=== PATIENT | female | born 1950 | race Caucasian/White ===

== ENCOUNTER → 2019-09-02 07:35 | Outpatient (CLI) | payer OTHER, SELFPAY ==
--- NOTE | ~2019-09-02 | MM_ITS ---
EXAMINATION: MM screening tonia BI w cindy HISTORY: Screening mammogram TECHNIQUE: Craniocaudal and mediolateral oblique 3-D tomosynthesis images were obtained and synthetic 2-D images were generated. CAD analysis was submitted and interpreted. COMPARISON: Comparison to multiple prior studies sequentially, with oldest reviewed study dated 04/05. BREAST PARENCHYMAL COMPOSITION: There are scattered areas of fibroglandular density. FINDINGS: There is no evidence of suspicious mass, calcification, or architectural distortion to sugg est malignancy in either breast. There has been no suspicious interval change. IMPRESSION: 1. No mammographic evidence of malignancy. 2. Recommend routine screening mammography in one year. BI-RADS Category 1: Negative Reviewed, dictated and finalized at location A. TRICIAN TELEPHONE
== END ==
PROVIDERS: Visit Provider Nurse Practitioner Family
DX: Z12.31 Encounter for screening mammogram for malignant neoplasm of breast (principal)
CPT/HCPCS: 77063; 77067

== ENCOUNTER → 2020-09-10 12:22 | Outpatient (CLI) | payer OTHER, SELFPAY ==
--- NOTE | ~2020-09-10 | MM_ITS ---
EXAMINATION: MM screening tonia BI w cindy HISTORY: Screening mammogram TECHNIQUE: Craniocaudal and mediolateral oblique 3-D tomosynthesis images were obtained and synthetic 2-D images were generated. CAD analysis was submitted and interpreted. COMPARISON: September 02, 2021, July 23, 2018, July 08, 2017 bilateral digital screening mammogra m examinations BREAST PARENCHYMAL COMPOSITION: There are scattered areas of fibroglandular density. FINDINGS: Bilateral benign appearing stable axillary tail lymph nodes. Occasional bilateral benign ca lcifications are again present. There is no evidence of suspicious mass, calcification, or architectu ral distortion to suggest malignancy in either breast. There has been no suspicious interval change. IMPRESSION: 1. No mammographic evidence of malignancy. 2. Recommend routine screening mammography in one year. BI-RADS Category 2: Benign finding(s). Reviewed, dictated and finalized at location A. RATORY EQUIPMENT INSTALLER
== END ==
PROVIDERS: PCP Family Medicine; Visit Provider Family Medicine
DX: Z12.31 Encounter for screening mammogram for malignant neoplasm of breast (principal)
CPT/HCPCS: 77063; 77067

== ENCOUNTER → 2022-01-15 14:11 | Outpatient (CLI) | payer MEDICARE, SELFPAY ==
--- NOTE | ~2022-01-15 | MM_ITS ---
EXAMINATION: MM screening tonia BI w cindy HISTORY: Screening mammogram TECHNIQUE: Craniocaudal and mediolateral oblique 3-D tomosynthesis images were obtained and synthetic 2-D images were generated. CAD analysis was submitted and interpreted. COMPARISON: 09/10/2020, 08/25/2019, 07/23/2018 BREAST PARENCHYMAL COMPOSITION: There are scattered areas of fibroglandular density. FINDINGS: Scattered benign-appearing calcifications are present. There is no suspicious mass, calcifi cation, or architectural distortion to suggest malignancy in either breast. There has been no suspici ous interval change. IMPRESSION: 1. No mammographic evidence of malignancy. 2. Recommend routine screening mammography in one year. BI-RADS Category 2: Benign finding(s). Reviewed, dictated and finalized at location A.
== END ==
PROVIDERS: PCP Family Medicine; Visit Provider Family Medicine
DX: Z12.31 Encounter for screening mammogram for malignant neoplasm of breast (principal)
CPT/HCPCS: 77063; 77067

== ENCOUNTER 2022-01-19 14:11 | Emergency (ER) | payer MEDICARE, SELFPAY ==
[2022-01-19 14:20] VITALS: BP 112/72; PULSE 82; RESP 16; TEMP 36.4; O2SAT 97
--- NOTE | 2022-01-19 14:29 | ED.GENADULT ---
HPI - General Adult General Chief complaint: Upper Respiratory Infection Stated complaint: Sore Throat History of Present Illness HPI narrative: Patient is a 71-year-old female who presents to the [facility] via POV for evaluation of a sore throat that began 2 days ago. Additionally, she reports bilateral ear pain and postnasal drip. Right ear is worse than left ear. Denies taking OTC meds for symptoms. Does not identify alleviating or aggravating factors. Denies known exposure or sick contacts. Related Data Home Medications Medication Instructions Recorded Confirmed amlodipine 5 mg tablet 1 tablet PO DAILY 01/19/22 01/19/22 escitalopram oxalate 20 mg tablet 1 tablet PO DAILY 01/19/22 01/19/22 liraglutide 0.6 mg/0.1 mL (18 mg/3 1 ea subcut DAILY 01/19/22 01/19/22 mL) subcutaneous pen injector (Victoza 2-Eduardo) losartan 100 mg tablet 1 tablet PO DAILY 01/19/22 01/19/22 meloxicam 7.5 mg tablet 2 tablet PO DAILY 01/19/22 01/19/22 metformin 500 mg tablet 1 tablet PO BID 01/19/22 01/19/22 methocarbamol 750 mg tablet 1 tablet PO TID PRN Muscle Spasm 01/19/22 01/19/22 omeprazole 20 mg capsule,delayed 1 cap PO DAILY 01/19/22 01/19/22 release pen needle, diabetic 31 gauge x 01/19/22 01/19/22 1/4 (UltiCare Pen Needle) rosuvastatin 10 mg tablet 1 tablet PO DAILY 01/19/22 01/19/22 Allergies Allergy/AdvReac Type Severity Reaction Status Date / Time No Known Allergies Allergy Unknown Verified 01/19/22 14:18 Review of Systems Review of Systems: Denies fever, chills, sweats, change in appetite, poor p.o. intake, ear drainage, hearing difficulty, sinus problems, drooling, difficulty swallowing, voice changes, cough, shortness of breath, chest pain, heart palpitations, nausea, vomiting, diarrhea. PMFSH Comments I have reviewed and agree with the patient's past medical, surgical, social, and family hx as documented by the RN. There is no relevant family history pertinent to the presenting complaint. Exam Narrative: GENERAL: Well-appearing, well-nourished, and in no acute distress. HEAD: Normocephalic, atraumatic. No sinus tenderness or facial swelling appreciated. EYES: PERRLA and EOMI. No evidence of erythema, swelling, or drainage. ENT: Bilateral external ears and ear canals normal. Bilateral TMs are normal.No TM perforation. Nares clear, no rhinorrhea or epistaxis. Bilateral turbinates without erythema/ swelling. Mucous membranes moist and pink. Uvula is midline. Moderate amount of white plaques noted to oropharynx. Airway patent. No evidence of drooling, pooling of secretions, or peritonsillar abscess appreciated. Breath odor and voice normal. NECK: Supple. No Lymphadenopathy or nuchal rigidity appreciated. CHEST: Bilateral lung mayes are clear to auscultation. No respiratory distress. No evidence of cough or pleuritic cp upon examination. HEART: Regular rate and rhythm. No murmur, gallop, or rub heard. EXTREMITIES: Normal range of motion. No edema. SKIN: Warm, dry, no rash. NEURO: No focal deficits. Alert and oriented x3. Course Course Level of Care: Express Care Visit Vital Signs Vital signs: Vital Signs Temperature 97.5 F L 01/19/22 14:20 Pulse Rate 82 01/19/22 14:20 Respiratory Rate 16 01/19/22 14:20 Blood Pressure 112/72 01/19/22 14:20 Pulse Oximetry 97 01/19/22 14:20 Oxygen Delivery Room Air 01/19/22 14:20 Temperature 97.5 F L 01/19/22 14:20 Pulse Rate 82 01/19/22 14:20 Respiratory Rate 16 01/19/22 14:20 Blood Pressure 112/72 01/19/22 14:20 Pulse Oximetry 97 01/19/22 14:20 Oxygen Delivery Room Air 01/19/22 14:20 Medical Decision Making Differential Diagnosis Differential Diagnosis: URI, tonsillitis, group A beta strep, oral candidiasis Medical Records Medical records reviewed: Yes I reviewed the external patient's medical records. Vital Signs Vital Signs: Vital Signs Temperature 97.5 F L 01/19/22 14:20 Pulse Rate 82 07/1
== END 2022-01-19 14:55 | disposition home or self-care (01) ==
PROVIDERS: Emergency Provider Nurse Practitioner Family; PCP Family Medicine
DX: B37.0 Candidal stomatitis (principal); E78.00 Pure hypercholesterolemia, unspecified; I10 Essential (primary) hypertension; K21.9 Gastro-esophageal reflux disease without esophagitis; E11.9 Type 2 diabetes mellitus without complications; F41.9 Anxiety disorder, unspecified
CPT/HCPCS: 87081; 87880; 99213; G0463

== ENCOUNTER → 2023-04-06 12:13 | Outpatient (CLI) | payer MEDICARE, SELFPAY ==
--- NOTE | ~2023-04-06 | MM_ITS ---
EXAMINATION: MM screening tonia BI w cindy HISTORY: Screening mammogram TECHNIQUE: Craniocaudal and mediolateral oblique 3-D tomosynthesis images were obtained and synthetic 2-D images were generated. CAD analysis was submitted and interpreted. COMPARISON: 01/15/2022, 09/20/2020 BREAST PARENCHYMAL COMPOSITION: There are scattered areas of fibroglandular density. FINDINGS: No suspicious mass, calcification, or architectural distortion are identified in either elda ast to suggest malignancy. There has been no suspicious interval change. IMPRESSION: 1. No mammographic evidence of malignancy. 2. Recommend routine screening mammography in one year. BI-RADS Category 1: Negative Reviewed, dictated and finalized at location A.
== END ==
PROVIDERS: PCP Family Medicine; Visit Provider Family Medicine
DX: Z12.31 Encounter for screening mammogram for malignant neoplasm of breast (principal)
CPT/HCPCS: 77063; 77067

== ENCOUNTER 2024-04-08 10:13 | Outpatient (CLI) | payer MEDICARE, SELFPAY ==
--- NOTE | ~2024-04-08 | MM_ITS ---
EXAMINATION: MM screening tonia BI w cindy HISTORY: Screening TECHNIQUE: Craniocaudal and mediolateral oblique 3-D tomosynthesis images were obtained and synthetic 2-D images were generated. CAD analysis was submitted and interpreted. COMPARISON: Comparison to multiple prior studies sequentially, with oldest reviewed study dated 09/2017. BREAST PARENCHYMAL COMPOSITION: Not dense: There are scattered areas of fibroglandular density. FINDINGS: There is no evidence of suspicious mass, calcification, or architectural distortion to sugg est malignancy in either breast. There has been no suspicious interval change. IMPRESSION: 1. No mammographic evidence of malignancy. 2. Recommend routine screening mammography in one year. BI-RADS Category 1: Negative Reviewed, dictated and finalized at location B.
== END 2024-04-08 10:14 | disposition home or self-care (01) ==
LOC: MICIMG 10:14
PROVIDERS: PCP Family Medicine; Visit Provider Family Medicine
DX: Z12.31 Encounter for screening mammogram for malignant neoplasm of breast (principal)
CPT/HCPCS: 77063; 77067

== ENCOUNTER 2024-07-03 08:41 | Emergency (ER) | payer MEDICARE, SELFPAY ==
--- NOTE | 2024-07-03 09:06 | ED.URI ---
HPI - URI/Sore Throat General Chief Complaint: Upper Respiratory Infection Stated Complaint: URI / UTI Time Seen by Provider: 07/03/24 09:07 History of Present Illness HPI Narrative: 74-year-old female with history of diabetes and hypertension presented for complaint of headache, body aches, sinus pressure/congestion, cough, fatigue, fever/chills. Onset 1-2 days. Endorses painful cough, temp up to 100. Also says she has been having more urinary accidents which she attributes to moving slowly and not getting to the bathroom fast enough. Denies dysuria, hematuria, abdominal pain, flank pain. Taking Coricidin and ibuprofen. Denies sob, wheezing, n/v/d. Related Data Home Medications ?Medication ?Instructions ?Recorded ?Confirmed ?Last Taken ?Type amlodipine 5 mg tablet 1 tablet PO DAILY 01/19/22 01/19/22 Unknown History escitalopram oxalate 20 mg tablet 1 tablet PO DAILY 01/19/22 01/19/22 Unknown History liraglutide 0.6 mg/0.1 mL (18 mg/3 1 ea subcut DAILY 01/19/22 01/19/22 Unknown History mL) subcutaneous pen injector ([employer] 2-Eduardo) losartan 100 mg tablet 1 tablet PO DAILY 01/19/22 01/19/22 Unknown History meloxicam 7.5 mg tablet 2 tablet PO DAILY 01/19/22 01/19/22 Unknown History metformin 500 mg tablet 1 tablet PO BID 01/19/22 01/19/22 Unknown History methocarbamol 750 mg tablet 1 tablet PO TID PRN Muscle Spasm 01/19/22 01/19/22 Unknown History omeprazole 20 mg capsule,delayed 1 cap PO DAILY 01/19/22 01/19/22 Unknown History release pen needle, diabetic 31 gauge x 01/19/22 01/19/22 Unknown History 1/4 (UltiCare Pen Needle) rosuvastatin 10 mg tablet 1 tablet PO DAILY 01/19/22 01/19/22 Unknown History Allergies Allergy/AdvReac Type Severity Reaction Status Date / Time No Known Allergies Allergy Unknown Verified 07/03/24 08:58 Review of Systems Review of Systems: per HPI [facility] Past Medical History Medical History HTN (hypertension) Diabetes Exam Narrative: GENERAL: mildly Ill-appearing, no acute distress. EYES: conjunctivae clear ENT: Mucous membranes moist. TM pearly perez with normal light reflex bilaterally; no tragal tenderness. Oropharynx erythematous without lesions. Hoarse voice. No drooling, no trismus, uvula midline. No tripod positioning, hot potato voice, or soft palate swelling. NECK: Supple. No lymphadenopathy CHEST: Clear to auscultation, breath sounds equal. No respiratory distress, speaks in full sentences. HEART: Regular rate and rhythm. No murmur heard. SKIN: Warm, dry, no rash. NEURO: Alert and oriented x3. Course Course Emergency Course: Patient is aware of diagnosis, understands and agrees to treatment plan. Anticipatory guidance given. Patient agrees to follow-up as directed and is aware of reasons to seek care at the emergency department. Portions of this record may have been created with voice recognition software Level of Care: Express Care Visit Vital Signs Vital signs: Vital Signs Temperature 98.8 F 07/03/24 09:08 Pulse Rate 96 07/03/24 09:08 Respiratory Rate 16 07/03/24 09:08 Blood Pressure 148/73 H 07/03/24 09:08 Pulse Oximetry 95 07/03/24 09:08 Temperature 98.8 F 07/03/24 09:08 Pulse Rate 96 07/03/24 09:08 Respiratory Rate 16 07/03/24 09:08 Blood Pressure 148/73 H 07/03/24 09:08 Pulse Oximetry 95 07/03/24 09:08 MDM - URI/Sore Throat MDM Narrative Medical decision making narrative: POS flu., result reviewed with pt. Declined tamiflu. Will culture urine, sx likely due to slow to get to bathroom. Advise supportive treatments. Patient is appropriate for outpatient treatment and follow-up. Differential Diagnosis Differential diagnosis: Likely upper respiratory infection, viral infection and pharyngitis Lab Data Labs: Lab Results 07/03/24 07/03/24 07/03/24 Range/Units 09:10 09:14 09:20 POC Urine Color Yellow POC Urine Clarity Clear POC Urine pH 7.5 POC Ur Specif Sublimity 1.020 POC Urine Protein 2+ (Negative) POC Ur Glucose (UA) Negative (Negative) POC Urine Ketones Negative (Negative) POC Urine Blood Negative (Negative) POC Urine Nitrite Negative (Negative) POC Urine Bilirubin Negative (Negative) POC Urine Urobilinogen 0.2 POC U Leukocyte Esteras Negative (Negative) POC Influenza A Ag Positive (Negative) POC Influenza B Ag Negative (Negative) POC SARS CoV-2 Ag Negative (Negative) Discharge Plan Discharge Clinical Impression: Influenza Patient Disposition: Home, Self-Care Condition: Stable Instructions: Influenza (ED) Additional Instructions: Influenza positive You should avoid crowds until you are fever free for 24 hours without the use of fever reducing medications, or the symptoms are improved Rest. Drink plenty of fluids. Tylenol 1000mg every 8 hours as needed for pain/fever Flonase spray and Zyrtec (or Claritin/Kisha) for sinus pressure/congestion over the counter Cough syrup may cause drowsiness; avoid driving or take it at night time. Your urine will be sent of for a culture to determine if bacteria is causing your symptoms. If the culture shows a UTI, you will be notified and an antibiotic will be called in for you. Follow up with your primary care provider as needed in 3 days Go to the ER for worsening symptoms or concerns Patient Language: Maori Prescriptions: No Action metformin 500 mg tablet 1 tablet PO BID amlodipine 5 mg tablet 1 tablet PO DAILY meloxicam 7.5 mg tablet 2 tablet PO DAILY methocarbamol 750 mg tablet 1 tablet PO TID PRN (Reason: Muscle Spasm) omeprazole 20 mg capsule,delayed release(DR/EC) 1 cap PO DAILY losartan 100 mg tablet 1 tablet PO DAILY (DME) pen needle, diabetic [UltiCare Pen Needle] 31 gauge x 1/4 needle MISCELLANEOUS escitalopram oxalate 20 mg tablet 1 tablet PO DAILY rosuvastatin 10 mg tablet 1 tablet PO DAILY Victoza 2-Eduardo 0.6 mg/0.1 mL (18 mg/3 mL) pen injector 1 ea SUBCUT DAILY clotrimazole 10 mg kylee 10 mg mucous membrane DIRECTED 14 Days Qty: 14 0RF Rx Instructions: 5 times daily Follow-up/Referrals: UNKNOWN,DOCTOR [Primary Care Provider] - Time of Disposition: 09:19
[2024-07-03 09:08] VITALS: BP 148/73; PULSE 96; RESP 16; TEMP 37.1; O2SAT 95
[2024-07-03 09:11] LABS: EDINFLUASCREEN Positive (Negative); EDINFLUBSCREEN Negative (Negative)
[2024-07-03 09:17] LABS: EDUAAPPEAR Clear; EDUABILI Negative (Negative); EDUABLOOD Negative (Negative); EDUACOLOR1 Yellow; EDUAGLUCOSE Negative (Negative); EDUAKETONE Negative (Negative); EDUALEUKO Negative (Negative); EDUANITRATE Negative (Negative); EDUAPH 7.5; EDUAPROTEIN 2+ (Negative); EDUAUROBILI 0.2
[2024-07-03 09:22] LABS: EDCOVIDSCREEN Negative (Negative)
--- OUTSIDE RECORDS SUMMARY | 2024-07-10 04:41 | XMS_ITS | Encounter Summary ---
Author Organization [facility] Address [address] [place] [address]. [place], [place] [address] [place] [address] Care Team Providers Care Surgical Garment Assembly Supervisor Name Role Phone Unavailable Primary Care Provider Unavailabl e Encounter Details Date Type Department Care Team (Late st Contact Info) Description 06/09/2021 Patient Self-Triage [facility] DEPARTMENT [address] [place] [id number] [facility] Provider Social History Tobacco Use Types Packs/Day Years Used Date Smoking Tobacco: Never Assessed Comments Unknown Sex and Gender Information Value Date Recorded Sex Assigned at Not on file Legal Sex Female 12: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
--- OUTSIDE RECORDS SUMMARY | 2024-07-10 04:41 | XMS_ITS | Encounter Summary ---
Author Organization [facility] Address [address] [place] [address]. 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 No / Unsure 06/22/2021 9:35 AM PAINTING AND COATING WORKER documented as of this encounter Plan of Treatment Not on file documented as of this encounter Visit Diagnoses Not on filedocumented in this encounter
--- OUTSIDE RECORDS SUMMARY | 2024-07-10 04:41 | XMS_ITS | Encounter Summary ---
Author Organization [facility] Address [address] [place] [address]. [place], [place] [address] [place] [address] Care Team Providers Care Jazz Musician Name Role Phone Unavailable Primary Care Provider Unavailabl e Encounter Details Date Type Department Care Team (Latest Contact Info) Description 08/27/2020 Travel Social History Tobacco Use Types Packs/Day Years Used Date Smoking Tobacco: Never Assessed Comments Unknown Sex and Gender Information Value Date Recorded Sex Assigned at Not on file Legal Sex Female 12:46 PM DISPOSAL WORKER Gender Identity Not on file Sexual Orientation Not on file COVID-19 Exposure Response Date Recorded In the last month, have you been in contact with someone who was confirmed or suspected to have Coronavirus / COVID-19? No / Unsure 08/27/2020 9:26 AM DISPOSAL WORKER documented as of this encounter Plan of Treatment Not on file documented as of this encounter Visit Diagnoses Not on filedocumented in this encounter
--- OUTSIDE RECORDS SUMMARY | 2024-07-10 04:41 | XMS_ITS | Encounter Summary ---
Author Organization [facility] Address [address] [place] [address]. [place], [place] [address] [place] [address] Care Team Providers Care Field Ironworker Name Role Phone Unavailable Primary Care Provider Unavailabl e Encounter Details Date Type Department Care Team (Latest Contact Info) Description 09/17/2020 Travel Social History Tobacco Use Types Packs/Day Years Used Date Smoking Tobacco: Never Assessed Comments Unknown Sex and Gender Information Value Date Recorded Sex Assigned at Not on file Legal Sex Female 12:46 PM VINYL FLOORING INSTALLER Gender Identity Not on file Sexual Orientation Not on file COVID-19 Exposure Response Date Recorded In the last month, have you been in contact with someone who was confirmed or suspected to have Coronavirus / COVID-19? No / Unsure 09/17/2020 10:42 AM CDT documented as of this encounter Plan of Treatment Not on file documented as of this encounter Visit Diagnoses Not on filedocumented in this encounter
--- OUTSIDE RECORDS SUMMARY | 2024-07-10 04:41 | XMS_ITS | Clinical Summary ---
Author Organization [facility] Address [address] [place] [address]. 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 Gender Identity Not on file Sexual Orientation Not on file Plan of Treatment Health Maintenance Due Date Last Done Comments Colorectal Cancer Screening Colonoscopy (10 Years) 1952 Hepatitis C 02/25/1970 Mammogram Screening 1992 DTaP, Tdap and Td Vaccines ( 1 - Tdap) 06/06/2010 06/05/2010 Annual Medicare Wellness Visit 02/25/2017 Dexa Scan (General) 02/25/2017 Pneumococcal Vaccine: 65+ Years (2 of 2 - PPSV23 or PCV20) 04/22/2018 04/22/2017 COVID-19 Vaccine (4 - 2023-2 5 season) 2024 06/25/2021, 09/17/2020, 08/27/2020 Influenza Adult (#1) 2024 04/10/2020 RSV Immunization or 60+ Years (1 - 1-dose 75+ series) 02/25/2027 Zoster Vaccines Completed 01/18/2019, 10/28/2018, 08/20/2012 Meningococcal Vaccine Aged Out No lukasz janeth eligible based on patient's age to complete this topic RSV Immunizations Under 20 Months Aged Out No longer eligible b ased on patient's age to complete this topic Insurance [facility]
--- OUTSIDE RECORDS SUMMARY | 2024-07-10 04:41 | XMS_ITS | Encounter Summary ---
Author Organization [facility] Address [address] [place] [address]. [place] [address] [place] [address] Care Team Providers Care Lead Designer Name Role Phone Unavailable Primary Care Provider Unavailabl e Encounter Details Date Type Department Care Team (Latest Contact Info) Description 08/27/2020 9:28 AM PERFORMANCE MANAGEMENT CONSULTANT - 08/27/2020 11:59 PM PERFORMANCE MANAGEMENT CONSULTANT Hospital Encounter [facility] [place] [address] Binh Wynne MD Discharge Disposition: Home or Self Care (Routine Discharge) Social History Tobacco Use Types Packs/Day Years Used Date Smoking Tobacco: Never Assessed Comments Unknown Sex and Gender Information Value Date Recorded Sex Assigned at Not on file Legal Sex Female 12:46 PM PERFORMANCE MANAGEMENT CONSULTANT Gender Identity Not on file Sexual Orientation Not on file COVID-19 Exposure Response Date Recorded In the last month, have you been in contact with someone who was confirmed or suspected to have Coronavirus / COVID-19? No / Unsure 08/27/2020 9:26 AM PERFORMANCE MANAGEMENT CONSULTANT documented as of this encounter Plan of Treatment Not on file documented as of this encounter Visit Diagnoses Diagnosis Need for prophylactic vaccination against viral disease- Primary Need for prophylactic vaccination and inoculation against other viral diseases documented in this encounter
--- OUTSIDE RECORDS SUMMARY | 2024-07-10 04:41 | XMS_ITS | Encounter Summary ---
Author Organization [facility] Address [address] [place] [address]. [place] [address] [place] [address] Care Team Providers Care Head Of Acquisitions Name Role Phone Unavailable Primary Care Provider Unavailabl e Encounter Details Date Type Department Care Team (Latest Contact Info) Description 09/17/2020 10:43 AM CDT - 09/17/2020 11:59 PM CDT Hospital Encounter [facility] [place] [address] Binh Wynne MD Discharge Disposition: Home or Self Care (Routine Discharge) Social History Tobacco Use Types Packs/Day Years Used Date Smoking Tobacco: Never Assessed Comments Unknown Sex and Gender Information Value Date Recorded Sex Assigned at Not on file Legal Sex Female 12:46 PM ODD SHOE EXAMINER Gender Identity Not on file Sexual Orientation [...]
--- OUTSIDE RECORDS SUMMARY | 2024-07-10 04:41 | XMS_ITS | Encounter Summary ---
Author Organization [facility] Address [address] [place] [address]. 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
--- OUTSIDE RECORDS SUMMARY | 2024-07-10 04:42 | XMS_ITS | Encounter Summary ---
Author Organization [facility] Healthcare Address [address] [place] [address] Care Team Providers Care Electricity Trader Name Role Phone Aurelia Huitron MD Primary Care Provi jarred Encounter Details Date Type Department Care Team (Late st Contact Info) Description 06/24/2023 Orders Only [facility] Medical Group Family Medicine [address] [phone] Aurelia Huitron MD [address] [address] Type 2 diabetes mellitus with other specified complication, without long-term current use of insulin (HCC) (Primary Dx) Social History Tobacco Use Types Packs/Day Years Used Date Smoking Tobacco: Never Smokeless Tobacco: Never Alcohol Use Standard Drinks/Week Comments Never 0 (1 standard drink = 0.6 oz pur e alcohol) AUDIT-C Answer Date Recorded Q1: How often do you have a drink containing alc ohol? 2-3 times a week 08/18/2022 Q2: How many drinks containi ng alcohol do you have on a typical day when you are drinking? 1 or 2 08/18/2022 Q3: How often do you have si x or more drinks on one occasion? 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 Gender Identity Not on file Sexual Orientation Not on file documented as of this encounter Ordered Prescriptions Prescription Sig Dispense Quantity Refills Last Filled Start Date End Date dulaglutide (TRULICITY) 0.75 mg/0.5 mL pen injectorIndication s:Type 2 diabetes mellitus with other specified complication, without long-term current use of insulin (HCC) Inject 0.5 mL (0.75 mg total) under the skin once a week 4 mL 2 06/24/2023 09/09/2023 documented in this encounter Plan of Treatment Not on file documented as of this encounter Procedures Procedure Name Priority Date/Time Associated Diagnosis Comments ALBUMIN CREATININE RATIO, URINE Routine 02/19/2024 11:03 AM CDT Type 2 diabetes mellitus with other specified complication, without long-term current use of insulin (HCC) HEMOGLOBIN A1C Routine 02/19/2024 11:03 AM CDT Type 2 diabetes mellitus with other specified complication, without long-term current use of insulin (HCC) COMPREHENSIVE METABOLIC PANEL Routine 02/19/2024 11:03 AM CDT Type 2 diabetes mellitus with other specified complication, without long-term current use of insulin (HCC) documented in this encounter Results * Albumin Creatinine Ratio, Urine (02/19/2024 11:03 AM CDT) Creatinine, ur 71 20 - 275 mg/dL [facility] Microalbumin, ur 0.4 See Note: mg/dL [facility] Comment: Reference Range: Reference Range Not established Microalbumin/creat ratio 6 <30 mg/g creat [facility] Comment: The ADA defines abnormalities in albumin excretion as follows: Albuminuria Category ?Result (mg/g creatinine) Normal to Mildly increased ?? <30 Moderately increased ? 30-299 Severely increased ? > OR = 300 The ADA recommends that at least two of three specimens collected within a 3-6 month period be abnormal before considering a patient to be within a diagnostic category. Urine 02/19/2024 11:0 3 AM CDT 02/19/2024 11:04 AM CDT us Aurelia Huitron MD LAB URINE ORDERABLE S Final Result [facility] [address] [place] [phone] * (ABNORMAL) Comprehensive metabolic panel (02/19/2024 11:03 AM CDT) Glucose 95 65 - 99 mg/dL [facility] Comment: ? Fasting reference interval BUN 9 7 - 25 mg/dL [facility] Creatinine 0.61 0.60 - 1.00 mg/dL [facility] eGFR 96 > OR = 60 mL/min/1.7 3m2 [facility] BUN/creat ratio SEE NOTE: 6 - 22 (calc) [facility] Comment: ?? Not Reported: BUN and Creatinine are within ?? reference range. ? Sodium 134(L) 135 - 146 mmol/L [facility] Potassium, pl 4.2 3.5 - 5.3 mmol/L [facility] Chloride 96(L) 98 - 110 mmol/L [facility] CO2 29 20 - 32 mmol/L [facility] Calcium 9.5 8.6 - 10.4 mg/dL [facility] Protein, sr 7.3 6.1 - 8.1 g/dL [facility] Albumin 4.4 3.6 - 5.1 g/dL [facility] GLOBULIN 2.9 1.9 - 3.7 g/dL (calc) [facility] Alb/glob ratio 1.5 1.0 - 2.5 (calc) [facility] Bilirubin, total 0.4 0.2 - 1.2 mg/dL [facility] Alk phos 52 37 - 153 U/L [facility] AST 15 10 - 35 U/L [facility] ALT (SGPT) 17 6 - 29 U/L [facility] Blood 02/19/2024 11:0 3 AM CDT 02/19/2024 11:04 AM CDT us Aurelia Huitron MD LAB BLOOD ORDERABLE S Final Result [facility] [address] [facility] [place] [address] * (ABNORMAL) Hemoglobin A1c (02/19/2024 11:03 AM CDT) Hgb A1C 6.6(H) <5.7 % of total Hgb [facility] Comment: For someone without known diabetes, a hemoglobin A1c value of 6.5% or greater indicates that they may have diabetes and this should be confirmed with a follow-up test. For someone with known diabetes, a value <7% indicates that their diabetes is well controlled and a value greater than or equal to 7% indicates suboptimal control. A1c targets should be individualized based on duration of diabetes, age, comorbid conditions, and other considerations. Currently, no consensus exists regarding use of hemoglobin A1c for diagnosis of diabetes for children. ? This test was performed on the Eulalio diego c503 platform. Effective 09/21/23, a change in test platforms from the [employer] to the Eulalio diego c503 may have shifted HbA1c results compared to historical results. Based on laboratory validation testing conducted at [facility], the Eulalio platform relative to the Avendaño platform had an average increase in HbA1c value of < or = 0.3%. This difference is within accepted variability established by the National Glycohemoglobin Standardization Program. Note that not all individuals will have had a shift in their results and direct comparisons between historical and current results for testing conducted on different platforms is not recommended. Blood 02/19/2024 11:0 3 AM CDT 02/19/2024 11:04 AM CDT Aurelia Huitron MD LAB BLOOD ORDERABLE S Final [facility] [address] [place] [address] documented in this encounter Visit Diagnoses Diagnosis Type 2 diabetes mellitus with other specified complication, without long-term current use of insulin (HCC)- Primary documented in this encounter Discontinued Medications Medication Sig Discontinue Reason Start Date End Da te liraglutide (Victoza 2-Eduardo) 0.6 mg/0.1 mL (18 mg/3 mL) injection INJECT 1.2 MG UNDER THE SKIN ONCE DAILY Alternate therapy 04/27/2023 06/24/2023 documented as of this encounter Care Teams Electricity Trader Relationship Specialty Start Date End Date Aurelia Huitrno MD [address] [place] [address] PCP - General Family Medicine 05/23/20 documented as of this encounter
--- OUTSIDE RECORDS SUMMARY | 2024-07-10 04:42 | XMS_ITS | Encounter Summary ---
Author Organization [facility] Healthcare Address [address] [place] [address] Care Team Providers Care Ticket Scheduler Name Role Phone Aurelia Huitron MD Primary Care Provi jarred Reason for Visit * Reason Comments Chart Review [facility] SUPD Encounter Details Date Type Department Care Team (Late st Contact Info) Description 11/18/2023 ACO Quality [facility] Accountable Care Organization [address] [place] [id number] Aurelia Perez Social History Tobacco Use Types Packs/Day Years [...] points, staff should administer the PHQ-9) 0 08/26/2023 Personal Safety Answer Date Recorded Getting School Help Needed Not on file 06/23 Comments No Sex and Gender Information Value Date Recorded Sex Assigned at Not on file 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 documented in this encounter Plan of Treatment Not on file documented as of this encounter Visit Diagnoses Not on filedocumented in this encounter Care Teams Ticket Scheduler Relationship Specialty Start Date End Date Aurelia Huitron MD [address] [place], [place] [id number] PCP - General Family Medicine 05/23/20 documented as of this encounter
--- OUTSIDE RECORDS SUMMARY | 2024-07-10 04:42 | XMS_ITS | Encounter Summary ---
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 Patient is calling stating she goes out of town for the summer and she wanted to know if it is possible for her to machine pecan picker a month supply paper script soshe can have it on hand If needed, Pharmacy(s) medication(s) should be sent to: paper script Additional Comments: N/A Does message need to be routed? Yes-Action Needed documented in this encounter Plan of Treatment Not on file documented as of this encounter Visit Diagnoses Not on filedocumented in this encounter Care Teams Sox Analyst Relationship Specialty Start Date End Date Aurelia Huitron MD [facility] [address] [place] [address] PCP - General Family Medicine 05/23/20 documented as of this encounter
--- OUTSIDE RECORDS SUMMARY | 2024-07-10 04:42 | XMS_ITS | Encounter Summary ---
Author Organization [facility] Healthcare Address [address] [place] [address] Care Team Providers Care Parts Room Clerk Name Role Phone Aurelia Huitron MD Primary Care Provi jarred Encounter Details Date Type Department Care Team (Late st Contact Info) Description 04/06/2023 E-Visit [facility] Medical Group Virtual Care [address] [place] [address] Rachel Diop NP [address] [place] [address] Your Medications Social History Tobacco Use Types Packs/Day Years [...] staff should administer the PHQ-9) 0 08/18/2022 Comments No Sex and Gender Information Value Date Recorded Sex Assigned at Not on file 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 Valeria Bean Alex 04/06/2023 E-Visit Submission Subjective/Objective: Valeria Bean Alex contacted the office today via e-visit for Sinusitis. The patient-submitted questionnaire was assessed for pertinent information and the patient's problem list, medication list, and allergies were reviewed as part of the e-visit. The chart was updated to identify any changes in these areas. Assessment: Diagnosis Plan 1. Acute non-recurrent sinusitis, unspecified location Plan: The patient was given information regarding any new medication(s) prescribed, if applicable, as well as any [id number] remedies. She was given instructions regarding follow up and timeframe if symptoms worsen or don???t improve. These instructions were included in the [employer] message reply tothe patient. Patient Instructions were included in the message reply to patient. My total encounter time on 04/06/2023 was 5 minutes which was spent in the activities documented inthe note. New Medications Ordered This Visit methylPREDNISolone (MEDROL DOSEPACK) 4 mg Dosepack Sig: Take as directed on package Dispense: 1 packet Refill: 0 amoxicillin-clavulanate (Augmentin) 875-125 mg per tablet Sig: Take 1 tablet by mouth 2 (two) times a day for 7 days Dispense: 14 tablet Refill: 0 Rachel Diop NP documented in this encounter Plan of Treatment Not on file documented as of this encounter Visit Diagnoses Diagnosis Acute non-recurrent sinusitis, unspecified location- Primary documented in this encounter Care Teams Parts Room Clerk Relationship Specialty Start Date End Date Aurelia Huitron MD [address] [place] [address] PCP - General Family Medicine 05/23/20 documented as of this encounter
--- OUTSIDE RECORDS SUMMARY | 2024-07-10 04:42 | XMS_ITS | Encounter Summary ---
Author Organization [facility] Medical Group Address [address] [place] [address] Care Team Providers Care Range Aid Name Role Phone Aurelia Huitron MD Primary Care Provi jarred Reason for Visit * Reason Comments Urinary Frequency Encounter Details Date Type Department Care Team (Latest Contact Info) Description 05/23/2022 10:00 AM TYPESETTING MACHINE TENDER Clinical Support [facility] Medical [facility] Family Medicine [address] [phone] Urinary frequency (Primary Dx) Social History Tobacco Use Types Packs/Day Years Used Date Smoking Tobacco: Never Smokeless Tobacco: Never Alcohol Use Standard Drinks/Week Comments Never 0 (1 standard drink = 0.6 oz pur e alcohol) AUDIT-C Answer Date Recorded Q1: How often do you have a drink containing alc ohol? 2-3 times a week 05/06/2022 Q2: How many drinks containi ng alcohol do you have on a typical day when you are drinking? 3 or 4 05/06/2022 Q3: How often do you have si x or more drinks on one occasion? 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 MACHINE TENDER Gender Identity Not on file Sexual Orientation Not on file documented as of this encounter Plan of Treatment Not on file documented as of this encounter Procedures Procedure Name Priority Date/Time Associated Diagnosis Comments URINALYSIS AND REFLEX TO MICROSCOPIC AND CULTURE Routine 05/23/2022 4:13 PM TYPESETTING MACHINE TENDER Urinary frequency URINE CULTURE Routine 05/23/2022 4:13 PM TYPESETTING MACHINE TENDER POCT URINALYSIS DIPSTICK Routine 05/23/2022 10:00 AM TYPESETTING MACHINE TENDER Urinary frequency documented in this encounter Results * Urine culture (05/23/2022 4:13 PM TYPESETTING MACHINE TENDER) [facility]rine culture [facility] Comment: ??CULTURE, URINE, ROUTINE ?Micro Number: ?[id number] ??Test Status: ? Final ??Specimen Source: ?? Urine ??Specimen Quality: ??Adequate ??Result: ?Mixed genital chay isolated. These superficial ? bacteria are not indicative of a urinary tract ? infection. No further organism identification is ? warranted on this specimen. If clinically ? indicated, recollect clean-catch, mid-stream ? urine and transfer immediately to Urine Culture ? Transport Tube. ? We received a preserved urine culture transport ? tube with either no order indicated or a source ? which is inappropriate for the test requested. A ? urine culture was performed. If this is not what ? you intended to order, please contact your local ? client business manager immediately so that ? we can adjust our billing appropriately. You may ? also inquire about alternative or additional ? testing. 05/23/2022 4:13 PM TYPESETTING MACHINE TENDER 05/24/2022 5:46 AM TYPESETTING MACHINE TENDER Aurelia Huitron MD LAB MICROBIOLOGY - GENERAL ORDERABLES Final Result Performing Organization Address [facility] de Phone Number [facility] [address] [place] [address] * Urinalysis reflex to microscopic and culture Urine (05/23/2022 4:13 PM TYPESETTING MACHINE TENDER) Color, ur [facility] Comment: TEST NOT PERFORMED No suitable specimen received. Please review the test requirements at [email or web address] 05/23/2022 4:13 PM TYPESETTING MACHINE TENDER 05/24/2022 5:46 AM TYPESETTING MACHINE TENDER Aurelia Huitron MD LAB MICROBIOLOGY - GENERAL ORDERABLES Final Result Performing Organization Address [facility] de Phone Number [facility] [address] [place] [address] * POCT urinalysis dipstick (05/23/2022 10:00 AM TYPESETTING MACHINE TENDER) Color, Urine, POC Yellow Clarity, ur, POC Clear Clear Glucose, ur, POC Negative Negative MG/DL Bilirubin, ur, POC Negative Negative, Small, Moderate, Large Ketones, ur, POC Negative Negative Specific [place], POC 1.020 1.005 - 1.030 Blood, ur, POC Negative Negative pH, ur, POC 6.0 5.0 - 8.0 Protein, ur, POC Negative Negative Urobilinogen, urine, POC 0.2 0.2 - 1.0 mg/dL Nitrite, ur, POC Negative Negative Leukocytes, ur, POC Negative Negative Lot Number [id number] Urine 05/23/2022 10:0 0 AM TYPESETTING MACHINE TENDER us Aurelia Huitron MD POINT OF CARE TEST ORDERABLES Final Result documented in this encounter Visit Diagnoses Diagnosis Urinary frequency- Primary documented in this encounter Care Teams Range Aid Relationship Specialty Start Date End Date Aurelia Huitron MD [address] [place] [address] PCP - General Family Medicine 05/23/20 documented as of this encounter
--- OUTSIDE RECORDS SUMMARY | 2024-07-10 04:42 | XMS_ITS | Encounter Summary ---
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
--- OUTSIDE RECORDS SUMMARY | 2024-07-10 04:42 | XMS_ITS | Referral Summary ---
Author Organization [address] Address [address] [place] [id number] Care Team Providers Care Cnc Mill Operator Name Role Phone Aruelia Huitron MD Primary Care Provi jarred Allergies No known active allergies Medications methocarbamoL (ROBAXIN) 750 mg tablet TAKE 1 TABLET BY MOUTH 3 TIMES A DAY NEEDED FOR MUSCLE SPASMS. 30 tablet 1 2 Active meloxicam (MOBIC) 7.5 mg tabletIndicati ons:Acute pain of left knee Take 1-2 tablets (7.5-15 mg total) by mouth daily with food. 90 tablet 2 Active meclizine (ANTIVERT) 12.5 mg tabletIndicati ons:Benign paroxysmal positional vertigo of right ear Take 1 tablet (12.5 mg total) by mouth 3 (three) times a day as needed for dizziness 30 tablet 1 2 Active fluticasone propionate (FLONASE) 50 mcg/actuation nasal sprayIndicatio ns:Seasonal allergic rhinitis due to pollen Administer 2 sprays into each nostril daily 3 each 4 4 Active diclofenac sodium (VOLTAREN) 1 % gelIndications :Right wrist pain Apply 2 g topically 4 (four) times a day as needed (right wrist pain) 100 g 4 Active escitalopram (LEXAPRO) 20 mg tablet TAKE 1 TABLET BY MOUTH EVERY DAY 90 tablet 2 4 Active dulaglutide (Trulicity) 0.75 mg/0.5 mL pen injectorIndica tions:Type 2 diabetes mellitus with other specified complication, without long-term current use of insulin (HCC) INJECT 0.5 ML SUBCUTANEOUSLY ONE TIME PER WEEK 6 mL 1 4 Active aspirin 81 mg enteric coated tablet Take 1 tablet (81 mg total) by mouth daily 4 025 Active losartan (COZAAR) 100 mg tablet TAKE 1 TABLET BY MOUTH EVERY DAY 90 tablet 1 4 Active loratadine (CLARITIN) 10 mg tabletIndicati ons:Postnasal drip TAKE 1 TABLET BY MOUTH EVERY DAY 100 tablet 1 4 Active metFORMIN (GLUCOPHAGE) 500 mg tablet TAKE 1 TABLET BY MOUTH TWICE A DAY WITH FOOD 180 tablet 4 Active amLODIPine (NORVASC) 5 mg tablet TAKE 1 TABLET BY MOUTH TWICE A DAY 200 tablet 4 Active clobetasoL (TEMOVATE) 0.05 % external solutionIndica tions:Dermatit is APPLY TO AFFECTED AREA TWICE A DAY 50 mL 1 4 Active rosuvastatin (CRESTOR) 10 mg tablet TAKE 1 TABLET BY MOUTH EVERY DAY 100 tablet 4 Active Active Problems Problem Noted Date Diagnosed Date Ear drum perforation, right 10/12/2023 Overview (10/12/2023): acute, new vs prior will refer to ENT update me after the visit Alcohol use 09/20/2021 Assessment & Plan (08/26/2023 10:12 AM NURSE INFORMATICS EDUCATOR): Chronic, stable Encouraged cutting down Assessment & Plan (08/18/2022 10:43 AM NURSE INFORMATICS EDUCATOR): Chronic, but encouraged cutting down Assessment & Plan (09/20/2021 8:53 AM CDT): She has 1-2 drinks 3-4 times a week- mostly a mixed drink with vodka Encouraged cutting down amount Encounter for Medicare annual wellness exam 07/06 Overview (08/26/2023): Encouraged healthy diet and activity Pt has POA and living will Health Maintenance: Last mammogram: 01/15/22, 12/26- WNL Last DEXA:-12/25- WNL- ordered Last colon cancer screening: cologuard 07/2021- Neg Last pneumonia/Prevnar: up to date Last Shingrix: up to date Last Flu: encouraged Last COVID: encouraged Assessment & Plan (08/26/2023 10:11 AM NURSE INFORMATICS EDUCATOR): Encouraged healthy diet and activity Pt has POA and living will Health Maintenance: Last mammogram: 01/15/22, 12/26- WNL Last DEXA:-12/25- WNL- ordered Last colon cancer screening: cologuard 07/2021- Neg Last pneumonia/Prevnar: up to date Last Shingrix: up to date Last Flu: encouraged Last COVID: encouraged Assessment & Plan (08/18/2022 10:41 AM NURSE INFORMATICS EDUCATOR): Encouraged healthy diet and activity Encouraged looking into a POA/Living will Health Maintenance: Last mammogram: 01/15/22 Last DEXA:-12/25- WNL Last colon cancer screening: cologuard 07/2021- Neg Last pneumonia/Prevnar: up to date Last Shingrix: up to date Last Flu: up to date Last COVID: up to date Assessment & Plan (07/17/2021 12:51 PM NURSE INFORMATICS EDUCATOR): Encouraged healthy diet and activity Health Maintenance: Last mammogram: 09/2020- WNL Last DEXA:-ordered Last colonoscopy/cologuard: cologuard ordered, encouraged to check with insurance regarding getting it done Last pneumonia/Prevnar: up to date Last Shingrix: up to date Last Flu: up to date Last COVID: up to date Class 1 obesity due to exces s calories with serious comorbidity and body mass index (BMI) of 31.0 to 31.9 in adult 12/18/2020 Assessment & Plan (02/18/2024 4:00 PM CDT): Chronic, stable BMI Follow-up includes: nutrition counseling. Assessment & Plan (08/26/2023 10:15 AM NURSE INFORMATICS EDUCATOR): Chronic, improved BMI Follow-up includes: nutrition counseling. Assessment & Plan (08/18/2022 10:46 AM NURSE INFORMATICS EDUCATOR): BMI Follow-up includes: nutrition counseling. Assessment & Plan (08/15/2021 10:53 AM NURSE INFORMATICS EDUCATOR): Stable BMI Follow-up includes: nutrition counseling. Assessment & Plan (07/17/2021 12:50 PM NURSE INFORMATICS EDUCATOR): BMI Follow-up includes: nutrition counseling. Assessment & Plan (12/18/2020 8:54 AM CDT): BMI Follow-up includes: nutrition counseling. Allergic rhinitis 07/23/2020 Assessment & Plan (08/26/2023 10:13 AM NURSE INFORMATICS EDUCATOR): Chronic, persistent Encouraged starting flonase daily Assessment & Plan (08/18/2022 10:44 AM NURSE INFORMATICS EDUCATOR): Chronic, persistent Encouraged flonase daily Assessment & Plan (07/17/2021 12:49 PM NURSE INFORMATICS EDUCATOR): Stable Continue to monitor symptoms Anxiety 07/23/2020 Assessment & Plan (08/26/2023 10:13 AM NURSE INFORMATICS EDUCATOR): Chronic, stable Continue lexapro Assessment & Plan (08/18/2022 10:45 AM NURSE INFORMATICS EDUCATOR): Chronic, persistent Continue lexapro Consider seeing a therapist Continue healthy changes for mood Call if it worsens Assessment & Plan (07/17/2021 12:49 PM NURSE INFORMATICS EDUCATOR): Worsening Will increase her Lexapro to 10 mg, 2 tabs daily She will update me in the next 1-2 weeks with how she is doing Update me with any changes or concerns Assessment & Plan (07/23/2020 9:41 AM NURSE INFORMATICS EDUCATOR): Stable Continue current regimen Continue to work on healthy changes to improve mood Carpal tunnel syndrome 07/23/2020 Assessment & Plan (08/26/2023 10:14 AM NURSE INFORMATICS EDUCATOR): Chronic, improved Continue to monitor Assessment & Plan (08/18/2022 10:45 AM NURSE INFORMATICS EDUCATOR): Chronic, improved Continue to monitor Assessment & Plan (07/17/2021 12:50 PM NURSE INFORMATICS EDUCATOR): Resolved Essential hypertension 07/23/2020 Assessment & Plan (08/26/2023 10:15 AM NURSE INFORMATICS EDUCATOR): Chronic, stable Continue losartan, norvasc Continue healthy changes Assessment & Plan (08/18/2022 11:02 AM NURSE INFORMATICS EDUCATOR): Chronic, elevated She is under current stressors Will check at home, and let me know Assessment & Plan (05/06/2022 4:58 PM CDT): Blood pressure elevated today Will recheck at her follow-up visit, normally runs well Update me if her symptoms change or worsen Call for questions Assessment & Plan (09/24/2021 12:51 PM CDT): Well controlled Continue current regimen Assessment & Plan (07/17/2021 12:52 PM NURSE INFORMATICS EDUCATOR): Blood pressure goal Continue current regimen Assessment & Plan (12/18/2020 8:53 AM CDT): Blood pressure well controlled Continue current regimen Assessment & Plan (07/23/2020 12:55 PM NURSE INFORMATICS EDUCATOR): Will increase her Norvasc Continue losartan Continue to work on healthy changes Update me with any changes Call for questions or concerns Gastroesophageal reflux disease 07/23/2020 Assessment & Plan (08/26/2023 10:16 AM NURSE INFORMATICS EDUCATOR): Chronic, stable We reviewed the risks/benefits, side effects She is going to take her medication every other day as her symptoms are well controlled Assessment & Plan (08/18/2022 10:48 AM NURSE INFORMATICS EDUCATOR): Chronic, improved Reviewed risks of medication Consider when stress is less (mom in hospital), going to every other day Assessment & Plan (07/17/2021 12:52 PM NURSE INFORMATICS EDUCATOR): Continue current regimen Reviewed the risk of proton pump inhibitors including C diff, pneumonia, bone loss Update me if her symptoms change or worsen Assessment & Plan (07/23/2020 9:41 AM NURSE INFORMATICS EDUCATOR): Reviewed risks/benefits of medication Continue current regimen Call for questions or concerns Hemorrhoids 07/23/2020 Assessment & Plan (08/26/2023 10:17 AM NURSE INFORMATICS EDUCATOR): Chronic, asymptomatic Continue to monitor Assessment & Plan (07/17/2021 12:52 PM NURSE INFORMATICS EDUCATOR): Improved Continue to monitor Hyperlipidemia 07/23/2020 Assessment & Plan (08/26/2023 10:17 AM NURSE INFORMATICS EDUCATOR): Chronic, stable Continue crestor Assessment & Plan (08/18/2022 10:48 AM NURSE INFORMATICS EDUCATOR): Chronic, stable Continue crestor Labs ordered Assessment & Plan (07/17/2021 12:52 PM NURSE INFORMATICS EDUCATOR): Labs order Continue Crestor every other day Assessment & Plan (12/18/2020 8:53 AM CDT): Continue crestor Work on a lower fat diet, activity Call for questions or concerns Assessment & Plan (07/23/2020 9:39 AM NURSE INFORMATICS EDUCATOR): Continue current regimen Will recheck labs in 6 months Call for questions or concerns Insomnia 07/23/2020 Assessment & Plan (08/26/2023 10:19 AM NURSE INFORMATICS EDUCATOR): Chronic, persistent She does not feel as though she has quality sleep Will refer to sleep medicine given her RAE Call for questions or concerns Assessment & Plan (08/18/2022 10:49 AM NURSE INFORMATICS EDUCATOR): Chronic, off medication Continue healthy changes for her sleep Assessment & Plan (07/17/2021 12:53 PM NURSE INFORMATICS EDUCATOR): Will increase treatment for her anxiety Monitor sleep as we improve her mood Update me in the next 2 weeks Assessment & Plan (12/18/2020 8:53 AM CDT): Stable Continue current regimen Assessment & Plan (07/23/2020 12:57 PM NURSE INFORMATICS EDUCATOR): Continue current regimen Call for questions or concerns Low back pain 07/23/2020 Assessment & Plan (08/26/2023 10:20 AM NURSE INFORMATICS EDUCATOR): Chronic, stable Continue supportive care Continue medication as needed Assessment & Plan (08/18/2022 10:49 AM NURSE INFORMATICS EDUCATOR): Chronic, improved Continue supportive care Assessment & Plan (07/17/2021 12:53 PM NURSE INFORMATICS EDUCATOR): Continue supportive care Obstructive sleep apnea syndrome 07/23/2020 Assessment & Plan (08/26/2023 10:20 AM NURSE INFORMATICS EDUCATOR): Chronic, uncontrolled She is off CPAP with difficulty sleeping, fatigue Referral to sleep medicine placed Assessment & Plan (08/18/2022 10:49 AM NURSE INFORMATICS EDUCATOR): Chronic Encouraged to consider pulm referral for re-evaluation Assessment & Plan (07/17/2021 12:53 PM NURSE INFORMATICS EDUCATOR): Encouraged to consider CPAP Type 2 diabetes mellitus with other specified co mplication 07/23/2020 Assessment & Plan (08/26/2023 10:23 AM NURSE INFORMATICS EDUCATOR): Chronic, stable Labs ordered Foot exam today Further guidance once we have the results Assessment & Plan (08/18/2022 10:50 AM NURSE INFORMATICS EDUCATOR): Chronic, stable Continue healthy changes Continue current regimen Foot exam today Call for questions Assessment & Plan (09/24/2021 1:16 PM CDT): Blood sugars are running well at home Continue healthy changes Continue victoza Call for questions or concerns Assessment & Plan (09/20/2021 8:51 AM CDT): Encouraged to keep track of her sugars Will refer to local ophthalmology Update me with any changes Assessment & Plan (08/15/2021 10:52 AM NURSE INFORMATICS EDUCATOR): Will recheck A1C in May Continue to monitor symptoms- watch for hypoglycemia Update me with any concerns Call for questions Assessment & Plan (07/17/2021 12:54 PM NURSE INFORMATICS EDUCATOR): Continue metformin Foot exam completed today Labs order Continue healthy changes Assessment & Plan (12/18/2020 8:51 AM CDT): Will request eye exam Continue to work on healthy changes Continue current regimen Call for questions or concerns Assessment & Plan (07/23/2020 9:40 AM NURSE INFORMATICS EDUCATOR): Last A1C was at goal per patient Continue current regimen Continue to work on healthy changes Set up eye exam Call for questions Overactive bladder due to prolapse of female gen ital organ 04/10/2020 Assessment & Plan (08/26/2023 10:22 AM NURSE INFORMATICS EDUCATOR): Chronic, persistent Will check urine studies Decrease PM hydration- drink when thirsty Cut down on etoh and caffeine Update me in 6 months Assessment & Plan (08/18/2022 10:50 AM NURSE INFORMATICS EDUCATOR): Chronic, stable Continue supportive care Assessment & Plan (07/17/2021 12:53 PM NURSE INFORMATICS EDUCATOR): Improved Resolved Problems Problem Noted Date Diagnosed Date Resolved Date Elevated liver enzymes 07/23/202008/18 Assessment & Plan (08/18/2022 10:46 AM NURSE INFORMATICS EDUCATOR): resolved Assessment & Plan (07/17/2021 12:50 PM NURSE INFORMATICS EDUCATOR): Lab recheck ordered Assessment & Plan (12/18/2020 8:54 AM CDT): Normal on last check Immunizations Name Administration Dates Next Due DTP 06/05/2010 Influenza, Quadrivalent, Hig h Dose, Preservative Free, Intrr 03/26/2022,05/17/2021,04/10/2020 Influenza, Trivalent, High D ose, Split, Preservative Free, Intramuscular 04/04/2019,04/13/2018,04/22/2017 Influenza, Trivalent, IM (MDV) 6,04/18/2015,05/01/2014,04/25 Influenza, Trivalent, Preser vative Free, Intramuscular 04/17/2015 Influenza, Unspecified 04/05/2023(Deferr ed: Patient Refused),04/05/2023(Deferred: Patient Refused) Pneumococcal Conjugate PCV 13 04/22/2017 Pneumococcal Polysaccharide PPV23 05/16/2020, Tdap 12/06/2019 ZOSTER LIVE 08/20/2012 ZOSTER Recombinant 01/18/2019,10/28/2018 Social History Tobacco Use Types Packs/Day Years Used Date Smoking Tobacco: Never Smokeless Tobacco: Never Tobacco Cessation:Counseling Given: Not Answered Alcohol Use Standard Drinks/Week Comments Never 0 (1 standard drink = 0.6 oz pur e alcohol) AUDIT-C Answer Date Recorded Q1: How often do you have a drink containing alc ohol? 2-3 times a week 02/18/2024 Q2: How many drinks containi ng alcohol do you have on a typical day when you are drinking? 1 or 2 02/18/2024 Q3: How often do you have si x or more drinks on one occasion? Never 02/18/2024 PHQ-2 Answer Date Recorded PHQ-2 Total Score (If total score is 3 or more points, staff should administer the PHQ-9) 0 02/18/2024 Personal Safety Answer Date Recorded Getting School Help Needed Not on file 06/23 Comments No Sex and Gender Information Value Date Recorded Sex Assigned at Not on file Legal Sex Female 12:58 AM NURSE INFORMATICS EDUCATOR Gender Identity Not on file Sexual Orientation Not on file Last Filed Vital Signs Vital Sign Reading Time Taken Comments Blood Pressure 120/66 02/18/2024 1:35 PM CDT Pulse 77 02/18/2024 1:35 PM CDT Temperature 36.4 ??C (97.6 ??F) 02/18/2024 1:35 PM CD T Respiratory Rate 12 02/18/2024 1:35 PM CDT Oxygen Saturation 98% 02/18/2024 1:35 PM CDT Inhaled Oxygen Concentration - - Weight 86.4 kg (190 lb 8 oz) 02/18/2024 1:35 PM CDT Height 165.1 cm (5' 5 ) 02/18/2024 1:35 PM CDT Body Mass Index 31.7 02/18/2024 1:35 PM CDT Plan of Treatment Not on file Procedures Procedure Name Priority Date/Time Associated Diagnosis Comments COMPREHENSIVE METABOLIC PANEL Routine 02/19/2024 11:03 AM CDT Type 2 diabetes mellitus with other specified complication, without long-term current use of insulin (HCC) HEMOGLOBIN A1C Routine 02/19/2024 11:03 AM CDT Type 2 diabetes mellitus with other specified complication, without long-term current use of insulin (HCC) ALBUMIN CREATININE RATIO, URINE Routine 02/19/2024 11:03 AM CDT Type 2 diabetes mellitus with other specified complication, without long-term current use of insulin (HCC) DEXA AXIAL SKELETON BONE DENSITY 1 OR MORE SITES Schedule Routine, Read Routine (OP Routine) 12/21/2023 10:45 AM CDT Postmenopausal status DIABETES EYE EXAM Routine 10/26/2023 LIPID PANEL Routine 08/31/2023 8:51 AM NURSE INFORMATICS EDUCATOR Other hyperlipidemia MAMMOGRAPHY Routine 04/06/2023 STOOL DNA ? COLOGUARD Routine 07/29/2021 8:00 AM NURSE INFORMATICS EDUCATOR Colon cancer screening HEPATITIS C ANTIBODY Routine 11/19/2020 10:52 AM CDT Need for hepatitis C screening test from Last 3 Months or Most Recently Relevant to Health Maintenance Results * Albumin Creatinine Ratio, Urine (02/19/2024 [...] URINE ORDERABLE S Final Result [facility] [address] [place] [address] * (ABNORMAL) Hemoglobin A1c (02/19/2024 11:03 AM CDT) Hgb A1C 6.6(H) <5.7 % of total Hgb [facility] Comment: For someone without known diabetes, [...] change in test platforms from the [employer] Worker to the Eulalio diego c503 may have shifted HbA1c results compared to historical results. Based on laboratory validation testing conducted at [employer], the Eulalio platform relative to the Avendaño [...] MD LAB BLOOD ORDERABLE S Final Result [facility] [address] [place] [address] * (ABNORMAL) Comprehensive metabolic panel (02/19/2024 11:03 AM CDT) Pathologist [facility] Glucose 95 65 - 99 mg/dL [facility] [...] MD LAB BLOOD ORDERABLE S Final Result Performing Organization Address City/State/[facility] Co de Phone Number [facility] [address] [place] [address] * Dexa Axial Skeleton Bone Density 1 or 2 Site (12/21/2023 10:45 AM CDT) Anatomical Region Laterality Modality Body N/A Mammography 12/21/2023 11:1 1 AM CDT Narrative 12/21/2023 11:11 AM CDT EXAM DESCRIPTION: DEXA AXIAL SKELETON BONE DENSITY 1 OR MORE SITES REASON FOR STUDY: 73 y/o ?? year old ??F ??with given history of: ??Postmenopausal status. ??History of parent with hip fracture, glucocorticoid use and 3+ alcoholic drinks per day. ??Patient takes calcium. ? 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 Maximum height: ??66 ??inches ? Weight: ??184.2 ??pounds Risk factors: ??Parent with hip fracture, glucocorticoid use and 3+ alcoholic drinks per day. COMPARISON: 12/17/2021 FINDINGS: AP LUMBAR SPINE L1-L4: Total BMD is 1.299 g/cm2 T-score is 2.3 This is a 1.1% decrease in comparison to prior exam which is not statistically significant. LEFT HIP: Total BMD is 0.954 g/cm2 T-score is 0.1 This is a 4.5% decrease in comparison to prior exam which is statistically significant. Femoral neck BMD is 0.822 g/cm2 T-score is -0.2 ?? FRAX: FRAX not reported due to T-scores of hip, femoral neck and/or spine being at or above -1.0 (Normal). IMPRESSION: Normal bone mass. REFERENCE: Bone mineral density: T-Score: ?Normal (T-score above or = -1.0) ?Low bone mass ??(T-score between -1.0 and -2.5) replaces the previously used term osteopenia ?Osteoporosis (T-score = or below -2.5) Z-Score: ? Within the expected range for age (Z-score above -2.0) ? Below the expected range for age (Z-score is -2.0 or below) Please see below follow up recommendations. Medical evaluation for secondary causes of low bone mineral density may be appropriate. FRAX is a World Health Organization validated fracture risk assessment tool that calculates a person's 10 year probability of a major osteoporosis related fracture and hip fracture. ??According to the National Osteoporosis Foundation guidelines, postmenopausal women and men age 50 or older with low bone mass and a 10 year probability of a major osteoporosis related fracture = or greater than 20% or a 10 year probability of a hip fracture = or greater than 3% should be considered for pharmacological treatment for the prevention of osteoporosis. For further information, including treatment recommendations, please refer to the 2019 ISCD Official Positions (http://www.iscd.org) and the NOF's Clinician's Guide to Prevention and Treatment of Osteoporosis (http://www.nof.org/professionals/clinical-guidelines) THIS IS AN ELECTRONICALLY VERIFIED FINAL REPORT 12/21/2023 11:11 AM - Electronically signed by ??Elisha Mahoney M.D. TW: WALT D: ??12/21/2023 11:11 AM T: ??12/21/2023 11:11 AM Report ID: [id number] Reading Location: ??[id number] Procedure Note Elisha Mahoney MD - 12/21/2023 EXAM DESCRIPTION: DEXA AXIAL SKELETON BONE DENSITY 1 OR MORE SITES REASON FOR STUDY: 73 y/o year old F with given history of:Postmenopausal status. History of parent with hip fracture, glucocorticoid use and 3+ alcoholic drinks per day. Patient takes calcium. 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 COMPARISON: 12/17/2021 FINDINGS: AP LUMBAR SPINE L1-L4: Total BMD is 1.299 g/cm2 T-score is 2.3 This is a 1.1% decrease in comparison to prior exam which is notstatistically significant. LEFT HIP: Total BMD is 0.954 g/cm2 T-score is 0.1 This is a 4.5% decrease in comparison to prior exam which is statistically significant. Femoral neck BMD is 0.822 g/cm2 T-score is -0.2 FRAX: FRAX not reported due to T-scores of hip, femoral neck and/or spine beingat or above -1.0 (Normal). IMPRESSION: Normal bone mass. REFERENCE: Bone mineral density: T-Score: Normal (T-score above or = -1.0) Low bone mass (T-score between -1.0 and -2.5) replaces thepreviously used term osteopenia Osteoporosis (T-score = or below -2.5) Z-Score: Within the expected range for age (Z-score above -2.0) Below the expected range for age (Z-score is -2.0 or below) Please see below follow up recommendations. Medical evaluation forsecondary causes of low bone mineral density may be appropriate. FRAX is a World Health Organization validated fracture risk assessmenttool that calculates a person's 10 year probability of a major osteoporosisrelated fracture and hip fracture. According to the National OsteoporosisFoundation guidelines, postmenopausal women and men age 50 or older with low bonemass and a 10 year probability of a major osteoporosis related fracture = or greater than 20% or a 10 year probability of a hip fracture = or greaterthan 3% should be considered for pharmacological treatment for the preventionof osteoporosis. For further information, including treatment recommendations, please referto the 2019 ISCD Official Positions (http://www.iscd.org) and the NOF's Clinician's Guide to Prevention and Treatment of Osteoporosis (http://www.nof.org/professionals/clinical-guidelines) THIS IS AN ELECTRONICALLY VERIFIED FINAL REPORT 12/21/2023 11:11 AM - Electronically signed by Elisha Mahoney M.D. TW: TW Report ID: [id number] Reading Location: [place] [address] Aurelia Huitron MD IMG DXA PROCEDURES Final Result * (ABNORMAL) DIABETES EYE EXAM (10/26/2023) Pathologist [facility] SCRIBED DIABETIC DILATED EYE EXAM Normal Historical Provider HEALTH MAINTENANCE Final Result * (ABNORMAL) Lipid panel (08/31/2023 8:51 AM NURSE INFORMATICS EDUCATOR) Pathologist [facility] Cholesterol 156 <200 mg/dL [facility] HDL 76 > OR = 50 mg/dL [facility] Triglycerides 177(H) <150 mg/dL [facility] LDL 55 mg/dL (calc) [facility] Comment: Reference range: <100 Desirable range <100 mg/dL for primary prevention; ?? <70 mg/dL for patients with CHD or diabetic patients with > or = 2 CHD risk factors. LDL-C is now calculated using the aRz calculation, which is a validated novel method providing better accuracy than the Friedewald equation in the estimation of LDL-C. Callum RAIN et al. LAILA. 2013;310(19): 8348-2649 (http://education.[employer]/faq/RTL516) Chol/HDL ratio 2.1 <5.0 (calc) [facility] Non-HDL, (LDL+VLDL) 80 <130 mg/dL (calc) [facility] Comment: For patients with diabetes plus 1 major ASCVD risk factor, treating to a non-HDL-C goal of <100 mg/dL (LDL-C of <70 mg/dL) is considered a therapeutic option. Blood 08/31/2023 8:51 AM NURSE INFORMATICS EDUCATOR 08/31/2023 8:52 AM NURSE INFORMATICS EDUCATOR Narrative [facility] - 09/02/2023 1:52 AM NURSE INFORMATICS EDUCATOR FASTING:YES PATIENT UNABLE TO VOID; ADVISED TO RETURN FOR COLLECTION. FASTING: YES Aurelia Huitron MD LAB BLOOD ORDERABLE S Final Result [facility] [address] [place] [address] * MAMMOGRAPHY (04/06/2023) [facility] Mammography Normal Historical Provider HEALTH MAINTENANCE Final Result * Stool DNA - Cologuard (07/29/2021 8:00 AM NURSE INFORMATICS EDUCATOR) [facility] Stool DNA - Cologuard Negative Negative [employer]ruits (CLIA #:[id number]) Comment: NEGATIVE TEST RESULT. A negative Cologuard result indicates a low likelihood that a colorectal cancer (CRC) or advanced adenoma (adenomatous polyps with more advanced pre-malignant features) ??is present. The chance that a person with a negative Cologuard test has a colorectal cancer is less than 1 in 1500 (negative predictive value >99.9%) or has an ??advanced adenoma is less than ??5.3% (negative predictive value 94.7%). These data are based on a prospective cross-sectional study of 10,000 individuals at average risk for colorectal cancer who were screened with both Cologuard and colonoscopy. (Carlitos Ibrahim al, N Engl J Med 2014;370(14):1286- 1297) The normal value (reference range) for this assay is negative. COLOGUARD RE-SCREENING RECOMMENDATION: Periodic colorectal cancer screening is an important part of preventive healthcare for asymptomatic individuals at average risk for colorectal cancer. ??Following a negative Cologuard result, the [place] Cancer Society and U.S. Multi-Society Task Force screening guidelines recommend a Cologuard re-screening interval of 3 years. References: [place] Cancer Society Guideline for Colorectal Cancer Screening: https://www.cancer.org/cancer/qemys-dtqavu-lpfflx/zksdkcijp-fkvevhfqg-gvogglc/ac s-rec ommendations.html.; Patric DK, Rosemarie GUERRERO, Ash DuK, Colorectal Cancer Screening: Recommendations for Physicians and Patients from the U.S. Multi-Society Task Force on Colorectal Cancer Screening , Am J Gastroenterology 2017; 112:1273-0634. TEST DESCRIPTION: Composite algorithmic analysis of stool DNA-biomarkers with hemoglobin immunoassay. ?? Quantitative values of individual biomarkers are not reportable and are not associated with individual biomarker result reference ranges. Cologuard is intended for colorectal cancer screening of adults of either sex, 45 years or older, who are at average-risk for colorectal cancer (CRC). Cologuard has been approved for use by the U.S. FDA. The performance of Cologuard was established in a cross sectional study of average-risk adults aged 50-84. Cologuard performance in patients ages 45 to 49 years was estimated by sub-group analysis of near-age groups. Colonoscopies performed for a positive result may find as the most clinically significant lesion: colorectal cancer [4.0%], advanced adenoma (including sessile serrated polyps greater than or equal to 1cm diameter) [20%] or non- advanced adenoma [31%]; or no colorectal neoplasia [45%]. These estimates are derived from a prospective cross-sectional screening study of 10,000 individuals at average risk for colorectal cancer who were screened with both Cologuard and colonoscopy. (Carlitos Ibrahim al, N Engl J Med 2014;370(14):4014-0208.) Cologuard may produce a false negative or false positive result (no colorectal cancer or precancerous polyp present at colonoscopy follow up). A negative Cologuard test result does not guarantee the absence of CRC or advanced adenoma (pre-cancer). The current Cologuard screening interval is every 3 years. ([place] Cancer Society and U.S. Multi-Society Task Force). Cologuard performance data in a 10,000 patient pivotal study using colonoscopy as the reference method can be accessed at the following location: www.[employer].U[employer] Coatings/results. Additional description of the Cologuard test process, warnings and precautions can be found at www.[employer]ologCatalyst Biosciencesrd.com. Stool 07/29/2021 8:00 AM NURSE INFORMATICS EDUCATOR 07/30/2021 10:30 AM NURSE INFORMATICS EDUCATOR us Aurelia Huitron MD LAB BODY FLUIDS AND STOOLS ORDERABLES Final Result Performing Organization Address [facility] de Phone Number [facility] (CLIA #:[id number]) [place] [address] * Hepatitis C antibody (11/19/2020 10:52 AM CDT) Hep C Ab NONREACT NONREACTIVE [facility] Comment: Siemens CentaurXP using KAY (chemiluminescent immunoassay) technology. NONREACTIVE: Antibodies to Hepatitis C not detected. This does not exclude early acute Hepatitis C infection, possibility of exposure to Hepatitis C, antibodies below detection limit, or to lack of antibody reactivity to the antigen used in this assay. EQUIVOCAL: Antibodies to Hepatitis C may or may not be present. ??Sample to be confirmed by real-time PCR method. REACTIVE: Antibodies to Hepatitis C detected.Sample to be confirmed by real-time PCR method. Blood specimen (specimen) 11/19/2020 10:52 AM CDT 11/19/2020 11:04 AM CDT Narrative Resulting Agency Comment CLI us Aurelia Huitron MD LAB MICROBIOLOGY - GENERAL ORDERABLES Final Result Performing Organization Address [facility] Co de Phone Number [facility] [address] [place] [address], [facility] [phone] from Last 3 Months or Most Recently Relevant to Health Maintenance Insurance Care Teams Cnc Mill Operator Relationship Specialty Start Date End Date Aurelia Huitron MD [address] [place] [address] PCP - General Family Medicine 05/23/20
--- OUTSIDE RECORDS SUMMARY | 2024-07-10 04:42 | XMS_ITS | Encounter Summary ---
Author Organization [facility] Address [address] [place] [address] Phone Care Team Providers Care Operating Room Technologist Name Role Phone Aurelia Huitron MD Primary Care Provi jarred Encounter Details Date Type Department Care Team (Late st Contact Info) Description 10/12/2023 10:00 AM CDT Procedure visit 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 Ruben Lane History: Patient reported right ear pain over the past few months that coincides with sinus pressure. She notes that she likely has a perforation in her right tympanic membrane as she was seen at an urgent care and they told her it ruptured. She reports occasional bilateral tinnitus. She notes no difficulty hearing. Otoscopy: Ear canals clear of cerumen bilaterally. Tympanometry: Right:Type Ad tymp and is consistent with abnormal middle ear function. Left: Type A tymp and is consistent with normal middle ear function. Audiometry: Pure tone testing revealed normal hearing sensitivity across all frequencies tested. Word Recognition Score (WRS) in the right ear is 100%, WRS in the left ear is 100%. Counseling: Patient was counseled on audiogram results. Recommendations: -Patient will follow-up with Dr. Ruben Lane for test results and recommendations. -Repeat testing per Doctor request. documented in this encounter Plan of Treatment Not on file documented as of this encounter Visit Diagnoses Diagnosis Right ear pain- Primary Unspecified otalgia documented in this encounter Care Teams Operating Room Technologist Relationship Specialty Start Date End Date Aurelia Huitron MD [facility] [address] [place] [id number] PCP - General Family Medicine 05/23/20 documented as of this encounter
--- OUTSIDE RECORDS SUMMARY | 2024-07-10 04:42 | XMS_ITS | Encounter Summary ---
Author Organization [facility] Address [address] [place] [address] Care Team Providers Care Affiliate Marketing Coordinator Name Role Phone Aurelia Huitron MD Primary Care Provi jarred Reason for Visit * Reason Comments Diabetes Encounter Details Date Type Department Care Team (Late st Contact Info) Description 02/18/2024 1:30 PM CDT Office Visit [facility] Family Medicine [address] [phone] Aurelia Huitron MD [address] [address] Type 2 diabetes mellitus with other specified complication, without long-term current use of insulin (HCC) (Primary Dx); Essential hypertension; Other hyperlipidemia; Class 1 obesity due to excess calories with serious comorbidity and body mass index (BMI) of 31.0 to 31.9 in adult; Dysuria; Acute URI Social History Tobacco Use Types Packs/Day Years [...] on file 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 Patient ID: Valeria Johnson is a 73 y.o. female. Chief Complaint. Chief Complaint Patient presents with Diabetes HPI. Patient is a 73 y.o. female The pt is presenting to the office for follow up -dysuria- intermittent. Would like a UA with her labs Diabetes She presents for her follow-up diabetic visit. She has type 2 diabetes mellitus. Her disease coursehas been stable. There are no hypoglycemic associated symptoms. Pertinent negatives for hypoglycemia include no headaches. Pertinent negatives for diabetes include no chest pain. There are no hypoglycemic complications. Symptoms are stable. Pertinent negatives for diabetic complications include no CVA. Risk factors for coronary artery disease include diabetes mellitus, dyslipidemia, hypertension,obesity and post-menopausal. Current diabetic treatments: metformin, trulicity. She is compliant with treatment all of the time. Her weight is stable. She is following a generally healthy diet. An LANNY inhibitor/angiotensin II receptor sarika is being taken. Eye exam is current. Hypertension This is a chronic problem. The current episode started more than 1 year ago. The problem is unchanged. The problem is controlled. Pertinent negatives include no chest pain, headaches or shortness of breath. There are no associated agents to hypertension. Risk factors for coronary artery disease include diabetes mellitus, obesity and post-menopausal state. Past treatments include angiotensin blockers and calcium channel blockers. The current treatment provides significant improvement. There are no compliance problems. There is no history of CAD/MA or CVA. There is no history of a hypertension causing med. Hyperlipidemia This is a chronic problem. The current episode started more than 1 year ago. The problem is controlled. Recent lipid tests were reviewed and are normal. Exacerbating diseases include diabetes and obesity. Pertinent negatives include no chest pain or shortness of breath. Current antihyperlipidemic treatment includes statins. The current treatment provides moderate improvement of lipids. There are no compliance problems. Risk factors for coronary artery disease include post-menopausal, diabetes mellitus, dyslipidemia, hypertension and obesity. URI This is a new problem. The current episode started 1 to 4 weeks ago. The problem has been graduallyimproving. There has been no fever. Pertinent negatives include no chest pain, congestion, coughing, headaches, nausea, shortness of breath, sinus pain, sore throat or vomiting. The treatment provided significant relief. Review of Systems: Review of Systems Constitutional: Negative for chills and fever. HENT: Negative for congestion, sinus pain and sore throat. Respiratory: Negative for cough and shortness of breath. Cardiovascular: Negative for chest pain. Gastrointestinal: Negative for nausea and vomiting. Neurological: Negative for headaches. BP 120/66 (BP Location: Left arm, Patient Position: Sitting) Pulse 77 Temp 36.4 ??C (97.6 ??F) (Temporal) Resp 12 Ht 165.1 cm (5' 5 ) Wt 86.4 kg (190 lb 8 oz) SpO2 98% BMI 31.70 kg/m?? Physical Exam: Physical Exam Vitals and nursing note reviewed. Constitutional: General: She is not in acute distress. Appearance: Normal appearance. She is well-developed. She is obese. She is not ill-appearing. HENT: Head: Normocephalic and atraumatic. Right Ear: Tympanic membrane, ear canal and external ear normal. Left Ear: Tympanic membrane, ear canal and external ear normal. Nose: Nose normal. Mouth/Throat: Mouth: Mucous membranes are moist. Eyes: Extraocular Movements: Extraocular movements intact. Cardiovascular: Rate and Rhythm: Normal rate and regular rhythm. Heart sounds: Normal heart sounds. No murmur heard. Pulmonary: Effort: Pulmonary effort is normal. No respiratory distress. Breath sounds: Normal breath sounds. Abdominal: General: Bowel sounds are normal. There is no distension. Palpations: Abdomen is soft. Tenderness: There is no abdominal tenderness. Musculoskeletal: Cervical back: Neck supple. Skin: General: Skin is warm and dry. Neurological: Mental Status: She is alert and oriented to person, place, and time. Motor: No abnormal muscle tone. Psychiatric: Mood and Affect: Mood normal. Behavior: Behavior normal. Thought Content: Thought content normal. Diabetic foot exam: Left monofilament exam: normal Right monofilament exam: normal Assessment/Plan Diagnoses and all orders for this visit: Type 2 diabetes mellitus with other specified complication, without long-term current use of insulin (HCC) (Primary) Comments: chronic, stable continue current regimen for now trulicity is expensive- consider increasing metformin if it becomes too expensive continue healthy changes Orders: - Hemoglobin A1c; Future - Comprehensive metabolic panel; Future Essential hypertension Comments: chronic, stable continue current regimen Other hyperlipidemia Comments: chronic, stable continue crestor Class 1 obesity due to excess calories with serious comorbidity and body mass index (BMI) of 31.0 to 31.9 in adult Assessment & Plan: Chronic, stable BMI Follow-up includes: nutrition counseling. Dysuria Comments: acute, recurrent will check UA update me if s/sx worsen or do not improve Orders: - Urinalysis reflex to microscopic and culture Urine, clean voided; Future Acute URI Comments: acute, improving update me if her s/sx worsen or do not improve call for questions Other orders - aspirin 81 mg enteric coated tablet; Take 1 tablet (81 mg total) by mouth daily Patient/parent was counseled on medication risk, side effects, and possible complications. Patient/parent was counseled on how to properly take the medication and to call with any adverse reactions. Patient/parent was advised that if anything changes or worsens, to contact the office. Patient/parent stated understanding. Aurelia Huitron MD documented in this encounter Miscellaneous Notes * Assessment & Plan Note - Aurelia Huitron MD - 02/18/2024 4:00 PM CDTAssociated Problem(s): Class 1 obesity due to excess calories with serious comorbidity and body mass index (BMI) of 31.0 to 31.9 in adult Chronic, stable BMI Follow-up includes: nutrition counseling. documented in this encounter Plan of Treatment Scheduled Orders Name Type Priority Associated Diagnoses Orde r Schedule Hemoglobin A1c Lab Routine Type 2 diabetes mellitus with other specified complication, without long-term current use of insulin (HCC) Expected: 02/18/2024, Expires: 02/17/2025 Comprehensive metabolic panel Lab Routine Type 2 diabetes mellitus with other specified complication, without long-term current use of insulin (HCC) Expected: 02/18/2024, Expires: 02/17/2025 Urinalysis reflex to microscopic and culture Urine, clean voided Microbiology Routine Dysuria Expected: 02/21/2024, Expires: 02/17/2025 documented as of this encounter Visit Diagnoses Diagnosis Type 2 diabetes mellitus with other specified complication, without long-term current use of insulin (HCC)- Primary Essential hypertension Unspecified essential hypertension Other hyperlipidemia Class 1 obesity due to excess calories with serious comorbidity and body mass index (BMI) of 31.0 to 31.9 in adult Dysuria Acute URI Acute upper respiratory infections of unspecified site documented in this encounter Discontinued Medications Medication Sig Discontinue Reason Start Date End Da te omeprazole (PriLOSEC) 20 mg capsule TAKE 1 CAPSULE BY MOUTH EVERY DAY Therapy completed 10/02/2023 02/18/2024 documented as of this encounter Care Teams Affiliate Marketing Coordinator Relationship Specialty Start Date End Date Aurelia Huitron MD [address] [place] [address] PCP - General Family Medicine 05/23/20 documented as of this encounter
--- OUTSIDE RECORDS SUMMARY | 2024-07-10 04:42 | XMS_ITS | Encounter Summary ---
Author Organization [facility] Address [address] [facility] [address] [place] [address] Care Team Providers Care Assistant General Manager Name Role Phone Aurelia Huitron MD Primary Care Provi jarred Reason for Visit * Reason Onset Date Comments Referral Request 03/30/2023 Encounter Details Date Type Department Care Team (Late st Contact Info) Description 03/30/2023 Telephone [facility] Family Medicine [address] [phone] Aurelia Huitron MD [address] [address] Referral Request Social History Tobacco Use Types Packs/Day [...] on file 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 The expiration date says to be determined by insurance. Does not know if the one in chart is still good or not. Her knee has started back hurting her. Please contact patient when ready. Caller???s Call back #: [phone] Does message need to be routed? Yes-Action Needed documented in this encounter Plan of Treatment Not on file documented as of this encounter Visit Diagnoses Not on filedocumented in this encounter Care Teams Assistant General Manager Relationship Specialty Start Date End Date Aurelia Huitron MD [address] [place] [address] PCP - General Family Medicine 05/23/20 documented as of this encounter
--- OUTSIDE RECORDS SUMMARY | 2024-07-10 04:42 | XMS_ITS | Encounter Summary ---
Author Organization [facility] Medical [facility] Address [address] [facility] [address] [place] [address] Care Team Providers Care Gas Stove Servicer Helper Name Role Phone Aurelia Huitron MD Primary Care Provi jarred Reason for Visit * Reason Comments Dizziness Patient presents to ay with the complaint with dizziness over the last few weeks. Patient reports she gets dizzy when laying in bed turning side to side and sometimes when she bends over. Urinary Problem Patient presents to ay with the complaint of possible UTI. Patient reports symptoms started about 2 weeks ago. Reports urgency and frequency, and some lower abd pain. 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 Gender Identity Not on file Sexual Orientation Not on file documented as of this encounter Last Filed Vital Signs Vital Sign Reading Time Taken Comments Blood Pressure 142/72 05/06/2022 2:28 PM CDT Pulse 83 05/06/2022 2:28 PM CDT Temperature 36.2 ??C (97.2 ??F) 05/06/2022 2:28 PM CD T Respiratory Rate 14 05/06/2022 2:28 PM CDT Oxygen Saturation 98% 05/06/2022 2:28 PM CDT Inhaled Oxygen Concentration - - Weight 89.7 kg (197 lb 12.8 oz) 05/06/2022 2:28 PM CDT Height 165.1 cm (5' 5 ) 05/06/2022 2:28 PM CDT Body Mass Index 32.92 05/06/2022 2:28 PM CDT documented in this encounter Ordered Prescriptions Prescription Sig Dispense Quantity Refills Last Filled Start Date End Date meclizine (ANTIVERT) 12.5 mg tabletIndications: Benign paroxysmal positional vertigo of right ear Take 1 tablet (12.5 mg total) by mouth 3 (three) times a day as needed for dizziness 30 tablet 1 05/06/2022 methylPREDNISolone (MEDROL DOSEPACK) 4 mg DosepackIndication s:Acute effusion of right ear Take as directed on package. 21 tablet 05/06/2022 2 documented in this encounter Progress Notes * Aurelia Huitron MD - 05/06/2022 2:15 PM CDT Images from the original note were not included. Patient ID: Valeria Johnson is a 72 y.o. female. Chief Complaint. Chief Complaint Patient presents with Dizziness Patient presents today with the complaint with dizziness over the last few weeks. Patient reports she gets dizzy when laying in bed turning side to side and sometimes when she bends over. Urinary Problem Patient presents today with the complaint of possible UTI. Patient reports symptoms started about 2weeks ago. Reports urgency and frequency, and some lower abd pain. HPI. Patient is a 72 y.o. female Dizziness This is a recurrent problem. The current episode started 1 to 4 weeks ago (04/19/22). The problem occurs intermittently. The problem has been waxing and waning. Associated symptoms include congestionand headaches (posterior, once or a week). Pertinent negatives include no abdominal pain, change inbowel habit, chest pain, chills, coughing, diaphoresis, fever, nausea, numbness, vertigo, vomiting or weakness. Associated symptoms comments: Post nasal drip, ear pain. The symptoms are aggravated bybending (rolling over in bed, quick movements). Treatments tried: claritin, flonase. The treatment provided no relief. UTI This is a new problem. The current episode started 1 to 4 weeks ago. The problem occurs intermittently. The problem has been waxing and waning. Quality: occasional suprapubic pressure. The pain is eden severity of 0/10. The patient is experiencing no pain. There has been no fever. She is Not sexually active. Associated symptoms include frequency and urgency. Pertinent negatives include no chills,flank pain, hematuria, nausea, possible or vomiting. Associated symptoms comments: Suprapubic pressure. She has tried increased fluids for the symptoms. The treatment provided no relief. There is no history of kidney stones. Knee Pain The incident occurred more than 1 week ago (6 weeks). The incident occurred at home. There was no injury mechanism. The pain is present in the right knee. The quality of the pain is described as aching. The pain is at a severity of 0/10. The patient is experiencing no pain. The pain has been Fluctuating since onset. Pertinent negatives include no loss of sensation, numbness or tingling. She reports no foreign bodies present. The symptoms are aggravated by movement. She has tried nothing for thesymptoms. The treatment provided no relief. Current Medications: Outpatient Encounter Medications as of 05/06/2022 Medication Sig Dispense Refill amLODIPine (NORVASC) 5 mg tablet TAKE 1 TABLET BY MOUTH TWICE A DAY 180 tablet 1 escitalopram (LEXAPRO) 20 mg tablet TAKE 1 TABLET BY MOUTH EVERY DAY 90 tablet 0 losartan (COZAAR) 100 mg tablet TAKE 1 TABLET BY MOUTH EVERY DAY 90 tablet 1 meloxicam (MOBIC) 7.5 mg tablet Take 1-2 tablets (7.5-15 mg total) by mouth daily with food. 90 tablet 0 metFORMIN (GLUCOPHAGE) 500 mg tablet TAKE 1 TABLET BY MOUTH TWICE A DAY WITH MEALS 180 tablet 1 methocarbamoL (ROBAXIN) 750 mg tablet TAKE 1 TABLET BY MOUTH 3 TIMES A DAY NEEDED FOR MUSCLE SPASMS. 30 tablet 1 omeprazole (PriLOSEC) 20 mg capsule TAKE 1 CAPSULE BY MOUTH EVERY DAY 90 capsule 1 rosuvastatin (CRESTOR) 10 mg tablet TAKE 1 TABLET BY MOUTH EVERY DAY 90 tablet 1 UltiCare Pen Needle 31 gauge x 1/4 needle USE DAILY WITH VICTOZA 100 each 3 Victoza 2-Eduardo 0.6 mg/0.1 mL (18 mg/3 mL) injection INJECT 1.2 MG UNDER THE SKIN ONCE DAILY 9 mL 3 meclizine (ANTIVERT) 12.5 mg tablet Take 1 tablet (12.5 mg total) by mouth 3 (three) times a day asneeded for dizziness 30 tablet 1 methylPREDNISolone (MEDROL DOSEPACK) 4 mg Dosepack Take as directed on package. 21 tablet 0 No facility-administered encounter medications on file as of 05/06/2022. Review of Systems: Review of Systems Constitutional: Negative for chills, diaphoresis and fever. HENT: Positive for congestion. Respiratory: Negative for cough. Cardiovascular: Negative for chest pain. Gastrointestinal: Negative for abdominal pain, change in bowel habit, nausea and vomiting. Genitourinary: Positive for frequency and urgency. Negative for flank pain and hematuria. Neurological: Positive for dizziness and headaches (posterior, once or a week). Negative for vertigo, tingling, weakness and numbness. BP 142/72 (BP Location: Left arm, Patient Position: Sitting) Pulse 83 Temp 36.2 ??C (97.2 ??F) (Temporal) Resp 14 Ht 165.1 cm (5' 5 ) Wt 89.7 kg (197 lb 12.8 oz) SpO2 98% BMI 32.92 kg/m?? Physical Exam: Physical Exam Vitals and nursing note reviewed. Constitutional: General: She is not in acute distress. Appearance: Normal appearance. She is well-developed. She is not ill-appearing or toxic-appearing. HENT: Head: Normocephalic and atraumatic. Right Ear: Ear canal and external ear normal. A middle ear effusion is present. No hemotympanum. Tympanic membrane is not injected, scarred, perforated, erythematous, retracted or bulging. Left Ear: Tympanic membrane, ear canal and external ear normal. Nose: Nose normal. Mouth/Throat: Mouth: Mucous membranes are moist. Pharynx: Oropharynx is clear. Eyes: Extraocular Movements: Extraocular movements intact. Conjunctiva/sclera: Conjunctivae normal. Pupils: Pupils are equal, round, and reactive to light. Neck: Thyroid: No thyromegaly. Cardiovascular: Rate and Rhythm: Normal rate and regular rhythm. Heart sounds: Normal heart sounds. No murmur heard. No friction rub. No gallop. Pulmonary: Effort: Pulmonary effort is normal. Breath sounds: Normal breath sounds. No wheezing or rales. Abdominal: General: Bowel sounds are normal. There is no distension. Palpations: Abdomen is soft. There is no mass. Tenderness: There is no abdominal tenderness. There is no guarding or rebound. Musculoskeletal: Cervical back: Neck supple. Left knee: Crepitus present. No deformity or bony tenderness. No tenderness. Instability Tests: Anterior drawer test negative. Posterior drawer test negative. Medial Kelley test negative and lateral Kelley test negative. Lymphadenopathy: Cervical: No cervical adenopathy. Skin: General: Skin is warm and dry. Neurological: Mental Status: She is alert and oriented to person, place, and time. Motor: No abnormal muscle tone. Psychiatric: Mood and Affect: Mood normal. Behavior: Behavior normal. Thought Content: Thought content normal. Assessment/Plan Diagnoses and all orders for this visit: Urinary frequency (Primary) Comments: Urine dip with trace blood Will send urine culture Follow-up for recheck when she returns from vacation Orders: - POCT urinalysis dipstick - Urine culture Urine, clean voided; Future Benign paroxysmal positional vertigo of right ear Comments: Similar to her previous episode Declined EKG Meclizine as needed Change positions slowly Call if symptoms change or worsen Orders: - meclizine (ANTIVERT) 12.5 mg tablet; Take 1 tablet (12.5 mg total) by mouth 3 (three) times a dayas needed for dizziness Acute effusion of right ear Comments: Will do a trial of Medrol Monitor symptoms Update me if they change or worsen Call for questions Orders: - methylPREDNISolone (MEDROL DOSEPACK) 4 mg Dosepack; Take as directed on package. Acute pain of right knee Comments: Rest, ice, elevate Will check x-ray Tylenol as needed Call if symptoms change or worsen Orders: - XR Knee Right 3 Vw; Future Essential hypertension Assessment & Plan: Blood pressure elevated today Will recheck at her follow-up visit, normally runs well Update me if her symptoms change or worsen Call for questions Patient/parent was counseled on medication risk, side effects, and possible complications. Patient/parent was counseled on how to properly take the medication and to call with any adverse reactions. Patient/parent was advised that if anything changes or worsens, to contact the office. Patient/parent stated understanding. Aurelia Huitron MD documented in this encounter Miscellaneous Notes * Assessment & Plan Note - Aurelia Huitron MD - 05/06/2022 4:57 PM CDTAssociated Problem(s): Essential hypertension Blood pressure elevated today Will recheck at her follow-up visit, normally runs well Update me if her symptoms change or worsen Call for questions documented in this encounter Plan of Treatment Not on file documented as of this encounter Procedures Procedure Name Priority Date/Time Associated Diagnosis Comments URINE CULTURE Routine 05/06/2022 3:03 PM CDT Urinary frequency POCT URINALYSIS DIPSTICK Routine 05/06/2022 2:43 PM CDT Urinary frequency documented in this encounter Results * Urine culture Urine, clean voided (05/06/2022 3:03 PM CDT) Urine culture [facility] Comment: ??CULTURE, URINE, ROUTINE ?Micro Number: ?[id number] ??Test Status: ? Final ??Specimen Source: ?? Urine ??Specimen Quality: ??Adequate ??Result: ?No Growth Urine, clean voided 05/06/2022 3:03 PM CDT 05/07/2022 12:21 AM CDT us Aurelia Huitron MD LAB MICROBIOLOGY - GENERAL ORDERABLES Final Result Performing Organization Address City/State/[facility] Co de Phone Number [facility] [address] [place] [address] * (ABNORMAL) POCT urinalysis dipstick (05/06/2022 2:43 PM CDT) Color, Urine, POC Dark Yellow Clarity, ur, POC Clear Clear Glucose, ur, POC Negative Negative MG/DL Bilirubin, ur, POC Negative Negative, Small, Moderate, Large Ketones, ur, POC Negative Negative Specific [place], POC 1.020 1.005 - 1.030 Blood, ur, POC Trace(A) Negative pH, ur, POC 5.5 5.0 - 8.0 Protein, ur, POC Negative Negative Urobilinogen, urine, POC 0.2 0.2 - 1.0 mg/dL Nitrite, ur, POC Negative Negative Leukocytes, ur, POC Negative Negative Lot Number [id number] Urine 05/06/2022 2:43 PM CDT us Aurelia Huitron MD POINT OF CARE TEST ORDERABLES Final Result documented in this encounter Visit Diagnoses Diagnosis Urinary frequency- Primary Benign paroxysmal positional vertigo of right ear Acute effusion of right ear Acute pain of right knee Essential hypertension Unspecified essential hypertension documented in this encounter Care Teams Gas Stove Servicer Helper Relationship Specialty Start Date End Date Aurelia Huitron MD [address] [place] [address] PCP - General Family Medicine 05/23/20 documented as of this encounter
--- OUTSIDE RECORDS SUMMARY | 2024-07-10 04:42 | XMS_ITS | Encounter Summary ---
Author Organization [facility] Address [address] [place] [address] Care Team Providers Care Gaming Surveillance Observer Name Role Phone Aurelia Huitron MD Primary Care Provi jarred Reason for Referral * Diagnostic Imaging (Routine) - Closed Specialty Diagnoses / Procedures Referred By Contac t Referred To Contact Diagnoses Postmenopausal status Procedures Dexa Axial Skeleton Bone Density 1 or 2 Site Aurelia Huitron MD [address] [place] [address] Phone: tel: fax: [address] [phone] Referral ID Status Reason Start Date Expiration Date Visits Re quested Visits Authorized [id number] Closed 08/26/2023 09/24/2024 1 1 Reason for Visit * Diagnostic Imaging (Routine) - Closed Specialty Diagnoses / Procedures Referred By Contac t Referred To Contact Diagnoses Postmenopausal status Procedures Dexa Axial Skeleton Bone Density 1 or 2 Site Aurelia Huitron MD [address] [place] [address] Phone: tel: fax: [address] [phone] Referral ID Status Reason Start Date Expiration Date Visits Re quested Visits Authorized [id number] Closed 08/26/2023 09/24/2024 1 1 Encounter Details Date Type Department Care Team (Latest Contact Info) Description 12/21/2023 10:22 AM CDT - 12/21/2023 11:59 PM CDT Hospital Encounter 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 Gender Identity Not on file Sexual Orientation Not on file documented as of this encounter Medications at Time of Discharge diclofenac sodium (VOLTAREN) 1 % gelIndications: Right wrist pain Apply 2 g topically 4 (four) times a day as needed (right wrist pain) 100 g 10/06/2023 escitalopram (LEXAPRO) 20 mg tablet TAKE 1 TABLET BY MOUTH EVERY DAY 90 tablet 2 12/04/2023 fluticasone propionate (FLONASE) 50 mcg/actuation nasal sprayIndication s:Seasonal allergic rhinitis due to pollen Administer 2 sprays into each nostril daily 3 each 4 08/26/2023 meclizine (ANTIVERT) 12.5 mg tabletIndicatio ns:Benign paroxysmal positional vertigo of right ear Take 1 tablet (12.5 mg total) by mouth 3 (three) times a day as needed for dizziness 30 tablet 1 05/06/2022 meloxicam (MOBIC) 7.5 mg tabletIndicatio ns:Acute pain of left knee Take 1-2 tablets (7.5-15 mg total) by mouth daily with food. 90 tablet 03/26/2022 methocarbamoL (ROBAXIN) 750 mg tablet TAKE 1 TABLET BY MOUTH 3 TIMES A DAY NEEDED FOR MUSCLE SPASMS. 30 tablet 1 03/25/2022 amLODIPine (NORVASC) 5 mg tablet TAKE 1 TABLET BY MOUTH TWICE A DAY 180 tablet 10/02/2023 4 clobetasoL (TEMOVATE) 0.05 % external solutionIndicat ions:Dermatitis APPLY TO AFFECTED AREA TWICE A DAY 60 mL 2 12/14/2023 4 dulaglutide (Trulicity) 0.75 mg/0.5 mL pen injectorIndicat ions:Type 2 diabetes mellitus with other specified complication, without long-term current use of insulin (HCC) INJECT 0.5 ML SUBCUTANEOUSLY ONE TIME PER WEEK 3 mL 1 12/14/2023 4 loratadine (CLARITIN) 10 mg tabletIndicatio ns:Postnasal drip Take 1 tablet (10 mg total) by mouth daily 90 tablet 1 11/12/2023 4 losartan (COZAAR) 100 mg tablet Take 1 tablet (100 mg total) by mouth daily 90 tablet 1 07/09/2023 4 metFORMIN (GLUCOPHAGE) 500 mg tablet TAKE 1 TABLET BY MOUTH TWICE A DAY WITH FOOD 180 tablet 10/02/2023 4 omeprazole (PriLOSEC) 20 mg capsule TAKE 1 CAPSULE BY MOUTH EVERY DAY 90 capsule 10/02/2023 4 rosuvastatin (CRESTOR) 10 mg tablet TAKE 1 TABLET BY MOUTH EVERY DAY 90 tablet 10/02/2023 4 documented as of this encounter Discharge Disposition Disposition Code Departure Means Destination Discharge to home or self care documented in this encounter Plan of Treatment Not on file documented as of this encounter Procedures Procedure Name Priority Date/Time Associated Diagnosis Comments DEXA AXIAL SKELETON BONE DENSITY 1 OR MORE SITES Schedule Routine, Read Routine (OP Routine) 12/21/2023 10:45 AM CDT Postmenopausal status documented in this encounter Results * Dexa Axial Skeleton Bone Density 1 [...] drinks per day. ??Patient takes calcium. ? Mobile Development Manager/Model: [employer] A (S/N [id number]) CLINICAL INFORMATION: Current height: ??64.5 ??inches ? [...] AM T: ??12/21/2023 11:11 AM Report ID: [id number] Reading Location: ??[id number] Procedure Note Elisha Mahoney MD - 12/21/2023 EXAM DESCRIPTION: DEXA AXIAL SKELETON BONE DENSITY 1 OR MORE SITES REASON FOR STUDY: 73 y/o year old F with given history of:Postmenopausal status. History of parent with hip fracture, glucocorticoid use and 3+ alcoholic drinks per day. Patient takes calcium. Mobile Development Manager/Model: [employer] A (S/N [id number]) CLINICAL INFORMATION: Current height: 64.5 inches Maximum [...] Elisha Mahoney M.D. TW: TW Report ID: [id number] Reading Location: [place] [address] Aurelia Huitron MD IMG DXA PROCEDURES Final Result documented in this encounter Visit Diagnoses Diagnosis Postmenopausal status Asymptomatic postmenopausal status (age-related) (natural) documented in this encounter Care Teams Gaming Surveillance Observer Relationship Specialty Start Date End Date Aurelia Huitron MD [address] [place] [address] PCP - General Family Medicine 05/23/20 documented as of this encounter
--- OUTSIDE RECORDS SUMMARY | 2024-07-10 04:42 | XMS_ITS | Encounter Summary ---
Author Organization [facility] Healthcare Address [address] [place] [address] Care Team Providers Care Banquet Set Up Person Name Role Phone Aurelia Huitron MD Primary Care Provi jarred Reason for Referral * Diagnostic Imaging (Routine) - Closed Specialty Diagnoses / Procedures Referred By Contac t Referred To Contact Diagnoses Left knee pain, unspecified chronicity Procedures XR Knee Left 4 or More Views Aurelia Huitron MD [address] [place] [address] Phone: tel: fax: [address] [phone] Referral ID Status Reason Start Date Expiration Date Visits Re quested Visits Authorized [id number] Closed 05/08/2023 06/06/2024 1 1 Encounter Details Date Type Department Care Team (Late st Contact Info) Description 05/08/2023 Orders Only [facility] Family Medicine [address] [phone] Aurelia Huitron MD [address] [place] [phone] Left knee pain, unspecified chronicity (Primary Dx); Right knee pain, unspecified chronicity Social History Tobacco Use Types Packs/Day Years [...] on file 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 Left knee pain >2 years, pain getting worse. ? TECHNIQUE: Four ??radiographic view(s) of the ??left knee . COMPARISON: None FINDINGS: No acute fracture or malalignment. ?? There is moderate osteoarthritis, predominantly involving the medial compartment. ??No knee joint effusion. ??The soft tissues are normal. IMPRESSION: No acute osseous abnormality. ?? Moderate osteoarthritis of the left knee, predominantly involving the medial compartment. THIS IS AN ELECTRONICALLY VERIFIED FINAL REPORT 05/08/2023 3:55 PM - Electronically signed by ??Néstor Anglin M.D. KR: MAGNUS D: ??05/08/2023 3:55 PM T: ??05/08/2023 3:55 PM Report ID: [id number] Reading Location: ??[id number] Procedure Note Néstor Anglin MD - 05/08/2023 EXAM DESCRIPTION: XR KNEE LEFT 4 OR MORE VIEWS REASON FOR STUDY: left knee pain Left knee pain >2 years, pain getting worse. TECHNIQUE: Four radiographic view(s) of the left knee . COMPARISON: None FINDINGS: No acute fracture or malalignment. There is moderate osteoarthritis, predominantly involving the medial compartment. No kneejoint effusion. The soft tissues are normal. IMPRESSION: No acute osseous abnormality. Moderate osteoarthritis of the left knee, predominantly involving the medial compartment. THIS IS AN ELECTRONICALLY VERIFIED FINAL REPORT 05/08/2023 3:55 PM - Electronically signed by Néstor Anglin M.D. KR: KR Report ID: [id number] Reading Location: [id number] Aurelia Huitron MD IMG XR PROCEDURES F inal Result documented in this encounter Visit Diagnoses Diagnosis Left knee pain, unspecified chronicity- Primary Right knee pain, unspecified chronicity Left knee pain, unspecified chronicity documented in this encounter Care Teams Banquet Set Up Person Relationship Specialty Start Date End Date Aurelia Huitron MD [address] [place] [address] PCP - General Family Medicine 05/23/20 documented as of this encounter
--- OUTSIDE RECORDS SUMMARY | 2024-07-10 04:42 | XMS_ITS | Encounter Summary ---
Author Organization [facility] Address [address] [facility] [address] [place] [address] Care Team Providers Care Department Of Natural Resources Officer Name Role Phone Aurelia Huitron MD Primary Care Provi jarred Reason for Visit * Reason Onset Date Comments Test Results 05/28/2022 Encounter Details Date Type Department Care Team (Late st Contact Info) Description 05/28/2022 Telephone [facility] Family Medicine [address] [phone] Aurelia Huitron MD [address] [address] Test Results Social History Tobacco Use Types Packs/Day Years [...] on file 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 Patient states her sxs are getting better. OMS INVESTIGATOR * Telephone Encounter - Addie Swanson MA - 05/28/2022 10:11 AM CUSTOMS INVESTIGATOR Per JDS Your urine culture shows the normal bacteria that live near the urethra. No sign of infection. If you have any questions or your symptoms do not improve, please call the office. Thank you! OMS INVESTIGATOR documented in this encounter Plan of Treatment Not on file documented as of this encounter Visit Diagnoses Not on filedocumented in this encounter Care Teams Department Of Natural Resources Officer Relationship Specialty Start Date End Date Aurelia Huitron MD [facility] [address] [place] [address] PCP - General Family Medicine 05/23/20 documented as of this encounter
--- OUTSIDE RECORDS SUMMARY | 2024-07-10 04:42 | XMS_ITS | Encounter Summary ---
Author Organization [facility] Address [address] [facility] [address] [place] [address] Care Team Providers Care Supervisor Toy Assembly Name Role Phone Aurelia Huitron MD Primary Care Provi jarred Reason for Visit * Reason Onset Date Comments nurse visit appt 05/21/2022 Encounter Details Date Type Department Care Team (Late st Contact Info) Description 05/21/2022 Telephone [facility] Family Medicine [address] [address] Aurelia Huitron MD [address] [address] nurse visit appt Social History Tobacco Use Types Packs/Day Years [...] on file Legal Sex Female 12:58 AM IMPLEMENTATION ARCHITECT Gender Identity Not on file Sexual Orientation Not on file documented as of this encounter Miscellaneous Notes * Telephone Encounter - Shellie Porter LPN - 05/26/2022 9:17 AM CST Patient report symptoms have improved quite a bit and will keep us updated. EMENTATION ARCHITECT * Telephone Encounter - Aurelia Huitron MD - 05/25/2022 7:46 PM IMPLEMENTATION ARCHITECT Pt's urine culture shows the chay that live near the urethra. If she is still having symptoms, would she want to see urology? EMENTATION ARCHITECT * Telephone Encounter - Rizwana Kaufman LPN - 05/23/2022 4:20 PM IMPLEMENTATION ARCHITECT Please call pt to schedule an apt to FU with her urinary frequency Urine sent for culture per JSOFÍA EMENTATION ARCHITECT * Telephone Encounter - Shellie Porter LPN - 05/23/2022 3:14 PM CST . EMENTATION ARCHITECT * Telephone Encounter - Shellie Porter LPN - 05/23/2022 3:14 PM CST Routing to you as you discussed with JDS EMENTATION ARCHITECT * Telephone Encounter - Aurelia Huitron MD - 05/23/2022 11:47 AM IMPLEMENTATION ARCHITECT I would let her know we can only we can only do a dip here- it is not as specific. If we are looking for any urinary issues- this would be the best way to evaluate her. I am out of the office today- but we could consider an appointment next week. Thank you EMENTATION ARCHITECT * Telephone Encounter - Rizwana Kaufman LPN - 05/23/2022 10:02 AM IMPLEMENTATION ARCHITECT Pt came in today for this. Please see labs, urine dip was normal. Since her dip was normal and her culture from 05/06 was also normal do you want me to send it off for a culture or would you rather have her come in for an apt/see urology for further eval of the cause of her frequency? EMENTATION ARCHITECT * Telephone Encounter - Shellie Porter LPN - 05/22/2022 1:12 PM CST Pt would like to come here and nurse visit scheduled EMENTATION ARCHITECT * Telephone Encounter - Aurelia Huitron MD - 05/22/2022 12:03 PM IMPLEMENTATION ARCHITECT Patient needs a urinalysis and urine culture ordered to the lab of her choosing. Thank you EMENTATION ARCHITECT * Telephone Encounter - Rizwana Kaufman LPN - 05/22/2022 8:18 AM IMPLEMENTATION ARCHITECT Did you approve this? It says per doctor Jennifer in the notes. She was seen on 05/06 and her culture wasnormal. EMENTATION ARCHITECT * Telephone Encounter - Jeni Hernandez MA - 05/22/2022 8:01 AM CST Call Back Caller???s Concern: patient calling in for an update on this . Please advise. Caller???s Call back #: [phone] Does message need to be routed? Yes-Action Needed EMENTATION ARCHITECT * Telephone Encounter - Iwona Zuleta - 05/21/2022 4:02 PM CST Can pt come in for nurse visit? EMENTATION ARCHITECT * Telephone Encounter - Vanessa Webster MA - 05/21/2022 3:50 PM CST Additional Services or Orders Type of Service Requested:Nurse Visit Reason for Request (e.g. condition/symptom, date of COVID exposure if applicable): urine dip and culture per Dr. Rodriguez Details Regarding Additional Services (e.g. type of home health, type of equipment, type of test, etc.): nurse visit Where will services be performed? (if outside of the practice, facility name, address, phone/fax offacility): in office Caller's Callback #: [phone] Additional Comments: would like to get in soon as possible Does message need to be routed?Yes-Action Needed EMENTATION ARCHITECT documented in this encounter Plan of Treatment Not on file documented as of this encounter Visit Diagnoses Not on filedocumented in this encounter Care Teams Supervisor Toy Assembly Relationship Specialty Start Date End Date Aurelia Huitron MD [address] [place] [address] PCP - General Family Medicine 05/23/20 documented as of this encounter
--- OUTSIDE RECORDS SUMMARY | 2024-07-10 04:42 | XMS_ITS | Encounter Summary ---
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
--- OUTSIDE RECORDS SUMMARY | 2024-07-10 04:42 | XMS_ITS | Encounter Summary ---
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 Called pt and informed. * Telephone Encounter - BettyMamie spearst - 05/08/2023 10:53 AM CDT Pt is at [facility] for Lt knee xray. Pt had order for it but never had it done because her knee got better. Now it is causing hr pain. Pt went to get xray and it has . Please place new order didier because pt is at the hospital now. Pt wants call after order is put in. Pt ph# is [phone] documented in this encounter Plan of Treatment Not on file documented as of this encounter Visit Diagnoses Not on filedocumented in this encounter Care Teams Baggage Handler Relationship Specialty Start Date End Date Aurelia Huitron MD [address] [place] [address] PCP - General Family Medicine 05/23/20 documented as of this encounter
--- OUTSIDE RECORDS SUMMARY | 2024-07-10 04:42 | XMS_ITS | Encounter Summary ---
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 Gender Identity Not on file Sexual Orientation Not on file documented as of this encounter Medications at Time of Discharge diclofenac sodium (VOLTAREN) 1 % gelIndications:R ight wrist pain Apply 2 g topically 4 (four) times a day as needed (right wrist pain) 100 g 10/06/2023 fluticasone propionate (FLONASE) 50 mcg/actuation nasal sprayIndications :Seasonal allergic rhinitis due to pollen Administer 2 sprays into each nostril daily 3 each 4 08/26/2023 meclizine (ANTIVERT) 12.5 mg tabletIndication s:Benign paroxysmal positional vertigo of right ear Take 1 tablet (12.5 mg total) by mouth 3 (three) times a day as needed for dizziness 30 tablet 1 05/06/2022 meloxicam (MOBIC) 7.5 mg tabletIndication s:Acute pain of left knee Take 1-2 tablets (7.5-15 mg total) by mouth daily with food. 90 tablet 03/26/2022 methocarbamoL (ROBAXIN) 750 mg tablet TAKE 1 TABLET BY MOUTH 3 TIMES A DAY NEEDED FOR MUSCLE SPASMS. 30 tablet 1 03/25/2022 amLODIPine (NORVASC) 5 mg tablet TAKE 1 TABLET BY MOUTH TWICE A DAY 180 tablet 10/02/2023 4 clobetasoL (TEMOVATE) 0.05 % external solutionIndicati ons:Dermatosis of the Scalp Apply topically 2 (two) times a day 60 mL 2 08/26/2023 4 dulaglutide (Trulicity) 0.75 mg/0.5 mL pen injectorIndicati ons:Type 2 diabetes mellitus with other specified complication, without long-term current use of insulin (HCC) INJECT 0.5 MILLILITERS UNDER THE SKIN ONE TIME PER WEEK 3 mL 2 09/09/2023 4 escitalopram (LEXAPRO) 20 mg tablet TAKE 1 TABLET BY MOUTH EVERY DAY 90 tablet 2 02/27/2023 4 losartan (COZAAR) 100 mg tablet Take [...] Procedure Name Priority Date/Time Associated Diagnosis Comments XR WRIST RIGHT 3 OR MORE VIEWS Schedule Routine, Read Routine (OP Routine) 10/07/2023 10:10 AM CDT Right wrist pain documented in this encounter Results * XR Wrist Right 3+ Vw (10/07/2023 10:10 AM CDT) Anatomical Region Laterality Modality Upper Extremities, Wrist Right Compute d Radiography 10/07/2023 4:35 PM CDT Narrative 10/07/2023 4:37 PM CDT EXAM DESCRIPTION: XR WRIST RIGHT 3 OR MORE VIEWS REASON FOR STUDY: right wrist pain ?? Wrist pain x 1 month. Nki ?? TECHNIQUE: 3 ??radiographic view(s) of the ??right wrist . COMPARISON: None available FINDINGS: Mild ulnar negative variance. ?? The alignment is otherwise normal. ?? There is no fracture. 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 ?? An os triangulare is present. ??Mild osteopenia. ??No aggressive bone lesions. IMPRESSION: No acute osseous abnormality. 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 THIS IS AN ELECTRONICALLY VERIFIED FINAL REPORT 10/07/2023 4:37 PM - Electronically signed by ??Carlie Gar M.D. AT: AT D: ??10/07/2023 4:37 PM T: ??10/07/2023 4:37 PM Report ID: [id number] Reading Location: ??[id number] Procedure Note Carlie Gar MD - 10/07/2023 EXAM DESCRIPTION: XR WRIST RIGHT 3 OR MORE VIEWS REASON FOR STUDY: right wrist pain Wrist pain x 1 month. Nki TECHNIQUE: 3 radiographic view(s) of the right wrist . COMPARISON: None available FINDINGS: Mild ulnar negative variance. The alignment is otherwisenormal. There is no fracture. Severe 1st CMC and mild 1st MCP jointosteoarthritis. An os triangulare is present. Mild osteopenia. No aggressive bonelesions. IMPRESSION: No acute osseous abnormality. Severe right 1st CMC and [id number] MCP joint osteoarthritis. THIS IS AN ELECTRONICALLY VERIFIED FINAL REPORT 10/07/2023 4:37 PM - Electronically signed by Carlie Gar M.D. AT: AT Report ID: [id number] Reading Location: [place] [address] Ekaterina RAMOS IMG XR PROCEDURES Final R esult documented in this encounter Visit Diagnoses Diagnosis Right wrist pain Pain in joint, forearm documented in this encounter Care Teams Advertising Sales Executive Relationship Specialty Start Date End Date Aurelia Huitron MD [address] [place] [address] PCP - General Family Medicine 05/23/20 documented as of this encounter
--- OUTSIDE RECORDS SUMMARY | 2024-07-10 04:42 | XMS_ITS | Encounter Summary ---
Author Organization [facility] Address [address] [place] [address] Care Team Providers Care Inspector Precision Name Role Phone Aurelia Huitron MD Primary Care Provi jarred Reason for Referral * Diagnostic Imaging (Routine) - Closed Specialty Diagnoses / Procedures Referred By Connie t Referred To Contact Diagnoses Left knee pain, unspecified chronicity Procedures XR Knee Left 4 or More Views Aurelia Huitron MD [address] [place] [address] Phone: tel: fax: [address] [phone] Referral ID Status Reason Start Date Expiration Date Visits Re quested Visits Authorized [id number] Closed 05/08/2023 06/06/2024 1 1 Reason for Visit * Diagnostic Imaging (Routine) - Closed Specialty Diagnoses / Procedures Referred By Contac t Referred To Contact Diagnoses Left knee pain, unspecified chronicity Procedures XR Knee Left 4 or More Views Aurelia Huitron MD [address] [place] [address] Phone: tel: fax: [address] [phone] Referral ID Status Reason Start Date Expiration Date Visits Re quested Visits Authorized [id number] Closed 05/08/2023 06/06/2024 1 1 Encounter Details Date Type Department Care Team (Latest Contact Info) Description 05/08/2023 11:19 AM CDT - 05/08/2023 11:59 PM CDT Hospital Encounter [facility] Diagnostic Imaging [address] [place] [address] Left knee pain, unspecified chronicity Discharge Disposition: Discharge to home or self [...] on file Legal Sex Female 12:58 AM COOK FRY Gender Identity Not on file Sexual Orientation Not on file documented as of this encounter Medications at Time of Discharge meclizine (ANTIVERT) 12.5 mg tabletIndication s:Benign paroxysmal [...] BY MOUTH TWICE A DAY 180 tablet 03/10/2023 3 escitalopram (LEXAPRO) 20 mg tablet TAKE 1 TABLET BY MOUTH EVERY DAY 90 tablet 2 02/27/2023 4 liraglutide (Victoza 2-Eduardo) 0.6 mg/0.1 mL (18 mg/3 mL) injection INJECT 1.2 MG UNDER THE SKIN ONCE DAILY 3 mL 1 04/27/2023 3 losartan (COZAAR) 100 mg tablet TAKE 1 TABLET BY MOUTH EVERY DAY 90 tablet 1 03/10/2023 4 metFORMIN (GLUCOPHAGE) 500 mg tablet TAKE 1 TABLET BY MOUTH TWICE A DAY WITH FOOD 180 tablet 03/10/2023 3 omeprazole (PriLOSEC) 20 mg capsule TAKE 1 CAPSULE BY MOUTH EVERY DAY 90 capsule 03/10/2023 3 rosuvastatin (CRESTOR) 10 mg tablet TAKE 1 TABLET BY MOUTH EVERY DAY 90 tablet 03/10/2023 3 UltiCare Pen Needle 31 gauge x 1/4 needle USE DAILY WITH VICTOZA 100 each 3 03/30/2023 3 documented as of this encounter Discharge Disposition Disposition Code Departure Means Destination Discharge to home or self care documented in this encounter Plan of Treatment Not on file documented as of this encounter Procedures Procedure Name Priority Date/Time Associated Diagnosis Comments XR KNEE LEFT 4 OR MORE VIEWS Schedule Routine, Read Routine (OP Routine) 05/08/2023 11:42 AM CDT Left knee pain, unspecified chronicity documented in this encounter Results * XR Knee Left [...] PM T: ??05/08/2023 3:55 PM Report ID: [id number] Reading Location: ??[id number] Procedure Note Néstor Anglin MD - 05/08/2023 [...] Electronically signed by Néstor Anglin M.D. KR: MAGNUS Report ID: [id number] Reading Location: [id number] us Aurelia Huitron MD IMG XR PROCEDURES F inal Result documented in this encounter Visit Diagnoses Diagnosis Left knee pain, unspecified chronicity documented in this encounter Care Teams Inspector Precision Relationship Specialty Start Date End Date Aurelia Huitron MD [address] [place] [address] PCP - General Family Medicine 05/23/20 documented as of this encounter
--- OUTSIDE RECORDS SUMMARY | 2024-07-10 04:42 | XMS_ITS | Encounter Summary ---
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
--- OUTSIDE RECORDS SUMMARY | 2024-07-10 04:42 | XMS_ITS | Encounter Summary ---
Author Organization [facility] Address [address] [place] [address] Care Team Providers Care Superintendent Plant Name Role Phone Aurelia Huitron MD Primary Care Provi jarred Reason for Referral * Consultation (Routine) - Closed Specialty Diagnoses / Procedures Referred By Connie t Referred To Contact Orthopedic Surgery Diagnoses Right wrist pain Ekaterina Mayfield PA [address] [place] [address] Phone: tel: fax: [facility] Hand Surgery [address] [place] [phone] Phone: tel: fax: Referral ID Status Reason Start Date Expiration Date V isits Requested Visits Authorized [id number] Closed Specialty Services Required 10/06/2023 11/04/2024 6 6 Question Answer Please select the performing region: [facility] [[id number]] Please select the performing department: [facility] [[id number]] # of visits: 6 Comments Right wrist pain, arthritis vs deQuervain tendonitis Reason for Visit * Reason Comments Wrist Pain [facility] of [facility] for one month Encounter Details Date Type Department Care Team (Late st Contact Info) Description 10/06/2023 10:00 AM CDT Office Visit [facility] Family Medicine [address] [phone] Ekaterina Mayfield PA [address] [address] Right wrist pain (Primary Dx) Social History Tobacco Use [...] on file 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 Gender Identity Not on file Sexual Orientation Not on file documented as of this encounter Last Filed Vital Signs Vital Sign Reading Time Taken Comments Blood Pressure 116/84 10/06/2023 9:57 AM CDT Pulse 84 10/06/2023 9:57 AM CDT Temperature 36.9 ??C (98.4 ??F) 10/06/2023 9:57 AM CD T Respiratory Rate 18 10/06/2023 9:57 AM CDT Oxygen Saturation 98% 10/06/2023 9:57 AM CDT Inhaled Oxygen Concentration - - Weight 85.7 kg (189 lb) 10/06/2023 9:57 AM CDT Height 165.1 cm (5' 5 ) 10/06/2023 9:57 AM CDT Body Mass Index 31.45 10/06/2023 9:57 AM CDT documented in this encounter Ordered Prescriptions Prescription Sig Dispense Quantity Refills Last Filled Start Date End Date diclofenac sodium (VOLTAREN) 1 % gelIndications:Rig ht wrist pain Apply 2 g topically 4 (four) times a day as needed (right wrist pain) 100 g 10/06/2023 documented in this encounter Progress Notes * Ekaterina Mayfield PA - 10/06/2023 10:00 AM CDT Images from the original note were not included. Subjective/Objective Patient ID: Valeria Johnson is a 73 y.o. female. Chief Complaint Chief Complaint Patient presents with Wrist Pain Patient arrives today with complaint of right wrist pain for one month HPI Patient presents for evaluation of right wrist pain. No known injury or trauma to the wrist. She is right handed. Onset: x1 month Location: right wrist, mostly the thumb side Character of pain: dull, ache, sharp Radiation: none Aggravating factors: any rotating movements Alleviating factors: tramadol, ice briefly Hx of carpal tunnel treated surgically Treatments tried: biofreeze, braces, tramadol, ice, heat Numbness/tingling: none Weakness: yes, mild Swelling: yes Review of Systems Constitutional: Negative for chills and fever. Respiratory: Negative for cough, shortness of breath and wheezing. Cardiovascular: Negative for chest pain and palpitations. Gastrointestinal: Negative for abdominal pain. Musculoskeletal: Positive for arthralgias and joint swelling. Neurological: Positive for weakness. Negative for numbness. BP 116/84 (BP Location: Right arm, Patient Position: Sitting) Pulse 84 Temp 36.9 ??C (98.4 ??F)(Temporal) Resp 18 Ht 165.1 cm (5' 5 ) Wt 85.7 kg (189 lb) SpO2 98% BMI 31.45 kg/m?? Physical Exam Vitals and nursing note reviewed. Constitutional: Appearance: She is well-developed. HENT: Head: Normocephalic and atraumatic. Right Ear: Hearing and external ear normal. Left Ear: Hearing and external ear normal. Eyes: Extraocular Movements: Extraocular movements intact. Conjunctiva/sclera: Conjunctivae normal. Musculoskeletal: Right wrist: Tenderness (to the radial aspect, along the thumb abductor tendons, and 1st CMC joint)present. Decreased range of motion. Normal pulse. Right hand: Decreased strength (slightly decreased drying can worker compared to the left). Normal pulse. Comments: Positive Rudolph on the right. Skin: General: Skin is warm and dry. Neurological: Mental Status: She is alert and oriented to person, place, and time. Psychiatric: Behavior: Behavior normal. Assessment/Plan Diagnoses and all orders for this visit: Right wrist pain (Primary) - XR Wrist Right 3+ Vw; Future - diclofenac sodium (VOLTAREN) 1 % gel; Apply 2 g topically 4 (four) times a day as needed (right wrist pain) - Ambulatory referral to Orthopedic Surgery; Future Arthritis vs de Quervain's tendonitis. Will get an x-ray of the wrist today. Patient would like to see ortho hand to discuss getting an injection, referral placed. Can start meloxicam as needed, patient already has a prescription. Start topical diclofenac gel as needed. Take tylenol prn. Apply ice prn. May try [id number] sports creams. Biofreeze, icy hot, flexall. Handout given on hand/wrist exercises. No heavy lifting pushing or pulling. Advance activities as tolerated. Report any new or changing symptoms. Patient stated understanding. All questions answered. documented in this encounter Plan of Treatment Scheduled Referrals Name Type Priority Associated Diagnoses Order Schedule Ambulatory referral to Orthopedic Surgery Outpatient Referral Routine Right wrist pain Expected: 10/20/2023 (Approximate), Expires: 10/05/2024 documented as of this encounter Results * XR Wrist Right [...] PM T: ??10/07/2023 4:37 PM Report ID: [id number] Reading Location: ??[id number] Procedure Note Carlie Gar MD - 10/07/2023 [...] osseous abnormality. 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 THIS IS AN ELECTRONICALLY VERIFIED FINAL REPORT 10/07/2023 4:37 PM - Electronically signed by Carlie Gar M.D. AT: AT Report ID: [id number] Reading Location: [id number] Ekaterina RAMOS IMG XR PROCEDURES Final R esult documented in this encounter Visit Diagnoses Diagnosis Right wrist pain- Primary Pain in joint, forearm Right wrist pain Pain in joint, forearm documented in this encounter Care Teams Superintendent Plant Relationship Specialty Start Date End Date Aurelia Huitron MD [address] [place] [address] PCP - General Family Medicine 05/23/20 documented as of this encounter
--- OUTSIDE RECORDS SUMMARY | 2024-07-10 04:42 | XMS_ITS | Encounter Summary ---
Author Organization [facility] Address [address] [place] [address] Care Team Providers Care Creative Technologist Name Role Phone Aurelia Huitron MD Primary Care Provi jarred Reason for Referral * Consultation (Routine) - Closed Specialty Diagnoses / Procedures Referred By Contac t Referred To Contact Otolaryngology Diagnoses Ear drum perforation, right Aurelia Huitron MD [address] [place] [address] Phone: tel: fax: Ruben Lane II, MD [address] [place] [address] Phone: tel: fax: Referral ID Status Reason Start Date Expiration Date V isits Requested Visits Authorized [id number] Closed Specialty Services Required 08/26/2023 09/24/2024 1 1 Question Answer Please select the performing region: [facility] (All Locations) [167] To provider: RUBEN LANE II [[id number]] # of visits: 1 ER CALENDER HELPER * Consultation (Routine) - Closed Specialty Diagnoses / Procedures Referred By Contac t Referred To Contact Dermatology Diagnoses Dermatitis Aurelia Huitron MD [address] [place] [address] Phone: tel: fax: Harrison Robertson MD [address] [place] [address] Phone: tel: fax: Referral ID Status Reason Start Date Expiration Date V isits Requested Visits Authorized [id number] Closed Specialty Services Required 08/26/2023 09/24/2024 6 6 Question Answer Please select the performing region: External Order [171] To provider: HARRISON ROBERTSON [[id number]] # of visits: 6 ER CALENDER HELPER * Diagnostic Imaging (Routine) - Closed Specialty Diagnoses / Procedures Referred By Contac t Referred To Contact Diagnoses Postmenopausal status Procedures Dexa Axial Skeleton Bone Density 1 or 2 Site Aurelia Huitron MD [address] [place] [address] Phone: tel: fax: [address] [phone] Referral ID Status Reason Start Date Expiration Date Visits Re quested Visits Authorized [id number] Closed 08/26/2023 09/24/2024 1 1 ER CALENDER HELPER Reason for Visit * Reason Comments Medicare Wellness Encounter Details Date Type Department Care Team (Late st Contact Info) Description 08/26/2023 10:00 AM RUBBER CALENDER HELPER Office Visit [facility] Family Medicine [address] [phone] Aurelia Huitron MD [address] [place], [place] [id number] Encounter for Medicare annual wellness exam (Primary Dx); Alcohol use; Anxiety; Bilateral carpal tunnel syndrome; Class 1 obesity due to excess calories with serious comorbidity and body mass index (BMI) of 31.0 to 31.9 in adult; Essential hypertension; Gastroesophageal reflux disease without esophagitis; Other hemorrhoids; Other hyperlipidemia; Primary insomnia; Chronic bilateral low back pain without sciatica; Obstructive sleep apnea syndrome; Overactive bladder due to prolapse of female genital organ; Type 2 diabetes mellitus with other specified complication, without long-term current use of insulin (HCC); Postmenopausal status; Seasonal allergic rhinitis due to pollen; Ear drum perforation, right; Dermatitis Social History Tobacco Use Types Packs/Day Years [...] on file Legal Sex Female 12:58 AM RUBBER CALENDER HELPER Gender Identity Not on file Sexual Orientation Not on file documented as of this encounter Last Filed Vital Signs Vital Sign Reading Time Taken Comments Blood Pressure 114/70 08/26/2023 9:55 AM RUBBER CALENDER HELPER Pulse 85 08/26/2023 9:55 AM RUBBER CALENDER HELPER Temperature 36.4 ??C (97.6 ??F) 08/26/2023 9:55 AM CS T Respiratory Rate 12 08/26/2023 9:55 AM RUBBER CALENDER HELPER Oxygen Saturation 98% 08/26/2023 9:55 AM RUBBER CALENDER HELPER Inhaled Oxygen Concentration - - Weight 86.1 kg (189 lb 12.8 oz) 08/26/2023 9:55 AM RUBBER CALENDER HELPER Height 165.1 cm (5' 5 ) 08/26/2023 9:55 AM RUBBER CALENDER HELPER Body Mass Index 31.58 08/26/2023 9:55 AM RUBBER CALENDER HELPER documented in this encounter Patient Instructions * Patient Instructions* Aurelia Huitron MD - 08/26/2023 10:00 AM RUBBER CALENDER HELPER Follow up in 6 months Update me in 4 weeks with how she is doing Health Maintenance Topic Date Due Covid-19 Vaccine ( season) 2023 Influenza Vaccine (1) 03/06/2023 Hemoglobin A1C 04/02/2023 Albumin Creatinine Ratio, Urine 10/01/2023 Lipid Panel 10/01/2023 eGFR 10/01/2023 Dilated Eye Exam 10/21/2023 Osteoporosis Screening-Bone Density Scan 12/18/2023 Breast Cancer Screening-Mammogram 04/06/2024 Colon Cancer Screening-DNA Stool 07/29/2024 Fall Risk Assessment 08/26/2024 Depression Screening-PHQ 08/26/2024 Well Visit 65+ 08/26/2024 Foot Exam 08/26/2024 DTaP/Tdap/Td Vaccine (3 - Td or Tdap) 12/05/2029 Zoster Vaccine Completed Pneumococcal vaccine 65+ Completed Hepatitis C Screening Completed ER CALENDER HELPER documented in this encounter Ordered Prescriptions Prescription Sig Dispense Quantity Refills Last Filled Start Date End Date fluticasone propionate (FLONASE) 50 mcg/actuation nasal sprayIndications:S easonal allergic rhinitis due to pollen Administer 2 sprays into each nostril daily 3 each 4 08/26/2023 clobetasoL (TEMOVATE) 0.05 % external solutionIndication s:Dermatosis of the Scalp Apply topically 2 (two) times a day 60 mL 2 08/26/2023 4 clobetasoL (TEMOVATE) 0.05 % external solutionIndication s:Dermatosis of the Scalp Apply topically 2 (two) times a day 60 mL 2 08/26/2023 4 fluticasone propionate (FLONASE) 50 mcg/actuation nasal sprayIndications:S easonal allergic rhinitis due to pollen Administer 2 sprays into each nostril daily 3 each 4 08/26/2023 4 documented in this encounter Progress Notes * Aurelia Huitron MD - 08/26/2023 10:00 AM CST Images from the original note were not included. Valeria Johnson is a 73 y.o. year old White Non- female here an for Annual Wellness Visit. Medicare Health Risk Assessment Basic Information In general, would you say your health is: Good Do you have an advance directive, such as a living will or durable power of criminal attorney?: Yes Do you have to strain or struggle to hear/understand conversations?: No Over the last 2 weeks, how often have you been bothered by any of the following problems? Little Interest or Pleasure in Doing Things: Not at all Feeling Down, Depressed, or Hopeless: Not at all PHQ-2 Total Score (If total score is 3 or more points, staff should administer the PHQ-9): 0 In the past year, patient experienced: One or more falls in the last year: No Do you feel unsteady when standing or walking?: No Do you worry about falling?: No Safety Do you have a working smoke detector in your home?: Yes Does your home have throw rugs, poor lighting, or a slippery bath tub/shower?: No Do you always fasten your seatbelt when you are in a vehicle?: Yes What is your typical mode of transportation: Car Physical Activity How many days a week do you usually exercise?: 0 - I do not exercise How intense is your typical exercise?: I am currently not exercising Nutrition How would you rate your appetite?: Good How would you describe the condition of your mouth and teeth/dentures?: Good On a typical day, how many servings of fruits and vegetables do you eat?: 4 On a typical day, how many servings of high fiber/whole-grain foods do you eat?: 2 On a typical day, how many servings of high fat/fried foods do you eat?: 2 Have you experienced any of the following problems currently or recently? Eating: No Grooming: No Bathing: No Walking: No Using the toilet: No Memory problems: No Difficulty speaking: No Dressing: No Balance: No Pain: No Sexual Health: No Fatigue: No Have you experienced any of the following problems currently or recently? Laundry and/or housekeeping: No Handling money: No Shopping: No Using the Phone: No Food preparation: No Transportation: No Taking and/or getting your own medications: No Do you use prescription drugs that are not prescribed for you?: No Do you struggle with any of the following: depression, stress, anger, loneliness or social isolation?: No Based on my observation of the patient, review of Health Risk Assessment (HRA) and other records, this is my assessment and recommendation regarding fall risk, hearing impairment, home safety, ADLs, or any other issues identified in the HRA: No issues noted Chronic conditions: -alcohol use. She has 1-2 drinks daily -anxiety. She is on Lexapro 20 mg daily with improvement -carpal tunnel syndrome. This is improved -hypertension. She is taking her medication as prescribed her blood pressure has run high the last two visits -GERD. She is on omeprazole 20 mg daily -hemorrhoids. She is currently asymptomatic -hyperlipidemia. She is on Crestor -insomnia. She is on healthy lifestyle changes -low back pain. She is on Robaxin, meloxicam -overactive bladder. She has currently not on medication for this -type 2 diabetes. She is on Trulicity, metformin. She has not completed her blood work Issues with progression: -allergic rhinitis. She is currently not on medication for this She is having post nasal and ear pressure on the right -she has a rash on her scalp. It has been present for 6-8 months. -she has frequent urination at night- it impairs her sleep -RAE. She is off CPAP. She has fatigue. Problem List, Past Medical and Surgical History: Patient Active Problem List Diagnosis Allergic rhinitis Anxiety Carpal tunnel syndrome Essential hypertension Gastroesophageal reflux disease Hemorrhoids Hyperlipidemia Insomnia Low back pain Obstructive sleep apnea syndrome Overactive bladder due to prolapse of female genital organ Type 2 diabetes mellitus with other specified complication (HCC) Class 1 obesity due to excess calories with serious comorbidity and body mass index (BMI) of 31.0 to 31.9 in adult Encounter for Medicare annual wellness exam Alcohol use Past Medical History: Diagnosis Date Anxiety Apnea Diabetes mellitus (HCC) Hypercholesterolemia with hypertriglyceridemia Hypertension Insomnia Past Surgical History: Procedure Laterality Date CATARACT EXTRACTION W/ INTRAOCULAR LENS IMPLANT right eye KNEE ARTHROSCOPY W/ MENISCAL REPAIR TUBAL LIGATION Family History: Family History Problem Relation Age of Onset No Known Problems Mother Hypertension Father Diabetes Father COPD Father Rheum arthritis Sister Social History: Social History Tobacco Use Smoking status: Never Smokeless tobacco: Never Substance and Sexual Activity Drug use: Never Sexual activity: Yes Partners: Male control/protection: Post-menopausal Alcohol Use: Alcohol Misuse (08/18/2022) AUDIT-C Frequency of Alcohol Consumption: 2-3 times a week Average Number of Drinks: 1 or 2 Frequency of Binge Drinking: Monthly Allergies: No Known Allergies Medications: Current Outpatient Medications: amLODIPine (NORVASC) 5 mg tablet, TAKE 1 TABLET BY MOUTH TWICE A DAY, Disp: 180 tablet, Rfl: 0 dulaglutide (TRULICITY) 0.75 mg/0.5 mL pen injector, Inject 0.5 mL (0.75 mg total) under the skin once a week, Disp: 4 mL, Rfl: 2 escitalopram (LEXAPRO) 20 mg tablet, TAKE 1 TABLET BY MOUTH EVERY DAY, Disp: 90 tablet, Rfl: 2 losartan (COZAAR) 100 mg tablet, Take 1 tablet (100 mg total) by mouth daily, Disp: 90 tablet, Rfl:1 meclizine (ANTIVERT) 12.5 mg tablet, Take 1 tablet (12.5 mg total) by mouth 3 (three) times a day as needed for dizziness, Disp: 30 tablet, Rfl: 1 meloxicam (MOBIC) 7.5 mg tablet, Take 1-2 tablets (7.5-15 mg total) by mouth daily with food., Disp: 90 tablet, Rfl: 0 metFORMIN (GLUCOPHAGE) 500 mg tablet, TAKE 1 TABLET BY MOUTH TWICE A DAY WITH FOOD, Disp: 180 tablet, Rfl: 0 methocarbamoL (ROBAXIN) 750 mg tablet, TAKE 1 TABLET BY MOUTH 3 TIMES A DAY NEEDED FOR MUSCLE SPASMS., Disp: 30 tablet, Rfl: 1 omeprazole (PriLOSEC) 20 mg capsule, TAKE 1 CAPSULE BY MOUTH EVERY DAY, Disp: 90 capsule, Rfl: 0 rosuvastatin (CRESTOR) 10 mg tablet, TAKE 1 TABLET BY MOUTH EVERY DAY, Disp: 90 tablet, Rfl: 0 clobetasoL (TEMOVATE) 0.05 % external solution, Apply topically 2 (two) times a day, Disp: 60 mL, Rfl: 2 fluticasone propionate (FLONASE) 50 mcg/actuation nasal spray, Administer 2 sprays into each nostril daily, Disp: 3 each, Rfl: 4 Depression Screen: PHQ Screening Over the past 2 weeks, how often have you been bothered by any of the following problems? Little Interest or Pleasure in Doing Things: Not at all Feeling Down, Depressed, or Hopeless: Not at all PHQ-2 Total Score (If total score is 3 or more points, staff should administer the PHQ-9): 0 Trouble Falling or Staying Asleep, or Sleeping too Much: More than half the days Feeling Tired or Having Little Energy: More than half the days Poor Appetite or Overeating: Not at all Feeling Bad About Yourself - or That You are a Failure or Have Let Yourself or Your Family Down: Not at all Trouble Concentrating on Things, Such as Reading the Newspaper or Watching Television: Not at all Moving or Speaking so Slowly That Other People Could Have Noticed, or the Opposite - Being so Fidgety or Restless That You Have Been Moving Around a lot More Than Usual: Not at all Thoughts That You Would be Better off , or of Hurting Yourself in Some Way: Not at all PHQ-9 Total Score: 4 If you checked off any problems, how difficult have these problems made it for you to do your work,take care of things at home, or get along with other people?: Not difficult at all Vitals: Vitals BP 114/70 (BP Location: Left arm, Patient Position: Sitting) Pulse 85 Temp 36.4 ??C (97.6 ??F) (Temporal) Resp 12 Ht 165.1 cm (5' 5 ) Wt 86.1 kg (189 lb 12.8 oz) SpO2 98% BMI 31.58 kg/m?? Body mass index is 31.58 kg/m??. Exam: Physical Exam Vitals and nursing note reviewed. Constitutional: General: She is not in acute distress. Appearance: Normal appearance. She is well-developed. She is not ill-appearing. HENT: Head: Normocephalic and atraumatic. Right Ear: External ear normal. Tympanic membrane is perforated. Left Ear: Tympanic membrane and external ear normal. Nose: Nose normal. [...] Skin: General: Skin is warm and dry. Comments: Scaling almost plaque like lesion on her scalp Neurological: Mental Status: She is alert and oriented to person, place, and time. Motor: No abnormal muscle tone. Psychiatric: Mood and Affect: Mood normal. Behavior: Behavior normal. Thought Content: Thought content normal. Diabetic foot exam: Left monofilament exam: normal Right monofilament exam: normal Care Team Providers: Patient Care Team: Aurelia Huitron MD as PCP - General (Family Medicine) Primary Pharmacy/DME suppliers: [id number] - [place], [place] - [address] [facility] [address] [place] [facility] [phone] [id number] [place] [address] [facility] [address] [place] [id number] Detection of Cognitive Impairment: The patient does not have cognitive impairment based on direct observation, discussion with patientor family, or review of medical records. Health Maintenance: Health Maintenance Topics with due status: Overdue Topic Date Due Covid-19 Vaccine 03/06/2023 Influenza Vaccine 03/06/2023 Hemoglobin A1C 04/02/2023 Foot Exam 08/18/2023 Health Maintenance Topics with due status: Due On Topic Date Due Well Visit 65+ 08/18/2023 Health Maintenance Topics with due status: Not Due Topic Last Completion Date DTaP/Tdap/Td Vaccine 12/06/2019 Colon Cancer Screening-DNA Stool 07/29/2021 Osteoporosis Screening-Bone Density Scan 12/17/2021 Albumin Creatinine Ratio, Urine 09/30/2022 Lipid Panel 09/30/2022 eGFR 09/30/2022 Dilated Eye Exam 10/20/2022 Breast Cancer Screening-Mammogram 04/06/2023 Fall Risk Assessment 08/26/2023 Depression Screening-PHQ 08/26/2023 Health Maintenance Topics with due status: Completed Topic Last Completion Date Zoster Vaccine 01/18/2019 Pneumococcal vaccine 65+ 05/16/2020 Hepatitis C Screening 11/19/2020 Counseling and Referral of Preventative Services: Lifestyle Recommendations Increase Physical Activity, Reduce Weight, and Improve Diet Advanced Directive Durable Power of Hand Engraver: Yes Living Will: Yes Assessment and Plan: Diagnoses and all orders for this visit: Encounter for Medicare annual wellness exam (Primary) Assessment & Plan: Encouraged healthy diet and activity Pt has POA and living will Health Maintenance: Last mammogram: 01/15/22, 12/26- WNL Last DEXA:-12/25- WNL- ordered Last colon cancer screening: cologuard 07/2021- Neg Last pneumonia/Prevnar: up to date Last Shingrix: up to date Last Flu: encouraged Last COVID: encouraged Alcohol use Assessment & Plan: Chronic, stable Encouraged cutting down Anxiety Assessment & Plan: Chronic, stable Continue lexapro Bilateral carpal tunnel syndrome Assessment & Plan: Chronic, improved Continue to monitor Class 1 obesity due to excess calories with serious comorbidity and body mass index (BMI) of 31.0 to 31.9 in adult Assessment & Plan: Chronic, improved BMI Follow-up includes: nutrition counseling. Essential hypertension Assessment & Plan: Chronic, stable Continue losartan, norvasc Continue healthy changes Gastroesophageal reflux disease without esophagitis Assessment & Plan: Chronic, stable We reviewed the risks/benefits, side effects She is going to take her medication every other day as her symptoms are well controlled Other hemorrhoids Assessment & Plan: Chronic, asymptomatic Continue to monitor Other hyperlipidemia Assessment & Plan: Chronic, stable Continue crestor Orders: - Lipid panel; Future Primary insomnia Assessment & Plan: Chronic, persistent She does not feel as though she has quality sleep Will refer to sleep medicine given her RAE Call for questions or concerns Chronic bilateral low back pain without sciatica Assessment & Plan: Chronic, stable Continue supportive care Continue medication as needed Obstructive sleep apnea syndrome Assessment & Plan: Chronic, uncontrolled She is off CPAP with difficulty sleeping, fatigue Referral to sleep medicine placed Overactive bladder due to prolapse of female genital organ Assessment & Plan: Chronic, persistent Will check urine studies Decrease PM hydration- drink when thirsty Cut down on etoh and caffeine Update me in 6 months Orders: - Urinalysis reflex to microscopic and culture Urine, clean voided; Future Type 2 diabetes mellitus with other specified complication, without long-term current use of insulin (HCC) Assessment & Plan: Chronic, stable Labs ordered Foot exam today Further guidance once we have the results Orders: - Comprehensive metabolic panel; Future - CBC with auto differential; Future - Thyroid Function [place]; Future - Hemoglobin A1c; Future - Albumin Creatinine Ratio, Urine; Future - Magnesium; Future - Vitamin B12; Future Postmenopausal status - Dexa Axial Skeleton Bone Density 1 or 2 Site; Future Seasonal allergic rhinitis due to pollen Assessment & Plan: Chronic, persistent Encouraged starting flonase daily Orders: - fluticasone propionate (FLONASE) 50 mcg/actuation nasal spray; Administer 2 sprays into each nostril daily Ear drum perforation, right Comments: acute, new vs prior will refer to ENT update me after the visit Orders: - Ambulatory referral to ENT; Future Dermatitis Comments: acute- but may be chronic i am concerned about psoriasis will do a trial of triamcinalone update me in 4 weeks consider derm referral Orders: - Ambulatory referral to Dermatology; Future - clobetasoL (TEMOVATE) 0.05 % external solution; Apply topically 2 (two) times a day Patient here for annual Medicare wellness visit and for review of complete medical problem list. All the elements of the plan were completed as outlined by CMS. A copy of the prevention plan was given to the patient. I reviewed Medicare Wellness Questionnaire (other physicians involved in care, depression screen, advanced directives), cognitive/memory, and functional assessment. I reviewed and updated the complete problem list, medication list, family history, and immunization records with the patient. I provided preventive counseling and early detection interventions to the patient through health maintenance update and summary of today's office visit. Aurelia Huitron MD ER CALENDER HELPER documented in this encounter Miscellaneous Notes * Assessment & Plan Note - Aruelia Huitron MD - 08/26/2023 10:23 AM CSTAssociated Problem(s): Type 2 diabetes mellitus with other specified complication (HCC) Chronic, stable Labs ordered Foot exam today Further guidance once we have the results ER CALENDER HELPER * Assessment & Plan Note - Aurelia Huitron MD - 08/26/2023 10:22 AM CSTAssociated Problem(s): Overactive bladder due to prolapse of female genital organ Chronic, persistent Will check urine studies Decrease PM hydration- drink when thirsty Cut down on etoh and caffeine Update me in 6 months ER CALENDER HELPER * Assessment & Plan Note - Aurelia Huitron MD - 08/26/2023 10:20 AM CSTAssociated Problem(s): Low back pain Chronic, stable Continue supportive care Continue medication as needed ER CALENDER HELPER * Assessment & Plan Note - Aurelia Huitron MD - 08/26/2023 10:20 AM CSTAssociated Problem(s): Obstructive sleep apnea syndrome Chronic, uncontrolled She is off CPAP with difficulty sleeping, fatigue Referral to sleep medicine placed ER CALENDER HELPER * Assessment & Plan Note - Aurelia Huitron MD - 08/26/2023 10:19 AM CSTAssociated Problem(s): Insomnia Chronic, persistent She does not feel as though she has quality sleep Will refer to sleep medicine given her RAE Call for questions or concerns ER CALENDER HELPER * Assessment & Plan Note - Aurelia Huitron MD - 08/26/2023 10:17 AM CSTAssociated Problem(s): Hyperlipidemia Chronic, stable Continue crestor ER CALENDER HELPER * Assessment & Plan Note - Aurelia Huitron MD - 08/26/2023 10:17 AM CSTAssociated Problem(s): Hemorrhoids Chronic, asymptomatic Continue to monitor ER CALENDER HELPER * Assessment & Plan Note - Aurelia Huitron MD - 08/26/2023 10:16 AM CSTAssociated Problem(s): Gastroesophageal reflux disease Chronic, stable We reviewed the risks/benefits, side effects She is going to take her medication every other day as her symptoms are well controlled ER CALENDER HELPER * Assessment & Plan Note - Aurelia Huitron MD - 08/26/2023 10:15 AM CSTAssociated Problem(s): Essential hypertension Chronic, stable Continue losartan, norvasc Continue healthy changes ER CALENDER HELPER * Assessment & Plan Note - Aurelia Huitron MD - 08/26/2023 10:15 AM CSTAssociated Problem(s): Class 1 obesity due to excess calories with serious comorbidity and body mass index (BMI) of 31.0 to 31.9 in adult Chronic, improved BMI Follow-up includes: nutrition counseling. ER CALENDER HELPER * Assessment & Plan Note - Aurelia Huitron MD - 08/26/2023 10:14 AM CSTAssociated Problem(s): Carpal tunnel syndrome Chronic, improved Continue to monitor ER CALENDER HELPER * Assessment & Plan Note - Aurelia Huitron MD - 08/26/2023 10:13 AM CSTAssociated Problem(s): Anxiety Chronic, stable Continue lexapro ER CALENDER HELPER * Assessment & Plan Note - Aurelia Huitron MD - 08/26/2023 10:13 AM CSTAssociated Problem(s): Allergic rhinitis Chronic, persistent Encouraged starting flonase daily ER CALENDER HELPER * Assessment & Plan Note - Aurelia Huitron MD - 08/26/2023 10:12 AM CSTAssociated Problem(s): Alcohol use Chronic, stable Encouraged cutting down ER CALENDER HELPER * Assessment & Plan Note - Aurelia Huitron MD - 08/26/2023 10:11 AM CSTAssociated Problem(s): Encounter for Medicare annual wellness exam Encouraged healthy diet and activity Pt has POA and living will Health Maintenance: Last mammogram: 01/15/22, 12/26- WNL Last DEXA:-12/25- WNL- ordered Last colon cancer screening: cologuard 07/2021- Neg Last pneumonia/Prevnar: up to date Last Shingrix: up to date Last Flu: encouraged Last COVID: encouraged ER CALENDER HELPER * Addendum Note - Antonieta Medina MA - 08/26/2023 10:00 AM CSTAddended by: ANTONIETA MEDINA on: 08/26/2023 10:40 AM Modules accepted: Orders ER CALENDER HELPER documented in this encounter Plan of Treatment Scheduled Referrals Name Type Priority Associated Diagnoses Order Schedule Ambulatory referral to Dermatology Outpatient Referral Routine Dermatitis Expected: 09/09/2023 (Approximate), Expires: 08/26/2024 Ambulatory referral to ENT Outpatient Referral Routine Ear drum perforation, right Expected: 09/09/2023 (Approximate), Expires: 08/26/2024 documented as of this encounter Procedures Procedure Name Priority Date/Time Associated Diagnosis Comments REFLEXIVE URINE CULTURE Routine 08/31/2023 1:31 PM RUBBER CALENDER HELPER URINALYSIS AND REFLEX TO MICROSCOPIC AND CULTURE Routine 08/31/2023 1:31 PM RUBBER CALENDER HELPER Overactive bladder due to prolapse of female genital organ ALBUMIN CREATININE RATIO, URINE Routine 08/31/2023 1:31 PM RUBBER CALENDER HELPER Type 2 diabetes mellitus with other specified complication, without long-term current use of insulin (HCC) THYROID FUNCTION CASCADE Routine 08/31/2023 8:51 AM RUBBER CALENDER HELPER Type 2 diabetes mellitus with other specified complication, without long-term current use of insulin (HCC) CBC WITH AUTO DIFFERENTIAL Routine 08/31/2023 8:51 AM RUBBER CALENDER HELPER Type 2 diabetes mellitus with other specified complication, without long-term current use of insulin (HCC) MAGNESIUM Routine 08/31/2023 8:51 AM RUBBER CALENDER HELPER Type 2 diabetes mellitus with other specified complication, without long-term current use of insulin (HCC) HEMOGLOBIN A1C Routine 08/31/2023 8:51 AM RUBBER CALENDER HELPER Type 2 diabetes mellitus with other specified complication, without long-term current use of insulin (HCC) VITAMIN B12 Routine 08/31/2023 8:51 AM RUBBER CALENDER HELPER Type 2 diabetes mellitus with other specified complication, without long-term current use of insulin (HCC) LIPID PANEL Routine 08/31/2023 8:51 AM RUBBER CALENDER HELPER Other hyperlipidemia COMPREHENSIVE METABOLIC PANEL Routine 08/31/2023 8:51 AM RUBBER CALENDER HELPER Type 2 diabetes mellitus with other specified complication, without long-term current use of insulin (HCC) documented in this encounter Results * Dexa [...] drinks per day. ??Patient takes calcium. ? [address] Clerk/Model: 265 Network A (S/N [id number]) CLINICAL INFORMATION: Current height: ??64.5 ??inches ? [...] AM T: ??12/21/2023 11:11 AM Report ID: [id number] Reading Location: ??[id number] Procedure Note Elisha Mahoney MD - 12/21/2023 EXAM DESCRIPTION: DEXA AXIAL SKELETON BONE DENSITY 1 OR MORE SITES REASON FOR STUDY: 73 y/o year old F with given history of:Postmenopausal status. History of parent with hip fracture, glucocorticoid use and 3+ alcoholic drinks per day. Patient takes calcium. Superior Court Clerk/Model: 265 Network A (S/N [id number]) CLINICAL INFORMATION: Current height: 64.5 inches Maximum [...] Electronically signed by Elisha Mahoney M.D. TW: WALT Report ID: [id number] Reading Location: [id number] Aurelia Huitron MD IM DXA PROCEDURES Final Result * REFLEXIVE URINE CULTURE (08/31/2023 1:31 PM RUBBER CALENDER HELPER) Urine culture [facility] Comment:NO CULTURE INDICATED 08/31/2023 1:31 PM RUBBER CALENDER HELPER 08/31/2023 1:31 PM RUBBER CALENDER HELPER Narrative [facility] - 09/01/2023 3:20 PM RUBBER CALENDER HELPER SPLIT 08/31/2023 FROM [id number] us Aurelia Huitron MD LAB MICROBIOLOGY - GENERAL ORDERABLES Final Result [facility] [address] [place] [address] * (ABNORMAL) Urinalysis reflex to microscopic and culture Urine, clean voided (08/31/2023 1:31 PM RUBBER CALENDER HELPER) Color, ur DARK YELLOW YELLOW [facility] Appearance, ur CLEAR CLEAR [facility] Specific gravity 1.018 1.001 - 1.035 [facility] pH, ur 6.0 5.0 - 8.0 [facility] Glucose, ur NEGATIVE NEGATIVE [facility] Bilirubin, ur NEGATIVE NEGATIVE [facility] Ketones, ur TRACE(A) NEGATIVE [facility] Blood, ur NEGATIVE NEGATIVE [facility] Protein, ur, quant NEGATIVE NEGATIVE [facility] Nitrites, ur NEGATIVE NEGATIVE [facility] Leukocyte esterase, ur NEGATIVE NEGATIVE [facility] WBC, ur NONE SEEN < OR = 5 /HPF [facility] RBC, ur 0-2 < OR = 2 /HPF [facility] Epithelial cells, squamous, ur 0-5 < OR = 5 /HPF [facility] Bacteria, ur, quant NONE SEEN NONE SEEN /HPF [facility] Hyaline cast 0-5(A) NONE SEEN /LPF [facility] Urine, clean voided 08/31/2023 1:31 PM RUBBER CALENDER HELPER 08/31/2023 1:31 PM RUBBER CALENDER HELPER Narrative [facility] - 09/01/2023 3:20 PM RUBBER CALENDER HELPER SPLIT 08/31/2023 FROM [id number] us Aurelia Huitron MD LAB MICROBIOLOGY - GENERAL ORDERABLES Final Result [facility] [address] [place] [address] * Albumin Creatinine Ratio, Urine (08/31/2023 1:31 PM RUBBER CALENDER HELPER) Creatinine, ur 216 20 - 275 mg/dL [facility] Microalbumin, ur 3.0 See Note: mg/dL [facility] Comment: Reference Range: Reference Range Not established Microalbumin/creat ratio 14 <30 mcg/mg creat [facility] Comment: The ADA defines abnormalities in albumin excretion as follows: Albuminuria Category ?Result (mcg/mg creatinine) Normal to Mildly increased ?? <30 Moderately increased ? 30-299 Severely increased ? > OR = 300 The ADA recommends that at least two of three specimens collected within a 3-6 month period be abnormal before considering a patient to be within a diagnostic category. Urine 08/31/2023 1:31 PM RUBBER CALENDER HELPER 08/31/2023 1:31 PM RUBBER CALENDER HELPER Narrative [facility] - 09/01/2023 3:20 PM RUBBER CALENDER HELPER SPLIT 08/31/2023 FROM [id number] Aurelia Huitron MD LAB URINE ORDERABLE S Final Result Performing Organization Address [facility] Co de Phone Number AFARChris [address] [place] [address] * Vitamin B12 (08/31/2023 8:51 AM RUBBER CALENDER HELPER) Vitamin B12 384 200 - 1,100 pg/mL [facility] Comment: Please Note: Although the reference range for vitamin B12 is 200-1100 pg/mL, it has been reported that between 5 and 10% of patients with values between 200 and 400 pg/mL may experience neuropsychiatric and hematologic abnormalities due to occult B12 deficiency; less than 1% of patients with values above 400 pg/mL will have symptoms. Blood 08/31/2023 8:51 AM RUBBER CALENDER HELPER 08/31/2023 8:52 AM RUBBER CALENDER HELPER Narrative [facility] - 09/02/2023 1:52 AM RUBBER CALENDER HELPER FASTING:YES PATIENT UNABLE TO VOID; ADVISED TO RETURN FOR COLLECTION. FASTING: YES Aurelia Huitron MD LAB BLOOD ORDERABLE S Final Result Performing Organization Address [facility] [[email or web address]] de Phone Number [facility] [address] [place] [address] * Magnesium (08/31/2023 8:51 AM RUBBER CALENDER HELPER) [facility] Magnesium 1.6 1.5 - 2.5 mg/dL [facility] Blood 08/31/2023 8:51 AM RUBBER CALENDER HELPER 08/31/2023 8:52 AM RUBBER CALENDER HELPER Narrative [facility] - 09/02/2023 1:52 AM RUBBER CALENDER HELPER FASTING:YES PATIENT UNABLE TO VOID; ADVISED TO RETURN FOR COLLECTION. FASTING: YES Aurelia Huitron MD LAB BLOOD ORDERABLE S Final Result Performing Organization Address [facility] Phone Number [facility] [address] [place] [address] * (ABNORMAL) Hemoglobin A1c (08/31/2023 8:51 AM RUBBER CALENDER HELPER) [facility] Hgb A1C 6.2(H) <5.7 % of total Hgb [facility] Comment: For someone without known diabetes, a hemoglobin A1c value between 5.7% and 6.4% is consistent with prediabetes and should be confirmed with a follow-up test. For someone with known diabetes, a value <7% indicates that their diabetes is well controlled. A1c targets should be individualized based on duration of diabetes, age, comorbid conditions, and other considerations. This assay result is consistent with an increased risk of diabetes. Currently, no consensus exists regarding use of hemoglobin A1c for diagnosis of diabetes for children. ?? This test was performed on the [employer] c8000 platform. Please be advised that [facility] will move hemoglobin A1c testing to the E[employer] platform soon. In general, direct comparison of the results from different platforms is not recommended. Blood 08/31/2023 8:51 AM RUBBER CALENDER HELPER 08/31/2023 8:52 AM RUBBER CALENDER HELPER Narrative [facility] - 09/02/2023 1:52 AM RUBBER CALENDER HELPER FASTING:YES PATIENT UNABLE TO VOID; ADVISED TO RETURN FOR COLLECTION. FASTING: YES Aurelia Huitron MD LAB BLOOD ORDERABLE S Final Result Performing Organization Address City/[facility]/ZIP Co de Phone Number [facility] [address] [place] [address] * Thyroid Function [place] (08/31/2023 8:51 AM RUBBER CALENDER HELPER) Pathologist [facility] TSH 1.38 0.40 - 4.50 mIU/L [facility] Blood 08/31/2023 8:51 AM RUBBER CALENDER HELPER 08/31/2023 8:52 AM RUBBER CALENDER HELPER Narrative [facility] - 09/02/2023 1:52 AM RUBBER CALENDER HELPER FASTING:YES PATIENT UNABLE TO VOID; ADVISED TO RETURN FOR COLLECTION. FASTING: YES Aurelia Huitron MD LAB BLOOD ORDERABLE S Final Result Performing Organization Address [facility] Co de Phone Number [facility] [address] [place] [address] * (ABNORMAL) Lipid panel (08/31/2023 8:51 AM RUBBER CALENDER HELPER) Cholesterol 156 <200 mg/dL [facility] [...] factors. LDL-C is now calculated using the Raz calculation, which is a validated novel method providing better accuracy than the Friedewald equation in the estimation of LDL-C. Callum RAIN et al. LAILA. 2013;310(19): 5689-3510 (http://education.TappTime/faq/REJ852) Chol/HDL ratio 2.1 <5.0 (calc) [facility] Non-HDL, (LDL+VLDL) 80 <130 mg/dL (calc) [facility] Comment: For patients with diabetes plus 1 major ASCVD risk factor, treating to a non-HDL-C goal of <100 mg/dL (LDL-C of <70 mg/dL) is considered a therapeutic option. Blood 08/31/2023 8:51 AM RUBBER CALENDER HELPER 08/31/2023 8:52 AM RUBBER CALENDER HELPER Narrative [facility] - 09/02/2023 1:52 AM RUBBER CALENDER HELPER FASTING:YES PATIENT UNABLE TO VOID; ADVISED TO RETURN FOR COLLECTION. FASTING: YES us Aurelia Huitron MD LAB BLOOD ORDERABLE S Final Result [facility] [address] [place] [address] * CBC with auto differential (08/31/2023 8:51 AM RUBBER CALENDER HELPER) WBC 3.9 3.8 - 10.8 Thousand/u L [facility] RBC, POC 4.23 3.80 - 5.10 Million/uL [facility] Hgb 12.6 11.7 - 15.5 g/dL [facility] Hct 37.1 35.0 - 45.0 % [facility] MCV 87.7 80.0 - 100.0 fL [facility] MCH 29.8 27.0 - 33.0 pg [facility] MCHC 34.0 32.0 - 36.0 g/dL [facility] Rdw 13.1 11.0 - 15.0 % [facility] Platelets 288 140 - 400 Thousand/u L [facility] MPV 9.0 7.5 - 12.5 fL [facility] Neutrophils, abs 2,137 1,500 - 7,800 cells/uL [facility] Lymphocytes, abs 1,209 850 - 3,900 cells/uL [facility] Monocyte abs 445 200 - 950 cells/uL [facility] Eosinophils, abs 90 15 - 500 cells/uL [facility] Basophils, abs 20 0 - 200 cells/uL [facility] Neutrophils 54.8 % [facility] Lymphocyte pct 31.0 % [facility] Monocytes 11.4 % [facility] Eosinophils 2.3 % [facility] Basophils 0.5 % [facility] Blood 08/31/2023 8:51 AM RUBBER CALENDER HELPER 08/31/2023 8:52 AM RUBBER CALENDER HELPER Narrative [facility] - 09/02/2023 1:52 AM RUBBER CALENDER HELPER FASTING:YES PATIENT UNABLE TO VOID; ADVISED TO RETURN FOR COLLECTION. FASTING: YES us Aurelia Huitron MD LAB BLOOD ORDERABLE S Final Result [facility] [address] [place] [address] * (ABNORMAL) Comprehensive metabolic panel (08/31/2023 8:51 AM RUBBER CALENDER HELPER) Pathologist [facility] Glucose 104(H) 65 - 99 mg/dL [facility] Comment: ? Fasting reference interval For someone without known diabetes, a glucose value between 100 and 125 mg/dL is consistent with prediabetes and should be confirmed with a follow-up test. BUN 13 7 - 25 mg/dL [facility] Creatinine 0.74 0.60 - 1.00 mg/dL [facility] eGFR 86 > OR = 60 mL/min/1.7 3m2 [facility] BUN/creat ratio SEE NOTE: 6 - 22 (calc) [facility] Comment: ?? Not Reported: BUN and Creatinine are within ?? reference range. ? Sodium 138 135 - 146 mmol/L [facility] Potassium, pl 4.2 3.5 - 5.3 mmol/L [facility] Chloride 100 98 - 110 mmol/L [facility] CO2 27 20 - 32 mmol/L [facility] Calcium 9.7 8.6 - 10.4 mg/dL [facility] Protein, sr 7.3 6.1 - 8.1 g/dL [facility] Albumin 4.9 3.6 - 5.1 g/dL [facility] GLOBULIN 2.4 1.9 - 3.7 g/dL (calc) [facility] Alb/glob ratio 2.0 1.0 - 2.5 (calc) [facility] Bilirubin, total 0.4 0.2 - 1.2 mg/dL [facility] Alk phos 52 37 - 153 U/L [facility] AST 15 10 - 35 U/L [facility] ALT (SGPT) 17 6 - 29 U/L [facility] Blood 08/31/2023 8:51 AM RUBBER CALENDER HELPER 08/31/2023 8:52 AM RUBBER CALENDER HELPER Narrative [facility] - 09/02/2023 1:52 AM RUBBER CALENDER HELPER FASTING:YES PATIENT UNABLE TO VOID; ADVISED TO RETURN FOR COLLECTION. FASTING: YES us Aurelia Huitron MD LAB BLOOD ORDERABLE S Final Result [facility] [address] [place] [address] documented in this encounter Visit Diagnoses Diagnosis Encounter for Medicare annual wellness exam- Primary Alcohol use Other problems related to lifestyle Anxiety Anxiety state, unspecified Bilateral carpal tunnel syndrome Carpal tunnel syndrome Class 1 obesity due to excess calories with serious comorbidity and body mass index (BMI) of 31.0 to 31.9 in adult Essential hypertension Unspecified essential hypertension Gastroesophageal reflux disease without esophagitis Esophageal reflux Other hemorrhoids Other hyperlipidemia Primary insomnia Persistent disorder of initiating or maintaining sleep Chronic bilateral low back pain without sciatica Obstructive sleep apnea syndrome Obstructive sleep apnea (adult) (pediatric) Overactive bladder due to prolapse of female genital organ Type 2 diabetes mellitus with other specified complication, without long-term current use of insulin (HCC) Postmenopausal status Asymptomatic postmenopausal status (age-related) (natural) Seasonal allergic rhinitis due to pollen Ear drum perforation, right Dermatitis Contact dermatitis and other eczema, due to unspecified cause Postmenopausal status Asymptomatic postmenopausal status (age-related) (natural) documented in this encounter Discontinued Medications Medication Sig Discontinue Reason Start Date End Da te UltiCare Pen Needle 31 gauge x 1/4 needle USE DAILY WITH VICTOZA 05/25/202308/26 fluticasone propionate (FLONASE) 50 mcg/actuation nasal sprayIndications:Seaso nal allergic rhinitis due to pollen Administer 2 sprays into each nostril daily 08/26/2023 08/26/2023 clobetasoL (TEMOVATE) 0.05 % external solutionIndications:De rmatosis of the Scalp Apply topically 2 (two) times a day 08/26/2023 08/26/2023 documented as of this encounter Care Teams Creative Technologist Relationship Specialty Start Date End Date Aurelia Huitron MD [address] [place] [id number] PCP - General Family Medicine 05/23/20 documented as of this encounter
--- OUTSIDE RECORDS SUMMARY | 2024-07-10 04:42 | XMS_ITS | Encounter Summary ---
Author Organization [facility] Address [address] [place] [address] Care Team Providers Care Assistant Loan Processor Name Role Phone Aurelia Huitron MD Primary Care Provi jarred Encounter Details Date Type Department Care Team (Late st Contact Info) Description 09/09/2023 Telephone [facility] Family Medicine [address] [address] Aurelia Huitron MD [address] [address] Social History Tobacco Use Types [...] on file Legal Sex Female 12:58 AM SAFETY OFFICER Gender Identity Not on file Sexual Orientation Not on file documented as of this encounter Miscellaneous Notes * Telephone Encounter - Sena Madison LPN - 09/09/2023 8:40 AM SAFETY OFFICER Pt aware, vu TY OFFICER * Telephone Encounter - Sena Madison LPN - 09/09/2023 8:32 AM SAFETY OFFICER No answer, No VM TY OFFICER * Telephone Encounter - Sena Madison LPN - 09/09/2023 8:31 AM SAFETY OFFICER Antonio Shaw, Lab results: Please call or email with any questions or concerns. Any high/low numbers have been reviewed. Your CBC shows no anemia or infection, your cells look normal. Your lipid panel is overall normal except for a high but improved triglycerides. You can continue your current regimen. Your CMP is overall normal except for an elevated blood sugar. Please see the A1c for further detail. Otherwise, your electrolytes, kidney function, and liver function are normal. Your A1C is elevated, but at goal for your diabetes. Please continue your current regimen. Your magnesium is normal -your vitamin B12 is normal Your urine shows slight dehydration. No sign of infection. If you are having any issues, please call the office. If you have any questions, please let me know. Sincerely, Dr Jennifer Shaw, Lab results: Please call or email with any questions or concerns. Any high/low numbers have been reviewed. Your thyroid labs were normal. Your thyroid is working well. Your urine microalbumin is normal. Your kidneys are working well. If you have any questions, please let me know. Sincerely, Dr Jennifer Huitron ----- Message from Aurelia Huitron MD sent at 09/09/2023 6:39 AM SAFETY OFFICER ----- Please call the patient. I received notification that the patient did not review their [employer] message. If we could please relay this message, I would be appreciative. TY OFFICER TY OFFICER documented in this encounter Plan of Treatment Not on file documented as of this encounter Visit Diagnoses Not on filedocumented in this encounter Care Teams Assistant Loan Processor Relationship Specialty Start Date End Date Aurelia Huitron MD [address] [place], [place] [id number] PCP - General Family Medicine 05/23/20 documented as of this encounter
--- OUTSIDE RECORDS SUMMARY | 2024-07-10 04:42 | XMS_ITS | Encounter Summary ---
Author Organization [facility] Address [address] [place] [address] Phone Care Team Providers Care Software Engineer Intern Name Role Phone Aurelia Huitron MD Primary Care Provi jarred Reason for Visit * Reason Comments Ear Problem Right ear (dull) flory n x 3+mo * Consultation (Routine) - Closed Specialty Diagnoses / Procedures Referred By oCnnie t Referred To Contact Otolaryngology Diagnoses Ear drum perforation, right Aurelia Huitron MD [address] [place] [address] Phone: tel: fax: Ruben Lane II, MD [address] [place] [address] Phone: tel: fax: Referral ID Status Reason Start Date Expiration Date V isits Requested Visits Authorized [id number] Closed Specialty Services Required 08/26/2023 09/24/2024 1 1 Encounter Details Date Type Department Care Team (Late st Contact Info) Description 10/12/2023 10:30 AM CDT Office Visit [facility] Otolaryngology [address] [place] [address] II, MD [address] [place] [address] Dysfunction of right eustachian tube (Primary Dx); Ear drum perforation, right; Tympanosclerosis of right ear Social History Tobacco Use Types Packs/Day Years [...] on file Legal Sex Female 12:58 AM [employer] Gender Identity Not on file Sexual Orientation Not on file documented as of this encounter Last Filed Vital Signs Vital Sign Reading Time Taken Comments Blood Pressure - - Pulse - - Temperature - - Respiratory Rate 18 10/12/2023 10:12 AM CDT Oxygen Saturation - - Inhaled Oxygen Concentration - - Weight 83 kg (183 lb) 10/12/2023 10:12 AM CDT Height 165.1 cm (5' 5 ) 10/12/2023 10:12 AM CDT Body Mass Index 30.45 10/12/2023 10:12 AM CDT documented in this encounter Progress Notes * Ruben Lane II, MD - 10/12/2023 10:30 AM CDT Valeria Johnson was seen in the office today. Primary care provider is Aurelia Huitron MD . Chief Complaint: Valeria Johnson is a 73 y.o. female with complaints of possible eardrum perforation. HPI: She comes to clinic today for evaluation of possible eardrum perforation. Patient states she was having some cold symptoms and got some fullness in the ear and some popping on the right side. She saw her primary care physician and was told she has possibly an eardrum perforation on that side. She has not had any bleeding or drainage and no real pain. Patient does have a history of eardrum perforation on that side when she was a child. Left side is not giving her any difficulty Past Medical/Surgical History Past Medical History: Diagnosis Date Anxiety Apnea Diabetes mellitus (HCC) Hypercholesterolemia with hypertriglyceridemia Hypertension Insomnia Past Surgical History: Procedure Laterality Date CATARACT EXTRACTION W/ INTRAOCULAR LENS IMPLANT 2012 right eye KNEE ARTHROSCOPY W/ MENISCAL REPAIR TUBAL LIGATION 1980 Past Family/Social History Family History Problem Relation Age of Onset No Known Problems Mother Hypertension Father Diabetes Father COPD Father Rheum arthritis Sister Social History Tobacco Use Smoking status: Never Smokeless tobacco: Never Substance and Sexual Activity Drug use: Yes Types: Alcohol Sexual activity: Yes Partners: Male control/protection: Post-menopausal Alcohol Use: Alcohol Misuse (08/18/2022) AUDIT-C Frequency of Alcohol Consumption: 2-3 times a week Average Number of Drinks: 1 or 2 Frequency of Binge Drinking: Monthly Medications/Allergies/Immunizations Current Outpatient Medications Medication Sig Dispense Refill amLODIPine (NORVASC) 5 mg tablet TAKE 1 TABLET BY MOUTH TWICE A DAY 180 tablet 0 clobetasoL (TEMOVATE) 0.05 % external solution Apply topically 2 (two) times a day 60 mL 2 diclofenac sodium (VOLTAREN) 1 % gel Apply 2 g topically 4 (four) times a day as needed (right wrist pain) 100 g 0 dulaglutide (Trulicity) 0.75 mg/0.5 mL pen injector INJECT 0.5 MILLILITERS UNDER THE SKIN ONE TIME PER WEEK 3 mL 2 escitalopram (LEXAPRO) 20 mg tablet TAKE 1 TABLET BY MOUTH EVERY DAY 90 tablet 2 fluticasone propionate (FLONASE) 50 mcg/actuation nasal spray Administer 2 sprays into each nostrildaily 3 each 4 losartan (COZAAR) 100 mg tablet Take 1 tablet (100 mg total) by mouth daily 90 tablet 1 metFORMIN (GLUCOPHAGE) 500 mg tablet TAKE 1 TABLET BY MOUTH TWICE A DAY WITH FOOD 180 tablet 0 omeprazole (PriLOSEC) 20 mg capsule TAKE 1 CAPSULE BY MOUTH EVERY DAY 90 capsule 0 rosuvastatin (CRESTOR) 10 mg tablet TAKE 1 TABLET BY MOUTH EVERY DAY 90 tablet 0 meclizine (ANTIVERT) 12.5 mg tablet Take 1 tablet (12.5 mg total) by mouth 3 (three) times a day asneeded for dizziness (Patient not taking: Reported on 10/06/2023) 30 tablet 1 meloxicam (MOBIC) 7.5 mg tablet Take 1-2 tablets (7.5-15 mg total) by mouth daily with food. (Patient not taking: Reported on 10/12/2023) 90 tablet 0 methocarbamoL (ROBAXIN) 750 mg tablet TAKE 1 TABLET BY MOUTH 3 TIMES A DAY NEEDED FOR MUSCLE SPASMS. (Patient not taking: Reported on 10/12/2023) 30 tablet 1 No current facility-administered medications for this visit. Allergies: Patient has no known allergies., Immunizations: Immunization History Administered Date(s) Administered DTP 06/05/2010 Influenza, Quadrivalent, High Dose, Preservative Free, Intrr 04/10/2020, 05/17/2021, 03/26/2022 Influenza, Trivalent, High Dose, Split, Preservative Free, Intramuscular 04/22/2017, 04/13/2018, 04/04/2019 Influenza, Trivalent, Intramuscular 04/25/2014, 05/01/2014, 04/18/2015, 04/05/2016 Influenza, Trivalent, Preservative Free, Intramuscular 04/17/2015 Globoforce SARS-CoV-2 Monovalent Vaccination (12+ Yrs) PURPLE 08/27/2020, 09/17/2020, 06/25/2021 Pneumococcal Conjugate PCV 13 04/22/2017 Pneumococcal Polysaccharide PPV23 09/24/2012, 05/16/2020 Tdap 12/06/2019 ZOSTER LIVE 08/20/2012 ZOSTER Recombinant 10/28/2018, 01/18/2019 Review of Systems The 12 point review of systems filled out by the patient on their history form was reviewed today, and will be scanned into the encounter. Vital Signs: Vitals Resp 18 Ht 165.1 cm (5' 5 ) Wt 83 kg (183 lb) BMI 30.45 kg/m?? PHYSICAL EXAMINATION: GENERAL: Well-developed, well-nourished. Answers questions appropriately. HEAD/FACE: Normocephalic; atraumatic. No concerning facial skin lesions. Facial strength is 5/5 andthe face is symmetric. EARS : External ears have no skin lesions. Auricles are regularly set on the head. Hearing is grossly intact. Right - EAC patent. TM with patchy tympanosclerosis. Middle ear aerated without serous effusion or middle ear process. Left - EAC patent. TM intact without scarring or perforation. Middle ear aerated without serous effusion or middle ear process. NOSE: External nose has no skin lesions. Nasal dorsum is essentialy midline. Nasal septum is midline. Inferior turbinates are mildly hypertrophied. Middle turbinates are normal size. Drainage seen oneach side of the nose is normal and clear.No mucosal lesions or polyps are seen on either side. ORAL CAVITY/ OROPHARYNX: Skin of the lips is without lesions. Normal oral vestibule. Oral mucosa is moist without lesions. Tongue and floor of mouth are without lesions or masses. Palate has no lesions and elevates symmetrically. Oropharynx is clear without erythema or exudate. NECK: Trachea is midline. Thyroid is normal in size with no apparent nodules. Neck with good range of motion. Salivary Glands: The submandibular glands are non-tender without masses. The parotid glands are non-tender without edema or masses. There is clear saliva flow from Stensen's and Dana's ducts bilaterally. LYMPHATIC: No cervical lymphadenopathy. RESPIRATORY: Breathing comfortably. PROCEDURE: None No orders of the defined types were placed in this encounter. No orders of the defined types were placed in this encounter. 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 There is no sign of perforation. In addition audiologic testing shows essentially normal hearing although there is a borderline sensorineural loss at 4000 hertz in the left ear only. At this point I have not recommended any further treatment for her ears. She is to follow up to be seen on an as-neededbasis. Medical records from the primary care physician and/or the referring physician were personally reviewed for today's visit. Patient is at low level medical decision-making. She has chronic problem of Eustachian tube dysfunction that is stable. She has a chronic problem of tympanosclerosis that is stable. I reviewed medical records. I ordered 2 separate audiologic test This note was generated with voice recognition software and small grammatical errors may be encountered. Ruben Lane II, M.D. documented in this encounter Plan of Treatment Not on file documented as of this encounter Visit Diagnoses Diagnosis Dysfunction of right eustachian tube- Primary Ear drum perforation, right Tympanosclerosis of right ear documented in this encounter Orders Outpatient Referral Count Last Ordered Date Fir st Ordered Date AMB REFERRAL TO ENT 1 10/12/2023 documented in this encounter Care Teams Software Engineer Intern Relationship Specialty Start Date End Date Aurelia Huitron MD [facility] [address] [place] [id number] PCP - General Family Medicine 05/23/20 documented as of this encounter
--- OUTSIDE RECORDS SUMMARY | 2024-07-10 04:42 | XMS_ITS | Clinical Summary ---
Author Organization [address] Address [address] [place] [id number] Care Team Providers Care Restoration Silversmith Name Role Phone Aurelia Huitron MD Primary Care Provi jarred Allergies [...] 09/20/2021 Assessment & Plan (08/26/2023 10:12 AM CLERK STENOGRAPHER): Chronic, stable Encouraged cutting down Assessment & Plan (08/18/2022 10:43 AM CLERK STENOGRAPHER): Chronic, but encouraged cutting down Assessment & [...] encouraged Assessment & Plan (08/26/2023 10:11 AM CLERK STENOGRAPHER): Encouraged healthy diet and activity Pt has POA and living will Health Maintenance: Last mammogram: 01/15/22, 12/26- WNL Last DEXA:-12/25- WNL- ordered Last colon cancer screening: cologuard 07/2021- Neg Last pneumonia/Prevnar: up to date Last Shingrix: up to date Last Flu: encouraged Last COVID: encouraged Assessment & Plan (08/18/2022 10:41 AM CLERK STENOGRAPHER): Encouraged healthy diet and activity Encouraged looking into a POA/Living will Health Maintenance: Last mammogram: 01/15/22 Last DEXA:-12/25- WNL Last colon cancer screening: cologuard 07/2021- Neg Last pneumonia/Prevnar: up to date Last Shingrix: up to date Last Flu: up to date Last COVID: up to date Assessment & Plan (07/17/2021 12:51 PM CLERK STENOGRAPHER): Encouraged healthy diet and activity Health Maintenance: [...] counseling. Assessment & Plan (08/26/2023 10:15 AM CLERK STENOGRAPHER): Chronic, improved BMI Follow-up includes: nutrition counseling. Assessment & Plan (08/18/2022 10:46 AM CLERK STENOGRAPHER): BMI Follow-up includes: nutrition counseling. Assessment & Plan (08/15/2021 10:53 AM CLERK STENOGRAPHER): Stable BMI Follow-up includes: nutrition counseling. Assessment & Plan (07/17/2021 12:50 PM CLERK STENOGRAPHER): BMI Follow-up includes: nutrition counseling. Assessment & Plan (12/18/2020 8:54 AM CDT): BMI Follow-up includes: nutrition counseling. Allergic rhinitis 07/23/2020 Assessment & Plan (08/26/2023 10:13 AM CLERK STENOGRAPHER): Chronic, persistent Encouraged starting flonase daily Assessment & Plan (08/18/2022 10:44 AM CLERK STENOGRAPHER): Chronic, persistent Encouraged flonase daily Assessment & Plan (07/17/2021 12:49 PM CLERK STENOGRAPHER): Stable Continue to monitor symptoms Anxiety 07/23/2020 Assessment & Plan (08/26/2023 10:13 AM CLERK STENOGRAPHER): Chronic, stable Continue lexapro Assessment & Plan (08/18/2022 10:45 AM CLERK STENOGRAPHER): Chronic, persistent Continue lexapro Consider seeing a therapist Continue healthy changes for mood Call if it worsens Assessment & Plan (07/17/2021 12:49 PM CLERK STENOGRAPHER): Worsening Will increase her Lexapro to 10 mg, 2 tabs daily She will update me in the next 1-2 weeks with how she is doing Update me with any changes or concerns Assessment & Plan (07/23/2020 9:41 AM CLERK STENOGRAPHER): Stable Continue current regimen Continue to work on healthy changes to improve mood Carpal tunnel syndrome 07/23/2020 Assessment & Plan (08/26/2023 10:14 AM CLERK STENOGRAPHER): Chronic, improved Continue to monitor Assessment & Plan (08/18/2022 10:45 AM CLERK STENOGRAPHER): Chronic, improved Continue to monitor Assessment & Plan (07/17/2021 12:50 PM CLERK STENOGRAPHER): Resolved Essential hypertension 07/23/2020 Assessment & Plan (08/26/2023 10:15 AM CLERK STENOGRAPHER): Chronic, stable Continue losartan, norvasc Continue healthy changes Assessment & Plan (08/18/2022 11:02 AM CLERK STENOGRAPHER): Chronic, elevated She is under current stressors [...] regimen Assessment & Plan (07/17/2021 12:52 PM CLERK STENOGRAPHER): Blood pressure goal Continue current regimen Assessment & Plan (12/18/2020 8:53 AM CDT): Blood pressure well controlled Continue current regimen Assessment & Plan (07/23/2020 12:55 PM CLERK STENOGRAPHER): Will increase her Norvasc Continue losartan Continue to work on healthy changes Update me with any changes Call for questions or concerns Gastroesophageal reflux disease 07/23/2020 Assessment & Plan (08/26/2023 10:16 AM CLERK STENOGRAPHER): Chronic, stable We reviewed the risks/benefits, side effects She is going to take her medication every other day as her symptoms are well controlled Assessment & Plan (08/18/2022 10:48 AM CLERK STENOGRAPHER): Chronic, improved Reviewed risks of medication Consider when stress is less (mom in hospital), going to every other day Assessment & Plan (07/17/2021 12:52 PM CLERK STENOGRAPHER): Continue current regimen Reviewed the risk of proton pump inhibitors including C diff, pneumonia, bone loss Update me if her symptoms change or worsen Assessment & Plan (07/23/2020 9:41 AM CLERK STENOGRAPHER): Reviewed risks/benefits of medication Continue current regimen Call for questions or concerns Hemorrhoids 07/23/2020 Assessment & Plan (08/26/2023 10:17 AM CLERK STENOGRAPHER): Chronic, asymptomatic Continue to monitor Assessment & Plan (07/17/2021 12:52 PM CLERK STENOGRAPHER): Improved Continue to monitor Hyperlipidemia 07/23/2020 Assessment & Plan (08/26/2023 10:17 AM CLERK STENOGRAPHER): Chronic, stable Continue crestor Assessment & Plan (08/18/2022 10:48 AM CLERK STENOGRAPHER): Chronic, stable Continue crestor Labs ordered Assessment & Plan (07/17/2021 12:52 PM CLERK STENOGRAPHER): Labs order Continue Crestor every other day Assessment & Plan (12/18/2020 8:53 AM CDT): Continue crestor Work on a lower fat diet, activity Call for questions or concerns Assessment & Plan (07/23/2020 9:39 AM CLERK STENOGRAPHER): Continue current regimen Will recheck labs in 6 months Call for questions or concerns Insomnia 07/23/2020 Assessment & Plan (08/26/2023 10:19 AM CLERK STENOGRAPHER): Chronic, persistent She does not feel as though she has quality sleep Will refer to sleep medicine given her RAE Call for questions or concerns Assessment & Plan (08/18/2022 10:49 AM CLERK STENOGRAPHER): Chronic, off medication Continue healthy changes for her sleep Assessment & Plan (07/17/2021 12:53 PM CLERK STENOGRAPHER): Will increase treatment for her anxiety Monitor sleep as we improve her mood Update me in the next 2 weeks Assessment & Plan (12/18/2020 8:53 AM CDT): Stable Continue current regimen Assessment & Plan (07/23/2020 12:57 PM CLERK STENOGRAPHER): Continue current regimen Call for questions or concerns Low back pain 07/23/2020 Assessment & Plan (08/26/2023 10:20 AM CLERK STENOGRAPHER): Chronic, stable Continue supportive care Continue medication as needed Assessment & Plan (08/18/2022 10:49 AM CLERK STENOGRAPHER): Chronic, improved Continue supportive care Assessment & Plan (07/17/2021 12:53 PM CLERK STENOGRAPHER): Continue supportive care Obstructive sleep apnea syndrome 07/23/2020 Assessment & Plan (08/26/2023 10:20 AM CLERK STENOGRAPHER): Chronic, uncontrolled She is off CPAP with difficulty sleeping, fatigue Referral to sleep medicine placed Assessment & Plan (08/18/2022 10:49 AM CLERK STENOGRAPHER): Chronic Encouraged to consider pulm referral for re-evaluation Assessment & Plan (07/17/2021 12:53 PM CLERK STENOGRAPHER): Encouraged to consider CPAP Type 2 diabetes mellitus with other specified co mplication 07/23/2020 Assessment & Plan (08/26/2023 10:23 AM CLERK STENOGRAPHER): Chronic, stable Labs ordered Foot exam today Further guidance once we have the results Assessment & Plan (08/18/2022 10:50 AM CLERK STENOGRAPHER): Chronic, stable Continue healthy changes Continue current [...] changes Assessment & Plan (08/15/2021 10:52 AM CLERK STENOGRAPHER): Will recheck A1C in May Continue to monitor symptoms- watch for hypoglycemia Update me with any concerns Call for questions Assessment & Plan (07/17/2021 12:54 PM CLERK STENOGRAPHER): Continue metformin Foot exam completed today Labs order Continue healthy changes Assessment & Plan (12/18/2020 8:51 AM CDT): Will request eye exam Continue to work on healthy changes Continue current regimen Call for questions or concerns Assessment & Plan (07/23/2020 9:40 AM CLERK STENOGRAPHER): Last A1C was at goal per patient Continue current regimen Continue to work on healthy changes Set up eye exam Call for questions Overactive bladder due to prolapse of female gen ital organ 04/10/2020 Assessment & Plan (08/26/2023 10:22 AM CLERK STENOGRAPHER): Chronic, persistent Will check urine studies Decrease PM hydration- drink when thirsty Cut down on etoh and caffeine Update me in 6 months Assessment & Plan (08/18/2022 10:50 AM CLERK STENOGRAPHER): Chronic, stable Continue supportive care Assessment & Plan (07/17/2021 12:53 PM CLERK STENOGRAPHER): Improved Resolved Problems Problem Noted Date Diagnosed Date Resolved Date Elevated liver enzymes 07/23/202008/18 Assessment & Plan (08/18/2022 10:46 AM CLERK STENOGRAPHER): resolved Assessment & Plan (07/17/2021 12:50 PM CLERK STENOGRAPHER): Lab recheck ordered Assessment & Plan (12/18/2020 [...] 12/06/2019 ZOSTER LIVE 08/20/2012 ZOSTER Recombinant 01/18/2019,10/28/2018 Surgical History Surgery Date Site/Laterality Comments TUBAL LIGATION 07/06/1980 - 07/05/1981 KNEE ARTHROSCOPY W/ MENISCAL REPAIR CATARACT EXTRACTION W/ INTRA OCULAR LENS IMPLANT 07/06/2012 - 07/05/2013 right eye Medical History Medical History Date Comments Anxiety Diabetes mellitus (HCC) Hypertension Insomnia Hypercholesterolemia with hypertriglyceridemia Apnea Family History Medical History Relation Name Comments COPD Father Raciel Diabetes Father Raciel Hypertension Father Raciel No Known Problems Mother Rheum arthritis Sister Relation Name Status Comments Father Raciel Mother Alive Sister Alive Social History Tobacco Use Types Packs/Day Years [...] on file Legal Sex Female 12:58 AM CLERK STENOGRAPHER Gender Identity Not on file Sexual Orientation Not on file Obstetrics History Last Filed Vital Signs Vital Sign Reading [...] 02/18/2024 1:35 PM CDT Plan of Treatment Health Maintenance Due Date Last Done Comments Hepatitis B Screening 02/25/1968 Covid-19 Vaccine (2023-08 5 season) 2024 06/25/2021, 09/17/2020, 08/27/2020 Influenza Vaccine (#1) 2024 , 05/17/2021, 04/10/2020, Additional history exists Breast Cancer Screening-Mammogram 04/06/2024 04/06/2023, 01/15/2022, 09/10/2020 Colon Cancer Screening-DNA Stool 07/29/2024 07/29/19 22 Hemoglobin A1C 08/21/2024 02/19/2024, 08/07, 09/30/2022, Additional history exists Fall Risk Assessment 08/26/2024 08/26/2023, 08/18/2022, 07/17/2021, Additional history exists Well Visit 65+ 08/26/2024 08/26/2023, 08/07, 08/18/2022, Additional history exists Lipid Panel 08/31/2024 08/31/2023, 09/04, 07/17/2021, Additional history exists Dilated Eye Exam 10/25/2024 10/26/2023, , 10/07/2021, Additional history exists Depression Screening 02/17/2025 02/18/2024, 08/26/2023, 08/26/2023, Additional history exists Foot Exam 02/17/2025 02/18/2024, 08/07, 08/26/2023, Additional history exists Albumin Creatinine Ratio, Urine 02/18/2025 02/19/2024, 08/31/2023, 09/30/2022, Additional history exists eGFR 02/18/2025 02/19/2024, 08/07, 09/30/2022, Additional history exists Osteoporosis Screening-Bone Density Scan 12/20/2025 12/21/2023, 12/17/2021 DTaP/Tdap/Td Vaccine (3 - Td or Tdap) 12/05/2029 12/06/2019, 06/05/2010 Zoster Vaccine Completed 01/18/2019, 10/05, 08/20/2012 Pneumococcal vaccine 65+ Completed 020, 04/22/2017, 09/24/2012 Hepatitis C Screening Completed 11/19/2020 Procedures Procedure Name Priority Date/Time Associated Diagnosis [...] 10/26/2023 LIPID PANEL Routine 08/31/2023 8:51 AM CLERK STENOGRAPHER Other hyperlipidemia MAMMOGRAPHY Routine 04/06/2023 STOOL DNA ? COLOGUARD Routine 07/29/2021 8:00 AM CLERK STENOGRAPHER Colon cancer screening HEPATITIS C ANTIBODY Routine [...] MD LAB URINE ORDERABLE S Final Result [facility] [address] [id number] * (ABNORMAL) Hemoglobin A1c (02/19/2024 11:03 AM CDT) Hgb A1C 6.6(H) <5.7 % of total Hgb [facility] Comment: For someone without known diabetes, [...] change in test platforms from the Avendaño Tub Chucker to the Eulalio diego c503 may have shifted HbA1c results compared to historical results. Based on laboratory validation testing conducted at [facility], the Eulalio platform relative to the Avendaño [...] MD LAB BLOOD ORDERABLE S Final [facility] [address] [place] [address] * (ABNORMAL) Comprehensive metabolic panel (02/19/2024 11:03 AM CDT) [facility] Glucose 95 65 - 99 mg/dL [facility] Comment: ? Fasting reference interval BUN [...] BLOOD ORDERABLE S Final Result [facility] [address] [facility] [place] [id number] * Dexa Axial Skeleton Bone Density 1 [...] drinks per day. ??Patient takes calcium. ? Rubber Goods Assembler/Model: MetaMed A (S/N [id number]) CLINICAL INFORMATION: Current height: ??64.5 ??inches ? [...] AM T: ??12/21/2023 11:11 AM Report ID: [id number] Reading Location: ??[id number] Procedure Note Elisha Mahoney MD - 12/21/2023 EXAM DESCRIPTION: DEXA AXIAL SKELETON BONE DENSITY 1 OR MORE SITES REASON FOR STUDY: 73 y/o year old F with given history of:Postmenopausal status. History of parent with hip fracture, glucocorticoid use and 3+ alcoholic drinks per day. Patient takes calcium. Rubber Goods Assembler/Model: HoloQriously Horizon A ([id number]/N [id number]) CLINICAL INFORMATION: Current height: 64.5 inches Maximum [...] Elisha Mahoney M.D. TW: TW Report ID: [id number] Reading Location: [place] [address] Aurelia Huitron MD IMG DXA PROCEDURES Final Result * (ABNORMAL) DIABETES EYE EXAM (10/26/2023) SCRIBED DIABETIC DILATED EYE EXAM Normal Historical Provider HEALTH MAINTENANCE Final Result * (ABNORMAL) Lipid panel (08/31/2023 8:51 AM CLERK STENOGRAPHER) Cholesterol 156 <200 mg/dL [facility] [...] equation in the estimation of LDL-C. Callum SS et al. LAILA. 2013;310(19): 0567-8354 (http://education.AVA Solar/faq/IZG387) Chol/HDL ratio 2.1 <5.0 (calc) [facility] Non-HDL, (LDL+VLDL) 80 <130 mg/dL (calc) [facility] Comment: For patients with diabetes plus 1 major ASCVD risk factor, treating to a non-HDL-C goal of <100 mg/dL (LDL-C of <70 mg/dL) is considered a therapeutic option. Blood 08/31/2023 8:51 AM CLERK STENOGRAPHER 08/31/2023 8:52 AM CLERK STENOGRAPHER Narrative [facility] - 09/02/2023 1:52 AM CLERK STENOGRAPHER FASTING:YES PATIENT UNABLE TO VOID; ADVISED TO RETURN FOR COLLECTION. FASTING: YES Aurelia Huitron MD LAB BLOOD ORDERABLE S Final Result [facility] [address] [place] [address] * MAMMOGRAPHY (04/06/2023) Pathologist [facility] Mammography Normal Historical Provider HEALTH MAINTENANCE Final Result * Stool DNA - Cologuard (07/29/2021 8:00 AM CLERK STENOGRAPHER) Pathologist [facility] Stool DNA - Cologuard Negative Negative [facility] (CLIA #:[id number]) Comment: NEGATIVE TEST RESULT. A negative Cologuard [...] screened with both Cologuard and colonoscopy. (Carlitos Diaz et al, N Engl J Med 2014;370(14):1286- 1297) The normal value (reference range) for this assay is negative. COLOGUARD RE-SCREENING RECOMMENDATION: Periodic colorectal cancer screening is an important part of preventive healthcare for asymptomatic individuals at average risk for colorectal cancer. ??Following a negative Cologuard result, the [place] Cancer Society and U.S. Multi-Society Task Force screening guidelines recommend a Cologuard re-screening interval of 3 years. References: [place] [employer] Society Guideline for Colorectal Cancer Screening: https://www.cancer.org/cancer/emiyz-pywcyp-uztfhr/ywicxykro-umczlzfvn-axhupkf/ac s-rec ommendations.html.; Patric DK, Rosemarie CR, Ash DuK, Colorectal Cancer Screening: Recommendations for Physicians and Patients from the U.S. Multi-Society Task Force on Colorectal Cancer Screening , Am J Gastroenterology 2017; 112:3217-2358. TEST DESCRIPTION: Composite algorithmic analysis of stool [...] (Carlitos Ibrahim al, N Engl J Med 2014;370(14):1327-1157.) Cologuard may produce a false negative or false positive result (no colorectal cancer or precancerous polyp present at colonoscopy follow up). A negative Cologuard test result does not guarantee the absence of CRC or advanced adenoma (pre-cancer). The current Cologuard screening interval is every 3 years. ([place] Cancer Society and U.S. Multi-Society Task Force). Cologuard performance data in a 10,000 patient pivotal study using colonoscopy as the reference method can be accessed at the following location: www.[employer].[facility]/results. Additional description of the Cologuard test process, warnings and precautions can be found at www.[employer].com. Stool 07/29/2021 8:00 AM CLERK STENOGRAPHER 07/30/2021 10:30 AM CLERK STENOGRAPHER Aurelia Huitron MD LAB BODY FLUIDS AND STOOLS ORDERABLES Final Result [facility] (CLIA #:[id number]) [place] [address] * Hepatitis C antibody (11/19/2020 10:52 AM CDT) Hep C Ab NONREACT NONREACTIVE [facility] Comment: Siemens CentaurXP using KAY (chemiluminescent immunoassay) [...] AM CDT Narrative Resulting Agency Comment CLI Aurelia Huitron MD LAB MICROBIOLOGY - GENERAL ORDERABLES Final Result Performing Organization Address City/State/[facility] Co de Phone Number [place] [id number] [place], [place] [phone] [place] [address] from Last 3 Months or Most Recently Relevant to Health Maintenance Insurance MEDICARE [facility] Address: [id number] [place] [address] MEDICARE [facility] Address: [address] [address] [place] [address] MEDICARE [facility] Address: [address] [address] Care Teams Restoration Silversmith Relationship Specialty Start Date End Date Aurelia Huitron MD [facility] [address] [place] [id number] PCP - General Family Medicine 05/23/20
--- OUTSIDE RECORDS SUMMARY | 2024-07-10 04:42 | XMS_ITS | Encounter Summary ---
Author Organization [facility] Healthcare Address [address] [place] [address] Care Team Providers Care Dress Operator Name Role Phone Aurelia Huitron MD Primary Care Provi jarred Reason for Visit * Reason Onset Date Comments Unsuccessful Phone Call 1 12/14/2023 [facility] [place] [facility] Encounter Details Date Type Department Care Team (Late st Contact Info) Description 12/14/2023 Telephone [facility] Accountable Care Organization [address] [place] [id number] Aurelia Perez Unsuccessful Phone Call 1 ([facility] SUPD) Social History Tobacco Use Types Packs/Day Years [...] on file Legal Sex Female 12:58 AM CORPORATE COMPLIANCE MANAGER Gender Identity Not on file Sexual Orientation Not on file documented as of this encounter Miscellaneous Notes * Telephone Encounter - Aurelia Perez - 12/14/2023 3:38 PM CDT [facility] Statin Gap Note Valeria Johnson was identified on [facility] statin gap report for not meeting Persons with diabetes on statin therapy (SUPD) Reason for statin gap: Prescribed statin but still populating on report - potential medication non-adherence Action needed? No LVM for pt regarding rosuvastatin 10 mg, is she still taking? Does she need a refill? Aurelia Perez Patient Quality Corporate Treasury Analyst [facility] Care [facility] (ACO) [phone] documented in this encounter Plan of Treatment Not on file documented as of this encounter Visit Diagnoses Not on filedocumented in this encounter Care Teams Dress Operator Relationship Specialty Start Date End Date Aurelia Huitron MD [address] [place] [address] PCP - General Family Medicine 05/23/20 documented as of this encounter
--- OUTSIDE RECORDS SUMMARY | 2024-07-10 04:42 | XMS_ITS | Encounter Summary ---
Author Organization [facility] Healthcare Address [address] [place] [address] Care Team Providers Care Light Rail Train Operator Name Role Phone Aurelia Huitron MD Primary Care Provi jarred Reason for Visit * Reason Comments Sore Throat [facility] of [facility], nasal drainage, cough that started last week Encounter Details Date Type Department Care Team (Late st Contact Info) Description 10/21/2023 9:30 AM CDT Office Visit [facility] Family Medicine [address] [phone] Ekaterina Mayfield PA [address] [address] Sore throat (Primary Dx); Postnasal drip Social History Tobacco Use Types Packs/Day Years [...] on file 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 Gender Identity Not on file Sexual Orientation Not on file documented as of this encounter Last Filed Vital Signs Vital Sign Reading Time Taken Comments Blood Pressure 140/80 10/21/2023 9:23 AM CDT Pulse 91 10/21/2023 9:23 AM CDT Temperature 35.7 ??C (96.2 ??F) 10/21/2023 9:23 AM CD T Respiratory Rate 18 10/21/2023 9:23 AM CDT Oxygen Saturation 96% 10/21/2023 9:23 AM CDT Inhaled Oxygen Concentration - - Weight 86.1 kg (189 lb 14.4 oz) 10/21/2023 9:23 AM CDT Height 165.1 cm (5' 5 ) 10/21/2023 9:23 AM CDT Body Mass Index 31.6 10/21/2023 9:23 AM CDT documented in this encounter Ordered Prescriptions Prescription Sig Dispense Quantity Refills Last Filled Start Date End Date loratadine (CLARITIN) 10 mg tabletIndications: Postnasal drip Take 1 tablet (10 mg total) by mouth daily 30 tablet 10/21/2023 11/12/2023 documented in this encounter Progress Notes * Ekaterina Mayfield PA - 10/21/2023 9:30 AM CDT Images from the original note were not included. Subjective/Objective Patient ID: Valeria Johnson is a 73 y.o. female. Chief Complaint Chief Complaint Patient presents with Sore Throat Patient arrives today with complaint of sore throat, nasal drainage, cough that started last week HPI Sore Throat This is a new problem. Episode onset: x1 week. The problem has been gradually improving. There has been no fever. Associated symptoms include congestion, coughing and ear pain (mild). Pertinent negatives include no headaches, shortness of breath or vomiting. Treatments tried: corcidin, flonase. Review of Systems Constitutional: Negative for chills and fever. HENT: Positive for congestion, ear pain (mild), postnasal drip, rhinorrhea, sneezing and sore throat. Respiratory: Positive for cough. Negative for shortness of breath. Gastrointestinal: Negative for nausea and vomiting. Neurological: Negative for headaches. BP 140/80 (BP Location: Right arm, Patient Position: Sitting) Pulse 91 Temp (!) 35.7 ??C (96.2 ??F) (Temporal) Resp 18 Ht 165.1 cm (5' 5 ) Wt 86.1 kg (189 lb 14.4 oz) SpO2 96% BMI 31.60kg/m?? Physical Exam Vitals and nursing note reviewed. Constitutional: Appearance: She is well-developed. HENT: Head: Normocephalic and atraumatic. Right Ear: Hearing, tympanic membrane, ear canal and external ear normal. Left Ear: Hearing, tympanic membrane, ear canal and external ear normal. Mouth/Throat: Mouth: Mucous membranes are moist. Pharynx: Oropharynx is clear. No oropharyngeal exudate or posterior oropharyngeal erythema. Eyes: Extraocular Movements: Extraocular movements intact. Conjunctiva/sclera: Conjunctivae normal. Cardiovascular: Rate and Rhythm: Normal rate and regular rhythm. Heart sounds: Normal heart sounds. No murmur heard. Pulmonary: Effort: Pulmonary effort is normal. No respiratory distress. Breath sounds: Normal breath sounds. No decreased breath sounds, wheezing, rhonchi or rales. Skin: General: Skin is warm and dry. Neurological: Mental Status: She is alert and oriented to person, place, and time. Psychiatric: Behavior: Behavior normal. Assessment/Plan Diagnoses and all orders for this visit: Sore throat (Primary) - POCT rapid strep A Postnasal drip - loratadine (CLARITIN) 10 mg tablet; Take 1 tablet (10 mg total) by mouth daily 2. Rapid strep: Negative Suspect likely allergic rhinitis Continue Flonase daily. Will add Claritin daily. Increase fluids, rest and handwashing. Can use a Neti pot or sinus rinse. No sharing cups or utensils. Tylenol or OTC NSAIDs prn Use a humidifier, recommended steam inhalation, hot showers and vapor rub. Saline/Salt water gargles, saline nose drops prn. Use nasal saline as a decongestant. Be cautious with oral decongestants as they can raise blood pressure and cause jitteriness. Watch for worsening symptoms, i.e.increasing fever, worsening cough, worsening headache, lethargy, etc. - call our office or go to the UC/[facility] if these symptoms occur. RTC prn or if symptoms worsen/change or don't improve. Pt verbalizes understanding and all questions have been answered. documented in this encounter Plan of Treatment Not on file documented as of this encounter Procedures Procedure Name Priority Date/Time Associated Diagnosis Comments POCT RAPID STREP Routine 10/21/2023 9:58 AM CDT Sore throat documented in this encounter Results * POCT rapid strep A (10/21/2023 9:58 AM CDT) Pathologist [facility] Rapid Strep A, POC Negative Negative Swab 10/21/2023 9:58 AM CDT Ekaterina RAMOS POINT OF CARE TEST ORDERA BLES Final Result documented in this encounter Visit Diagnoses Diagnosis Sore throat- Primary Acute pharyngitis Postnasal drip documented in this encounter Care Teams Light Rail Train Operator Relationship Specialty Start Date End Date Aurelia Huitron MD [facility] [address] [place] [id number] PCP - General Family Medicine 05/23/20 documented as of this encounter
--- OUTSIDE RECORDS SUMMARY | 2024-07-10 04:42 | XMS_ITS | Encounter Summary ---
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 Gender Identity Not on file Sexual Orientation Not on file documented as of this encounter Miscellaneous Notes * Telephone Encounter - Iwona Zuleta - 08/31/2023 8:22 AM CST Pt is scheduled ON SEWER HAND * Telephone Encounter - Iwona Zuleta - 08/27/2023 3:16 PM CST Please advise: Appointment Request From: Valeria Johnson With Provider: Aurelia Huitron MD [[facility] Family Medicine] Preferred Date Range: 02/20/2024 - 03/04/2024 Preferred Times: Thursday Morning, Thursday, Thursday Morning, Morning, Thursday Reason for visit: Return Visit Comments: Diabetes ON SEWER HAND documented in this encounter Plan of Treatment Not on file documented as of this encounter Visit Diagnoses Not on filedocumented in this encounter Care Teams Bulb Grower Relationship Specialty Start Date End Date Aurelia Huitron MD [address] [place] [address] PCP - General Family Medicine 05/23/20 documented as of this encounter
--- OUTSIDE RECORDS SUMMARY | 2024-07-10 04:42 | XMS_ITS | Encounter Summary ---
Author Organization [facility] Address [address] [facility] [address] [place] [id number] Care Team Providers Care Bag Machine Tender Name Role Phone Aurelia Huitron MD Primary Care Provi jarred Reason for Visit * Reason Comments Medicare Wellness Encounter Details Date Type Department Care Team (Late st Contact Info) Description 08/18/2022 10:00 AM ATHLETIC COACH Office Visit [facility] Medical [facility] Family Medicine [address] [phone] Aurelia Huitron MD [address] [address] Encounter for Medicare annual wellness exam (Primary Dx); Alcohol use; Seasonal allergic rhinitis due to pollen; Anxiety; Bilateral carpal tunnel syndrome; Class 1 obesity due to excess calories with serious comorbidity and body mass index (BMI) of 32.0 to 32.9 in adult; Elevated liver enzymes; Gastroesophageal reflux disease without esophagitis; Other hyperlipidemia; Primary insomnia; Chronic bilateral low back pain without sciatica; Obstructive sleep apnea syndrome; Overactive bladder due to prolapse of female genital organ; Type 2 diabetes mellitus with other specified complication, without long-term current use of insulin (HCC); Essential hypertension Social History Tobacco Use Types [...] on file Legal Sex Female 12:58 AM ATHLETIC COACH Gender Identity Not on file Sexual Orientation Not on file documented as of this encounter Last Filed Vital Signs Vital Sign Reading Time Taken Comments Blood Pressure 140/88 08/18/2022 10:15 AM ATHLETIC COACH Pulse 62 08/18/2022 10:15 AM ATHLETIC COACH Temperature 36.2 ??C (97.1 ??F) 08/18/2022 1 0:15 AM ATHLETIC COACH Respiratory Rate 12 08/18/2022 10:1 5 AM ATHLETIC COACH Oxygen Saturation 98% 08/18/2022 10: 15 AM ATHLETIC COACH Inhaled Oxygen Concentration - - Weight 87.9 kg (193 lb 12.8 oz) 023 10:15 AM ATHLETIC COACH Height 165.1 cm (5' 5 ) 08/18/2022 10:1 5 AM ATHLETIC COACH Body Mass Index 32.25 08/18/2022 10:15 AM ATHLETIC COACH documented in this encounter Patient Instructions * Patient Instructions* Aurelia Huitron MD - 08/18/2022 10:00 AM ATHLETIC COACH Health Maintenance Topic Date Due Covid-19 Vaccine (4 - Booster for Pfizer series) 08/20/2021 Albumin Creatinine Ratio, Urine 07/17/2022 Lipid Panel 07/17/2022 Hemoglobin A1C 07/25/2022 eGFR 09/14/2022 Dilated Eye Exam 10/07/2022 Breast Cancer Screening-Mammogram 01/15/2023 Fall Risk Assessment 08/18/2023 Depression Screening-PHQ 08/18/2023 Well Visit 65+ 08/18/2023 Foot Exam 08/18/2023 Osteoporosis Screening-Bone Density Scan 12/18/2023 Colon Cancer Screening-DNA Stool 07/29/2024 DTaP/Tdap/Td Vaccine (3 - Td or Tdap) 12/05/2029 Pneumococcal vaccine 65+ Completed Influenza Vaccine Completed Zoster Vaccines Completed Hepatitis C Screening Completed ETIC COACH documented in this encounter Progress Notes * Aurelia Huitron MD - 08/18/2022 10:00 AM CST Images from the original note were not included. MEDICARE SUBSEQUENT ANNUAL WELLNESS VISIT Patient ID: Valeria Johnson is a 72 y.o. female. Visit date: 08/18/2022 Medicare Health Risk Assessment Basic Information In general, would you say your health is: Good Do you have an advance directive, such as a living will or durable power of rn sane?: No Would you like information regarding Advanced Directiv (Living Will) and/or Durable Power of Residential Concierge?: No Do you have to strain or struggle to hear/understand conversations?: No Have you experienced any of the following problems currently or recently? Eating: No Grooming: No Bathing: No Walking: No Using the toilet: No Memory problems: No Difficulty speaking: No Pain: No Sexual Health: No Fatigue: No Have you experienced any of the following problems currently or recently? Laundry and/or housekeeping: No Handling Money: No Shopping: No Food preparation: No Transportation: No Taking and/or getting your own medications: No Do you use prescription drugs that are not prescribed for you?: No Depression Screen: PHQ Screening Over the last 2 weeks, how often have you been bothered by any of the following problems? Little Interest or Pleasure in Doing Things: Not at all Feeling Down, Depressed, or Hopeless: Not at all PHQ-2 Total Score (If total score is 3 or more points, staff should administer the PHQ-9): 0 Over the past 2 weeks, how often have you been bothered by any of the following problems? Little Interest or Pleasure in Doing Things: Not at all Feeling Down, Depressed, or Hopeless: Not at all PHQ-2 Total Score (If total score is 3 or more points, staff should administer the PHQ-9): 0 Trouble Falling or Staying Asleep, or Sleeping too Much: Nearly every day Feeling Tired or Having Little Energy: Several days Poor Appetite or Overeating: Several days Feeling Bad About Yourself - or That [...] Way: Not at all PHQ-9 Total Score: 5 If you checked off any problems, how difficult have these problems made it for you to do your work,take care of things at home, or get along with other people?: Not difficult at all Audio/Visual screen: Not indicated Is the patient having any problems with hearing and/or vision? No STEADI Fall Risk Screening: In the past year, patient experienced: One or more falls in the last year: (!) Yes How many times?: 1 Was the patient injured in the fall?: Yes Up and Go Test: Patient was unsteady or time test was longer than 30 seconds? No Chief complaint: Medicare Wellness HPI: Diet: tries to eat healthy Physical Activities: 1-2 times a week Functional Capacity Patient is able to perform the following: ambulation, bathing and hygiene, feeding, grooming, toileting, and dressing Pain Concerns:No Sexual Health Concerns:No Fatigue concerns:No Chronic Medical Issues: -alcohol use. She was encouraged to cut down at her last wellness visit -allergic rhinitis. She is not taking any thing currently, but has congestions -anxiety. She is currently on Lexapro 20 mg daily. Her mood is improved with the medication -carpal tunnel syndrome. This has since resolved, she is asymptomatic -elevated liver function. Follow-up liver function was normal -hypertension. She is taking her medications as prescribed. -GERD. She is on omeprazole 20 mg daily. Her symptoms are well control -hyperlipidemia. She is currently on Crestor -insomnia. She has been on Lunesta in the past, currently off medication -low back pain . She is currently doing Robaxin, supportive care to help her symptoms -obstructive sleep apnea. She is currently not using her CPAP -overactive bladder. She is currently not on medication -type 2 diabetes. She is currently on metformin, Victoza. She is due for labs Incontinence: Are you experiencing or have concern about urine leakage? Yes - rare Problem List, Past Medical and Surgical History: [...] comorbidity and body mass index (BMI) of 32.0 to 32.9 in adult Encounter for Medicare annual wellness [...] Yes Partners: Male control/protection: Post-menopausal Alcohol Use: Heavy Drinker Frequency of Alcohol Consumption: 2-3 times a week Average Number of Drinks: 1 or 2 Frequency of Binge Drinking: Monthly Allergies: No Known Allergies Medications: Current Outpatient Medications: amLODIPine (NORVASC) 5 mg tablet, TAKE 1 TABLET BY MOUTH TWICE A DAY, Disp: 180 tablet, Rfl: 1 escitalopram (LEXAPRO) 20 mg tablet, TAKE 1 TABLET BY MOUTH EVERY DAY, Disp: 90 tablet, Rfl: 1 losartan (COZAAR) 100 mg tablet, TAKE 1 TABLET BY MOUTH EVERY DAY, Disp: 90 tablet, Rfl: 1 meclizine (ANTIVERT) 12.5 mg tablet, Take 1 tablet (12.5 mg total) by mouth 3 (three) times a day as needed for dizziness, Disp: 30 tablet, Rfl: 1 meloxicam (MOBIC) 7.5 mg tablet, Take 1-2 tablets (7.5-15 mg total) by mouth daily with food., Disp: 90 tablet, Rfl: 0 metFORMIN (GLUCOPHAGE) 500 mg tablet, TAKE 1 TABLET BY MOUTH TWICE A DAY WITH MEALS, Disp: 180 tablet, Rfl: 1 methocarbamoL (ROBAXIN) 750 mg tablet, TAKE 1 TABLET BY MOUTH 3 TIMES A DAY NEEDED FOR MUSCLE SPASMS., Disp: 30 tablet, Rfl: 1 omeprazole (PriLOSEC) 20 mg capsule, TAKE 1 CAPSULE BY MOUTH EVERY DAY, Disp: 90 capsule, Rfl: 1 rosuvastatin (CRESTOR) 10 mg tablet, TAKE 1 TABLET BY MOUTH EVERY DAY, Disp: 90 tablet, Rfl: 1 UltiCare Pen Needle 31 gauge x 1/4 needle, USE DAILY WITH VICTOZA, Disp: 100 each, Rfl: 3 Victoza 2-Eduardo 0.6 mg/0.1 mL (18 mg/3 mL) injection, INJECT 1.2 MG UNDER THE SKIN ONCE DAILY, Disp: 9 mL, Rfl: 3 Review of Systems: Review of Systems Constitutional: Negative for chills and fever. HENT: Negative for hearing loss. Eyes: Negative for visual disturbance. Respiratory: Negative for shortness of breath. Cardiovascular: Negative for chest pain. Gastrointestinal: Negative for abdominal pain, constipation, diarrhea and vomiting. Genitourinary: Negative for vaginal bleeding. Psychiatric/Behavioral: Positive for dysphoric mood. Negative for suicidal ideas. The patient is nervous/anxious. No results found for this or any previous visit (from the past 1008 hour(s)). Vitals: Vitals BP 140/88 (BP Location: Left arm, Patient Position: Sitting) Pulse 62 Temp 36.2 ??C (97.1 ??F) (Temporal) Resp 12 Ht 165.1 cm (5' 5 ) Wt 87.9 kg (193 lb 12.8 oz) SpO2 98% BMI 32.25 kg/m?? Body mass index is 32.25 kg/m??. Exam: Physical Exam Vitals and nursing note reviewed. Constitutional: General: She is not in acute distress. Appearance: Normal appearance. She is well-developed. She is obese. She is not toxic-appearing. HENT: Head: Normocephalic and atraumatic. Right Ear: Tympanic membrane, ear canal and external ear normal. Left Ear: Tympanic membrane, ear canal and external ear normal. Nose: Nose normal. Mouth/Throat: Mouth: Mucous membranes are moist. Pharynx: Oropharynx is clear. Eyes: Extraocular Movements: Extraocular movements intact. Neck: Thyroid: No thyromegaly. Cardiovascular: Rate and Rhythm: Normal rate and regular rhythm. Heart sounds: Normal heart sounds. No murmur heard. Pulmonary: Effort: Pulmonary effort is normal. Breath sounds: Normal breath sounds. No wheezing. Abdominal: General: Bowel sounds are normal. Palpations: Abdomen is soft. Tenderness: There is no abdominal tenderness. There is no guarding. Musculoskeletal: Cervical back: Neck supple. Feet: Right Foot: Monofilament exam: normal. Protective Sensation: 5 sites tested. 5 sites sensed. Left Foot: Monofilament exam: normal. Protective Sensation: 5 sites tested. 5 sites sensed. Skin: General: Skin is warm and dry. Neurological: Mental Status: She is alert and oriented to person, place, and time. Motor: No abnormal muscle tone. Psychiatric: Mood and Affect: Mood normal. Behavior: Behavior normal. Thought Content: Thought content normal. Care Team Providers: Patient Care Team: Aurelia Huitron MD as PCP - General (Family Medicine) Primary Pharmacy/DME suppliers: [id number] - [place], [place] - [address] [facility] [address] [facility] [id number] [id number] [place] - [address] [address] [facility] [id number] Detection of Cognitive Impairment: The patient does not have cognitive impairment based on direct observation, discussion with patientor family, or review of medical records. Health Maintenance: Health Maintenance Topics with due status: Overdue Topic Date Due Covid-19 Vaccine 08/20/2021 Albumin Creatinine Ratio, Urine 07/17/2022 Lipid Panel 07/17/2022 Hemoglobin A1C 07/25/2022 Health Maintenance Topics with due status: Not Due Topic Last Completion Date DTaP/Tdap/Td Vaccine 12/06/2019 Colon Cancer Screening-DNA Stool 07/29/2021 eGFR 09/14/2021 Dilated Eye Exam 10/07/2021 Osteoporosis Screening-Bone Density Scan 12/17/2021 Breast Cancer Screening-Mammogram 01/15/2022 Fall Risk Assessment 08/18/2022 Depression Screening-PHQ 08/18/2022 Well Visit 65+ 08/18/2022 Foot Exam 08/18/2022 Health Maintenance Topics with due status: Completed Topic Last Completion Date Zoster Vaccines 01/18/2019 Pneumococcal vaccine 65+ 05/16/2020 Hepatitis C Screening 11/19/2020 Influenza Vaccine 03/26/2022 Counseling and Referral of Preventative Services: Opioid Use: No Lifestyle Recommendations Increase Physical Activity and Improve Diet Advanced Directive Durable Power of AttorneyNo Living Will No Assessment and Plan: Diagnoses and all orders for this visit: Encounter for Medicare annual wellness exam (Primary) Assessment & Plan: Encouraged healthy diet and activity Encouraged looking into a POA/Living will Health Maintenance: Last mammogram: 01/15/22 Last DEXA:-12/25- WNL Last colon cancer screening: cologuard 07/2021- Neg Last pneumonia/Prevnar: up to date Last Shingrix: up to date Last Flu: up to date Last COVID: up to date Alcohol use Assessment & Plan: Chronic, but encouraged cutting down Seasonal allergic rhinitis due to pollen Assessment & Plan: Chronic, persistent Encouraged flonase daily Anxiety Assessment & Plan: Chronic, persistent Continue lexapro Consider seeing a therapist Continue healthy changes for mood Call if it worsens Bilateral carpal tunnel syndrome Assessment & Plan: Chronic, improved Continue to monitor Class 1 obesity due to excess calories with serious comorbidity and body mass index (BMI) of 32.0 to 32.9 in adult Assessment & Plan: BMI Follow-up includes: nutrition counseling. Elevated liver enzymes Assessment & Plan: resolved Gastroesophageal reflux disease without esophagitis Assessment & Plan: Chronic, improved Reviewed risks of medication Consider when stress is less (mom in hospital), going to every other day Other hyperlipidemia Assessment & Plan: Chronic, stable Continue crestor Labs ordered Primary insomnia Assessment & Plan: Chronic, off medication Continue healthy changes for her sleep Chronic bilateral low back pain without sciatica Assessment & Plan: Chronic, improved Continue supportive care Obstructive sleep apnea syndrome Assessment & Plan: Chronic Encouraged to consider pulm referral for re-evaluation Overactive bladder due to prolapse of female genital organ Assessment & Plan: Chronic, stable Continue supportive care Type 2 diabetes mellitus with other specified complication, without long-term current use of insulin (HCC) Assessment & Plan: Chronic, stable Continue healthy changes Continue current regimen Foot exam today Call for questions Orders: - Comprehensive metabolic panel; Future - CBC with auto differential; Future - Lipid panel; Future - TSH reflex to free T4; Future - Hemoglobin A1c; Future - Albumin Creatinine Ratio, Urine; Future Essential hypertension Assessment & Plan: Chronic, elevated She is under current stressors Will check at home, and let me know Patient here for annual Medicare wellness visit and for review of complete medical problem list. All the elements of the plan were completed as outlined by CMS. A copy of the prevention plan was given to the patient. I reviewed Medicare Wellness Questionnaire (other physicians involved in care, depression screen, advanced directives), cognitive/memory, and functional assessment. Forms scanned in progress notes. I reviewed and updated the complete problem list, medication list, family history, and immunization records with the patient. I provided preventive counseling and early detection interventions to the patient through health maintenance update and summary of today's office visit. Aurelia Huitron MD ETIC COACH documented in this encounter Miscellaneous Notes * Result Encounter Note - Gabe Coats LPN - 10/08/2022 10:06 AM CDT Pt is aware of results. * Assessment & Plan Note - Aurelia Huitron MD - 08/18/2022 10:50 AM CSTAssociated Problem(s): Type 2 diabetes mellitus with other specified complication (HCC) Chronic, stable Continue healthy changes Continue current regimen Foot exam today Call for questions ETIC COACH * Assessment & Plan Note - Aurelia Huitron MD - 08/18/2022 10:49 AM CSTAssociated Problem(s): Overactive bladder due to prolapse of female genital organ Chronic, stable Continue supportive care ETIC COACH * Assessment & Plan Note - Aurelia Huitron MD - 08/18/2022 10:49 AM CSTAssociated Problem(s): Obstructive sleep apnea syndrome Chronic Encouraged to consider pulm referral for re-evaluation ETIC COACH * Assessment & Plan Note - Aurelia Huitron MD - 08/18/2022 10:49 AM CSTAssociated Problem(s): Low back pain Chronic, improved Continue supportive care ETIC COACH * Assessment & Plan Note - Aurelia Huitron MD - 08/18/2022 10:48 AM CSTAssociated Problem(s): Insomnia Chronic, off medication Continue healthy changes for her sleep ETIC COACH * Assessment & Plan Note - Aurelia Huitron MD - 08/18/2022 10:48 AM CSTAssociated Problem(s): Hyperlipidemia Chronic, stable Continue crestor Labs ordered ETIC COACH * Assessment & Plan Note - Aurelia Huitron MD - 08/18/2022 10:47 AM CSTAssociated Problem(s): Gastroesophageal reflux disease Chronic, improved Reviewed risks of medication Consider when stress is less (mom in hospital), going to every other day ETIC COACH * Assessment & Plan Note - Aurelia Huitron MD - 08/18/2022 10:46 AM CSTAssociated Problem(s): Essential hypertension Chronic, elevated She is under current stressors Will check at home, and let me know ETIC COACH ETIC COACH ETIC COACH * Assessment & Plan Note - Aurelia Huitron MD - 08/18/2022 10:46 AM CSTAssociated Problem(s): Elevated liver enzymes (Resolved 08/18/2022) resolved ETIC COACH * Assessment & Plan Note - Aurelia Huitron MD - 08/18/2022 10:45 AM CSTAssociated Problem(s): Class 1 obesity due to excess calories with serious comorbidity and body mass index (BMI) of 31.0 to 31.9 in adult BMI Follow-up includes: nutrition counseling. ETIC COACH * Assessment & Plan Note - Aurelia Huitron MD - 08/18/2022 10:45 AM CSTAssociated Problem(s): Carpal tunnel syndrome Chronic, improved Continue to monitor ETIC COACH * Assessment & Plan Note - Aurelia Hiutron MD - 08/18/2022 10:44 AM CSTAssociated Problem(s): Anxiety Chronic, persistent Continue lexapro Consider seeing a therapist Continue healthy changes for mood Call if it worsens ETIC COACH * Assessment & Plan Note - Aurelia Huitron MD - 08/18/2022 10:44 AM CSTAssociated Problem(s): Allergic rhinitis Chronic, persistent Encouraged flonase daily ETIC COACH * Assessment & Plan Note - Aurelia Huitron MD - 08/18/2022 10:43 AM CSTAssociated Problem(s): Alcohol use Chronic, but encouraged cutting down ETIC COACH * Assessment & Plan Note - Aurelia Huitron MD - 08/18/2022 10:41 AM CSTAssociated Problem(s): Encounter for Medicare annual wellness exam Encouraged healthy diet and activity Encouraged looking into a POA/Living will Health Maintenance: Last mammogram: 01/15/22 Last DEXA:-12/25- WNL Last colon cancer screening: cologuard 07/2021- Neg Last pneumonia/Prevnar: up to date Last Shingrix: up to date Last Flu: up to date Last COVID: up to date ETIC COACH documented in this encounter Plan of Treatment Not on file documented as of this encounter Procedures Procedure Name Priority Date/Time Associated Diagnosis Comments THYROID FUNCTION CASCADE Routine 09/30/2022 9:47 AM CDT Type 2 diabetes mellitus with other specified complication, without long-term current use of insulin (HCC) CBC WITH AUTO DIFFERENTIAL Routine 09/30/2022 9:47 AM CDT Type 2 diabetes mellitus with other specified complication, without long-term current use of insulin (HCC) ALBUMIN CREATININE RATIO, URINE Routine 09/30/2022 9:47 AM CDT Type 2 diabetes mellitus with other specified complication, without long-term current use of insulin (HCC) HEMOGLOBIN A1C Routine 09/30/2022 9:47 AM CDT Type 2 diabetes mellitus with other specified complication, without long-term current use of insulin (HCC) LIPID PANEL Routine 09/30/2022 9:47 AM CDT Type 2 diabetes mellitus with other specified complication, without long-term current use of insulin (HCC) COMPREHENSIVE METABOLIC PANEL Routine 09/30/2022 9:47 AM CDT Type 2 diabetes mellitus with other specified complication, without long-term current use of insulin (HCC) documented in this encounter Results * Albumin Creatinine Ratio, Urine (09/30/2022 9:47 AM CDT) Creatinine, ur 229 20 - 275 mg/dL [facility] Microalbumin, ur 1.9 See Note: mg/dL [facility] Comment: Reference Range: Reference Range Not established Microalbumin/creat ratio 8 <30 mcg/mg creat [facility] Comment: The ADA defines abnormalities in albumin excretion as follows: Albuminuria Category ?Result (mcg/mg creatinine) Normal to Mildly increased ?? <30 Moderately increased ? 30-299 Severely increased ? > OR = 300 The ADA recommends that at least two of three specimens collected within a 3-6 month period be abnormal before considering a patient to be within a diagnostic category. Urine 09/30/2022 9:47 AM CDT 09/30/2022 9:47 AM CDT Narrative [facility] - 10/01/2022 11:52 AM CDT FASTING:YES FASTING: YES us Aurelia Huitron MD LAB URINE ORDERABLE S Final Result [facility] [address] [place] [address] * (ABNORMAL) Hemoglobin A1c (09/30/2022 9:47 AM CDT) Hgb A1C 6.3(H) <5.7 % of total Hgb [facility] Comment: For someone without known diabetes, [...] A1c for diagnosis of diabetes for children. Blood 09/30/2022 9:47 AM CDT 09/30/2022 9:47 AM CDT Narrative [facility] - 10/01/2022 11:52 AM CDT FASTING:YES FASTING: YES Aurelia Huitron MD LAB BLOOD ORDERABLE S Final Result Performing Organization Address City/[facility]/ZIP Co de Phone Number [facility] [address] [place] [address] * TSH reflex to free T4 (09/30/2022 9:47 AM CDT) TSH 1.19 0.40 - 4.50 mIU/L [facility] Blood 09/30/2022 9:47 AM CDT 09/30/2022 9:47 AM CDT Narrative [facility] - 10/01/2022 11:52 AM CDT FASTING:YES FASTING: YES Aurelia Huitron MD LAB BLOOD ORDERABLE S Final Result [facility] [address] [place] [address] * (ABNORMAL) Lipid panel (09/30/2022 9:47 AM CDT) Cholesterol 181 <200 mg/dL [facility] HDL 75 > OR = 50 mg/dL [facility] Triglycerides 187(H) <150 mg/dL [facility] LDL 78 mg/dL (calc) [facility] Comment: Reference [...] LDL-C. Callum SS et al. LAILA. 2013;310(19): 8854-9849 (http://education.NOWBOX/faq/LGM155) Chol/HDL ratio 2.4 <5.0 (calc) [facility] Non-HDL, (LDL+VLDL) 106 <130 mg/dL (calc) [facility] Comment: For patients with diabetes plus 1 major ASCVD risk factor, treating to a non-HDL-C goal of <100 mg/dL (LDL-C of <70 mg/dL) is considered a therapeutic option. Blood 09/30/2022 9:47 AM CDT 09/30/2022 9:47 AM CDT Narrative [facility] - 10/01/2022 11:52 AM CDT FASTING:YES FASTING: YES us Aurelia Huitron MD LAB BLOOD ORDERABLE S Final Result [facility] [address] [place] [address] * CBC with auto differential (09/30/2022 9:47 AM CDT) WBC 4.7 3.8 - 10.8 Thousand/u L [facility] RBC, POC 4.16 3.80 - 5.10 Million/uL [facility] Hgb 12.4 11.7 - 15.5 g/dL [facility] Hct 36.4 35.0 - 45.0 % [facility] MCV 87.5 80.0 - 100.0 fL [facility] MCH 29.8 27.0 - 33.0 pg [facility] MCHC 34.1 32.0 - 36.0 g/dL [facility] Rdw 13.1 11.0 - 15.0 % [facility] Platelets 278 140 - 400 Thousand/u L [facility] MPV 9.6 7.5 - 12.5 fL [facility] Neutrophils, abs 2,933 1,500 - 7,800 cells/uL [facility] Lymphocytes, abs 1,222 850 - 3,900 cells/uL [facility] Monocyte abs 447 200 - 950 cells/uL [facility] Eosinophils, abs 80 15 - 500 cells/uL [facility] Basophils, abs 19 0 - 200 cells/uL [facility] Neutrophils 62.4 % [facility] Lymphocyte pct 26.0 % [facility] Monocytes 9.5 % [facility] Eosinophils 1.7 % [facility] Basophils 0.4 % [facility] Blood 09/30/2022 9:47 AM CDT 09/30/2022 9:47 AM CDT Narrative [facility] - 10/01/2022 11:52 AM CDT FASTING:YES FASTING: YES us Aurelia Huitron MD LAB BLOOD ORDERABLE S Final Result [facility] [address] [place], [place] [address] * Comprehensive metabolic panel (09/30/2022 9:47 AM CDT) [facility] Glucose 97 65 - 99 mg/dL [facility] Comment: ? Fasting reference interval BUN 17 7 - 25 mg/dL [facility] Creatinine 0.77 0.60 - 1.00 mg/dL [facility] eGFR 83 > OR = 60 mL/min/1. 73m2 [facility] Comment: The eGFR is based on the CKD-EPI 2020 equation. To calculate the new eGFR from a previous Creatinine or Cystatin C result, go to https://www.kidney.org/professionals/ kdoqi/gfr%5Fcalculator BUN/creat ratio NOT APPLICABLE 6 - 22 (calc) [facility] Sodium 138 135 - 146 mmol/L [facility] Potassium, pl 4.5 3.5 - 5.3 mmol/L [facility] Chloride 101 98 - 110 mmol/L [facility] CO2 28 20 - 32 mmol/L [facility] Calcium 9.6 8.6 - 10.4 mg/dL [facility] Protein, sr 7.4 6.1 - 8.1 g/dL [facility] Albumin 4.8 3.6 - 5.1 g/dL [facility] GLOBULIN 2.6 1.9 - 3.7 g/dL (calc) [facility] Alb/glob ratio 1.8 1.0 - 2.5 (calc) [facility] Bilirubin, total 0.4 0.2 - 1.2 mg/dL [facility] Alk phos 52 37 - 153 U/L [facility] AST 16 10 - 35 U/L [facility] ALT (SGPT) 19 6 - 29 U/L [facility] Blood 09/30/2022 9:47 AM CDT 09/30/2022 9:47 AM CDT Narrative [facility] - 10/01/2022 11:52 AM CDT FASTING:YES FASTING: YES us Aurelia Huitron MD LAB BLOOD ORDERABLE S Final Result Performing Organization Address City/State/[facility] Co de Phone Number [facility] [address] [place] [address] documented in this encounter Visit Diagnoses Diagnosis Encounter for Medicare annual wellness exam- Primary Alcohol use Other problems related to lifestyle Seasonal allergic rhinitis due to pollen Anxiety Anxiety state, unspecified Bilateral carpal tunnel syndrome Carpal tunnel syndrome Class 1 obesity due to excess calories with serious comorbidity and body mass index (BMI) of 32.0 to 32.9 in adult Elevated liver enzymes Other nonspecific abnormal serum enzyme levels Gastroesophageal reflux disease without esophagitis Esophageal reflux Other hyperlipidemia Primary insomnia Persistent disorder of initiating or maintaining sleep Chronic bilateral low back pain without sciatica Obstructive sleep apnea syndrome Obstructive sleep apnea (adult) (pediatric) Overactive bladder due to prolapse of female genital organ Type 2 diabetes mellitus with other specified complication, without long-term current use of insulin (HCC) Essential hypertension Unspecified essential hypertension documented in this encounter Care Teams Bag Machine Tender Relationship Specialty Start Date End Date Aurelia Huitron MD [address] [place] [address] PCP - General Family Medicine 05/23/20 documented as of this encounter
--- OUTSIDE RECORDS SUMMARY | 2024-07-10 04:43 | XMS_ITS | Encounter Summary ---
Author Organization [facility] Address [address] [place] [address] Care Team Providers Care Inspector Assemblies And Installations Name Role Phone Aurelia Huitron MD Primary Care Provi jarred Encounter Details Date Type Department Care Team (Late st Contact Info) Description 08/15/2021 Orders Only [facility] Family Medicine [address] [address] Aurelia Huitron MD [address] [address] Social History Tobacco Use Types Packs/Day Years Used Date Smoking Tobacco: Never Smokeless Tobacco: Never Alcohol Use Standard Drinks/Week Comments Never 0 (1 standard drink = 0.6 oz pur e alcohol) AUDIT-C Answer Date Recorded Q1: How often do you have a drink containing alc ohol? 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 Gender Identity Not on file Sexual Orientation Not on file documented as of this encounter Plan of Treatment Not on file documented as of this encounter Procedures Procedure Name Priority Date/Time Associated Diagnosis Comments THINPREP TIS PAP AND HPV MRNA E6/E7 REFLEX HPV 16,18/45 Routine 08/15/2021 12:00 AM INSPECTION AND TESTING SUPERVISOR documented in this encounter Results * THINPREP TIS PAP AND HPV mRNA E6/E7 REFLEX HPV 16,18/45 (08/15/2021 12:00 AM INSPECTION AND TESTING SUPERVISOR) CLINICAL INFORMATION: [facility] Comment:Postmenopausal LMP [facility] Comment:INFORMATION NOT PROV IDED Previous Pap [facility] Comment:INFORMATION NOT PROV IDED Prev. Bx [facility] Comment:INFORMATION NOT PROV IDED SOURCE: [facility] Comment:Cervix, Endocervix Pap, specimen adequacy [facility] Comment:SATISFACTORY FOR TONG LUATION HPV interp [facility] Comment: Negative for intraepithelial lesion or malignancy. Atrophic pattern; predominantly parabasal cells COMMENTS [facility] Comment: This Pap test has been evaluated with computer assisted technology. Signaling Project Engineer [facility] Comment: KMY, CT(ASCP) CT screening location: [place] [address] [place] [address] Review professional model [facility] Comment: MEF, CT(ASCP) CT screening location: [place] [address] [place] [address] Comment [facility] Comment: EXPLANATORY NOTE: The Pap is a screening test for cervical cancer. It is not a diagnostic test and is subject to false negative and false positive results. It is most reliable when a satisfactory sample, regularly obtained, is submitted with relevant clinical findings and history, and when the Pap result is evaluated along with historic and current clinical information. Human papillomavirus RNA, High Risk E6/E7 Not Detected Not Detected [facility] Comment: Methodology: Gambling Supervisor-Mediated Amplification This assay detects E6/E7 viral messenger RNA (mRNA) from 14 high-risk HPV types (16,18,31,33,35,39,45,51,52,56,58,59,66,68). The analytical performance characteristics of this assay have been determined by [employer]. The modifications have not been cleared or approved by the FDA. This assay has been validated pursuant to the CLIA regulations and is used for clinical purposes. For additional information, please refer to http://education.PhaseRx/faq/ERO227a5 (This link if provided for information/ educational purposes only.) 08/15/2021 08/16/2021 4:4 7 AM INSPECTION AND TESTING SUPERVISOR Narrative [facility] - 08/19/2021 3:24 PM INSPECTION AND TESTING SUPERVISOR FASTING: UNKNOWN us Aurelia Huitron MD LAB BLOOD ORDERABLE S Final Result [facility] [address] [place] [address] [facility] [address] [place] [address] documented in this encounter Visit Diagnoses Not on filedocumented in this encounter Care Teams Inspector Assemblies And Installations Relationship Specialty Start Date End Date Aurelia Huitron MD [facility] [address] [place] [address] PCP - General Family Medicine 05/23/20 documented as of this encounter
--- OUTSIDE RECORDS SUMMARY | 2024-07-10 04:43 | XMS_ITS | Encounter Summary ---
Author Organization [facility] Address [address] [place] [address] Care Team Providers Care Coil Binder Name Role Phone Aurelia Huitron MD Primary Care Provi jarred Reason for Visit * Reason Comments Immunizations Flu shot Encounter Details Date Type Department Care Team (Latest Contact Info) Description 05/17/2021 1:30 PM ELECTRIC BATH ATTENDANT Clinical Support [facility] Medical [facility] Family Medicine [address] [address] Encounter for administration of vaccine (Primary Dx) Social History Tobacco Use Types Packs/Day Years Used Date Smoking Tobacco: Never Smokeless Tobacco: Never Alcohol Use Standard Drinks/Week Comments Never 0 (1 standard drink = 0.6 oz pur e alcohol) AUDIT-C Answer Date Recorded Q1: How often do you have a drink containing alc ohol? Never 07/23/2020 Average Number of Drinks Not on file 021 Frequency of Binge Drinking Not on file 07/06 PHQ-2 Answer Date Recorded PHQ-2 Total Score (If total score is 3 or more points, staff should administer the PHQ-9) 0 07/23/2020 Comments Unknown Sex and Gender Information Value Date Recorded Sex Assigned at Not on file Legal Sex Female 12:58 AM ELECTRIC BATH ATTENDANT Gender Identity Not on file Sexual Orientation Not on file documented as of this encounter Plan of Treatment Not on file documented as of this encounter Visit Diagnoses Diagnosis Encounter for administration of vaccine- Primary documented in this encounter Orders Immunization/Injection Count Last Ordered Date First Ordered Date FLU VACCINE HIGH DOSE QUAD P F 65Y+ IM - FLUZONE HIGH DOS 1 05/17/2021 documented in this encounter Care Teams Coil Binder Relationship Specialty Start Date End Date Aurelia Huitron MD [address] [place] [address] PCP - General Family Medicine 05/23/20 documented as of this encounter
--- OUTSIDE RECORDS SUMMARY | 2024-07-10 04:43 | XMS_ITS | Encounter Summary ---
Author Organization [facility] Address [address] [place] [address] Care Team Providers Care Structural Steel Trades Worker Name Role Phone Aurelia Huitron MD Primary Care Provi jarred Reason for Referral * Diagnostic Imaging (Routine) - Closed Specialty Diagnoses / Procedures Referred By Contac t Referred To Contact Diagnoses Postmenopausal status Procedures Dexa Axial Skeleton Bone Density 1 or 2 Site Aurelia Huitron MD [address] [place] [address] Phone: tel: fax: [address] [address] Referral ID Status Reason Start Date Expiration Date Visits Re quested Visits Authorized [id number] Closed 07/17/2021 08/16/2022 1 1 Reason for Visit * Diagnostic Imaging (Routine) - Closed Specialty Diagnoses / Procedures Referred By Contac t Referred To Contact Diagnoses Postmenopausal status Procedures Dexa Axial Skeleton Bone Density 1 or 2 Site Aurelia Huitron MD [address] [place] [address] Phone: tel: fax: [address] [address] Referral ID Status Reason Start Date Expiration Date Visits Re quested Visits Authorized [id number] Closed 07/17/2021 08/16/2022 1 1 Encounter Details Date Type Department Care Team (Latest Contact Info) Description 12/17/2021 12:13 PM CDT - 12/17/2021 11:59 PM CDT Hospital Encounter [facility] [address] [facility] [address] [facility] [address] [place] [address] Postmenopausal status Discharge Disposition: Discharge to home [...] points, staff should administer the PHQ-9) 0 09/24/2021 Comments No Sex and Gender Information Value Date Recorded Sex Assigned at Not on file Legal Sex Female 12:58 AM DUDE RANCH 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 Gender Identity Not on file Sexual Orientation Not on file documented as of this encounter Medications at Time of Discharge amLODIPine (NORVASC) 5 mg tablet Take 1 tablet (5 mg total) by mouth 2 (two) times a day 180 tablet 1 10/08/2021 03/25/2022 arm brace miscIndications:D e Quervain's tenosynovitis, left Thumb spica brace for left wrist- use daily 1 each 08/15/2021 03/26/2022 escitalopram (LEXAPRO) 20 mg tablet Take 1 tablet (20 mg total) by mouth daily 90 tablet 11/25/2021 02/24/2022 losartan (COZAAR) 100 mg tablet Take 1 tablet (100 mg total) by mouth daily 90 tablet 1 10/08/2021 03/25/2022 meloxicam (MOBIC) 7.5 mg tablet Take 2 tablets (15 mg total) by mouth daily 90 tablet 1 10/08/2021 01/09/2022 metFORMIN (GLUCOPHAGE) 500 mg tablet Take 1 tablet (500 mg total) by mouth 2 (two) times a day with meals 180 tablet 1 10/08/2021 03/25/2022 methocarbamoL (ROBAXIN) 750 mg tablet Take 1 tablet (750 mg total) by mouth 3 (three) times a day as needed for muscle spasms 30 tablet 1 10/08/2021 03/25/2022 omeprazole (PriLOSEC) 20 mg capsule Take 1 capsule (20 mg total) by mouth daily 90 capsule 1 10/08/2021 03/25/2022 rosuvastatin (CRESTOR) 10 mg tablet Take 1 tablet (10 mg total) by mouth daily 90 tablet 1 10/08/2021 03/25/2022 UltiCare Pen Needle 31 gauge x 1/4 needle USE DAILY WITH VICTOZA 100 each 3 10/08/2021 01/07/2023 Victoza 2-Eduardo 0.6 mg/0.1 mL (18 mg/3 mL) injection INJECT 1.2 MG UNDER THE SKIN ONCE DAILY 9 mL 1 11/19/2021 03/29/2022 documented as of this encounter Discharge Disposition Disposition Code Departure Means Destination Discharge to home or self care documented in this encounter Miscellaneous Notes * Result Encounter Note - Aurelia Huitron MD - 12/17/2021 11:59 PM CDT Good afternoon, your bone density is normal. To keep your bones strong, please consider dietary sources of calcium, vitamin D, and exercise like walking. We can recheck this in 2 years. If you have any questions, please let me know! Sincerely, Dr. Jennifer Huitron documented in this encounter Plan of Treatment Not on file documented as of this encounter Procedures Procedure Name Priority Date/Time Associated Diagnosis Comments DEXA AXIAL SKELETON BONE DENSITY 1 OR MORE SITES Schedule Routine, Read Routine (OP Routine) 12/17/2021 12:35 PM CDT Postmenopausal status documented in this encounter Results * Dexa Axial Skeleton Bone Density 1 or 2 Site (12/17/2021 12:35 PM CDT) Anatomical Region Laterality Modality Body N/A Mammography 12/17/2021 8:52 PM CDT Narrative 12/17/2021 9:00 PM CDT EXAM DESCRIPTION: ?? DEXA AXIAL SKELETON BONE DENSITY 1 OR MORE SITES REASON FOR STUDY: ?71 y/o ?? year old ?? F ??with given history of screening. ?? 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 [employer] A (S/N [id number]) CLINICAL INFORMATION: Current height: ?? 64.5 ??inches ? Maximum height: 66 inches ? Weight: 199 pounds Risk factors: Parental hip fracture, steroid use, alcohol use COMPARISON: None available. FINDINGS: AP LUMBAR SPINE L1-L4: Total BMD is ?? 1.313 ??g/cm2 T-score is 2.4 LEFT HIP: Total BMD is 0.999 g/cm2 T-score is 0.5 Femoral neck BMD is 0.889 g/cm2 T-score is 0.4 FRAX: ?? FRAX not reported due to T-scores of hip, femoral neck and/or spine being at or above -1.0 (Normal). IMPRESSION: ?? Based on the left femoral neck bone mineral density (T-score 0.4) the patient has normal bone mass. REFERENCE: Bone mineral density: ? Normal (T-score above or = -1.0) ? Low bone mass ??(T-score between -1.0 and -2.5) replaces the previously used term osteopenia ? Osteoporosis (T-score = or below -2.5) Medical evaluation for secondary causes of low [...] greater than 3% should be considered for treatment. For further information, including treatment recommendations, please refer to the 2013 ISCD Official Positions (http://www.iscd.org) and the NOF's Clinician's Guide to Prevention and Treatment of Osteoporosis (http://www.nof.org/professionals/clinical-guidelines) THIS IS AN ELECTRONICALLY VERIFIED FINAL REPORT 12/17/2021 9:00 PM - Electronically signed by ??Ritesh Araiza M.D. MF: [email or web address] D: ??12/17/2021 9:00 PM T: ??12/17/2021 9:00 PM Report ID: [id number] Reading Location: ??[id number] Procedure Note Ritesh Araiza MD - 12/17/2021 EXAM DESCRIPTION: DEXA AXIAL SKELETON BONE DENSITY 1 OR MORE SITES REASON FOR STUDY: 71 y/o year old F with given history ofscreening. Postmenopausal City Editor/Model: [employer] A (S/N [id number]) CLINICAL INFORMATION: Current height: 64.5 inches Maximum height: 66 inches Weight: 199 pounds Risk factors: Parental hip fracture, steroid use, alcohol use COMPARISON: None available. FINDINGS: AP LUMBAR SPINE L1-L4: Total BMD is 1.313 g/cm2 T-score is 2.4 LEFT HIP: Total BMD is 0.999 g/cm2 T-score is 0.5 Femoral neck BMD is 0.889 g/cm2 T-score is 0.4 FRAX: FRAX not reported due to T-scores of hip, femoral neck and/or spine beingat or above -1.0 (Normal). IMPRESSION: Based on the left femoral neck bone mineral density (T-score 0.4) the patient has normal bone mass. REFERENCE: Bone mineral density: Normal (T-score above or = -1.0) Low bone mass (T-score between -1.0 and -2.5) replaces thepreviously used term osteopenia Osteoporosis (T-score = or below -2.5) Medical evaluation for secondary causes of low [...] or greaterthan 3% should be considered for treatment. For further information, including treatment recommendations, please referto the 2013 ISCD Official Positions (http://www.iscd.org) and the NOF's Clinician's Guide to Prevention and Treatment of Osteoporosis (http://www.nof.org/professionals/clinical-guidelines) THIS IS AN ELECTRONICALLY VERIFIED FINAL REPORT 12/17/2021 9:00 PM - Electronically signed by Ritesh Araiza M.D. MF: [email or web address] Report ID: [id number] Reading Location: [place] [address] Aurelia Huitron MD IMG DXA PROCEDURES Final Result documented in this encounter Visit Diagnoses Diagnosis Postmenopausal status Asymptomatic postmenopausal status (age-related) (natural) documented in this encounter Care Teams Structural Steel Trades Worker Relationship Specialty Start Date End Date Aurelia Huitron MD [address] [place], [place] [id number] PCP - General Family Medicine 05/23/20 documented as of this encounter
--- OUTSIDE RECORDS SUMMARY | 2024-07-10 04:43 | XMS_ITS | Encounter Summary ---
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 Referral faxed * Telephone Encounter - Peg Alba - 09/24/2021 1:04 PM CDT Pt has an apt scheduled with the provider listed below on 10/07. Thank you. CINDY CONNELLY Phone #: [phone] Fax #: [phone] Address: [address] [place] [address] [place] [address] documented in this encounter Plan of Treatment Not on file documented as of this encounter Visit Diagnoses Not on filedocumented in this encounter Care Teams Rush Seater Relationship Specialty Start Date End Date Aurelia Huitron MD [facility] [address] [place] [address] PCP - General Family Medicine 05/23/20 documented as of this encounter
--- OUTSIDE RECORDS SUMMARY | 2024-07-10 04:43 | XMS_ITS | Encounter Summary ---
Author Organization [facility] Address [address] [facility] [address] [place] [id number] Care Team Providers Care Tank Tester Name Role Phone Aurelia Huitron MD Primary Care Provi jarred Reason for Referral * Diagnostic Imaging (Routine) - Closed Specialty Diagnoses / Procedures Referred By Contac t Referred To Contact Diagnoses Left wrist pain Procedures XR Wrist Left 3+ Vw Aurelia Huitron MD [address] [place] [address] Phone: tel: fax: [address] [phone] Referral ID Status Reason Start Date Expiration Date Visits Re quested Visits Authorized [id number] Closed 07/17/2021 08/16/2022 1 1 TRANSPORTER * Diagnostic Imaging (Routine) - Closed Specialty Diagnoses / Procedures Referred By Contac t Referred To Contact Diagnoses Postmenopausal status Procedures Dexa Axial Skeleton Bone Density 1 or 2 Site Aurelia Huitron MD [address] [place] [address] Phone: tel: fax: [address] [phone] Referral ID Status Reason Start Date Expiration Date Visits Re quested Visits Authorized [id number] Closed 07/17/2021 08/16/2022 1 1 TRANSPORTER Reason for Visit * Reason Comments Medicare Wellness Encounter Details Date Type Department Care Team (Late st Contact Info) Description 07/17/2021 10:30 AM CLAY TRANSPORTER Office Visit [facility] Family Medicine [address] [phone] Aurelia Huitron MD [address] [address] Encounter for Medicare annual wellness exam (Primary Dx); Seasonal allergic rhinitis due to pollen; Anxiety; Bilateral carpal tunnel syndrome; Class 1 obesity due to excess calories with serious comorbidity and body mass index (BMI) of 32.0 to 32.9 in adult; Elevated liver enzymes; Essential hypertension; Gastroesophageal reflux disease without esophagitis; Other hemorrhoids; Other hyperlipidemia; Primary insomnia; Chronic bilateral low back pain without sciatica; Obstructive sleep apnea syndrome; Overactive bladder due to prolapse of female genital organ; Type 2 diabetes mellitus with other specified complication, without long-term current use of insulin (HCC); Left wrist pain; Postmenopausal status; Colon cancer screening Social History Tobacco Use Types Packs/Day Years [...] on file Legal Sex Female 12:58 AM CLAY TRANSPORTER Gender Identity Not on file Sexual Orientation Not on file documented as of this encounter Last Filed Vital Signs Vital Sign Reading Time Taken Comments Blood Pressure 122/78 07/17/2021 11:12 AM CLAY TRANSPORTER Pulse 77 07/17/2021 11:12 AM CLAY TRANSPORTER Temperature 36.7 ??C (98 ??F) 07/17/2021 11: 12 AM CLAY TRANSPORTER Respiratory Rate 14 07/17/2021 11:1 2 AM CLAY TRANSPORTER Oxygen Saturation 98% 07/17/2021 11: 12 AM CLAY TRANSPORTER Inhaled Oxygen Concentration - - Weight 89.7 kg (197 lb 12.8 oz) 022 11:12 AM CLAY TRANSPORTER Height 165.1 cm (5' 5 ) 07/17/2021 11:1 2 AM CLAY TRANSPORTER Body Mass Index 32.92 07/17/2021 11:12 AM CLAY TRANSPORTER documented in this encounter Ordered Prescriptions Prescription Sig Dispense Quantity Refills Last Filled Start Date End Date escitalopram (LEXAPRO) 10 mg tablet Take 2 tablets (20 mg total) by mouth daily 1 tablet 07/17/2021 documented in this encounter Progress Notes * Aurelia Huitron MD - 07/17/2021 10:30 AM CST Images from the original note were not included. MEDICARE SUBSEQUENT ANNUAL WELLNESS VISIT Patient ID: Valeria Johnson is a 71 y.o. female. Visit date: 07/17/2021 Medicare Health Risk Assessment Basic Information In general, would you say your health is: Good Do you have an advance directive, such as a living will or durable power of ip attorney?: Yes Do you have trouble hearing the television or radio when other do not?: No Do you have to strain or struggle to hear/understand conversations?: No Have you experienced any of the following problems currently or recently? Eating: No Grooming: No Bathing: No Walking: No Using the toilet: No Memory problems: No Difficulty speaking: No Have you experienced any of the following problems currently or recently? Laundry and/or housekeeping: No Handling Money: No Shopping: No Food preparation: No Transportation: No Taking and/or getting your own medications: No Depression Screen: PHQ Screening Over the [...] or Staying Asleep, or Sleeping too Much: Several days Feeling Tired or Having Little Energy: Not at all Poor Appetite or Overeating: Not at all [...] Way: Not at all PHQ-9 Total Score: 1 If you checked off any problems, how [...] more falls in the last year: No Up and Go Test: Patient was unsteady or time test was longer than 30 seconds? No Chief complaint: Medicare Wellness HPI: Diet: tries to eat healthy Physical Activities: 1-2 times a week Functional Capacity Patient is able to perform the following: ambulation, bathing and hygiene, feeding, grooming, toileting and dressing Chronic Conditions: -seasonal allergic rhinitis. Her symptoms are currently doing well. She does have an occasional cough. -anxiety. She has been under more stress recently. She is helping take care of her mother who is inher 90s. She does not feel particularly depressed or sad, but does feel overall more nervous. No thoughts of self-harm. She is taking Lexapro, but wonders if we could go up on the dose. -carpal tunnel syndrome. Symptoms are improved -elevated liver enzymes. She is due for blood work. -is hypertension the patient is taking her medication as prescribed, her blood pressure has been doing well. -GERD. She is taking her medication as prescribed. Symptoms are well controlled. -hemorrhoids. She is asymptomatic currently -hyperlipidemia. She is currently on Crestor. She takes it every other day if she feels sore. -insomnia. She was previously on Lunesta, but has weaned herself off. She does have difficulty sleeping and will often use a medication like Tylenol p.m. -RAE. She is currently not using her CPAP -chronic low back pain. Symptoms are currently doing fair with her medications. -overactive bladder. She is currently asymptomatic -diabetes type 2. She is taking her medications as prescribed. Her last blood sugar was 110. New issue: -left wrist pain. This is gone on for the last 3 weeks. No trauma or injury, but she was walking her dog. Pain with certain movements Incontinence: Are you experiencing or have concern about urine leakage? Yes - rarely Problem List, Past Medical and Surgical History: Patient Active Problem List Diagnosis ??? Allergic rhinitis ??? Anxiety ??? Carpal tunnel syndrome ??? Elevated liver enzymes ??? Essential hypertension ??? Gastroesophageal reflux disease ??? Hemorrhoids ??? Hyperlipidemia ??? Insomnia ??? Low back pain ??? Obstructive sleep apnea syndrome ??? Overactive bladder due to prolapse of female genital organ ??? Type 2 diabetes mellitus with other specified complication (HCC) ??? Class 1 obesity due to excess calories with serious comorbidity and body mass index (BMI) of 32.0 to 32.9 in adult ??? Encounter for Medicare annual wellness exam Past Medical History: Diagnosis Date ??? Anxiety ??? Apnea ??? Diabetes mellitus (HCC) ??? Hypercholesterolemia with hypertriglyceridemia ??? Hypertension ??? Insomnia Past Surgical History: Procedure Laterality Date ??? CATARACT EXTRACTION W/ INTRAOCULAR LENS IMPLANT right eye ??? KNEE ARTHROSCOPY W/ MENISCAL REPAIR ??? TUBAL LIGATION Family History: Family History Problem Relation Age of Onset ??? No Known Problems Mother ??? Hypertension Father ??? Diabetes Father ??? COPD Father ??? Rheum arthritis Sister Social History: Social History Socioeconomic History ??? Marital status: Spouse name: Not on file ??? Number of children: Not on file ??? Years of education: Not on file ??? Highest education level: Not on file Occupational History ??? Not on file Tobacco Use ??? Smoking status: Never Smoker ??? Smokeless tobacco: Never Used Vaping Use ??? Vaping Use: Never used Substance and Sexual Activity ??? Alcohol use: Never ??? Drug use: Never ??? Sexual activity: Defer Other Topics Concern ??? Not on file Social History Narrative ??? Not on file Social Determinants of Health Financial Resource Strain: Not on file Food Insecurity: Not on file Transportation Needs: Not on file Physical Activity: Not on file Stress: Not on file Social Connections: Not on file Intimate Partner Violence: Not on file Housing Stability: Not on file Allergies: No Known Allergies Medications: Current Outpatient Medications: ??? amLODIPine (NORVASC) 5 mg tablet, TAKE 1 TABLET BY MOUTH TWICE A DAY, Disp: 180 tablet, Rfl: 1 ??? escitalopram (LEXAPRO) 10 mg tablet, Take 2 tablets (20 mg total) by mouth daily, Disp: 1 tablet, Rfl: 0 ??? losartan (COZAAR) 100 mg tablet, TAKE 1 TABLET BY MOUTH DAILY, Disp: 90 tablet, Rfl: 1 ??? meloxicam (MOBIC) 7.5 mg tablet, TAKE 2 TABLETS(15 MG) BY MOUTH DAILY, Disp: 90 tablet, Rfl: 0 ??? metFORMIN (GLUCOPHAGE) 500 mg tablet, TAKE 1 TABLET BY MOUTH TWICE A DAY WITH MEALS, Disp: 180 tablet, Rfl: 1 ??? methocarbamoL (ROBAXIN) 750 mg tablet, Take 1 tablet (750 mg total) by mouth 3 (three) times a day as needed for muscle spasms, Disp: 30 tablet, Rfl: 1 ??? omeprazole (PriLOSEC) 20 mg capsule, TAKE 1 CAPSULE BY MOUTH DAILY, Disp: 90 capsule, Rfl: 1 ??? rosuvastatin (CRESTOR) 10 mg tablet, TAKE 1 TABLET BY MOUTH DAILY, Disp: 90 tablet, Rfl: 1 ??? UltiCare Pen Needle 31 gauge x 1/4 needle, USE DAILY WITH VICTOZA, Disp: 100 each, Rfl: 3 ??? Victoza 3-Eduardo 0.6 mg/0.1 mL (18 mg/3 mL) injection, INJECT 1.8 MG UNDER THE SKIN DAILY INDICATIONS: TYPE 2 DIABETES MELLITUS, Disp: 9 mL, Rfl: 2 Review of Systems: Review of Systems Constitutional: Positive for fatigue. Negative for appetite change. HENT: Negative for hearing loss and trouble swallowing. Eyes: Negative for visual disturbance. Respiratory: Negative for cough and shortness of breath. Cardiovascular: Negative for chest pain. Gastrointestinal: Negative for abdominal pain, constipation, diarrhea, nausea and vomiting. Genitourinary: Negative for dysuria and vaginal bleeding. Musculoskeletal: Positive for arthralgias. Skin: Negative for rash. No skin lesions Neurological: Negative for syncope and headaches. Psychiatric/Behavioral: Negative for dysphoric mood. The patient is nervous/anxious. Recent Results (from the past 1008 hour(s)) Hemoglobin A1c Collection Time: 07/17/21 11:59 AM Result Value Ref Range Hgb A1C 6.6 (H) 4.0 - 5.6 % Estimated Average Glucose 143 mg/dL TSH reflex to free T4 Collection Time: 07/17/21 11:59 AM Result Value Ref Range TSH 1.23 0.30 - 4.20 mcIUnit/mL Lipid panel Collection Time: 07/17/21 11:59 AM Result Value Ref Range Cholesterol 177 30 - 199 mg/dL Triglycerides 210 (H) <=149 mg/dL HDL 74 >=40 mg/dL LDL, calculated 61 <=129 mg/dL Non-HDL Cholesterol 103 mg/dL Chol/HDL ratio 2 CBC with auto differential Collection Time: 07/17/21 11:59 AM Result Value Ref Range WBC 5.7 3.8 - 9.9 K/cumm Hgb 12.6 11.9 - 15.5 g/dL Hct 38.9 35.6 - 45.5 % Plt 256 150 - 400 K/cumm MPV 8.8 (L) 9.1 - 12.3 fL RBC 4.30 3.90 - 5.20 M/cumm MCV 90.5 81.3 - 96.4 fL MCH 29.3 27.1 - 33.3 pg MCHC 32.4 32.3 - 35.7 g/dL RDW CV 14.0 11.1 - 14.9 % RDW SD 45.8 35.7 - 48.1 fL NRBC abs 0.00 0.00 - 0.01 K/cumm Comprehensive metabolic panel Collection Time: 07/17/21 11:59 AM Result Value Ref Range Sodium 136 135 - 145 mmol/L Potassium, pl 4.3 3.3 - 4.9 mmol/L Chloride 98 97 - 110 mmol/L CO2 25 22 - 32 mmol/L Anion gap 13 2 - 15 mmol/L BUN 14 8 - 25 mg/dL Creatinine 0.50 (L) 0.60 - 1.10 mg/dL Glucose 102 70 - 199 mg/dL Calcium 9.8 8.5 - 10.3 mg/dL Bilirubin, total 0.4 0.1 - 1.2 mg/dL Protein, pl 7.7 6.5 - 8.5 g/dL Albumin 5.0 3.5 - 5.0 g/dL Alk phos 57 40 - 130 Units/L ALT 26 7 - 45 Units/L AST 22 10 - 45 Units/L Differential, auto Collection Time: 07/17/21 11:59 AM Result Value Ref Range Neutrophil abs 3.8 1.7 - 6.5 K/cumm Imm gran abs 0.0 0.0 - 0.1 K/cumm Lymphocyte abs 1.3 0.8 - 3.3 K/cumm Monocyte abs 0.5 0.2 - 0.8 K/cumm Eosinophil abs 0.1 0.0 - 0.5 K/cumm Basophil abs 0.0 0.0 - 0.1 K/cumm Neutrophil pct 66.4 % Imm gran pct 0.3 % Lymphocyte pct 22.9 % Monocyte pct 9.1 % Eosinophil pct 1.0 % Basophil pct 0.3 % eGFR Collection Time: 07/17/21 11:59 AM Result Value Ref Range eGFR 101 mL/min/1.73 m2 Vitals: Vitals BP 122/78 Pulse 77 Temp 36.7 ??C (98 ??F) Resp 14 Ht 165.1 cm (5' 5 ) Wt 89.7 kg (197 lb 12.8 oz) SpO2 98% BMI 32.92 kg/m?? Body mass index is 32.92 kg/m??. Exam: Physical Exam Vitals and nursing note reviewed. Constitutional: General: She is not in acute distress. Appearance: Normal appearance. She is well-developed. She is obese. She is not ill-appearing or toxic-appearing. HENT: [...] There is no guarding or rebound. Musculoskeletal: Right wrist: Normal pulse. Left wrist: No swelling, deformity, tenderness, bony tenderness, snuff box tenderness or crepitus. Normal pulse. Cervical back: Neck supple. Feet: Right Foot: Monofilament exam: normal. Protective Sensation: 5 sites tested. 5 sites sensed. Left Foot: Monofilament exam: normal. Protective Sensation: 5 sites tested. 5 sites sensed. Lymphadenopathy: Cervical: No cervical adenopathy. Skin: General: Skin is warm and dry. Neurological: Mental Status: She is alert and oriented to person, place, and time. Motor: No abnormal muscle tone. Psychiatric: Mood and Affect: Mood normal. Behavior: Behavior normal. Thought Content: Thought content normal. Care Team Providers: Patient Care Team: Aurelia Huitron MD as PCP - General (Family Medicine) Primary Pharmacy/DME suppliers: [id number] - [place], [place] - [address] [facility] [address] [facility] [phone] [id number] - [place], [place] - [address] [facility] [address] [place] [address] Detection of Cognitive Impairment: The patient does not have cognitive impairment based on direct observation, discussion with patientor family, or review of medical records. Health Maintenance: Health Maintenance Topics with due status: Overdue Topic Date Due Colon Cancer Screening-DNA Stool Never done Osteoporosis Screening-Bone Density Scan Never done Health Maintenance Topics with due status: Not Due Topic Last Completion Date DTaP/Tdap/Td Vaccine 12/06/2019 Dilated Eye Exam 09/07/2020 Breast Cancer Screening-Mammogram 09/10/2020 Urine Microalbumin 11/19/2020 Foot Exam 12/18/2020 Fall Risk Assessment 07/17/2021 Depression Screening-PHQ 07/17/2021 Regular Well Visit/Exam 07/17/2021 Lipid Panel 07/17/2021 Hemoglobin A1C 07/17/2021 Health Maintenance Topics with due status: Completed Topic Last Completion Date Zoster Vaccines 01/18/2019 Pneumococcal (PCV13 & PPSV23) 65+ yrs 05/16/2020 Hepatitis C Screening 11/19/2020 Influenza Vaccine 05/17/2021 Covid-19 Vaccine 06/25/2021 Counseling and Referral of Preventative Services: Lifestyle Recommendations Increase Physical Activity and Improve Diet Advanced Directive Durable Power of AttorneyYes Living Will Yes Assessment and Plan: Diagnoses and all orders for this visit: Encounter for Medicare annual wellness exam (Primary) Assessment & Plan: Encouraged healthy diet and activity Health Maintenance: Last mammogram: 09/2020- WNL Last DEXA:-ordered Last colonoscopy/cologuard: cologuard ordered, encouraged to check with insurance regarding gettingit done Last pneumonia/Prevnar: up to date Last Shingrix: up to date Last Flu: up to date Last COVID: up to date Seasonal allergic rhinitis due to pollen Assessment & Plan: Stable Continue to monitor symptoms Anxiety Assessment & Plan: Worsening Will increase her Lexapro to 10 mg, 2 tabs daily She will update me in the next 1-2 weeks with how she is doing Update me with any changes or concerns Bilateral carpal tunnel syndrome Assessment & Plan: Resolved Class 1 obesity due to excess calories with serious comorbidity and body mass index (BMI) of 32.0 to 32.9 in adult Assessment & Plan: BMI Follow-up includes: nutrition counseling. Elevated liver enzymes Assessment & Plan: Lab recheck ordered Essential hypertension Assessment & Plan: Blood pressure goal Continue current regimen Orders: - Comprehensive metabolic panel; Future - CBC with auto differential; Future - TSH reflex to free T4; Future Gastroesophageal reflux disease without esophagitis Assessment & Plan: Continue current regimen Reviewed the risk of proton pump inhibitors including C diff, pneumonia, bone loss Update me if her symptoms change or worsen Other hemorrhoids Assessment & Plan: Improved Continue to monitor Other hyperlipidemia Assessment & Plan: Labs order Continue Crestor every other day Orders: - Lipid panel; Future Primary insomnia Assessment & Plan: Will increase treatment for her anxiety Monitor sleep as we improve her mood Update me in the next 2 weeks Chronic bilateral low back pain without sciatica Assessment & Plan: Continue supportive care Obstructive sleep apnea syndrome Assessment & Plan: Encouraged to consider CPAP Overactive bladder due to prolapse of female genital organ Assessment & Plan: Improved Type 2 diabetes mellitus with other specified complication, without long-term current use of insulin (HCC) Assessment & Plan: Continue metformin Foot exam completed today Labs order Continue healthy changes Orders: - Hemoglobin A1c; Future - Albumin Creatinine Ratio, Urine; Future Left wrist pain Comments: Will check x-ray Further guidance once we have the results Orders: - XR Wrist Left 3+ Vw; Future Postmenopausal status - Dexa Axial Skeleton Bone Density 1 or 2 Site; Future Colon cancer screening - Stool DNA - Cologuard; Future Other orders - escitalopram (LEXAPRO) 10 mg tablet; Take 2 tablets (20 mg total) by mouth daily Patient here for annual Medicare wellness visit [...] of today's office visit. Aurelia Huitron MD TRANSPORTER documented in this encounter Miscellaneous Notes * Assessment & Plan Note - Aurelia Huitron MD - 07/17/2021 12:54 PM CSTAssociated Problem(s): Type 2 diabetes mellitus with other specified complication (HCC) Continue metformin Foot exam completed today Labs order Continue healthy changes TRANSPORTER * Assessment & Plan Note - Aurelia Huitron MD - 07/17/2021 12:53 PM CSTAssociated Problem(s): Overactive bladder due to prolapse of female genital organ Improved TRANSPORTER * Assessment & Plan Note - Aurelia Huitron MD - 07/17/2021 12:53 PM CSTAssociated Problem(s): Obstructive sleep apnea syndrome Encouraged to consider CPAP TRANSPORTER * Assessment & Plan Note - Aurelia Huitron MD - 07/17/2021 12:53 PM CSTAssociated Problem(s): Low back pain Continue supportive care TRANSPORTER * Assessment & Plan Note - Aurelia Huitron MD - 07/17/2021 12:52 PM CSTAssociated Problem(s): Insomnia Will increase treatment for her anxiety Monitor sleep as we improve her mood Update me in the next 2 weeks TRANSPORTER * Assessment & Plan Note - Aurelia Huitron MD - 07/17/2021 12:52 PM CSTAssociated Problem(s): Hyperlipidemia Labs order Continue Crestor every other day TRANSPORTER * Assessment & Plan Note - Aurelia Huitron MD - 07/17/2021 12:52 PM CSTAssociated Problem(s): Hemorrhoids Improved Continue to monitor TRANSPORTER * Assessment & Plan Note - Aurelia Huitron MD - 07/17/2021 12:52 PM CSTAssociated Problem(s): Gastroesophageal reflux disease Continue current regimen Reviewed the risk of proton pump inhibitors including C diff, pneumonia, bone loss Update me if her symptoms change or worsen TRANSPORTER * Assessment & Plan Note - Aurelia Huitron MD - 07/17/2021 12:52 PM CSTAssociated Problem(s): Essential hypertension Blood pressure goal Continue current regimen TRANSPORTER * Assessment & Plan Note - Aurelia Huitron MD - 07/17/2021 12:50 PM CSTAssociated Problem(s): Encounter for Medicare annual wellness exam Encouraged healthy diet and activity Health Maintenance: Last mammogram: 09/2020- WNL Last DEXA:-ordered Last colonoscopy/cologuard: cologuard ordered, encouraged to check with insurance regarding gettingit done Last pneumonia/Prevnar: up to date Last Shingrix: up to date Last Flu: up to date Last COVID: up to date TRANSPORTER * Assessment & Plan Note - Aurelia Huitron MD - 07/17/2021 12:50 PM CSTAssociated Problem(s): Elevated liver enzymes (Resolved 08/18/2022) Lab recheck ordered TRANSPORTER * Assessment & Plan Note - Aurelia Huitron MD - 07/17/2021 12:50 PM CSTAssociated Problem(s): Class 1 obesity due to excess calories with serious comorbidity and body mass index (BMI) of 31.0 to 31.9 in adult BMI Follow-up includes: nutrition counseling. TRANSPORTER * Assessment & Plan Note - Aurelia Huitron MD - 07/17/2021 12:50 PM CSTAssociated Problem(s): Carpal tunnel syndrome Resolved TRANSPORTER * Assessment & Plan Note - Aurelia Huitron MD - 07/17/2021 12:49 PM CSTAssociated Problem(s): Anxiety Worsening Will increase her Lexapro to 10 mg, 2 tabs daily She will update me in the next 1-2 weeks with how she is doing Update me with any changes or concerns TRANSPORTER * Assessment & Plan Note - Aurelia Huitron MD - 07/17/2021 12:49 PM CSTAssociated Problem(s): Allergic rhinitis Stable Continue to monitor symptoms TRANSPORTER documented in this encounter Plan of Treatment Not on file documented as of this encounter Procedures Procedure Name Priority Date/Time Associated Diagnosis Comments STOOL DNA ? COLOGUARD Routine 07/29/2021 8:00 AM CLAY TRANSPORTER Colon cancer screening documented in this encounter Results * Dexa [...] ??with given history of screening. ?? Postmenopausal Hand I Cutter/Model: ?? [employer] Horizon A (S/N [id number]) CLINICAL INFORMATION: Current height: ?? 64.5 ??inches [...] PM T: ??12/17/2021 9:00 PM Report ID: [id number] Reading Location: ??[id number] Procedure Note Ritesh Araiza MD - 12/17/2021 EXAM DESCRIPTION: DEXA AXIAL SKELETON BONE DENSITY 1 OR MORE SITES REASON FOR STUDY: 71 y/o year old F with given history ofscreening. Postmenopausal Hand I Cutter/Model: [employer] A (S/N [id number]) CLINICAL INFORMATION: Current height: 64.5 inches Maximum [...] Ritesh Araiza M.D. MF: GEMA Report ID: [id number] Reading Location: [place] [address] Aurelia Huitron MD IM DXA PROCEDURES Final Result * Stool DNA - Cologuard (07/29/2021 8:00 AM CLAY TRANSPORTER) Stool DNA - Cologuard Negative Negative [facility] (CLIA #:[id number]) Comment: NEGATIVE TEST RESULT. A negative Cologuard [...] cancer. ??Following a negative Cologuard result, the [place] [employer] Society and U.S. Multi-Society Task Force screening guidelines recommend a Cologuard re-screening interval of 3 years. References: [place] [employer] Guideline for Colorectal Cancer Screening: https://www.cancer.org/cancer/qhrcc-zedgmx-uospms/tidtnitwl-yryjwruje-xcvlita/ac s-rec ommendations.html.; Patric DK, Rosemarie CR, Ash DuK, Colorectal Cancer Screening: Recommendations for Physicians and Patients from the U.S. Multi-Society Task Force on Colorectal Cancer Screening , Am J Gastroenterology 2017; 112:7513-3918. TEST DESCRIPTION: Composite algorithmic analysis of stool [...] (Carlitos Ibrahim al, N Engl J Med 2014;370(14):3970-2287.) Cologuard may produce a false negative or false positive result (no colorectal cancer or precancerous polyp present at colonoscopy follow up). A negative Cologuard test result does not guarantee the absence of CRC or advanced adenoma (pre-cancer). The current Cologuard screening interval is every 3 years. ([place] [employer] and U.S. Multi-Society Task Force). Cologuard performance data in a 10,000 patient pivotal study using colonoscopy as the reference method can be accessed at the following location: www.[employer]/results. Additional description of the Cologuard test process, warnings and precautions can be found at www.TOK.tv.com. Stool 07/29/2021 8:00 AM CLAY TRANSPORTER 07/30/2021 10:30 AM CLAY TRANSPORTER us Aurelia Huitron MD LAB BODY FLUIDS AND STOOLS ORDERABLES Final Result [facility] (CLIA #:[id number]) [place] [address] * XR Wrist Left 3+ Vw (07/17/2021 12:11 PM CLAY TRANSPORTER) Anatomical Region Laterality Modality Upper Extremities, Wrist Left Compute d Radiography 07/17/2021 3:29 PM CLAY TRANSPORTER Narrative 07/17/2021 3:31 PM CLAY TRANSPORTER EXAM DESCRIPTION: ?? XR WRIST LEFT 3 OR MORE VIEWS REASON FOR STUDY: ?? left wrist pain ?? Patient reports pain to the lateral side of her left wrist x 4 weeks, patient does have swelling towards the end of the day. Patient denies any injury. ? TECHNIQUE: ?? Frontal, lateral, and oblique ??radiographic views acquired of the left wrist. COMPARISON: ?? None FINDINGS: There is no definite evidence of acute fracture or dislocation involving the left wrist. ??There is mild negative ulnar variance. ??There are degenerative changes of the radioulnar, radiocarpal, carpal carpal, and carpometacarpal joints, which is most significant involving the 1st carpometacarpal joint with joint space narrowing, mild sclerosis, and mild spurring. ??There is mild soft tissue swelling. IMPRESSION: ?? 1. ?? Degenerative changes of the left wrist with mild soft tissue swelling without definite evidence of acute displaced fracture or dislocation. THIS IS AN ELECTRONICALLY VERIFIED FINAL REPORT 07/17/2021 3:31 PM - Electronically signed by ??Bobby Verde D.O. PS: PS D: ??07/17/2021 3:31 PM T: ??07/17/2021 3:31 PM Report ID: [id number] Reading Location: ??[id number] Procedure Note Bobby Verde DO - 07/17/2021 EXAM DESCRIPTION: XR WRIST LEFT 3 OR MORE VIEWS REASON FOR STUDY: left wrist pain Patient reports pain to the lateral side of her left wrist x 4 weeks,patient does have swelling towards the end of the day. Patient denies any injury. TECHNIQUE: Frontal, lateral, and oblique radiographic views acquired ofthe left wrist. COMPARISON: None FINDINGS: There is no definite evidence of acute fracture or dislocation involvingthe left wrist. There is mild negative ulnar variance. There aredegenerative changes of the radioulnar, radiocarpal, carpal carpal, and carpometacarpal joints, which is most significant involving the 1st carpometacarpal jointwith joint space narrowing, mild sclerosis, and mild spurring. There is mildsoft tissue swelling. IMPRESSION: 1. Degenerative changes of the left wrist with mild soft tissue swelling without definite evidence of acute displaced fracture or dislocation. THIS IS AN ELECTRONICALLY VERIFIED FINAL REPORT 07/17/2021 3:31 PM - Electronically signed by Bobby Verde D.O. PS: PS Report ID: [id number] Reading Location: [place] [address] Aurelia Huitron MD IMG XR PROCEDURES F inal Result * Albumin Creatinine Ratio, Urine (07/17/2021 11:59 AM CLAY TRANSPORTER) Albumin Ur 42.1 mg/L [facility]AN [facility] Comment: Interpretive Data No reference range established. Current interpretive data was last revised 2018. Testing performed by: [address] [address] Creatinine Ur 191.0 mg/dL [facility] [place] Comment: Interpretive Data No reference range established. Current interpretive data was last revised 2018. Testing performed by: [address] [address] Albumin Creatinine Ratio, Ur 22 1 - 29 mg/g [facility] [place] Comment:Testing performed by : [address] [address] Urine 07/17/2021 11:5 9 AM CLAY TRANSPORTER 07/17/2021 1:37 PM CLAY TRANSPORTER us Aurelia Huitron MD LAB URINE ORDERABLE S Final Result Performing Organization Address [facility] Co de Phone Number RAN [address] [address] * (ABNORMAL) Hemoglobin A1c (07/17/2021 11:59 AM CLAY TRANSPORTER) Pathologist [facility] Hgb A1C 6.6(H) 4.0 - 5.6 % RAN Comment:Testing performed by : [address] [address] Estimated Average Glucose 143 mg/dL RAN Comment: The ADA recommends reporting an estimated Average Glucose (eAG) with all Hemoglobin A1c results using the equation derived from a study of 507 normal and diabetic adults. ??Minority populations were underrepresented and children were not included. ?? (Diabetes Care 31:2710-4173, 2008). ??The eAG is not equivalent to a fasting glucose. Testing performed by: [address] [address] Blood 07/17/2021 11:5 9 AM CLAY TRANSPORTER 07/17/2021 12:09 PM CLAY TRANSPORTER us Aurelia Huitron MD LAB BLOOD ORDERABLE S Final Result Performing Organization Address [facility] Co de Phone Number DON[address] [address] * TSH reflex to free T4 (07/17/2021 11:59 AM CLAY TRANSPORTER) [facility] TSH 1.23 0.30 - 4.20 mcIUnit/mL RAN Comment:Testing performed by : [address] [address] Blood 07/17/2021 11:5 9 AM CLAY TRANSPORTER 07/17/2021 12:09 PM CLAY TRANSPORTER us Aurelia Huitron MD LAB BLOOD ORDERABLE S Final Result Performing Organization Address [facility] Co de Phone Number [place] [phone] [facility] [place] [address] * (ABNORMAL) Lipid panel (07/17/2021 11:59 AM CLAY TRANSPORTER) [facility] Signature Cholesterol 177 30 - 199 mg/dL RAN Comment: Interpretive Data Ages < or = 19 years ??Acceptable: ? <170 mg/dL ??Borderline high: ??170-199 mg/dL ??High: ? >or= 200 mg/dL Ages > or = 20 years ??Desirable: ?<200 mg/dL ??Borderline high: ??200-239 mg/dL ??High: ? >or= 240 mg/dL Literature References: 1. Expert Panel on Integrated Guidelines for Cardiovascular Health and Risk Reduction in Children and Adolescents. Pediatrics 2011;128:S213 2. NCEP Expert Panel. Circulation 2004;110:227 Current Interpretive Data was last revised on 2018. Testing performed by: [facility], [address] [place] [address]., [address] Triglycerides 210(H) <=149 mg/dL RAN Comment: Interpretive Data Ages < or = 9 years ??Acceptable: ? <75 mg/dL ??Borderline high: ??75-99 mg/dL ??High: ? >or= 100 mg/dL Ages 10 to 20 years ??Acceptable: ? <90 mg/dL ??Borderline high: ??90-129 mg/dL ??High: ? >or= 130 mg/dL Ages > or = 20 years ??Desirable: ?<150 mg/dL ??Borderline high: ??150-199 mg/dL ??High: ? 200-499 mg/dL ?Very high: ?? >or= 499 mg/dL Literature References: 1. Expert Panel on Integrated Guidelines for Cardiovascular Health and Risk Reduction in Children and Adolescents. Pediatrics 2011;128:S213 2. NCEP Expert Panel. Circulation 2004;110:227 Current Interpretive Data was last revised on 2018. Testing performed by: [address] [address] HDL 74 >=40 mg/dL RAN Comment: Interpretive Data Ages < or = 19 years ??Acceptable: ? >45 mg/dL ??Borderline low: ?? 40-45 mg/dL ??Low: ? <40 mg/dL Ages > or = 20 years ??Desirable: ?>or= 60 mg/dL ??Low: ? <40 mg/dL Literature References: 1. Expert Panel on Integrated Guidelines for Cardiovascular Health and Risk Reduction in Children and Adolescents. Pediatrics 2011;128:S213 2. NCEP Expert Panel. Circulation 2004;110:227 Current Interpretive Data was last revised on 2018. Testing performed by: [address] [address] LDL, calculated 61 <=129 mg/dL RAN Comment: Interpretive Data Ages < or = 19 years ??Acceptable: ? <110 mg/dL ??Borderline high: ??110-129 mg/dL ??High: ?>or= 130 mg/dL Ages > or = 20 years ??Optimal: ? <100 mg/dL ??Near optimal: ?100-129 mg/dL ??Borderline high: ?? 130-159 mg/dL ??High: ?>160 mg/dL Literature References: 1. Expert Panel on Integrated Guidelines for Cardiovascular Health and Risk Reduction in Children and Adolescents. Pediatrics 2011;128:S213 2. NCEP Expert Panel. Circulation 2004;110:227 Current Interpretive Data was last revised on 2018. Testing performed by: [address] [address] Non-HDL Cholesterol 103 mg/dL RAN Comment: Interpretive Data Ages < or = 19 years ??Acceptable: ?<120 mg/dL ??Borderline high: ??120-144 mg/dL ??High: ?>145 mg/dL Ages > or = 20 years ??When triglycerides are >200 mg/dL, Non-HDL cholesterol is a secondary target of ? therapy with treatment goals that are 30 mg/dL greater than the LDL cholesterol target. ? Literature References: 1. Expert Panel on Integrated Guidelines for Cardiovascular Health and Risk Reduction in Children and Adolescents. Pediatrics 2011;128:S213 2. NCEP Expert Panel. Circulation 2004;110:227 Current Interpretive Data was last revised on 2018. Testing performed by: [address] [address] Chol/HDL ratio 2 RAN Comment:Testing performed by : [address] [address] Blood 07/17/2021 11:5 9 AM CLAY TRANSPORTER 07/17/2021 12:09 PM CLAY TRANSPORTER us Aurelia Huitron MD LAB BLOOD ORDERABLE S Final Result RAN [facility] Department [place] [address] * (ABNORMAL) CBC with auto differential (07/17/2021 11:59 AM CLAY TRANSPORTER) Pathologist [facility] WBC 5.7 3.8 - 9.9 K/cumm RAN [facility] Comment:Testing performed by : [address] [address] Hgb 12.6 11.9 - 15.5 g/dL [facility] [place] Comment:Testing performed by : [address] [address] Hct 38.9 35.6 - 45.5 % [facility]AN [place] Comment:Testing performed by : [address] [address] Plt 256 150 - 400 K/cumm RAN [facility] Comment:Testing performed by : [address] [address] MPV 8.8(L) 9.1 - 12.3 fL RNA SANTO Comment:Testing performed by : [address] [address] RBC 4.30 3.90 - 5.20 M/cumm [facility]AN [place] Comment:Testing performed by : [address] [address] MCV 90.5 81.3 - 96.4 fL [facility] [place] Comment:Testing performed by : [address] [address] MCH 29.3 27.1 - 33.3 pg [facility]AN [place] Comment:Testing performed by : [address] [address] MCHC 32.4 32.3 - 35.7 g/dL [facility] [place] Comment:Testing performed by : [address] [address] RDW CV 14.0 11.1 - 14.9 % [facility]AN [place] Comment:Testing performed by : [address] [address] RDW SD 45.8 35.7 - 48.1 fL RAN Comment:Testing performed by : [address] [address] NRBC abs 0.00 0.00 - 0.01 K/cumm RAN Comment:Testing performed by : [address] [address] Blood 07/17/2021 11:5 9 AM CLAY TRANSPORTER 07/17/2021 12:09 PM CLAY TRANSPORTER us Aurelia Huitron MD LAB BLOOD ORDERABLE S Final Result [facility] [facility] Department [place] [address] * (ABNORMAL) Comprehensive metabolic panel (07/17/2021 11:59 AM CLAY TRANSPORTER) Pathologist [facility] Sodium 136 135 - 145 mmol/L RAN [place] Comment:Testing performed by : [address], [address] Potassium, pl 4.3 3.3 - 4.9 mmol/L [facility]AN [place] Comment:Testing performed by : [address], [place]., [address] Chloride 98 97 - 110 mmol/L RAN Comment:Testing performed by : [address], [place]., [address] CO2 25 22 - 32 mmol/L RAN Comment:Testing performed by : [address], [place]., [address] Anion gap 13 2 - 15 mmol/L RAN Comment:Testing performed by : [address], [place]., [address] BUN 14 8 - 25 mg/dL [facility] Comment:Testing performed by : [address], [place]., [address] Creatinine 0.50(L) 0.60 - 1.10 mg/dL RAN Comment:Testing performed by : [address], [place]., [address] Glucose 102 70 - 199 mg/dL [facility] Comment: Interpretive Data Fasting glucose >/= 126 mg/dl is diagnostic for diabetes. ?? Fasting is defined as no caloric intake for at least 8 hours. Fasting glucose between 100 mg/dl to 125 mg/dl is diagnostic of prediabetes. In a patient with classic symptoms of hyperglycemia or hyperglycemic crisis, a random glucose >/= 200 mg/dl is diagnostic for diabetes. In the absence of unequivocal hyperglycemia, results should be confirmed by repeat testing. The classification and Diagnosis of Diabetes Diabetes Care 2017;40 (Suppl. 1):S11. Current interpretive data was last revised 2017. Testing performed by: [address] [address] Calcium 9.8 8.5 - 10.3 mg/dL [facility] Comment:Testing performed by : [address] [address] Bilirubin, total 0.4 0.1 - 1.2 mg/dL RAN Comment:Testing performed by : [address], [place]., [address] Protein, pl 7.7 6.5 - 8.5 g/dL RAN Comment:Testing performed by : [address], [place]., [address] Albumin 5.0 3.5 - 5.0 g/dL RAN Comment:Testing performed by : [address] [address] Alk phos 57 40 - 130 Units/L RAN Comment:Testing performed by : [address] [address] ALT 26 7 - 45 Units/L RAN Comment:Testing performed by : [address] [address] AST 22 10 - 45 Units/L RAN Comment:Testing performed by : [address] [address] Blood 07/17/2021 11:5 9 AM CLAY TRANSPORTER 07/17/2021 12:09 PM CLAY TRANSPORTER us Aurelia Huitron MD LAB BLOOD ORDERABLE S Final Result RAN [address] Department [place] [address] documented in this encounter Visit Diagnoses Diagnosis Encounter for Medicare annual wellness exam- Primary Seasonal allergic rhinitis due to pollen Anxiety Anxiety state, unspecified Bilateral carpal tunnel syndrome Carpal tunnel syndrome Class 1 obesity due to excess calories with serious comorbidity and body mass index (BMI) of 32.0 to 32.9 in adult Elevated liver enzymes Other nonspecific abnormal serum enzyme levels Essential hypertension Unspecified essential hypertension Gastroesophageal reflux [...] without long-term current use of insulin (HCC) Left wrist pain Pain in joint, forearm Postmenopausal status Asymptomatic postmenopausal status (age-related) (natural) Colon cancer screening Special screening for malignant neoplasms, colon Left wrist pain Pain in joint, forearm Postmenopausal status Asymptomatic postmenopausal status (age-related) (natural) documented in this encounter Discontinued Medications Medication Sig Discontinue Reason Start Date End Da te escitalopram (LEXAPRO) 10 mg tablet TAKE 1 TABLET BY MOUTH DAILY 01/31/2021 07/17/2021 documented as of this encounter Care Teams Tank Tester Relationship Specialty Start Date End Date Aurelia Huitron MD [address] [place] [address] PCP - General Family Medicine 05/23/20 documented as of this encounter
--- OUTSIDE RECORDS SUMMARY | 2024-07-10 04:43 | XMS_ITS | Encounter Summary ---
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 They faxed one this morning. Can you see if we have received it? YBOAT CAPTAIN documented in this encounter Plan of Treatment Not on file documented as of this encounter Visit Diagnoses Not on filedocumented in this encounter Care Teams Emissions Technician Relationship Specialty Start Date End Date Aurelia Huitron MD [address] [place] [address] PCP - General Family Medicine 05/23/20 documented as of this encounter
--- OUTSIDE RECORDS SUMMARY | 2024-07-10 04:43 | XMS_ITS | Encounter Summary ---
Author Organization [facility] Address [address] [place] [address] [address] [place] [address] Care Team Providers Care Irrigator Head Name Role Phone Aurelia Huitron MD Primary Care Provi jarred Reason for Visit * Reason Onset Date Comments ACO Quality Outreach 10/29/2021 [facility] Encounter Details Date Type Department Care Team (Late st Contact Info) Description 10/29/2021 Telephone [facility] Accountable Care Organization [address] [place] [id number] Neena Marsh MA [address] [place] [address] [address] [place] [address] ACO Quality Outreach ([facility] ) Social History Tobacco Use Types Packs/Day Years [...] on file 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 Gender Identity Not on file Sexual Orientation Not on file documented as of this encounter Miscellaneous Notes * Telephone Encounter - Neena Cope MA - 10/29/2021 4:39 PM CDT [facility] New Member Gaps Uploaded dm eye exam to [facility] SHREYAS Pearson Patient Outreach Senior Attorney [facility] [phone] documented in this encounter Plan of Treatment Not on file documented as of this encounter Visit Diagnoses Not on filedocumented in this encounter Care Teams Irrigator Head Relationship Specialty Start Date End Date Aurelia Huitron MD [address] [place] [address] PCP - General Family Medicine 05/23/20 documented as of this encounter
--- OUTSIDE RECORDS SUMMARY | 2024-07-10 04:43 | XMS_ITS | Encounter Summary ---
Author Organization [facility] Address [address] [place] [address] Care Team Providers Care Grain Distributor Name Role Phone Aurelia Huitron MD Primary Care Provi jarred Encounter Details Date Type Department Care Team (Late st Contact Info) Description 07/17/2021 11:45 AM MECHANIC SENIOR Lab [facility] Lab [address] [place] [id number] Type 2 diabetes mellitus with other specified complication, without long-term current use of insulin (HCC); Essential hypertension; Other hyperlipidemia Social History Tobacco Use Types Packs/Day Years [...] on file Legal Sex Female 12:58 AM MECHANIC SENIOR Gender Identity Not on file Sexual Orientation Not on file documented as of this encounter Plan of Treatment Not on file documented as of this encounter Procedures Procedure Name Priority Date/Time Associated Diagnosis Comments EGFR Routine 07/17/2021 11:59 AM MECHANIC SENIOR Essential hypertension DIFFERENTIAL AUTO Routine 07/17/2021 11: 59 AM MECHANIC SENIOR Essential hypertension THYROID FUNCTION CASCADE Routine 07/17/2021 11:59 AM MECHANIC SENIOR Essential hypertension CBC WITH AUTO DIFFERENTIAL Routine 07/17/2021 11:59 AM MECHANIC SENIOR Essential hypertension ALBUMIN CREATININE RATIO, URINE Routine 07/17/2021 11:59 AM MECHANIC SENIOR Type 2 diabetes mellitus with other specified complication, without long-term current use of insulin (HCC) HEMOGLOBIN A1C Routine 07/17/2021 11:59 AM MECHANIC SENIOR Type 2 diabetes mellitus with other specified complication, without long-term current use of insulin (HCC) LIPID PANEL Routine 07/17/2021 11:59 AM MECHANIC SENIOR Other hyperlipidemia COMPREHENSIVE METABOLIC PANEL Routine 07/17/2021 11:59 AM MECHANIC SENIOR Essential hypertension documented in this encounter Results * eGFR (07/17/2021 11:59 AM MECHANIC SENIOR) [facility] eGFR 101 mL/min/1. 73 m2 RAN SANTO Comment: Interpretive Data Reference Interval Normal ?>/= 90 mL/min/1.73m2 Mildly decreased* ? 60 - 89 mL/min/1.73m2 Mildly to moderately decreased ?45 - 59 mL/min/1.73m2 Moderately to severely decreased ??30 - 44 mL/min/1.73m2 Severely decreased ?15 - 29 mL/min/1.73m2 Kidney Failure ?< 15 ??mL/min/1.73m2 *Relative to young adult level Estimated glomerular filtration rate is determined by the 2020 CKD-EPI equation recommended by the National Kidney Foundation (A Unifying Approach to GFR Estimation: Recommendations of the NKF-ASK Task Force on Reassessing the Inclusion of Race in Diagnosing Kidney Disease, JASN 202). The CKD-EPI equation should not be used for patients with unstable renal function and has not been validated in children and those over 70. Current interpretive data was last reviewed 2021. Testing performed by: [address] [address] Blood 07/17/2021 11:5 9 AM MECHANIC SENIOR 07/17/2021 12:09 PM MECHANIC SENIOR us Aurelia Huitron MD LAB BLOOD ORDERABLE S Final Result [place] [id number] [facility] Department [place] [address] * Differential, auto (07/17/2021 11:59 AM MECHANIC SENIOR) Neutrophil abs 3.8 1.7 - 6.5 K/cumm RAN Comment:Testing performed by : [address] [address] Imm gran abs 0.0 0.0 - 0.1 K/cumm RAN Comment:Testing performed by : [address] [address] Lymphocyte abs 1.3 0.8 - 3.3 K/cumm RAN Comment:Testing performed by : [address] [address] Monocyte abs 0.5 0.2 - 0.8 K/cumm RAN Comment:Testing performed by : [address] [address] Eosinophil abs 0.1 0.0 - 0.5 K/cumm RAN Comment:Testing performed by : [address] [address] Basophil abs 0.0 0.0 - 0.1 K/cumm RAN Comment:Testing performed by : [address] [address] Neutrophil pct 66.4 % [facility] Comment: Interpretive Data Percent cell count reference ranges are not reported, since discordance with absolute values may lead to misinterpretation of CBC data. Current Interpretive Data was last revised on 2017. Testing performed by: [address] [address] Imm gran pct 0.3 % [facility] Comment: Interpretive Data Percent cell count reference ranges are not reported, since discordance with absolute values may lead to misinterpretation of CBC data. Current Interpretive Data was last revised on 2017. Testing performed by: [address] [address] Lymphocyte pct 22.9 % [facility] Comment: Interpretive Data Percent cell count reference ranges are not reported, since discordance with absolute values may lead to misinterpretation of CBC data. Current Interpretive Data was last revised on 2017. Testing performed by: [address] [address] Monocyte pct 9.1 % [facility] Comment: Interpretive Data Percent cell count reference ranges are not reported, since discordance with absolute values may lead to misinterpretation of CBC data. Current Interpretive Data was last revised on 2017. Testing performed by: [address] [address] Eosinophil pct 1.0 % [facility] Comment: Interpretive Data Percent cell count reference ranges are not reported, since discordance with absolute values may lead to misinterpretation of CBC data. Current Interpretive Data was last revised on 2017. Testing performed by: [address] [address] Basophil pct 0.3 % [facility] Comment: Interpretive Data Percent cell count reference ranges are not reported, since discordance with absolute values may lead to misinterpretation of CBC data. Current Interpretive Data was last revised on 2017. Testing performed by: [address] [address] Blood 07/17/2021 11:5 9 AM MECHANIC SENIOR 07/17/2021 12:09 PM MECHANIC SENIOR us Aurelia Huitron MD LAB BLOOD ORDERABLE S Final Result RAN 5589 [facility] Department [place] [address] * (ABNORMAL) Comprehensive metabolic panel (07/17/2021 11:59 AM MECHANIC SENIOR) Sodium 136 135 - 145 mmol/L RAN Comment:Testing performed by : [address] [address] Potassium, pl 4.3 3.3 - 4.9 mmol/L RAN Comment:Testing performed by : [address] [address] Chloride 98 97 - 110 mmol/L RAN Comment:Testing performed by : [address] [address] CO2 25 22 - 32 mmol/L RAN Comment:Testing performed by : [address] [address] Anion gap 13 2 - 15 mmol/L RAN Comment:Testing performed by : [address] [address] BUN 14 8 - 25 mg/dL RAN Comment:Testing performed by : [address] [address] Creatinine 0.50(L) 0.60 - 1.10 mg/dL RAN Comment:Testing performed by : [address] [address] Glucose 102 70 - 199 mg/dL RAN Comment: Interpretive Data Fasting glucose >/= 126 [...] was last revised 2017. Testing performed by: [address] [address] Calcium 9.8 8.5 - 10.3 mg/dL RAN Comment:Testing performed by : [address] [address] Bilirubin, total 0.4 0.1 - 1.2 mg/dL RAN Comment:Testing performed by : [address] [address] Protein, pl 7.7 6.5 - 8.5 g/dL RAN Comment:Testing performed by : [address] [address] Albumin 5.0 3.5 - 5.0 g/dL RAN Comment:Testing performed by : [address] [address] Alk phos 57 40 - 130 Units/L RAN Comment:Testing performed by : [address] [address] ALT 26 7 - 45 Units/L RAN Comment:Testing performed by : [address] [address] AST 22 10 - 45 Units/L RAN Comment:Testing performed by : [address] [address] Blood 07/17/2021 11:5 9 AM MECHANIC SENIOR 07/17/2021 12:09 PM MECHANIC SENIOR us Aurelia Huitron MD LAB BLOOD ORDERABLE S Final Result [facility] [facility] Department [place] [address] * (ABNORMAL) CBC with auto differential (07/17/2021 11:59 AM MECHANIC SENIOR) Pathologist [facility] WBC 5.7 3.8 - 9.9 K/cumm RAN Comment:Testing performed by : [address] [address] Hgb 12.6 11.9 - 15.5 g/dL RAN Comment:Testing performed by : [address], [address] Hct 38.9 35.6 - 45.5 % RAN Comment:Testing performed by : [address] [address] Plt 256 150 - 400 K/cumm RAN Comment:Testing performed by : [address] [address] MPV 8.8(L) 9.1 - 12.3 fL RAN Comment:Testing performed by : [address], [address] RBC 4.30 3.90 - 5.20 M/cumm RAN Comment:Testing performed by : [address], [address] MCV 90.5 81.3 - 96.4 fL RAN Comment:Testing performed by : [address] [address] MCH 29.3 27.1 - 33.3 pg RAN Comment:Testing performed by : [address] [address] MCHC 32.4 32.3 - 35.7 g/dL RAN Comment:Testing performed by : [address], [address] RDW CV 14.0 11.1 - 14.9 % RAN Comment:Testing performed by : [address], [address] RDW SD 45.8 35.7 - 48.1 fL RAN Comment:Testing performed by : [address] [address] NRBC abs 0.00 0.00 - 0.01 K/cumm RAN Comment:Testing performed by : [address] [address] Blood 07/17/2021 11:5 9 AM MECHANIC SENIOR 07/17/2021 12:09 PM MECHANIC SENIOR us Aurelia Huitron MD LAB BLOOD ORDERABLE S Final Result [facility] [address] [facility] Department [place] [address] * (ABNORMAL) Lipid panel (07/17/2021 11:59 AM MECHANIC SENIOR) [facility] Cholesterol 177 30 - 199 mg/dL RAN [...] last revised on 2018. Testing performed by: [facility], [address] [place] [address]., [address] Triglycerides 210(H) <=149 mg/dL RAN Comment: Interpretive [...] last revised on 2018. Testing performed by: [address] [address] HDL 74 >=40 mg/dL RAN Comment: Interpretive [...] last revised on 2018. Testing performed by: [address] [address] LDL, calculated 61 <=129 mg/dL RAN Comment: [...] last revised on 2018. Testing performed by: [address] [address] Non-HDL Cholesterol 103 mg/dL RAN Comment: Interpretive [...] last revised on 2018. Testing performed by: [address] [address] Chol/HDL ratio 2 RAN Comment:Testing performed by : [address] [address] Blood 07/17/2021 11:5 9 AM MECHANIC SENIOR 07/17/2021 12:09 PM MECHANIC SENIOR us Aurelia Huitron MD LAB BLOOD ORDERABLE S Final Result Performing Organization Address City/[facility]/ZIP Co de Phone Number [place] [id number] [facility] [place] [address] * TSH reflex to free T4 (07/17/2021 11:59 AM MECHANIC SENIOR) TSH 1.23 0.30 - 4.20 mcIUnit/mL RAN Comment:Testing performed by : [address] [address] Blood 07/17/2021 11:5 9 AM MECHANIC SENIOR 07/17/2021 12:09 PM MECHANIC SENIOR us Aurelia Huitron MD LAB BLOOD ORDERABLE S Final Result Performing Organization Address City/[facility]/ZIP Co de Phone Number [place] [phone] [facility] [place] [address] * (ABNORMAL) Hemoglobin A1c (07/17/2021 11:59 AM MECHANIC SENIOR) Pathologist [facility] Hgb A1C 6.6(H) 4.0 - 5.6 % RAN Comment:Testing performed by : [address] [address] Estimated Average Glucose 143 mg/dL RAN Comment: The ADA recommends reporting an estimated Average Glucose (eAG) with all Hemoglobin A1c results using the equation derived from a study of 507 normal and diabetic adults. ??Minority populations were underrepresented and children were not included. ?? (Diabetes Care 31:9549-0916, 2007). ??The eAG is not equivalent to a fasting glucose. Testing performed by: [address] [address] Blood 07/17/2021 11:5 9 AM MECHANIC SENIOR 07/17/2021 12:09 PM MECHANIC SENIOR us Aurelia Huitron MD LAB BLOOD ORDERABLE S Final Result [facility] [address] [facility] Department [place] [address] * Albumin Creatinine Ratio, Urine (07/17/2021 11:59 AM MECHANIC SENIOR) Pathologist [facility] Albumin Ur 42.1 mg/L RAN Comment: Interpretive Data No reference range established. Current interpretive data was last revised 2018. Testing performed by: [address] [address] Creatinine Ur 191.0 mg/dL RAN Comment: Interpretive Data No reference range established. Current interpretive data was last revised 2018. Testing performed by: [address] [address] Albumin Creatinine Ratio, Ur 22 1 - 29 mg/g RAN Comment:Testing performed by : [address] [address] Urine 07/17/2021 11:5 9 AM MECHANIC SENIOR 07/17/2021 1:37 PM MECHANIC SENIOR us Aurelia Huitorn MD LAB URINE ORDERABLE S Final Result RAN [address]25 [facility] Department [place] [address] documented in this encounter Visit Diagnoses Diagnosis Type 2 diabetes mellitus with other specified complication, without long-term current use of insulin (HCC) Essential hypertension Unspecified essential hypertension Other hyperlipidemia documented in this encounter Care Teams Grain Distributor Relationship Specialty Start Date End Date Aurelia Huitron MD [address] [place], [place] [id number] PCP - General Family Medicine 05/23/20 documented as of this encounter
--- OUTSIDE RECORDS SUMMARY | 2024-07-10 04:43 | XMS_ITS | Encounter Summary ---
Author Organization [facility] Address [address] [place] [address] Phone Care Team Providers Care Baggage Handler Name Role Phone Aurelia Huitron MD Primary Care Provi jarred Encounter Details Date Type Department Care Team (Late st Contact Info) Description 10/25/[address] [phone] Viktoriya Hobbs Social History Tobacco Use Types Packs/Day Years [...] on file Legal Sex Female 12:58 AM CORRECTIONS CASEWORKER Gender Identity Not on file Sexual Orientation Not on file documented as of this encounter Miscellaneous Notes * Telephone Encounter - Viktoriya Hobbs - 10/25/2021 10:16 AM CDT Spoke with pt and she has an appointment scheduled with another to have a YAG. documented in this encounter Plan of Treatment Not on file documented as of this encounter Visit Diagnoses Not on filedocumented in this encounter Care Teams Baggage Handler Relationship Specialty Start Date End Date Aurelia Huitron MD [facility] [address] [place] [address] PCP - General Family Medicine 05/23/20 documented as of this encounter
--- OUTSIDE RECORDS SUMMARY | 2024-07-10 04:43 | XMS_ITS | Encounter Summary ---
Author Organization [facility] Address [address] [address] Care Team Providers Care Monument Stonecutter Name Role Phone Aurelia Huitron MD Primary Care Provi jarred Reason for Visit * Reason Onset Date Comments Ear pain, cough , runny nose, dizziness 04/03/20 21 Encounter Details Date Type Department Care Team (Late st Contact Info) Description 04/03/2021 Telephone [facility] Family Medicine [address] [phone] Aurelia Huitron MD [address] [address] Ear pain, cough , runny nose, dizziness Social History Tobacco Use Types Packs/Day Years [...] on file Legal Sex Female 12:58 AM BEDSPREAD CUTTER HAND Gender Identity Not on file Sexual Orientation Not on file documented as of this encounter Miscellaneous Notes * Telephone Encounter - Alberta Estrada - 04/03/2021 1:14 PM CDT Apt 04/03 * Telephone Encounter - Rizwana Kaufman LPN - 04/03/2021 12:17 PM CDT Routing to resp clinic for apt * Telephone Encounter - Ekaterina Mayfield PA - 04/03/2021 12:07 PM CDT She can be seen in the respiratory clinic. * Telephone Encounter - Jeanie Ely - 04/03/2021 11:20 AM CDT Patient scheduled an appointment thru [facility] and she has the following symptoms, Pain in right earat a level 7 out of 10, runny nose, neck pain, and dizziness. On the question of fever she states it is below 100.4. Please advise if she can keep the appointment scheduled for tomorrow. She has beenvaccinated. Thank you Pt phone [phone] documented in this encounter Plan of Treatment Not on file documented as of this encounter Visit Diagnoses Not on filedocumented in this encounter Care Teams Monument Stonecutter Relationship Specialty Start Date End Date Aurelia Huitron MD [address] [place] [address] PCP - General Family Medicine 05/23/20 documented as of this encounter
--- OUTSIDE RECORDS SUMMARY | 2024-07-10 04:43 | XMS_ITS | Encounter Summary ---
Author Organization [facility] Address [address] [place] [address] Care Team Providers Care Body Make Up Artist Name Role Phone Aurelia Huitron MD Primary Care Provi jarred Reason for Referral * Diagnostic Imaging (Routine) - Closed Specialty Diagnoses / Procedures Referred By Connie norman Referred To Contact Diagnoses Left wrist pain Procedures XR Wrist Left 3+ Vw Aurelia Huitron MD [address] [place] [address] Phone: tel: fax: [address] [phone] Referral ID Status Reason Start Date Expiration Date Visits Re quested Visits Authorized [id number] Closed 07/17/2021 08/16/2022 1 1 WARE SALES Reason for Visit * Diagnostic Imaging (Routine) - Closed Specialty Diagnoses / Procedures Referred By Contkevin t Referred To Contact Diagnoses Left wrist pain Procedures XR Wrist Left 3+ Vw Aurelia Huitron MD [address] [place] [address] Phone: tel: fax: [address] [phone] Referral ID Status Reason Start Date Expiration Date Visits Re quested Visits Authorized [id number] Closed 07/17/2021 08/16/2022 1 1 Encounter Details Date Type Department Care Team (Latest Contact Info) Description 07/17/2021 11:48 AM SOFTWARE SALES - 07/17/2021 11:59 PM SOFTWARE SALES Hospital Encounter [facility] Diagnostic Imaging [address] [place] [address] Left wrist pain Discharge Disposition: Discharge to home [...] on file Legal Sex Female 12:58 AM SOFTWARE SALES Gender Identity Not on file Sexual Orientation Not on file documented as of this encounter Medications at Time of Discharge amLODIPine (NORVASC) 5 mg tablet TAKE 1 TABLET BY MOUTH TWICE A DAY 180 tablet 1 01/31/2021 10/08/2021 escitalopram (LEXAPRO) 10 mg tablet Take 2 tablets (20 mg total) by mouth daily 1 tablet 07/17/2021 10/08/2021 losartan (COZAAR) 100 mg tablet TAKE 1 TABLET BY MOUTH DAILY 90 tablet 1 02/25/2021 10/08/2021 meloxicam (MOBIC) 7.5 mg tablet TAKE 2 TABLETS(15 MG) BY MOUTH DAILY 90 tablet 05/28/2021 10/08/2021 metFORMIN (GLUCOPHAGE) 500 mg tablet TAKE 1 TABLET BY MOUTH TWICE A DAY WITH MEALS 180 tablet 1 01/31/2021 10/08/2021 methocarbamoL (ROBAXIN) 750 mg tablet Take 1 tablet (750 mg total) by mouth 3 (three) times a day as needed for muscle spasms 30 tablet 1 08/31/2020 10/08/2021 omeprazole (PriLOSEC) 20 mg capsule TAKE 1 CAPSULE BY MOUTH DAILY 90 capsule 1 01/31/2021 10/08/2021 rosuvastatin (CRESTOR) 10 mg tablet TAKE 1 TABLET BY MOUTH DAILY 90 tablet 1 01/31/2021 10/08/2021 UltiCare Pen Needle 31 gauge x 1/4 needle USE DAILY WITH VICTOZA 100 each 3 06/17/2021 10/08/2021 Victoza 3-Eduardo 0.6 mg/0.1 mL (18 mg/3 mL) injection INJECT 1.8 MG UNDER THE SKIN DAILY INDICATIONS: TYPE 2 DIABETES MELLITUS 9 mL 2 04/29/2021 07/19/2021 documented as of this encounter Discharge Disposition Disposition Code Departure Means Destination Discharge to home or self care documented in this encounter Plan of Treatment Not on file documented as of this encounter Procedures Procedure Name Priority Date/Time Associated Diagnosis Comments XR WRIST LEFT 3 OR MORE VIEWS Schedule Routine, Read Routine (OP Routine) 07/17/2021 12:11 PM SOFTWARE SALES Left wrist pain documented in this encounter Results * XR Wrist Left 3+ Vw (07/17/2021 12:11 PM SOFTWARE SALES) Anatomical Region Laterality Modality Upper Extremities, Wrist Left Compute d Radiography 07/17/2021 3:29 PM SOFTWARE SALES Narrative 07/17/2021 3:31 PM SOFTWARE SALES EXAM DESCRIPTION: ?? XR WRIST LEFT 3 [...] PM T: ??07/17/2021 3:31 PM Report ID: [id number] Reading Location: ??[id number] Procedure Note Ammon Bobby Po, DO - 07/17/2021 EXAM DESCRIPTION: XR WRIST [...] 3:31 PM - Electronically signed by Bobby Vrede D.O. PS: PS Report ID: [id number] Reading Location: [id number] Aurelia Huitron MD IMG XR PROCEDURES F inal Result documented in this encounter Visit Diagnoses Diagnosis Left wrist pain Pain in joint, forearm documented in this encounter Care Teams Body Make Up Artist Relationship Specialty Start Date End Date Aurelia Huitron MD [address] [place] [address] PCP - General Family Medicine 05/23/20 documented as of this encounter
--- OUTSIDE RECORDS SUMMARY | 2024-07-10 04:43 | XMS_ITS | Encounter Summary ---
Author Organization [facility] Address [address] [facility] [address] [place] [id number] Care Team Providers Care Biopharmaceutical Rep Name Role Phone Aurelia Huitron MD Primary Care Provi jarred Reason for Visit * Reason Comments Knee Pain [facility] complaint of left knee pain for 2 months. Feels like it is in the back of the knee and goes to the midthigh. 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 Gender Identity Not on file Sexual Orientation Not on file documented as of this encounter Last Filed Vital Signs Vital Sign Reading Time Taken Comments Blood Pressure 126/76 03/26/2022 10:32 AM CDT Pulse 84 03/26/2022 10:32 AM CDT Temperature 36.6 ??C (97.9 ??F) 03/26/2022 10:32 AM C DT Respiratory Rate 18 03/26/2022 10:32 AM CDT Oxygen Saturation 97% 03/26/2022 10:32 AM CDT Inhaled Oxygen Concentration - - Weight 89.5 kg (197 lb 6.4 oz) 03/26/2022 10:32 AM CDT Height 165.1 cm (5' 5 ) 03/26/2022 10:32 AM CDT Body Mass Index 32.85 03/26/2022 10:32 AM CDT documented in this encounter Patient Instructions * Attachments The following attachments cannot be sent through Care Everywhere. * Knee Exercises (General Information) (Estonian) documented in this encounter Ordered Prescriptions Prescription Sig Dispense Quantity Refills Last Filled Start Date End Date meloxicam (MOBIC) 7.5 mg tabletIndications: Acute pain of left knee Take 1-2 tablets (7.5-15 mg total) by mouth daily with food. 90 tablet 03/26/2022 documented in this encounter Progress Notes * Ekaterina Mayfield PA - 03/26/2022 10:30 AM CDT Images from the original note were not included. Subjective/Objective Patient ID: Valeria Johnson is a 72 y.o. female. Chief Complaint Chief Complaint Patient presents with Knee Pain Patient arrives today with complaint of left knee pain for 2 months. Feels like it is in the back of the knee and goes to the midthigh. Very uncomfortable at night HPI Patient presents for evaluation of left knee pain. No known injury or trauma. Onset: x2 months Location: left knee, posterior Character of pain: aching, occasional stabbing Severity at rest (right now, 0-10 scale): 2/10 Severity at worst (0-10 scale): 8/10 Radiation: up the posterior thigh Aggravating factors: extension, flexion, when initially walking, sitting for long periods Alleviating factors: rest History of prior injury to this site: meniscal tear that was surgically repaired Treatments tried: Meloxicam Numbness/tingling: none Knee instability: occasionally Swelling: none Review of Systems Constitutional: Negative for chills and fever. Respiratory: Negative for cough, shortness of breath and wheezing. Cardiovascular: Negative for chest pain and palpitations. Gastrointestinal: Negative for abdominal pain. Musculoskeletal: Positive for arthralgias. Negative for joint swelling. Neurological: Negative for numbness. BP 126/76 (BP Location: Right arm, Patient Position: Sitting) Pulse 84 Temp 36.6 ??C (97.9 ??F)(Temporal) Resp 18 Ht 165.1 cm (5' 5 ) Wt 89.5 kg (197 lb 6.4 oz) SpO2 97% BMI 32.85 kg/m?? Physical Exam Vitals and nursing note reviewed. Constitutional: Appearance: She is well-developed. HENT: Head: Normocephalic and atraumatic. Right Ear: Hearing and external ear normal. Left Ear: Hearing and external ear normal. Eyes: Conjunctiva/sclera: Conjunctivae normal. Musculoskeletal: Comments: Knee exam Left Inspection: No ecchymosis, no swelling, redness, no flexion deformity. Palpation: tenderness at the medial and lateral joint lines and superior to the patella. No posterior knee pain. Collateral ligaments, no laxity with valgus/MCL or varus/LCL stress. Range of motion: decreased flexion and extension Kelley: Negative Crepitus: present Skin: General: Skin is warm and dry. Neurological: Mental Status: She is alert and oriented to person, place, and time. Psychiatric: Behavior: Behavior normal. Assessment/Plan Diagnoses and all orders for this visit: Acute pain of left knee (Primary) - XR Knee Left 3 Vw; Future - meloxicam (MOBIC) 7.5 mg tablet; Take 1-2 tablets (7.5-15 mg total) by mouth daily with food. Influenza vaccine needed - Flu Vaccine Quad High Dose PF 65Y+ IM - Fluzone High Dose Quad Suspect arthritis with possibly a tendinitis component as well. Start taking meloxicam daily. Patient aware not to take other NSAIDs with this, she can take Tylenol if needed. Action and side effects of medications discussed today. Will obtain imaging of the left knee today. Apply ice as needed. May try [id number] sports creams. Biofreeze, icy hot, flexall. Discussed physical therapy. Patient would prefer not to do PT at this time. She would like to do stretches at home. Handout given on knee stretching exercises. Advance activities as tolerated. Report any new or changing symptoms. Will follow-up based on imaging results. Patient stated understanding. All questions answered today. There may be grammatical errors in this note due to use of voice recognition software. documented in this encounter Plan of Treatment Not on file documented as of this encounter Visit Diagnoses Diagnosis Acute pain of left knee- Primary Influenza vaccine needed documented in this encounter Discontinued Medications Medication Sig Discontinue Reason Start Date End Da te arm brace miscIndications:De Quervain's tenosynovitis, left Thumb spica brace for left wrist- use daily 08/15/2021 03/26/2022 meloxicam (MOBIC) 7.5 mg tablet TAKE 2 TABLETS BY MOUTH EVERY DAY Reorder 01/09/2022 03/26/2022 documented as of this encounter Orders Immunization/Injection Count Last Ordered Date First Ordered Date FLU VACCINE HIGH DOSE QUAD P F 65Y+ IM - FLUZONE HIGH DOS 1 03/26/2022 documented in this encounter Care Teams Biopharmaceutical Rep Relationship Specialty Start Date End Date Aurelia Huitron MD [address] [place] [address] PCP - General Family Medicine 05/23/20 documented as of this encounter
--- OUTSIDE RECORDS SUMMARY | 2024-07-10 04:43 | XMS_ITS | Encounter Summary ---
Author Organization 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 Gender Identity Not on file Sexual Orientation Not on file documented as of this encounter Last Filed Vital Signs Vital Sign Reading Time Taken Comments Blood Pressure 130/70 08/15/2021 10:16 AM UTILITIES EQUIPMENT REPAIRER Pulse 80 08/15/2021 10:16 AM UTILITIES EQUIPMENT REPAIRER Temperature 36.3 ??C (97.4 ??F) 08/15/2021 10:[address] Respiratory Rate 16 08/15/2021 10:16 AM UTILITIES EQUIPMENT REPAIRER Oxygen Saturation 96% 08/15/2021 10:16 AM UTILITIES EQUIPMENT REPAIRER Inhaled Oxygen Concentration - - Weight 89.8 kg (198 lb) 08/15/2021 10:16 AM UTILITIES EQUIPMENT REPAIRER Height 165.1 cm (5' 5 ) 08/15/2021 10:16 AM UTILITIES EQUIPMENT REPAIRER Body Mass Index 32.95 08/15/2021 10:16 AM UTILITIES EQUIPMENT REPAIRER documented in this encounter Ordered Prescriptions Prescription Sig Dispense Quantity Refills Last Filled Start Date End Date arm brace miscIndications:De Quervain's tenosynovitis, left Thumb spica brace for left wrist- use daily 1 each 08/15/2021 03/26/2022 documented in this encounter Progress Notes * Aurelia Huitron MD - 08/15/2021 10:00 AM CST Images from the original note were not included. Subjective/Objective Patient ID: Valeria Johnson is a 71 y.o. female. Chief Complaint Chief Complaint Patient presents with ??? Wrist Pain HPI The pt is presenting to the office for follow up -left wrist pain. She completed her EKG which showed arthritis. She has pain with ROM, and it occurs daily. She is here for further care -Diabetes- she was doing very well with her regimen, and currently no hypoglycemia. She has been eating fairly healthy. -weight has been stable, eating healthy -she would like a pap smear- friend recently diagnosed. Pt does not feel threatened at home, school, or socially. Review of Systems Constitutional: Negative for chills and fever. Eyes: Negative for visual disturbance. Respiratory: Negative for shortness of breath. Cardiovascular: Negative for chest pain. Gastrointestinal: Negative for abdominal pain, nausea and vomiting. Genitourinary: Negative for vaginal bleeding. Musculoskeletal: Positive for arthralgias. Neurological: Negative for headaches. Past medical history, surgical history, and social history were reviewed BP 130/70 (BP Location: Left arm, Patient Position: Sitting) Pulse 80 Temp 36.3 ??C (97.4 ??F) (Temporal) Resp 16 Ht 165.1 cm (5' 5 ) Wt 89.8 kg (198 lb) SpO2 96% BMI 32.95 kg/m?? Physical Exam Vitals and nursing note reviewed. Exam conducted with a operational communication chief present. Constitutional: General: She is not in acute distress. Appearance: She is well-developed. HENT: Head: Normocephalic and atraumatic. Right Ear: External ear normal. Left Ear: External ear normal. Nose: Nose normal. Mouth/Throat: Mouth: Mucous membranes are moist. Pharynx: Oropharynx is clear. Eyes: Conjunctiva/sclera: Conjunctivae normal. Pupils: Pupils are equal, round, and reactive to light. Neck: Thyroid: No thyromegaly. Cardiovascular: Rate and Rhythm: Normal rate and regular rhythm. Heart sounds: Normal heart sounds. No murmur heard. No friction rub. No gallop. Pulmonary: Effort: Pulmonary effort is normal. Breath sounds: Normal breath sounds. No wheezing or rales. Chest: Breasts: Right: No inverted nipple, mass, nipple discharge, skin change, tenderness, axillary adenopathy or supraclavicular adenopathy. Left: No inverted nipple, mass, nipple discharge, skin change, tenderness, axillary adenopathy or supraclavicular adenopathy. Abdominal: General: Bowel sounds are normal. There is no distension. Palpations: Abdomen is soft. There is no mass. Tenderness: There is no abdominal tenderness. There is no guarding or rebound. Genitourinary: General: Normal vulva. Labia: Right: No rash, tenderness, lesion or injury. Left: No rash, tenderness, lesion or injury. Vagina: Normal. Cervix: No cervical motion tenderness or discharge. Uterus: Normal. Adnexa: Right: No mass, tenderness or fullness. Left: No mass, tenderness or fullness. Musculoskeletal: Cervical back: Neck supple. Comments: Left wrist- non-tender to palation, +Finklestein's Lymphadenopathy: Cervical: No cervical adenopathy. Upper Body: Right upper body: No supraclavicular or axillary adenopathy. Left upper body: No supraclavicular or axillary adenopathy. Skin: General: Skin is warm and dry. Neurological: Mental Status: She is alert and oriented to person, place, and time. Motor: No abnormal muscle tone. Psychiatric: Mood and Affect: Mood normal. Behavior: Behavior normal. Thought Content: Thought content normal. Assessment/Plan Diagnoses and all orders for this visit: De Quervain's tenosynovitis, left (Primary) Comments: will start with a brace consider referral to hand surgery if no improvement call for questions Orders: - arm brace misc; Thumb spica brace for left wrist- use daily Type 2 diabetes mellitus with other specified complication, without long-term current use of insulin (HCC) Assessment & Plan: Will recheck A1C in November Continue to monitor symptoms- watch for hypoglycemia Update me with any concerns Call for questions Orders: - Hemoglobin A1c; Future Class 1 obesity due to excess calories with serious comorbidity and body mass index (BMI) of 32.0 to 32.9 in adult Assessment & Plan: Stable BMI Follow-up includes: nutrition counseling. Cervical cancer screening - Pap and High Risk HPV, reflex to Genotyping; Future My total encounter time on 08/15/2021 was 31 minutes which was spent in the activities documented inthe note. This includes time spent prior to the visit and after the visit in direct care of the patient. This time does not include time spent in any separately reportable services. Patient/parent was counseled on medication risk, side effects, and possible complications. Patient/parent was counseled on how to properly take the medication and to call with any adverse reactions. Patient/parent was advised that if anything changes or worsens, to contact the office. Patient/parent stated understanding. ITIES EQUIPMENT REPAIRER documented in this encounter Miscellaneous Notes * Assessment & Plan Note - Aurelia Huitron MD - 08/15/2021 10:52 AM CSTAssociated Problem(s): Class 1 obesity due to excess calories with serious comorbidity and body mass index (BMI) of 31.0 to 31.9 in adult Stable BMI Follow-up includes: nutrition counseling. ITIES EQUIPMENT REPAIRER * Assessment & Plan Note - Aurelia Huitron MD - 08/15/2021 10:52 AM CSTAssociated Problem(s): Type 2 diabetes mellitus with other specified complication (HCC) Will recheck A1C in November Continue to monitor symptoms- watch for hypoglycemia Update me with any concerns Call for questions ITIES EQUIPMENT REPAIRER * Addendum Note - Jung Swanson MA - 08/15/2021 10:00 AM CSTAddended by: JUNG SWANSON on: 08/15/2021 12:14 PM Modules accepted: Orders ITIES EQUIPMENT REPAIRER documented in this encounter Plan of Treatment Not on file documented as of this encounter Visit Diagnoses Diagnosis De Quervain's tenosynovitis, left- Primary Type 2 diabetes mellitus with other specified complication, without long-term current use of insulin (HCC) Class 1 obesity due to excess calories with serious comorbidity and body mass index (BMI) of 32.0 to 32.9 in adult Cervical cancer screening Screening for malignant neoplasm of the cervix documented in this encounter Orders Lab Orders Without Results Count Last Ordered D ate First Ordered Date PAP AND HIGH RISK HPV, REFLE X TO GENOTYPING 1 08/15/2021 documented in this encounter Care Teams Conditioner Tumbler Operator Relationship Specialty Start Date End Date Aurelia Huitron MD [address] [place] [address] PCP - General Family Medicine 05/23/20 documented as of this encounter
--- OUTSIDE RECORDS SUMMARY | 2024-07-10 04:43 | XMS_ITS | Encounter Summary ---
Author Organization [facility] Healthcare Address [address] [place] [address] Care Team Providers Care Taping Machine Operator Name Role Phone Aurelia Huitron MD Primary Care Provi jarred Reason for Visit * Reason Comments Laceration Encounter Details Date Type Department Care Team (Late st Contact Info) Description 09/13/2021 10:58 PM NATURAL GAS BASIS TRADER - 09/14/2021 1:43 AM [facility] Emergency [facility] Emergency Department [address] [place] [id number] Santino Ho Jr., MD [id number] [place] [address] Scalp laceration, initial encounter (Primary Dx); Fall, initial encounter Discharge Disposition: Discharge to home or self [...] should administer the PHQ-9) 0 07/17/2021 Comments No Sex and Gender Information Value Date Recorded Sex Assigned at Not on file Legal Sex Female 12:58 AM NATURAL GAS BASIS TRADER Gender Identity Not on file Sexual Orientation Not on file documented as of this encounter Last Filed Vital Signs Vital Sign Reading Time Taken Comments Blood Pressure 136/81 09/14/2021 1:38 AM NATURAL G[employer] BASIS TRADER Pulse 90 09/14/2021 1:38 AM NATURAL GAS BASIS TRADER Temperature 36.9 ??C (98.5 ??F) 09/14/2021 1:38 AM CS T Respiratory Rate 16 09/14/2021 1:38 AM NATURAL GAS BASIS TRADER Oxygen Saturation 99% 09/14/2021 1:38 AM NATURAL GAS BASIS TRADER Inhaled Oxygen Concentration - - Weight 95.9 kg (211 lb 8.5 oz) 09/13/2021 10:52 PM NATURAL GAS BASIS TRADER Height 165.1 cm (5' 5 ) 09/13/2021 10:52 PM NATURAL G[employer] BASIS TRADER Body Mass Index 35.2 09/13/2021 10:52 PM NATURAL G[employer] BASIS TRADER documented in this encounter Discharge Instructions * Discharge Instructions* Santino Ho Jr., MD - 09/14/2021 1:20 AM NATURAL G[employer] BASIS TRADER Increase fluids, change positions slowly, sit down or lay down if get lightheaded. Follow-up with your physician RAL GAS BASIS TRADER * Attachments The following attachments cannot be sent through Care Everywhere. * Laceration (AfterCare(R) Instructions(ER/ED)) (Citizen Of [place]) documented in this encounter Medications at Time of Discharge amLODIPine (NORVASC) 5 mg tablet TAKE 1 TABLET BY MOUTH TWICE A DAY 180 tablet 1 01/31/2021 10/08/2021 arm brace miscIndications:D e Quervain's tenosynovitis, left Thumb spica brace for left wrist- use daily 1 each 08/15/2021 03/26/2022 escitalopram (LEXAPRO) 10 mg tablet Take 2 tablets (20 mg total) by mouth daily 1 tablet 07/17/2021 10/08/2021 liraglutide (Victoza 3-Eduardo) 0.6 mg/0.1 mL (18 mg/3 mL) injection Inject 1.2 mg under the skin daily 9 mL 2 07/19/2021 11/19/2021 losartan (COZAAR) 100 mg tablet TAKE 1 [...] WITH VICTOZA 100 each 3 06/17/2021 10/08/2021 documented as of this encounter Discharge Disposition Disposition Code Departure Means Destination Discharge to home or self care documented in this encounter ED Notes * Santino Ho Jr., MD - 09/13/2021 11:31 PM CST HPI Chief Complaint Patient presents with ??? Laceration 71-year-old white female presents after a fall at home, where she struck her forehead on and edge of a piece of furniture. She reports it was almost a glancing blow, but it was somewhat of a sharp agitated just caught is get and cut it. She denies any significant impact to the edge She reports thatshe had had a couple of drinks earlier, and was just a little bit off, and lost her balance and fell. She denies any neck pain, back pain, chest pain, abdominal pain, upper extremity or lower extremity pain. Not sure when her last tetanus shot was. She denies any recent fever, chills, sinus drainage, sore throat, coughing, chest pain, palpitations, near-syncope or syncope. Denies abdominal pain, nausea vomiting, diarrhea or constipation, dysuria urgency or free Patient History: Patient Active Problem List Diagnosis Date Noted ??? Encounter for Medicare annual wellness exam 07/17/2021 ??? Class 1 obesity due to excess calories with serious comorbidity and body mass index (BMI) of 32.0 to 32.9 in adult 12/18/2020 ??? Allergic rhinitis 07/23/2020 ??? Anxiety 07/23/2020 ??? Carpal tunnel syndrome 07/23/2020 ??? Elevated liver enzymes 07/23/2020 ??? Essential hypertension 07/23/2020 ??? Gastroesophageal reflux disease 07/23/2020 ??? Hemorrhoids 07/23/2020 ??? Hyperlipidemia 07/23/2020 ??? Insomnia 07/23/2020 ??? Low back pain 07/23/2020 ??? Obstructive sleep apnea syndrome 07/23/2020 ??? Type 2 diabetes mellitus with other specified complication (HCC) 07/23/2020 ??? Overactive bladder due to prolapse of female genital organ 04/10/2020 Past Medical History: Diagnosis Date ??? Anxiety ??? Apnea ??? Diabetes mellitus (HCC) ??? Hypercholesterolemia with hypertriglyceridemia ??? Hypertension ??? Insomnia Past Surgical History: Procedure Laterality Date ??? CATARACT EXTRACTION W/ INTRAOCULAR LENS IMPLANT right eye ??? KNEE ARTHROSCOPY W/ MENISCAL REPAIR ??? TUBAL LIGATION Family History Problem Relation Age of Onset ??? No Known Problems Mother ??? Hypertension Father ??? Diabetes Father ??? COPD Father ??? Rheum arthritis Sister Social History Tobacco Use ??? Smoking status: Never Smoker ??? Smokeless tobacco: Never Used Vaping Use ??? Vaping Use: Never used Substance Use Topics ??? Alcohol use: Never ??? Drug use: Never Social History Social History Narrative ??? Not on file Review of Systems Review of Systems Constitutional: Negative for chills, diaphoresis and fever. HENT: Negative for congestion, rhinorrhea, sinus pressure and sore throat. Eyes: Negative for pain, redness and visual disturbance. Respiratory: Negative for cough, chest tightness, shortness of breath and wheezing. Cardiovascular: Negative for chest pain and palpitations. Gastrointestinal: Negative for abdominal pain, constipation, diarrhea, nausea and vomiting. Endocrine: Negative for polydipsia and polyphagia. Genitourinary: Negative for dysuria, frequency and urgency. Musculoskeletal: Negative for arthralgias, back pain, joint swelling and myalgias. Skin: Positive for wound. Negative for color change and rash. Neurological: Negative for dizziness, syncope, speech difficulty, light- headedness and headaches. Hematological: Does not bruise/bleed easily. Psychiatric/Behavioral: Negative for confusion, decreased concentration, hallucinations and suicidal ideas. Physical Exam ED Triage Vitals Temp Pulse Resp BP SpO2 09/13/21225109/13/21225109/13/21225109/13/21225109/13/212251 36.4 ??C (97.6 ??F) 102 20 135/80 98 % Temp src Heart Rate Source Patient Position BP Location FiO2 (%) 09/13/21225109/14/2111509/14/2111509/14/21115 -- Oral Monitor Lying Left arm Physical Exam Vitals and nursing note reviewed. Constitutional: Appearance: Normal appearance. She is well-developed. She is obese. Comments: Pleasant well oriented, good sense of humor HENT: Head: Normocephalic and atraumatic. Nose: Nose normal. Mouth/Throat: Mouth: Mucous membranes are moist. Pharynx: No oropharyngeal exudate. Eyes: General: No scleral icterus. Extraocular Movements: Extraocular movements intact. Conjunctiva/sclera: Conjunctivae normal. Pupils: Pupils are equal, round, and reactive to light. Neck: Vascular: No JVD. Trachea: No tracheal deviation. Cardiovascular: Rate and Rhythm: Normal rate and regular rhythm. Heart sounds: Normal heart sounds. No murmur heard. No gallop. Pulmonary: Effort: Pulmonary effort is normal. Breath sounds: Normal breath sounds. No stridor. No wheezing, rhonchi or rales. Chest: Chest wall: No tenderness. Abdominal: General: Bowel sounds are normal. Palpations: Abdomen is soft. There is no mass. Tenderness: There is no abdominal tenderness. There is no guarding or rebound. Musculoskeletal: General: No tenderness. Normal range of motion. Cervical back: Normal range of motion and neck supple. Right lower leg: No edema. Left lower leg: No edema. Skin: General: Skin is warm and dry. Capillary Refill: Capillary refill takes less than 2 seconds. Comments: There is about a 12-15 cm somewhat curvilinear laceration to the upper forehead that is transverse in orientation, just proximal to the hairline. There is no skull deformity, no crepitance,does significantly Neurological: General: No focal deficit present. Mental Status: She is alert and oriented to person, place, and time. Cranial Nerves: No cranial nerve deficit. Psychiatric: Mood and Affect: Mood normal. Behavior: Behavior normal. Thought Content: Thought content normal. Labs Reviewed URINALYSIS AND REFLEX TO MICROSCOPIC AND CULTURE - Abnormal Result Value Color, ur Yellow Clarity, ur Clear Specific gravity, ur 1.011 pH, urine 5.0 Protein, ur ql Negative Glucose, ur ql Negative Ketones, ur Negative Bilirubin, ur Negative Blood, ur 1+ (*) Urobilinogen, ur <2.0 Nitrite, ur Negative Leukocyte esterase, ur Negative UA reflex comment Reflex to microscopic UA will be performed. Narrative: Urine pH is affected by diet, medications, systemic acid-base disturbances, and renal tubular function. pH may affect urinary stone formation. For example, urine pH below 6.0 may help reduce the tendency for calcium phosphate stones and pH greater than 6.0 may reduce the tendency for uric acid stone formation. Source: [facility] [place].Last revised 07-16-2017 CBC WITH AUTO DIFFERENTIAL - Abnormal WBC 8.2 Hgb 12.7 Hct 38.5 Plt 273 MPV 8.6 (*) RBC 4.31 MCV 89.3 MCH 29.5 MCHC 33.0 RDW CV 13.7 RDW SD 45.1 NRBC abs 0.00 COMPREHENSIVE METABOLIC PANEL - Abnormal Sodium 138 Potassium, pl 4.0 Chloride 98 CO2 25 Anion gap 15 BUN 10 Creatinine 0.50 (*) Glucose 160 Calcium 10.0 Bilirubin, total 0.2 Protein, pl 7.8 Albumin 5.0 Alk phos 60 ALT 23 AST 22 URINALYSIS, MICROSCOPIC ONLY - Abnormal WBC, ur 0-5 RBC, ur 0-2 Epithelial cells, squamous, ur 1-5 Mucous, ur Present (*) Culture Reflex Comment Value: Reflex conditions for urine culture (WBC >10) not met. ETHANOL Ethanol <10 TROPONIN T HIGH-SENSITIVITY SERIES (BASELINE, 2HR, 4HR, 6HR) Trop T hs 8 DIFFERENTIAL AUTO Neutrophil abs 5.9 Imm gran abs 0.0 Lymphocyte abs 1.4 Monocyte abs 0.7 Eosinophil abs 0.1 Basophil abs 0.0 Neutrophil pct 72.8 Imm gran pct 0.5 Lymphocyte pct 17.3 Monocyte pct 8.1 Eosinophil pct 1.1 Basophil pct 0.2 EGFR eGFR 101 No orders to display ED Course: CBC, CMP, troponin, EKG all look okay. This appeared to be a glancing blow. I did go ahead and give her IV fluids, patient is ambulatory without difficulty, stable for discharge once the 2nd troponin comes back negative. She will need to follow-up with her physician in 1 week for suture removal, soonerfor any complications. [facility] ED Course as of 09/16/21 0715 Time: 09/14 113 Comment: Sinus rhythm, normal axis, no QRS, or ST T-wave abnormalities By: Santino Ho Jr., MD Final diagnoses: Scalp laceration, initial encounter Fall, initial encounter Santino Ho Jr., MD 09/14/21 0458 Santino Ho Jr., MD 09/16/21 0715 RAL GAS BASIS TRADER * Vicki Jacobo RN - 09/13/2021 10:52 PM CST Pt arrived to the ER after waking up tonight and hitting the top of her head on the edge of her dresser. No loc RAL GAS BASIS TRADER documented in this encounter Miscellaneous Notes * ED Procedure Note - Keri Almeida NP - 09/13/2021 11:49 PM CSTAssociated Order(s): Laceration Repair Procedure Laceration Repair Date/Time: 09/13/2021 11:49 PM Performed by: Keri Almeida NP Authorized by: Santino Ho Jr., MD RN Notified of Procedure: yes Allergies confirmed: yes Location: Face Face location: Forehead Length (cm): 9 Repair type: Complex Preparation: Patient was prepped and draped in usual sterile fashion Limited defect created (wound extended): no Hemostasis achieved with: Direct pressure Wound exploration: wound explored through full range of motion and entire depth of wound probed andvisualized Wound extent: areolar tissue not violated, fascia not violated, no foreign body, no signs of injury, no nerve damage, no tendon damage, no underlying fracture, no vascular damage and no HEENT abnormality Contaminated: no Area cleansed with: Saline Amount of cleaning: Standard Visualized foreign bodies/material removed: no Debridement: None Undermining: None Repair method: Sutures Suture size: 5-0 Suture material: Nylon Suture technique: Simple interrupted Number of sutures: 11 Approximation: Close Vermilion border: well-aligned Dressing: Antibiotic ointment and non-adherent dressing Patient tolerance of procedure: Tolerated well, no immediate complications Keri Almeida NP 09/13/21 [id number] RAL GAS BASIS TRADER documented in this encounter Plan of Treatment Not on file documented as of this encounter Procedures Procedure Name Priority Date/Time Associated Diagnosis Comments ECG 12-LEAD STAT 09/14/2021 12:14 AM NATURAL GAS BASIS TRADER TROPONIN T HIGH-SENSITIVITY SERIES (BASELINE, 2HR, 4HR, 6HR) STAT 09/14/2021 12:13 AM NATURAL GAS BASIS TRADER EGFR STAT 09/14/2021 12:13 AM NATURAL GAS BASIS TRADER DIFFERENTIAL AUTO STAT 09/14/2021 12: 13 AM NATURAL GAS BASIS TRADER URINALYSIS AND REFLEX TO MICROSCOPIC AND CULTURE STAT 09/14/2021 12:13 AM NATURAL GAS BASIS TRADER CBC WITH AUTO DIFFERENTIAL STAT 09/14/2021 12:13 AM NATURAL GAS BASIS TRADER URINALYSIS, MICROSCOPIC ONLY STAT 09/14/2021 12:13 AM NATURAL GAS BASIS TRADER ETHANOL STAT 09/14/2021 12:13 AM NATURAL GAS BASIS TRADER COMPREHENSIVE METABOLIC PANEL STAT 09/14/2021 12:13 AM NATURAL GAS BASIS TRADER ED LACERATION REPAIR Routine 09/13/2021 11:49 PM NATURAL GAS BASIS TRADER documented in this encounter Results * ECG 12 lead (09/14/2021 12:14 AM NATURAL GAS BASIS TRADER) Pathologist [facility] Ventricular Rate EKG/Min 90 BPM [facility] Atrial Rate [address] [facility] RI-Interval (MSEC) [address] [facility] QRS-Interval (MSEC) [address] [facility] QT-Interval (MSEC) [address] [facility] QTc [address] [facility] P [place] [address] [facility] R [place] -[address] [facility] T [place] [address] [facility] Diagnosis Normal sinus rhythm Normal ECG When compared with ECG of 22-JUL-2020 11:41, No significant change was found [facility] 09/14/2021 12:1 4 AM NATURAL GAS BASIS TRADER 09/14/2021 8:01 PM NATURAL GAS BASIS TRADER us Santino Ho Jr., MD ECG ORDERABLES Final R esult [facility] * eGFR (09/14/2021 12:13 AM NATURAL GAS BASIS TRADER) Pathologist [facility] eGFR 101 mL/min/1. 73 m2 RAN Comment: Interpretive Data Reference Interval Normal ?>/= [...] of Race in Diagnosing Kidney Disease, JASN 2020). The CKD-EPI equation should not be used for patients with unstable renal function and has not been validated in children and those over 70. Current interpretive data was last reviewed 2021. Testing performed by: [address] [address] Blood 09/14/2021 12:1 3 AM NATURAL GAS BASIS TRADER 09/14/2021 12:19 AM NATURAL GAS BASIS TRADER Santino Ho Jr., MD LAB BLOOD ORDERABLES Fi nal Result RAN [address] [facility] Department [place] [address] * (ABNORMAL) Urinalysis, microscopic only (09/14/2021 12:13 AM NATURAL GAS BASIS TRADER) WBC, ur 0-5 0 - 5 /HPF RAN [place]O Comment:Testing performed by : [address] [address] RBC, ur 0-2 0 - 2 /HPF RAN [place] Comment:Testing performed by : [address] [address] Epithelial cells, squamous, ur 1-5 0 - 5 /HPF RAN Comment:Testing performed by : [address] [address] Mucous, ur Present(A) RAN [place] Comment:Testing performed by : [address] [address] Culture Reflex Comment Reflex conditions for urine culture (WBC >10) not met. RAN [place] Comment:Testing performed by : [address] [place]., [address] Urine 09/14/2021 12:1 3 AM NATURAL GAS BASIS TRADER 09/14/2021 12:34 AM NATURAL GAS BASIS TRADER Santino Ho Jr., MD LAB URINE ORDERABLES Fi nal Result [facility] [address] [facility] Department [place] [address] * Differential, auto (09/14/2021 12:13 AM NATURAL GAS BASIS TRADER) Neutrophil abs 5.9 1.7 - 6.5 K/cumm RAN Comment:Testing performed by : [address] [address] Imm gran abs 0.0 0.0 - 0.1 K/cumm RAN Comment:Testing performed by : [address] [address] Lymphocyte abs 1.4 0.8 - 3.3 K/cumm RAN Comment:Testing performed by : [address] [address] Monocyte abs 0.7 0.2 - 0.8 K/cumm RAN Comment:Testing performed by : [address] [address] Eosinophil abs 0.1 0.0 - 0.5 K/cumm RAN Comment:Testing performed by : [address] [address] Basophil abs 0.0 0.0 - 0.1 K/cumm RAN Comment:Testing performed by : [address] [address] Neutrophil pct 72.8 % RAN Comment: Interpretive Data Percent cell count reference ranges are not reported, since discordance with absolute values may lead to misinterpretation of CBC data. Current Interpretive Data was last revised on 2017. Testing performed by: [address] [address] Imm gran pct 0.5 % RAN Comment: Interpretive Data Percent cell count reference ranges are not reported, since discordance with absolute values may lead to misinterpretation of CBC data. Current Interpretive Data was last revised on 2017. Testing performed by: [address] [address] Lymphocyte pct 17.3 % [facility] Comment: Interpretive Data Percent cell count reference ranges are not reported, since discordance with absolute values may lead to misinterpretation of CBC data. Current Interpretive Data was last revised on 2017. Testing performed by: [address] [address] Monocyte pct 8.1 % [facility] Comment: Interpretive Data Percent cell count reference ranges are not reported, since discordance with absolute values may lead to misinterpretation of CBC data. Current Interpretive Data was last revised on 2017. Testing performed by: [address] [address] Eosinophil pct 1.1 % [facility] Comment: Interpretive Data Percent cell count reference ranges are not reported, since discordance with absolute values may lead to misinterpretation of CBC data. Current Interpretive Data was last revised on 2017. Testing performed by: [address] [address] Basophil pct 0.2 % [facility] Comment: Interpretive Data Percent cell count reference ranges are not reported, since discordance with absolute values may lead to misinterpretation of CBC data. Current Interpretive Data was last revised on 2017. Testing performed by: [address] [address] Blood 09/14/2021 12:1 3 AM NATURAL GAS BASIS TRADER 09/14/2021 12:19 AM NATURAL GAS BASIS TRADER us Santino Ho Jr., MD LAB BLOOD ORDERABLES Fi nal Result RAN SANTO [address] [facility] Department of Laboratories [place], [place] [id number] * Troponin T high-sensitivity series (baseline, 2hr, 4hr, 6hr) (09/14/2021 12:13 AM NATURAL GAS BASIS TRADER) [facility] Trop T hs 8 <=14 ng/L RAN Comment: Interpretive Data For further hscTnT resources including the diagnostic algorithm and an aid in interpretation, copy and paste this link: https://nrl.testcatalog.org/show/hsTrop Current Interpretive Data last revised 2020. Testing performed by: [facility], [address] [place] [address]., [address] Blood 09/14/2021 12:1 3 AM NATURAL GAS BASIS TRADER 09/14/2021 12:19 AM NATURAL GAS BASIS TRADER Santino Ho Jr., MD LAB BLOOD ORDERABLES Ed ited Result - Final Performing Organization Address [facility] de Phone Number RAN [address] [employer] [place] [address] * Ethanol (09/14/2021 12:13 AM NATURAL GAS BASIS TRADER) [facility] Ethanol <10 <=10 mg/dL RAN Comment: Interpretive Data Legal limit of intoxication > or = 80 mg/dL Levels > or = 400 mg/dL are potentially TOXIC. Current interpretive data was last revised on 2018. Testing performed by: [address] [address] Blood 09/14/2021 12:1 3 AM NATURAL GAS BASIS TRADER 09/14/2021 12:19 AM NATURAL GAS BASIS TRADER Santino Ho Jr., MD LAB BLOOD ORDERABLES Fi nal Result Performing Organization Address [facility] de Phone Number RAN [address] [facility] [place] [place] [address] * (ABNORMAL) Urinalysis reflex to microscopic and culture Urine (09/14/2021 12:13 AM NATURAL GAS BASIS TRADER) [facility] Color, ur Yellow Yellow RAN SANTO Comment:Testing performed by : [address] [address] Clarity, ur Clear Clear RAN Comment:Testing performed by : [address] [address] Specific gravity, ur 1.011 1.003 - 1.030 RAN Comment:Testing performed by : [address] [address] pH, urine 5.0 RAN Comment:Testing performed by : [address] [address] Protein, ur ql Negative Negative RAN Comment:Testing performed by : [address] [address] Glucose, ur ql Negative Negative RAN Comment:Testing performed by : [address] [address] Ketones, ur Negative Negative RAN Comment:Testing performed by : [address] [address] Bilirubin, ur Negative Negative RAN Comment:Testing performed by : [address], [place]., [address] Blood, ur 1+(A) Negative RAN Comment:Testing performed by : [address] [address] Urobilinogen, ur <2.0 <2.0 mg/dL RAN Comment:Testing performed by : [address] [address] Nitrite, ur Negative Negative ARN Comment:Testing performed by : [address] [address] Leukocyte esterase, ur Negative Negative RAN Comment:Testing performed by : [address] [address] UA reflex comment Reflex to microscopic UA will be performed. RAN Comment:Testing performed by : [address] [address] Urine 09/14/2021 12:1 3 AM NATURAL GAS BASIS TRADER 09/14/2021 12:34 AM NATURAL GAS BASIS TRADER Narrative RAN - 09/14/2021 12:35 AM NATURAL GAS BASIS TRADER ?? Urine pH is affected by diet, medications, systemic acid-base disturbances, and renal tubular function. ??pH may affect urinary stone formation. ??For example, urine pH below 6.0 may help reduce the tendency for calcium phosphate stones and pH greater than 6.0 may reduce the tendency for uric acid stone formation. Source: [facility] [place]. Last revised 07-16-2017 us Santino Ho Jr., MD LAB MICROBIOLOGY - [facility] ORDERABLES Final Result RAN [address] [facility] Department [place] [address] * (ABNORMAL) Comprehensive metabolic panel (09/14/2021 12:13 AM NATURAL GAS BASIS TRADER) Pathologist [facility] Sodium 138 135 - 145 mmol/L RAN Comment:Testing performed by : [address] [address] Potassium, pl 4.0 3.3 - 4.9 mmol/L RAN Comment:Testing performed by : [address] [address] Chloride 98 97 - 110 mmol/L ARN Comment:Testing performed by : [address] [address] CO2 25 22 - 32 mmol/L RAN Comment:Testing performed by : [address] [address] Anion gap 15 2 - 15 mmol/L RAN Comment:Testing performed by : [address] [address] BUN 10 8 - 25 mg/dL RAN Comment:Testing performed by : [address] [address] Creatinine 0.50(L) 0.60 - 1.10 mg/dL RAN Comment:Testing performed by : [address] [address] Glucose 160 70 - 199 mg/dL RAN Comment: Interpretive [...] was last revised 2017. Testing performed by: [address] [address] Calcium 10.0 8.5 - 10.3 mg/dL RAN Comment:Testing performed by : [address] [address] Bilirubin, total 0.2 0.1 - 1.2 mg/dL RAN Comment:Testing performed by : [address] [address] Protein, pl 7.8 6.5 - 8.5 g/dL RAN Comment:Testing performed by : [address] [address] Albumin 5.0 3.5 - 5.0 g/dL RAN Comment:Testing performed by : [address] [address] Alk phos 60 40 - 130 Units/L RAN Comment:Testing performed by : [address] [address] ALT 23 7 - 45 Units/L RAN Comment:Testing performed by : [address] [address] AST 22 10 - 45 Units/L RAN Comment:Testing performed by : [address] [address] Blood 09/14/2021 12:1 3 AM NATURAL GAS BASIS TRADER 09/14/2021 12:19 AM NATURAL GAS BASIS TRADER us Santino Ho Jr., MD LAB BLOOD ORDERABLES Fi nal Result RAN [address] [facility] Department [place] [address] * (ABNORMAL) CBC with auto differential (09/14/2021 12:13 AM NATURAL GAS BASIS TRADER) WBC 8.2 3.8 - 9.9 K/cumm RAN SANTO Comment:Testing performed by : [address] [address] Hgb 12.7 11.9 - 15.5 g/dL RAN Comment:Testing performed by : [address] [address] Hct 38.5 35.6 - 45.5 % RAN Comment:Testing performed by : [address] [address] Plt 273 150 - 400 K/cumm RAN Comment:Testing performed by : [address], [address] MPV 8.6(L) 9.1 - 12.3 fL RAN Comment:Testing performed by : [address], [address] RBC 4.31 3.90 - 5.20 M/cumm RAN Comment:Testing performed by : [address], [address] MCV 89.3 81.3 - 96.4 fL RAN Comment:Testing performed by : [address], [address] MCH 29.5 27.1 - 33.3 pg RAN Comment:Testing performed by : [address], [address] MCHC 33.0 32.3 - 35.7 g/dL RAN Comment:Testing performed by : [address], [address] RDW CV 13.7 11.1 - 14.9 % RAN Comment:Testing performed by : [address], [address] RDW SD 45.1 35.7 - 48.1 fL RAN Comment:Testing performed by : [address] [address] NRBC abs 0.00 0.00 - 0.01 K/cumm RAN Comment:Testing performed by : [address] [address] Blood 09/14/2021 12:1 3 AM NATURAL GAS BASIS TRADER 09/14/2021 12:19 AM NATURAL GAS BASIS TRADER us Santino Ho Jr., MD LAB BLOOD ORDERABLES Fi nal Result RAN [facility] [address] [facility] Department [place] [address] * Laceration Repair (09/13/2021 11:49 PM NATURAL GAS BASIS TRADER) Narrative Keri Almeida NP - 09/13/2021 11:49 PM NATURAL GAS BASIS TRADER Keri Almeida NP ? 09/13/2021 11:50 PM Laceration Repair Date/Time: 09/13/2021 11:49 PM Performed by: Keri Almeida NP Authorized by: Santino Ho Jr., MD RN Notified of Procedure: yes ?? Allergies confirmed: yes ?? Location: ??Face Face location: ??Forehead Length (cm): ??9 Repair type: ??Complex Preparation: ??Patient was prepped and draped in usual sterile fashion Limited defect created (wound extended): no ?? Hemostasis achieved with: ??Direct pressure Wound exploration: wound explored through full range of motion and entire depth of wound probed and visualized ?? Wound extent: areolar tissue not violated, fascia not violated, no foreign body, no signs of injury, no nerve damage, no tendon damage, no underlying fracture, no vascular damage and no HEENT abnormality ?? Contaminated: no ?? Area cleansed with: ??Saline Amount of cleaning: ??Standard Visualized foreign bodies/material removed: no ?? Debridement: ??None Undermining: ??None Repair method: ??Sutures Suture size: ??5-0 Suture material: ??Nylon Suture technique: ??Simple interrupted Number of sutures: ??11 Approximation: ??Close Vermilion border: well-aligned ?? Dressing: ??Antibiotic ointment and non-adherent dressing Patient tolerance of procedure: ??Tolerated well, no immediate complications us Santino Ho Jr., MD IN CLINIC/BEDSIDE ORDER HANNA Final Result documented in this encounter Visit Diagnoses Diagnosis Scalp laceration, initial encounter- Primary Fall, initial encounter documented in this encounter Administered Medications Inactive Administered Medications - up to 3 most recent administrations Medication Order MAR Action Action Date Dose Rate Site lidocaine-EPINEPHrine (XYLOCAINE with EPI) 1 %-1:100,000 injection - ADS Override Pull Starting on Thu09/13/21 at 2310, For 1 dose, Created by cabinet override Given 09/13/2021 11:15 PM NATURAL GAS BASIS TRADER sodium chloride 0.9% 0.9 % irrigation - ADS Override Pull Starting on Thu09/13/21 at 2312, For 1 dose, Created by cabinet override Given 09/13/2021 11:15 PM NATURAL GAS BASIS TRADER documented in this encounter Active and Recently Administered Medications Times are shown in NATURAL GAS BASIS TRADER. No Frequency Medication Order 09/12/2021 09/13/2021 09/14/2021 lidocaine-EPINEPHrine (XYLOCAINE with EPI) 1 %-1:100,000 injection - ADS Override Pull (COMPLETED) Starting on Thu09/13/21 at 2310, For 1 dose, Created by cabinet override 231 (Given - Provider: Ulices Madden RN - Comment: Given by provider during suturing.) sodium chloride 0.9% 0.9 % irrigation - ADS Override Pull (COMPLETED) Starting on Thu09/13/21 at 2312, For 1 dose, Created by cabinet override 231 (Given - Provider: Ulices Madden RN - Comment: Given by provider during suturing.) documented in this encounter Care Teams Taping Machine Operator Relationship Specialty Start Date End Date Aurelia Huitron MD [address] [place] [address] PCP - General Family Medicine 05/23/20 documented as of this encounter
--- OUTSIDE RECORDS SUMMARY | 2024-07-10 04:43 | XMS_ITS | Encounter Summary ---
Author Organization [facility] Address [address] [facility] [address] [place] [id number] Care Team Providers Care Pillowcase Folder Name Role Phone Aurelia Huitron MD Primary Care Provi jarred Reason for Referral * Procedure (Routine) - Closed Specialty Diagnoses / Procedures Referred By Contac t Referred To Contact Diagnoses Laceration of scalp, subsequent encounter Procedures Suture Removal Aurelia Huitron MD [facility] [address] [place] [address] Phone: tel: fax: [facility] Referral ID Status Reason Start Date Expiration Date Visits Re quested Visits Authorized [id number] Closed 09/24/2021 10/24/2022 1 1 Reason for Visit * Reason Comments Suture / Staple Removal Patient arrives for suture removal. 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 Gender Identity Not on file Sexual Orientation Not on file documented as of this encounter Last Filed Vital Signs Vital Sign Reading Time Taken Comments Blood Pressure 130/70 09/24/2021 12:31 PM CDT Pulse 94 09/24/2021 12:31 PM CDT Temperature 36.1 ??C (97 ??F) 09/24/2021 12: 31 PM CDT Respiratory Rate 16 09/24/2021 12:3 1 PM CDT Oxygen Saturation 98% 09/24/2021 12: 31 PM CDT Inhaled Oxygen Concentration - - Weight 88.8 kg (195 lb 12.8 oz) 022 12:31 PM CDT Height 165.1 cm (5' 5 ) 09/24/2021 12:3 1 PM CDT Body Mass Index 32.58 09/24/2021 12:31 PM CDT documented in this encounter Progress Notes * Aurelia Huitron MD - 09/24/2021 12:30 PM CDT Images from the original note were not included. Subjective/Objective Patient ID: Valeria Johnson is a 71 y.o. female. Chief Complaint Chief Complaint Patient presents with ??? Suture / Staple Removal Patient arrives for suture removal. HPI The pt is presenting to the office for follow up -her wound has healed, no more oozing. She is ready to get her sutures out -blood pressure running well at home- 114-110/70's. No chest pain, no SOB -blood sugars are running as well- 106-115. She is eating healthy, and doing well. Review of Systems Constitutional: Negative for chills and fever. Respiratory: Negative for shortness of breath. Cardiovascular: Negative for chest pain. Gastrointestinal: Negative for nausea and vomiting. Skin: Positive for wound. Past medical history, surgical history, and social history were reviewed BP 130/70 (BP Location: Left arm, Patient Position: Sitting) Pulse 94 Temp 36.1 ??C (97 ??F) (Temporal) Resp 16 Ht 165.1 cm (5' 5 ) Wt 88.8 kg (195 lb 12.8 oz) SpO2 98% BMI 32.58 kg/m?? Physical Exam Constitutional: General: She is not in acute distress. Appearance: Normal appearance. She is obese. She is not ill-appearing. HENT: Head: Normocephalic and atraumatic. Eyes: Extraocular Movements: Extraocular movements intact. Pulmonary: Effort: Pulmonary effort is normal. No respiratory distress. Skin: General: Skin is warm and dry. Comments: 12.5 cm laceration on her scalp. No oozing. Neurological: Mental Status: She is alert and oriented to person, place, and time. Psychiatric: Mood and Affect: Mood normal. Behavior: Behavior normal. Assessment/Plan Diagnoses and all orders for this visit: Laceration of scalp, subsequent encounter (Primary) Comments: sutures removed encouraged to be careful with it Orders: - Suture Removal Essential hypertension Assessment & Plan: Well controlled Continue current regimen Type 2 diabetes mellitus with other specified complication, without long-term current use of insulin ([facility]) Assessment & Plan: Blood sugars are running well at home Continue healthy changes Continue victoza Call for questions or concerns My total encounter time on 09/24/2021 was 21 minutes which was spent in the activities [...] to contact the office. Patient/parent stated understanding. documented in this encounter Procedure Notes * Aurelia Huitron MD - 09/24/2021 12:30 PM CDTAssociated Order(s): Suture Removal Post-Procedure Diagnose(s): Laceration of scalp, subsequent encounter Suture Removal Date/Time: 09/24/2021 12:48 PM Performed by: Aurelia Huitron MD Authorized by: Aurelia Huitron MD [place] Protocol: Informed consent: Risks, benefits, alternatives discussed Patient identity confirmation method: no armband. Lab/Diag test results: N/a Supplies, devices and special equipment are available: yes Site/side marked: n/a Immediately prior to the procedure a time out was called: a verbal verification by the procedure participants confirmed correct patient identity, correct site/side marked and visible (if applicable); agreement on procedure to be done; and correct patient positioning Local anesthesia used?: No Body area: Head/neck Location details: Scalp Wound appearance: Clean Sutures removed: 11 Post-procedure assessment: declined- it is in her hair. All procedure needles, sponges and other items accounted for: Yes documented in this encounter Miscellaneous Notes * Assessment & Plan Note - Aurelia Huitron MD - 09/24/2021 1:16 PM CDTAssociated Problem(s): Type 2 diabetes mellitus with other specified complication (HCC) Blood sugars are running well at home Continue healthy changes Continue victoza Call for questions or concerns * Assessment & Plan Note - Aurelia Huitron MD - 09/24/2021 12:50 PM CDTAssociated Problem(s): Essential hypertension Well controlled Continue current regimen documented in this encounter Plan of Treatment Not on file documented as of this encounter Procedures Procedure Name Priority Date/Time Associated Diagnosis Comments SUTURE REMOVAL Routine 09/24/2021 12:48 PM CDT Laceration of scalp, subsequent encounter documented in this encounter Results * SUTURE REMOVAL (09/24/2021 12:48 PM CDT) Narrative Aurelia Huitron MD - 09/24/2021 12:48 PM CDT Aurelia Huitron MD ? 09/24/2021 12:50 PM Suture Removal Date/Time: 09/24/2021 12:48 PM Performed by: Aurelia Huitron MD Authorized by: Aurelia Huitron MD [place] Protocol: Informed consent: ??Risks, benefits, alternatives discussed Patient identity confirmation method: no armband. Lab/Diag test results: ??N/a Supplies, devices and special equipment are available: yes ?? Site/side marked: n/a ??Immediately prior to the procedure a time out was called: a verbal verification by the procedure participants confirmed correct patient identity, correct site/side marked and visible (if applicable); agreement on procedure to be done; and correct patient positioning ?? Local anesthesia used?: No ?? Body area: ??Head/neck Location details: ??Scalp Wound appearance: ??Clean Sutures removed: ??11 Post-procedure assessment: declined- it is in her hair. All procedure needles, sponges and other items accounted for: Yes ?? us Aurelia Huitron MD IN CLINIC/BEDSIDE O RDERABLES Final Result documented in this encounter Visit Diagnoses Diagnosis Laceration of scalp, subsequent encounter- Primary Essential hypertension Unspecified essential hypertension Type 2 diabetes mellitus with other specified complication, without long-term current use of insulin (HCC) documented in this encounter Care Teams Pillowcase Folder Relationship Specialty Start Date End Date Aurelia Huitron MD [address] [place] [address] PCP - General Family Medicine 05/23/20 documented as of this encounter
--- OUTSIDE RECORDS SUMMARY | 2024-07-10 04:43 | XMS_ITS | Encounter Summary ---
Author Organization [facility] Address [address] [facility] [address] [place] [address] Care Team Providers Care Molder Trimmer Name Role Phone Aurelia Huitron MD Primary Care Provi jarred Encounter Details Date Type Department Care Team (Late st Contact Info) Description 08/13/2021 Telephone [facility] Family Medicine [address] [phone] Aurelia Huitron MD [address] [address] Social History Tobacco Use Types [...] on file Legal Sex Female 12:58 AM FABRICATION MIG WELDER Gender Identity Not on file Sexual Orientation Not on file documented as of this encounter Miscellaneous Notes * Telephone Encounter - Belem Fine LPN - 08/13/2021 8:24 AM FABRICATION MIG WELDER Called pt and made her aware, she vu. ICATION MIG WELDER * Telephone Encounter - Belem Fine LPN - 08/13/2021 8:12 AM FABRICATION MIG WELDER ----- Message from Aurelia Huitron MD sent at 08/13/2021 7:37 AM FABRICATION MIG WELDER ----- Regarding: Notification of Unviewed Test Results Contact: Pt did not see [email or web address] message, please call ICATION MIG WELDER documented in this encounter Plan of Treatment Not on file documented as of this encounter Visit Diagnoses Not on filedocumented in this encounter Care Teams Molder Trimmer Relationship Specialty Start Date End Date Aurelia Huitron MD [address] [place] [address] PCP - General Family Medicine 05/23/20 documented as of this encounter
--- OUTSIDE RECORDS SUMMARY | 2024-07-10 04:43 | XMS_ITS | Encounter Summary ---
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 Gender Identity Not on file Sexual Orientation Not on file documented as of this encounter Ordered Prescriptions Prescription Sig Dispense Quantity Refills Last Filled Start Date End Date liraglutide (Victoza 3-Eduardo) 0.6 mg/0.1 mL (18 mg/3 mL) injection Inject 1.2 mg under the skin daily 9 mL 2 07/19/2021 11/19/2021 documented in this encounter Plan of Treatment Not on file documented as of this encounter Visit Diagnoses Not on filedocumented in this encounter Discontinued Medications Medication Sig Discontinue Reason Start Date End Da te Victoza 3-Eduardo 0.6 mg/0.1 mL (18 mg/3 mL) injection INJECT 1.8 MG UNDER THE SKIN DAILY INDICATIONS: TYPE 2 DIABETES MELLITUS Reorder 04/29/2021 07/19/2021 documented as of this encounter Care Teams Career Transition Specialist Relationship Specialty Start Date End Date Aurelia Huitron MD [address] [place] [address] PCP - General Family Medicine 05/23/20 documented as of this encounter
--- OUTSIDE RECORDS SUMMARY | 2024-07-10 04:43 | XMS_ITS | Encounter Summary ---
Author Organization [facility] Address [address] [facility] [address] [place] [id number] Care Team Providers Care Airset Molder Name Role Phone Aurelia Huitron MD Primary Care Provi jarred Reason for Visit * Reason Comments UTI burning, frequency, hematuria x2 days Encounter Details Date Type Department Care Team (Late st Contact Info) Description 05/24/2021 11:00 AM DIVISION MANAGER Office Visit [facility] Family [facility] [address] [phone] Ekaterina Mayfield PA [address] [address] Acute cystitis with hematuria (Primary Dx) Social History Tobacco Use Types [...] on file Legal Sex Female 12:58 AM DIVISION MANAGER Gender Identity Not on file Sexual Orientation Not on file documented as of this encounter Last Filed Vital Signs Vital Sign Reading Time Taken Comments Blood Pressure 138/74 05/24/2021 11:11 AM DIVISION MANAGER Pulse 83 05/24/2021 11:11 AM DIVISION MANAGER Temperature 36.8 ??C (98.2 ??F) 05/24/2021 11:[address] Respiratory Rate - - Oxygen Saturation 96% 05/24/2021 11:11 AM DIVISION MANAGER Inhaled Oxygen Concentration - - Weight 89.4 kg (197 lb) 05/24/2021 11:11 AM DIVISION MANAGER Height 152.4 cm (5') 05/24/2021 11:11 AM DIVISION MANAGER Body Mass Index 38.47 05/24/2021 11:11 AM DIVISION MANAGER documented in this encounter Ordered Prescriptions Prescription Sig Dispense Quantity Refills Last Filled Start Date End Date phenazopyridine (PYRIDIUM) 200 mg tabletIndications: Acute cystitis with hematuria Take 1 tablet (200 mg total) by mouth 3 (three) times a day as needed for bladder spasms for up to 2 days 6 tablet 05/24/2021 1 sulfamethoxazole-t rimethoprim (BACTRIM DS) 800-160 mg per tabletIndications: Acute cystitis with hematuria Take 1 tablet by mouth 2 (two) times a day for 7 days 14 tablet 05/24/2021 1 documented in this encounter Progress Notes * Ekaterina Mayfield PA - 05/24/2021 11:00 AM CST Images from the original note were not included. Subjective/Objective Patient ID: Valeria Johnson is a 71 y.o. female. Chief Complaint Chief Complaint Patient presents with ??? UTI burning, frequency, hematuria x2 days HPI UTI This is a new problem. Episode onset: x2 days. The quality of the pain is described as burning. There has been no fever. Associated symptoms include chills, frequency, hematuria (red/pink tinged) andurgency. Pertinent negatives include no flank pain, nausea or vomiting. Treatments tried: cranberrypills, fluids. There is no history of recurrent UTIs. Review of Systems Constitutional: Positive for chills. Negative for fever. HENT: Negative for congestion, ear pain and rhinorrhea. Respiratory: Negative for cough and shortness of breath. Cardiovascular: Negative for chest pain. Gastrointestinal: Positive for abdominal pain (fullness). Negative for nausea and vomiting. Genitourinary: Positive for dysuria, frequency, hematuria (red/pink tinged) and urgency. Negative for flank pain. Musculoskeletal: Negative for arthralgias and back pain. Skin: Negative for rash. BP 138/74 (BP Location: Left arm, Patient Position: Sitting) Pulse 83 Temp 36.8 ??C (98.2 ??F) Ht 152.4 cm (5') Wt 89.4 kg (197 lb) SpO2 96% BMI 38.47 kg/m?? Physical Exam Vitals and nursing note [...] gallop. Pulmonary: Effort: Pulmonary effort is normal. No respiratory distress. Breath sounds: Normal breath sounds. No stridor. No decreased breath sounds, wheezing, rhonchi or rales. Abdominal: General: Bowel sounds are normal. There is no distension. Palpations: Abdomen is soft. There is no mass. Tenderness: There is no abdominal tenderness. There is no right CVA tenderness, left CVA tenderness, guarding or rebound. Musculoskeletal: Cervical back: Normal range of motion and neck supple. Lymphadenopathy: Cervical: No cervical adenopathy. Skin: General: Skin is warm and dry. Neurological: Mental Status: She is alert and oriented to person, place, and time. Gait: Gait normal. Psychiatric: Behavior: Behavior normal. Office Visit on 05/24/2021 Component Date Value ??? Color, Urine, POC 05/24/2021 Dark Adelaida ??? Clarity, ur, POC 05/24/2021 Cloudy* ??? Glucose, ur, POC 05/24/2021 Negative ??? Bilirubin, ur, POC 05/24/2021 Negative ??? Ketones, ur, POC 05/24/2021 Trace* ??? Specific Lincoln, POC 05/24/2021 1.030 ??? Blood, ur, POC 05/24/2021 Large* ??? pH, ur, POC 05/24/2021 6.0 ??? Protein, ur, POC 05/24/2021 1+* ??? Urobilinogen, urine, POC 05/24/2021 0.2 ??? Nitrite, ur, POC 05/24/2021 Negative ??? Leukocytes, ur, POC 05/24/2021 3+* ??? Lot Number 05/24/2021 [id number] Assessment/Plan Diagnoses and all orders for this visit: Acute cystitis with hematuria (Primary) - POCT urinalysis dipstick - Urine culture Urine, clean voided; Future - sulfamethoxazole-trimethoprim (BACTRIM DS) 800-160 mg per tablet; Take 1 tablet by mouth 2 (two) times a day for 7 days - phenazopyridine (PYRIDIUM) 200 mg tablet; Take 1 tablet (200 mg total) by mouth 3 (three) times aday as needed for bladder spasms for up to 2 days Urine dip done in office-showed infection Urine sent for culture ([facility] If you do not have my[facility], then the office will call you) Take all antibiotic-no leftovers Take Pyridium prn for 2 days Side effects of meds discussed Push fluids-water/cranberry juice Avoid caffeine Use dove type soap in vaginal area-no scents or dyes Take showers not baths, no bubble baths Wipe front to back Increase fluids Watch for worsening symptoms- fever/chills, hematuria, itching, vaginal discharge, back pain, emesis etc... If no improvement to rtc or call. There may be grammatical errors in this note due to use of voice recognition software. SION MANAGER documented in this encounter Plan of Treatment Not on file documented as of this encounter Procedures Procedure Name Priority Date/Time Associated Diagnosis Comments POCT URINALYSIS DIPSTICK Routine 05/24/2021 11:59 AM DIVISION MANAGER Acute cystitis with hematuria URINE CULTURE Routine 05/24/2021 11:05 AM DIVISION MANAGER Acute cystitis with hematuria documented in this encounter Results * (ABNORMAL) POCT urinalysis dipstick (05/24/2021 11:59 AM DIVISION MANAGER) Color, Urine, POC Dark Adelaida Clarity, ur, POC Cloudy(A) Clear Glucose, ur, POC Negative Negative mg/dL Bilirubin, ur, POC Negative Negative, Small, Moderate, Large Ketones, ur, POC Trace(A) Negative Specific Lincoln, POC 1.030 1.005 - 1.030 Blood, ur, POC Large(A) Negative pH, ur, POC 6.0 5.0 - 8.0 Protein, ur, POC 1+(A) Negative Urobilinogen, urine, POC 0.2 0.2 - 1.0 mg/dL Nitrite, ur, POC Negative Negative Leukocytes, ur, POC 3+(A) Negative Lot Number [id number] Urine 05/24/2021 11:5 9 AM DIVISION MANAGER Ekaterina RAMOS POINT OF CARE TEST ORDERA BLES Final Result * (ABNORMAL) Urine culture Urine, clean voided (05/24/2021 11:05 AM DIVISION MANAGER) Urine culture (A) [employer] Aki Hernandez Comment: ??CULTURE, URINE, ROUTINE ?Micro Number: ?[id number] ??Test Status: ? Final ??Specimen Source: ?? Urine ??Specimen Quality: ??Adequate ??Result: ?10,000-49,000 CFU/mL of Escherichia coli ?E.coli ?INT ?? KIRBY ?? AMOX/CLAVULANATE ? S ? 4 ?? AMPICILLIN ? S ? 8 ?? AMP/SULBACTAM ?S ? 4 ?? CEFAZOLIN ?NR ?<=4 2 ?? CEFEPIME ? S ? <=1 ?? CEFTRIAXONE ?S ? <=1 ?? CIPROFLOXACIN ?S ? <=0.25 ?? ERTAPENEM ?S ? <=0.5 ?? GENTAMICIN ? S ? <=1 ?? IMIPENEM ? S ? <=0.25 ?? LEVOFLOXACIN ? S ? <=0.12 ?? NITROFURANTOIN ? S ? <=16 ?? PIP/TAZOBACTAM ? S ? <=4 ?? TOBRAMYCIN ? S ? <=1 ?? TRIMETHOPRIM/SULFA ? S ? <=20 S=Susceptible ??I=Intermediate ??R=Resistant ??* = Not Tested NR = Not Reported ??NN = See Therapy Comments THERAPY COMMENTS ?Note 1: ?For infections other than uncomplicated UTI ?caused by E. coli, K. pneumoniae or P. mirabilis: ?Cefazolin is resistant if KIRBY > or = 8 mcg/mL. ?(Distinguishing susceptible versus intermediate ?for isolates with KIRBY < or = 4 mcg/mL requires ?additional testing.) ?Note 2: ?For uncomplicated UTI caused by E. coli, ?K. pneumoniae or P. mirabilis: Cefazolin is ?susceptible if KIRBY <32 mcg/mL and predicts ?susceptible to the oral agents cefaclor, cefdinir, ?cefpodoxime, cefprozil, cefuroxime, cephalexin ?and loracarbef. Urine, clean voided 05/24/2021 11:05 AM DIVISION MANAGER 05/25/2021 3:01 AM DIVISION MANAGER Ekaterina RAMOS LAB MICROBIOLOGY - GENERA L ORDERABLES Final Result [facility] [address] [place] [address] documented in this encounter Visit Diagnoses Diagnosis Acute cystitis with hematuria- Primary documented in this encounter Discontinued Medications Medication Sig Discontinue Reason Start Date End Da te eszopiclone (LUNESTA) 3 mg tablet TAKE 1 TABLET BY MOUTH NIGHTLY NEEDED FOR SLEEP (TAKE IMMEDIATELY BEFORE BEDTIME) 04/23/2021 05/24/2021 methylPREDNISolone (MEDROL DOSEPACK) 4 mg DosepackIndications:Ri ght acute serous otitis media, recurrence not specified,Eustachian tube dysfunction, bilateral Take as directed on package. Therapy completed 04/19/2021 05/24/2021 documented as of this encounter Care Teams Airset Molder Relationship Specialty Start Date End Date Aurelia Huitron MD [facility] [address] [place] [id number] PCP - General Family Medicine 05/23/20 documented as of this encounter
--- OUTSIDE RECORDS SUMMARY | 2024-07-10 04:43 | XMS_ITS | Encounter Summary ---
Author Organization [facility] Address [address] [facility] [address] [place] [address] Care Team Providers Care Grain [employer] Plants Supervisor Name Role Phone Aurelia Huitron MD Primary Care Provi jarred Encounter Details Date Type Department Care Team (Late st Contact Info) Description 04/19/2021 10:00 AM CDT Office Visit [facility] [address] [place] [phone] Hawa Byrd NP [address] [place] [address] Right acute serous otitis media, recurrence not specified (Primary Dx); Eustachian tube dysfunction, bilateral Social History Tobacco Use Types Packs/Day Years [...] on file 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 Gender Identity Not on file Sexual Orientation Not on file documented as of this encounter Last Filed Vital Signs Vital Sign Reading Time Taken Comments Blood Pressure - - Pulse 83 04/19/2021 10:20 AM CDT Temperature 36.9 ??C (98.4 ??F) 04/19/2021 10:20 AM C DT Respiratory Rate - - Oxygen Saturation 97% 04/19/2021 10:20 AM CDT Inhaled Oxygen Concentration - - Weight - - Height - - Body Mass Index - - documented in this encounter Ordered Prescriptions Prescription Sig Dispense Quantity Refills Last Filled Start Date End Date methylPREDNISolone (MEDROL DOSEPACK) 4 mg DosepackIndication s:Right acute serous otitis media, recurrence not specified,Eustachi an tube dysfunction, bilateral Take as directed on package. 21 tablet 04/19/2021 1 cefdinir (OMNICEF) 300 mg capsuleIndications :Right acute serous otitis media, recurrence not specified,Eustachi an tube dysfunction, bilateral Take 1 capsule (300 mg total) by mouth 2 (two) times a day for 10 days 20 capsule 04/19/2021 1 documented in this encounter Progress Notes * Hawa Byrd, OVERNIGHT STOCKER - 04/19/2021 10:00 AM CDT Images from the original note were not included. [facility] (Covid-19) Visit date: 04/19/2021 Assessment and Recommendations: Patient does not meet both criteria of COVID-19 specific symptoms and high risk comorbidities COVID testing indicated No Diagnoses and all orders for this visit: Right acute serous otitis media, recurrence not specified (Primary) - cefdinir (OMNICEF) 300 mg capsule; Take 1 capsule (300 mg total) by mouth 2 (two) times a day for10 days - methylPREDNISolone (MEDROL DOSEPACK) 4 mg Dosepack; Take as directed on package. Eustachian tube dysfunction, bilateral - cefdinir (OMNICEF) 300 mg capsule; Take 1 capsule (300 mg total) by mouth 2 (two) times a day for10 days - methylPREDNISolone (MEDROL DOSEPACK) 4 mg Dosepack; Take as directed on package. Antibiotics: as prescribed PO steroids as prescribed Additional guidance: 1. Recommend Over the counter symptomatic treatment or seek PCP's advise or ER depending on worsening degree of symptoms. 2. Patient to look at [facility] for additional specific information regarding COVID-19 or See patientinstructions for test center selection. Discussed symptomatic relief of symptoms Discussed need to return to ER for further evaluation including worsening fevers, shortness of breath, of other concerning symptoms Advised to rest and stay adequately hydrated Patient presents to clinic for assessment of: Focused HPI: Patient presents to the [facility] with c/o right ear pain/pressure and positional dizziness. Of note, patient had similar symptoms 2 weeks ago and was treated for a sinus infection at that time. Overall patient has had symptoms well over 1 month. Admits that symptoms did improve with the antibiotics, however has still had ear pain/dizziness as well as mild post-nasal drip and cough. Denies fever/chills. Admits that she initially started taking the antibiotics once daily by accident, so she just finished the fully course approximately 4 days ago. Has been fully vaccinated against Covid, denies any known sick exposures. Patient ID: Valeria Johnson is a 71 y.o. female followed by Aurelia Huitron MD Valeria Johnson contacted the Respiratory Clinic today for Respiratory/Covid-19 evaluation. The patient-submitted questionnaire was assessed for pertinent information and the patient's problem list, medication list, and allergies were reviewed. The chart was updated to identify any changes in these areas. Symptoms: right ear pain, dizziness, post-nasal drip, slight cough Duration: 1month(s) Plus High Risk Comorbidity : Age >= 65 Exposure risk (travel or close contact): No Past Medical History: Diagnosis Date ??? Anxiety ??? Apnea ??? Diabetes mellitus (HCC) ??? Hypercholesterolemia with hypertriglyceridemia ??? Hypertension ??? Insomnia Past Surgical History: Procedure Laterality Date ??? CATARACT EXTRACTION W/ INTRAOCULAR LENS IMPLANT right eye ??? KNEE ARTHROSCOPY W/ MENISCAL REPAIR ??? TUBAL LIGATION No Known Allergies Social History Tobacco Use ??? Smoking status: Never Smoker ??? Smokeless tobacco: Never Used Substance Use Topics ??? Alcohol use: Never Family History Problem Relation Age of Onset ??? No Known Problems Mother ??? Hypertension Father ??? Diabetes Father ??? COPD Father ??? Rheum arthritis Sister Immunization History Administered Date(s) Administered ??? DTP 06/05/2010 ??? Influenza, Quadrivalent, High Dose, Preservative Free, Intrr 04/10/2020 ??? Influenza, Trivalent, High Dose, Split, Preservative Free, Intramuscular 04/22/2017, 04/13/2018, 04/04/2019 ??? Influenza, Trivalent, Intramuscular 04/25/2014, 05/01/2014, 04/18/2015, 04/05/2016 ??? Influenza, Trivalent, Preservative Free, Intramuscular 04/17/2015 ??? Pfizer SARS-CoV-2 Vaccination 08/27/2020, 09/17/2020 ??? Pneumococcal Conjugate PCV 13 04/22/2017 ??? Pneumococcal Polysaccharide PPV23 09/24/2012, 05/16/2020 ??? Tdap 12/06/2019 ??? ZOSTER LIVE 08/20/2012 ??? ZOSTER Recombinant 10/28/2018, 01/18/2019 Social History Tobacco Use Smoking Status Never Smoker Smokeless Tobacco Never Used Current Medications: Outpatient Encounter Medications as of 04/19/2021 Medication Sig Dispense Refill ??? amLODIPine (NORVASC) 5 mg tablet TAKE 1 TABLET BY MOUTH TWICE A DAY 180 tablet 1 ??? cefdinir (OMNICEF) 300 mg capsule Take 1 capsule (300 mg total) by mouth 2 (two) times a day for 10 days 20 capsule 0 ??? escitalopram (LEXAPRO) 10 mg tablet TAKE 1 TABLET BY MOUTH DAILY 90 tablet 1 ??? eszopiclone (LUNESTA) 3 mg tablet Take 1 tablet (3 mg total) by mouth nightly as needed for sleep Take immediately before bedtime 90 tablet 0 ??? liraglutide (VICTOZA) 0.6 mg/0.1 mL (18 mg/3 mL) injection Inject 1.8 mg under the skin daily Indications: type 2 diabetes mellitus 3 pen 3 ??? losartan (COZAAR) 100 mg tablet TAKE 1 TABLET BY MOUTH DAILY 90 tablet 1 ??? meloxicam (MOBIC) 7.5 mg tablet TAKE 2 TABLETS(15 MG) BY MOUTH DAILY 90 tablet 0 ??? metFORMIN (GLUCOPHAGE) 500 mg tablet TAKE 1 TABLET BY MOUTH TWICE A DAY WITH MEALS 180 tablet 1 ??? methocarbamoL (ROBAXIN) 750 mg tablet Take 1 tablet (750 mg total) by mouth 3 (three) times a day as needed for muscle spasms 30 tablet 1 ??? methylPREDNISolone (MEDROL DOSEPACK) 4 mg Dosepack Take as directed on package. 21 tablet 0 ??? omeprazole (PriLOSEC) 20 mg capsule TAKE 1 CAPSULE BY MOUTH DAILY 90 capsule 1 ??? rosuvastatin (CRESTOR) 10 mg tablet TAKE 1 TABLET BY MOUTH DAILY 90 tablet 1 ??? TRUEplus Pen Needle 31 gauge x 1/4 needle Use daily with victoza 200 each 3 No facility-administered encounter medications on file as of 04/19/2021. Review of Systems: Please see HPI. Review of Systems Constitutional: Negative for appetite change, chills, fatigue and fever. HENT: Positive for ear pain and postnasal drip. Negative for congestion, ear discharge, rhinorrhea,sinus pressure, sinus pain and sore throat. Eyes: Negative for redness. Respiratory: Positive for cough. Negative for shortness of breath. Cardiovascular: Negative for chest pain and leg swelling. Gastrointestinal: Negative for diarrhea, nausea and vomiting. Genitourinary: Negative for dysuria and flank pain. Musculoskeletal: Negative for back pain and neck stiffness. Skin: Negative for rash. Neurological: Positive for dizziness. Negative for syncope, weakness and light-headedness. Psychiatric/Behavioral: The patient is not nervous/anxious. Physical exam Vitals: 04/19/21 1020 Pulse: 83 Temp: 36.9 ??C (98.4 ??F) SpO2: 97% General appearance: In obvious distress No Neuro: Alert Yes Physical Exam Vitals and nursing note reviewed. Constitutional: Appearance: Normal appearance. HENT: Head: Normocephalic and atraumatic. Right Ear: External ear normal. A middle ear effusion is present. Tympanic membrane is injected anderythematous. Left Ear: External ear normal. A middle ear effusion is present. Tympanic membrane is not erythematous. Nose: Nose normal. Mouth/Throat: Mouth: Mucous membranes are moist. Pharynx: Oropharynx is clear. Eyes: Conjunctiva/sclera: Conjunctivae normal. Cardiovascular: Rate and Rhythm: Normal rate and regular rhythm. Heart sounds: Normal heart sounds. Pulmonary: Effort: Pulmonary effort is normal. Breath sounds: Normal breath sounds. No stridor. No wheezing, rhonchi or rales. Abdominal: General: There is no distension. Musculoskeletal: General: Normal range of motion. Cervical back: Normal range of motion and neck supple. Skin: Findings: No rash. Neurological: General: No focal deficit present. Mental Status: She is alert and oriented to person, place, and time. Psychiatric: Mood and Affect: Mood normal. Behavior: Behavior normal. Discussed symptom profile and diagnosis of otitis media and eustachian tube dysfunction with patient at length. Provided prescription for Cefdinir for antimicrobial coverage, advised to take as directed to completion. Additionally provided prescription for a Medrol dose pack, to take as directed. Encouraged use of OTC Flonase and Zyrtec to help manage nasal congestion/drainage and fluid in ears. May use OTC Tylenol/Ibuprofen as needed for any pain. Encouraged increased fluid intake (primarily water). To closely monitor symptoms at home. May f/u with [facility] as needed. To f/u promptly if symptoms worsen or fail to improve. To f/u in ER if symptoms become severe or if any other concerning symptoms develop. Patient verbalized understanding. The patient was given information regarding any new medication(s) prescribed, if applicable, as well as any [id number] remedies. she was given instructions regarding follow up and timeframe if symptoms worsen or don???t improve. These instructions were included in the [employer] message reply tothe patient. Patient Instructions were included in the message reply to patient. Hwaa Byrd NP documented in this encounter Plan of Treatment Not on file documented as of this encounter Visit Diagnoses Diagnosis Right acute serous otitis media, recurrence not specified- Primary Eustachian tube dysfunction, bilateral documented in this encounter Care Teams Grain [employer] Ye[employer] Plants Supervisor Relationship Specialty Start Date End Date Aurelia Huitrno MD [facility] [address] [place] [id number] PCP - General Family Medicine 05/23/20 documented as of this encounter
--- OUTSIDE RECORDS SUMMARY | 2024-07-10 04:43 | XMS_ITS | Encounter Summary ---
Author Organization [facility] Address [address] [facility] [address] [place] [address] Care Team Providers Care Patient Coordinator Name Role Phone Aurelia Huitron MD Primary Care Provi jarred Encounter Details Date Type Department Care Team (Late st Contact Info) Description 04/03/2021 2:45 PM CDT Office Visit [facility] Respiratory Clinic [address] [place] [phone] Hawa Byrd NP [address] [place] [address] Acute non-recurrent maxillary sinusitis (Primary Dx) Social History Tobacco Use Types [...] on file 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 Gender Identity Not on file Sexual Orientation Not on file documented as of this encounter Last Filed Vital Signs Vital Sign Reading Time Taken Comments Blood Pressure - - Pulse 107 04/03/2021 2:16 PM CDT Temperature 36.9 ??C (98.4 ??F) 04/03/2021 2:16 PM CD T Respiratory Rate - - Oxygen Saturation 94% 04/03/2021 2:16 PM CDT Inhaled Oxygen Concentration - - Weight - - Height - - Body Mass Index - - documented in this encounter Ordered Prescriptions Prescription Sig Dispense Quantity Refills Last Filled Start Date End Date amoxicillin-clavul anate (AUGMENTIN) 875-125 mg per tabletIndications: Acute non-recurrent maxillary sinusitis Take 1 tablet by mouth 2 (two) times a day for 10 days 20 tablet 04/03/2021 04/13/2021 documented in this encounter Progress Notes * Hawa Byrd, DIRECTOR ALUMNI RELATIONS - 04/03/2021 2:45 PM CDT Images from the original note were not included. [facility] (Covid-19) Visit date: 04/03/2021 Assessment and Recommendations: Patient does not meet both criteria of COVID-19 specific symptoms and high risk comorbidities COVID testing indicated No Diagnoses and all orders for this visit: Acute non-recurrent maxillary sinusitis (Primary) - amoxicillin-clavulanate (AUGMENTIN) 875-125 mg per tablet; Take 1 tablet by mouth 2 (two) times aday for 10 days Antibiotics: as prescribed Additional guidance: 1. Recommend Over the counter symptomatic treatment or seek PCP's advise or ER depending on worsening degree of symptoms. 2. Patient to look at [facility] for additional specific information regarding COVID-19 or See patientinstructions for test center selection. Discussed symptomatic relief of symptoms Discussed need to return to ER for further evaluation including worsening fevers, shortness of breath, of other concerning symptoms Advised to rest and stay adequately hydrated Patient presents to clinic for assessment of: Focused HPI: Patient presents to the [facility] with c/o dizziness, sinus pressure, nasal congestion/drainage, post-nasal drip, right ear pain and cough x 10 days. Admits that she went swimming last Thursday and put her head underwater which she does not typically do - reports that symptoms started that evening. Has taken OTC Coricidin HBP without any significant improvement in symptoms. States that symptoms seem to improve at first but have now been worsening again. Patient ID: Valeria Johnson is a 71 y.o. female followed by Aurelia Huitron MD Valeria Johnson contacted the Respiratory Clinic today for Respiratory/Covid-19 evaluation. The patient-submitted questionnaire was assessed for pertinent information and the patient's problem list, medication list, and allergies were reviewed. The chart was updated to identify any changes in these areas. Symptoms: sinus pressure, nasal congestion/drainage, post-nasal drip, right ear pain, slight cough,dizziness Duration: 10day(s) Plus High Risk Comorbidity : Age >= [...] Current Medications: Outpatient Encounter Medications as of 04/03/2021 Medication Sig Dispense Refill ??? amLODIPine (NORVASC) 5 mg tablet TAKE 1 TABLET BY MOUTH TWICE A DAY 180 tablet 1 ??? amoxicillin-clavulanate (AUGMENTIN) 875-125 mg per tablet Take 1 tablet by mouth 2 (two) times a day for 10 days 20 tablet 0 ??? escitalopram (LEXAPRO) 10 mg tablet [...] for muscle spasms 30 tablet 1 ??? omeprazole (PriLOSEC) 20 mg capsule TAKE 1 CAPSULE BY MOUTH DAILY 90 capsule 1 ??? rosuvastatin (CRESTOR) 10 mg tablet TAKE 1 TABLET BY MOUTH DAILY 90 tablet 1 ??? TRUEplus Pen Needle 31 gauge x 1/4 needle Use daily with victoza 200 each 3 No facility-administered encounter medications on file as of 04/03/2021. Review of Systems: Please see HPI. Review of Systems Constitutional: Negative for chills and fever. HENT: Positive for congestion, ear pain, postnasal drip, rhinorrhea, sinus pressure and sinus pain.Negative for ear discharge and sore throat. Eyes: Negative for redness. Respiratory: Positive for cough. Negative for shortness of breath. Cardiovascular: Negative for chest pain and leg swelling. Gastrointestinal: Negative for diarrhea, nausea and vomiting. Genitourinary: Negative for dysuria and flank pain. Musculoskeletal: Negative for back pain and neck stiffness. Skin: Negative for rash. Neurological: Positive for dizziness. Negative for syncope, weakness, light- headedness and headaches. Psychiatric/Behavioral: The patient is not nervous/anxious. Physical exam Vitals: 04/03/21 1416 Pulse: 107 Temp: 36.9 ??C (98.4 ??F) TempSrc: Temporal SpO2: 94% General appearance: In obvious distress No Neuro: Alert Yes Physical Exam Vitals and nursing note reviewed. Constitutional: Appearance: Normal appearance. HENT: Head: Normocephalic and atraumatic. Right Ear: External ear normal. A middle ear effusion is present. Left Ear: External ear normal. A middle ear effusion is present. Nose: Congestion present. Right Sinus: Maxillary sinus tenderness present. No frontal sinus tenderness. Left Sinus: No maxillary sinus tenderness or frontal sinus tenderness. Mouth/Throat: Mouth: Mucous membranes are moist. Pharynx: Oropharynx is clear. No oropharyngeal exudate or posterior oropharyngeal erythema. Eyes: Conjunctiva/sclera: Conjunctivae normal. Cardiovascular: Rate and Rhythm: Normal rate and regular rhythm. Heart sounds: Normal heart sounds. Pulmonary: Effort: Pulmonary effort is normal. Breath sounds: Normal breath sounds. No stridor. No wheezing, rhonchi or rales. Abdominal: General: There is no distension. Musculoskeletal: General: Normal range of motion. Cervical back: Normal range of motion and neck supple. No tenderness. Lymphadenopathy: Cervical: Cervical adenopathy present. Skin: Findings: No rash. Neurological: General: No focal deficit present. Mental Status: She is alert and oriented to person, place, and time. Psychiatric: Mood and Affect: Mood normal. Behavior: Behavior normal. Discussed diagnosis of acute sinusitis with patient at length. Low suspicion for Covid at this time given symptom profile and length of symptoms. Provided prescription for Augmentin for antimicrobial coverage, advised to take as directed to completion. Encouraged use of OTC Flonase and Zyrtec to help manage nasal congestion/drainage and fluid in bilateral ears. May use OTC Tylenol/Ibuprofen as needed [...] prescribed, if applicable, as well as any enfh-ldz-[id number] remedies. she was given instructions regarding follow up and timeframe if symptoms worsen or don???t improve. These instructions were included in the SCRM message reply tothe patient. Patient Instructions were included in the message reply to patient. Hawa Byrd NP documented in this encounter Plan of Treatment Not on file documented as of this encounter Visit Diagnoses Diagnosis Acute non-recurrent maxillary sinusitis- Primary documented in this encounter Care Teams Patient Coordinator Relationship Specialty Start Date End Date Aurelia Huitron MD [address] [place] [address] PCP - General Family Medicine 05/23/20 documented as of this encounter
--- OUTSIDE RECORDS SUMMARY | 2024-07-10 04:43 | XMS_ITS | Encounter Summary ---
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 * Addendum Note - Dorys Villanueva LPN - 10/23/2021 11:02 AM CDTAddended by: DORYS VILLANUEVA on: 10/23/2021 11:02 AM Modules accepted: Orders * Telephone Encounter - Dorys Villanueva LPN - 10/23/2021 11:02 AM CDT Referral placed. * Telephone Encounter - Jeanie Ely - 10/23/2021 10:[address] External referral to the provider listed in the previous message. Office location is [address] [place] [address] Thank you * Telephone Encounter - Nicole Torres - 10/22/2021 3:08 PM CDT REFERRAL Is this a Continuation of Care? : NO Specialty: OPTHALMOLOGY Diagnosis/Reason for Referral: [id number] ( BILATERAL CATARACTS) Appointment Date & Time: 10-30-2021 @ 10:45AM Specialist Full Name: DR. CYRUS MESA Specialist Address: [facility] cause analyst Phone# : [phone] [facility] Fax# : [phone] Specialist NPI Number: [id number] documented in this encounter Plan of Treatment Not on file documented as of this encounter Visit Diagnoses Diagnosis Cataract of both eyes, unspecified cataract type- Primary documented in this encounter Care Teams Aqueduct And Reservoir Keeper Relationship Specialty Start Date End Date Aurelia Huitron MD [address] [place] [address] PCP - General Family Medicine 05/23/20 documented as of this encounter
--- OUTSIDE RECORDS SUMMARY | 2024-07-10 04:43 | XMS_ITS | Encounter Summary ---
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 STANT DIRECTOR * Telephone Encounter - Dia Khan MA - 08/20/2021 8:34 AM CST ----- Message from Aurelia Huitron MD sent at 08/19/2021 4:53 PM ASSISTANT DIRECTOR ----- Your pap smear is normal/negative, and the test for HPV is also negative. You can repeat this in 3-5 years. If you have any questions, please let me know. Thank you! STANT DIRECTOR documented in this encounter Plan of Treatment Not on file documented as of this encounter Visit Diagnoses Not on filedocumented in this encounter Care Teams Boat Washer Relationship Specialty Start Date End Date Aurelia Huitron MD [address] [place] [address] PCP - General Family Medicine 05/23/20 documented as of this encounter
--- OUTSIDE RECORDS SUMMARY | 2024-07-10 04:43 | XMS_ITS | Encounter Summary ---
Author Organization [facility] Address [address] [facility] [address] [place] [address] Care Team Providers Care Wireless Sales Manager Name Role Phone Aurelia Huitron MD Primary Care Provi jarred Reason for Visit * Reason Comments Suture / Staple Removal Patient arrives to have stiches removed from forehead. Encounter Details Date Type Department Care Team (Late st Contact Info) Description 09/20/2021 8:30 AM CDT Office Visit [facility] Family Medicine [address] [phone] Aurelia Huitron MD [address] [address] Fall, subsequent encounter (Primary Dx); Laceration of scalp, subsequent encounter; Balance problem; Type 2 diabetes mellitus with other specified complication, without long-term current use of insulin (HCC); Alcohol use Social History Tobacco Use Types Packs/Day Years [...] points, staff should administer the PHQ-9) 0 09/20/2021 Comments No Sex and Gender Information Value Date Recorded Sex Assigned at Not on file Legal Sex Female 12:58 AM SANE NURSE Gender Identity Not on file Sexual Orientation Not on file documented as of this encounter Last Filed Vital Signs Vital Sign Reading Time Taken Comments Blood Pressure 130/76 09/20/2021 8:24 AM CDT Pulse 84 09/20/2021 8:24 AM CDT Temperature 36.1 ??C (97 ??F) 09/20/2021 8:24 AM CDT Respiratory Rate 16 09/20/2021 8:24 AM CDT Oxygen Saturation 97% 09/20/2021 8:24 AM CDT Inhaled Oxygen Concentration - - Weight 89.2 kg (196 lb 9.6 oz) 09/20/2021 8:24 A M CDT Height 165.1 cm (5' 5 ) 09/20/2021 8:24 AM CDT Body Mass Index 32.72 09/20/2021 8:24 AM CDT documented in this encounter Progress Notes * Aurelia Huitron MD - 09/20/2021 8:30 AM CDT Images from the original note were not included. Subjective/Objective Patient ID: Valeria Johnson is a 71 y.o. female. Chief Complaint Chief Complaint Patient presents with ??? Suture / Staple Removal Patient arrives to have stiches removed from forehead. HPI The patient is presenting to the office for suture removal. She presented to the emergency room on September 14, 2019 to where she had a fall at home. She had had a couple of drinks earlier, and was walking and lost her balance. She had a glancing blow on the edge of a piece of furniture, where scope got caught. At the time, she was denying any fevers, chills, sinus drainage, sore throat, coughing, chest pain, palpitations, syncope or near syncope. In the emergency room, her EKG was normal sinus rhythm, normal axis no QRS or ST wave changes. On exam she had a 12 cm laceration to her upper forehead. There was no deformity or crepitance. She had blood work done, CBC, CMP, troponin, EKG were all within normal. They did give her IV fluids. She had sutures placed, and is here to have them removed. She is actually at day 6. The sutures are still slight oozing. She is also not feeling as steady asshe was. She does not feel that she had too much to drink. She is here for further care Review of Systems Constitutional: Negative for chills and fever. Eyes: Negative for visual disturbance. Respiratory: Negative for shortness of breath. Cardiovascular: Negative for chest pain. Gastrointestinal: Negative for nausea and vomiting. Skin: Positive for wound. Neurological: Negative for headaches. Past medical history, surgical history, and social history were reviewed BP 130/76 (BP Location: Left arm, Patient Position: Sitting) Pulse 84 Temp 36.1 ??C (97 ??F) (Temporal) Resp 16 Ht 165.1 cm (5' 5 ) Wt 89.2 kg (196 lb 9.6 oz) SpO2 97% BMI 32.72 kg/m?? Physical Exam Vitals and nursing note [...] Normal breath sounds. No wheezing or rales. Musculoskeletal: Cervical back: Neck supple. Lymphadenopathy: Cervical: No cervical adenopathy. Skin: General: Skin is warm and dry. Comments: 12 cm sutures on scalp Neurological: Mental Status: She is alert and oriented to person, place, and time. Motor: No abnormal muscle tone. Psychiatric: Mood and Affect: Mood normal. Behavior: Behavior normal. Thought Content: Thought content normal. Lab Results Component Value Date WBC 8.2 09/14/2021 HGB 12.7 09/14/2021 HCT 38.5 09/14/2021 MCV 89.3 09/14/2021 LABPLAT 273 09/14/2021 Chemistry Lab Results Component Value Date SODIUM 138 09/14/2021 POTASSIUM 4.0 09/14/2021 CHLORIDE 98 09/14/2021 CO2 25 09/14/2021 ANIONGAP 15 09/14/2021 BUNSER 10 09/14/2021 CREATININE 0.50 (L) 09/14/2021 GLUCOSE 160 09/14/2021 CALCIUM 10.0 09/14/2021 BILITOT 0.2 09/14/2021 ALBUMIN 5.0 09/14/2021 GFRNAA 101 09/14/2021 ALKPHOS 60 09/14/2021 AST 22 09/14/2021 ALT 23 09/14/2021 Ethanol <=10 mg/dL <10 Assessment/Plan Diagnoses and all orders for this visit: Fall, subsequent encounter (Primary) Comments: with balance concerns will start with physical therapy change positions slowly call for questions Orders: - Ambulatory referral order to Physical Therapy -; Future Laceration of scalp, subsequent encounter Comments: will set up for suture removal in 7-10 days Balance problem Comments: will refer to PT for further guidance change positions slowly update me with any changes call for questions or concerns Orders: - Ambulatory referral order to Physical Therapy -; Future Type 2 diabetes mellitus with other specified complication, without long-term current use of insulin ([facility]) Assessment & Plan: Encouraged to keep track of her sugars Will refer to local ophthalmology Update me with any changes Orders: - Ambulatory referral to Ophthalmology; Future Alcohol use Assessment & Plan: She has 1-2 drinks 3-4 times a week- mostly a mixed drink with vodka Encouraged cutting down amount My total encounter time on 09/20/2021 was 32 minutes which was spent in the activities [...] Patient/parent stated understanding. documented in this encounter Miscellaneous Notes * Assessment & Plan Note - Aurelia Huitron MD - 09/20/2021 8:53 AM CDTAssociated Problem(s): Alcohol use She has 1-2 drinks 3-4 times a week- mostly a mixed drink with vodka Encouraged cutting down amount * Assessment & Plan Note - Aurelia Huitron MD - 09/20/2021 8:49 AM CDTAssociated Problem(s): Type 2 diabetes mellitus with other specified complication (HCC) Encouraged to keep track of her sugars Will refer to local ophthalmology Update me with any changes documented in this encounter Plan of Treatment Not on file documented as of this encounter Visit Diagnoses Diagnosis Fall, subsequent encounter- Primary Laceration of scalp, subsequent encounter Balance problem Abnormality of gait Type 2 diabetes mellitus with other specified complication, without long-term current use of insulin (HCC) Alcohol use Other problems related to lifestyle documented in this encounter Care Teams Wireless Sales Manager Relationship Specialty Start Date End Date Aurelia Huitron MD [facility] [address] [place] [address] PCP - General Family Medicine 05/23/20 documented as of this encounter
--- OUTSIDE RECORDS SUMMARY | 2024-07-10 04:43 | XMS_ITS | Encounter Summary ---
Author Organization [facility] Address [address] [facility] [address] [place] [address] Care Team Providers Care Merchandising Intern Name Role Phone Aurelia Huitron MD Primary Care Provi [facility] Encounter Details Date Type Department Care Team (Late st Contact Info) Description 10/22/[address] [facility] Primary Care at [address] [place] [address] Aurelai Huitron MD [address] [place] [address] Social History Tobacco Use Types Packs/Day [...] on file Legal Sex Female 12:58 AM DAMPENER OPERATOR Gender Identity Not on file Sexual Orientation Not on file documented as of this encounter Miscellaneous Notes * Telephone Encounter - Claudia Obrien - 10/22/2021 3:03 PM CDT error documented in this encounter Plan of Treatment Not on file documented as of this encounter Visit Diagnoses Not on filedocumented in this encounter Care Teams Merchandising Intern Relationship Specialty Start Date End Date Aurelia Huitron MD [facility] [address] [place] [address] PCP - General Family Medicine 05/23/20 documented as of this encounter
--- OUTSIDE RECORDS SUMMARY | 2024-07-10 04:43 | XMS_ITS | Encounter Summary ---
Author Organization [facility] Address [address] [facility] [address] [place] [address] Care Team Providers Care Blanchard Grinder Operator Name Role Phone Aurelia Huitron MD Primary Care Provi jarred Encounter Details Date Type Department Care Team (Late st Contact Info) Description 01/22/2022 Orders Only [facility] Family Medicine [address] [phone] Aurelia Huitron MD [address] [address] Social History Tobacco Use Types [...] on file Legal Sex Female 12:58 AM INTERNET MARKETING DIRECTOR Gender Identity Not on file Sexual Orientation Not on file documented as of this encounter Plan of Treatment Not on file documented as of this encounter Procedures Procedure Name Priority Date/Time Associated Diagnosis Comments HEMOGLOBIN A1C Routine 01/22/2022 1:26 PM CDT documented in this encounter Results * (ABNORMAL) Hemoglobin A1c (01/22/2022 1:26 PM CDT) Hgb A1C 6.6(H) <5.7 % of total Hgb [facility] Comment: For someone without known [...] for diagnosis of diabetes for children. ?? 01/22/2022 1:26 PM CDT 01/22/2022 1:26 PM CDT us Aurelia Huitron MD LAB BLOOD ORDERABLE S Final [facility] [address] [place] [address] documented in this encounter Visit Diagnoses Not on filedocumented in this encounter Care Teams Blanchard Grinder Operator Relationship Specialty Start Date End Date Aurelia Huitron MD [facility] [address] [place] [address] PCP - General Family Medicine 05/23/20 documented as of this encounter
--- OUTSIDE RECORDS SUMMARY | 2024-07-10 04:44 | XMS_ITS | Encounter Summary ---
Author Organization [facility] Address [address] [facility] [address] [place] [address] Care Team Providers Care Cigarette Packer Name Role Phone Aurelia Huitron MD Primary Care Provi jarred Encounter Details Date Type Department Care Team (Late st Contact Info) Description 07/25/2020 Telephone [facility] Family Medicine [address] [phone] Aurelia Huitron MD [address] [address] Social History Tobacco Use Types [...] on file Legal Sex Female 12:58 AM MEDICAL SUPPORT SPECIALIST Gender Identity Not on file Sexual Orientation Not on file documented as of this encounter Miscellaneous Notes * Telephone Encounter - Karla Cabrera - 07/26/2020 10:34 AM CST [facility] approved, records faxed. CAL SUPPORT SPECIALIST * Telephone Encounter - Aurelia Huitron MD - 07/25/2020 3:05 PM MEDICAL SUPPORT SPECIALIST Referral placed CAL SUPPORT SPECIALIST * Telephone Encounter - Iwona Zuleta - 07/25/2020 1:37 PM CST Pt is scheduled with [facility] 07/30/20 at 8:30am. Thanks jrerasto CAL SUPPORT SPECIALIST * Telephone Encounter - Maris Hernández - 07/25/2020 1:30 PM CST REFERRAL Is this a Continuation of Care? : no Specialty PT Diagnosis/Reason for Referral: Neck Pain Appointment Date & Time: Not made yet Specialist Full Name: [facility] Physical Therapy Specialist Address: [address] [place], [place] Specialist Phone# : [phone] Specialst Fax# : [phone] Specialist NPI Number: CAL SUPPORT SPECIALIST documented in this encounter Plan of Treatment Not on file documented as of this encounter Visit Diagnoses Diagnosis Cervicalgia- Primary documented in this encounter Care Teams Cigarette Packer Relationship Specialty Start Date End Date Aurelia Huitron MD [address] [place] [address] PCP - General Family Medicine 05/23/20 documented as of this encounter
--- OUTSIDE RECORDS SUMMARY | 2024-07-10 04:44 | XMS_ITS | Encounter Summary ---
Author Organization [facility] Medical Group Address [address] [facility] [address] [place] [address] Care Team Providers Care Drawing Kiln Supervisor Name Role Phone Aurelia Huitron MD Primary Care Provi jarred Encounter Details Date Type Department Care Team (Late st Contact Info) Description 03/07/2021 Orders Only [facility] Family Medicine [address] [address] Aurelia Huitron MD [address] [address] Social History Tobacco Use Types [...] on file Legal Sex Female 12:58 AM CUSTOMER SOLUTIONS SUPERVISOR Gender Identity Not on file Sexual Orientation Not on file documented as of this encounter Ordered Prescriptions Prescription Sig Dispense Quantity Refills Last Filled Start Date End Date eszopiclone (LUNESTA) 3 mg tablet Take 1 tablet (3 mg total) by mouth nightly as needed for sleep Take immediately before bedtime 90 tablet 03/07/2021 documented in this encounter Plan of Treatment Not on file documented as of this encounter Visit Diagnoses Not on filedocumented in this encounter Discontinued Medications Medication Sig Discontinue Reason Start Date End Da te eszopiclone (LUNESTA) 3 mg tablet TAKE 1 TABLET BY MOUTH NIGHTLY NEEDED FOR SLEEP (TAKE IMMEDIATELY BEFORE BEDTIME) Reorder 11/14/2020 03/07/2021 documented as of this encounter Care Teams Drawing Kiln Supervisor Relationship Specialty Start Date End Date Aurelia Huitron MD [address] [place] [address] PCP - General Family Medicine 05/23/20 documented as of this encounter
--- OUTSIDE RECORDS SUMMARY | 2024-07-10 04:44 | XMS_ITS | Encounter Summary ---
Author Organization [facility] Medical [facility] Address [address] [facility] [address] [place] [address] Care Team Providers Care Drapery Supervisor Name Role Phone Aurelia Huitron MD Primary Care Provi jarred Reason for Referral * Diagnostic Imaging (Routine) - Closed Specialty Diagnoses / Procedures Referred By Connie norman Referred To Contact Procedures Screening Mammogram Bilateral W Qiana [facility] [address] [address] Phone: tel: fax: Referral ID Status Reason Start Date Expiration Date Visits Re quested Visits Authorized [id number] Closed 09/11/2020 10/11/2021 1 1 [facility] Reason for Visit * Reason Onset Date Comments Med Refill 09/11/2020 Encounter Details Date Type Department Care Team (Late st Contact Info) Description 09/11/[address] [facility] [address] [address] Aurelia Huitron MD [address] [address] Med Refill Social History Tobacco Use Types Packs/Day Years [...] on file Legal Sex Female 12:58 AM TOBACCO CURER Gender Identity Not on file Sexual Orientation Not on file documented as of this encounter Ordered Prescriptions Prescription Sig Dispense Quantity Refills Last Filled Start Date End Date losartan (COZAAR) 100 mg tablet Take 1 tablet (100 mg total) by mouth daily 90 tablet 1 09/11/2020 1 TRUEplus Pen Needle 31 gauge x 1/4 needle Use daily with victoza 200 each 3 09/11/2020 1 TRUEplus Pen Needle 31 gauge x 1/4 needle Use daily with victoza 200 each 3 09/11/2020 1 documented in this encounter Miscellaneous Notes * Telephone Encounter - Belem Fine LPN - 09/12/2020 8:32 AM TOBACCO CURER Called pt and made her aware, she vu. [facility] * Telephone Encounter - Aurelia Huitron MD - 09/11/2020 4:30 PM TOBACCO CURER I sent the needs to her mail order- I resent the losartan. Thank you -we may need to cancel the needles at [facility] * Telephone Encounter - Jose Juarez MA - 09/11/2020 1:45 PM CST Update hM [facility] * Telephone Encounter - Ai Shields - 09/11/2020 8:41 AM CST Losartan 100mg every day #90 TruePlus Pen [place] 31 gauge x 1/4 needle 90 day supply [facility] mail in pharmacy Thank you/nh [facility] documented in this encounter Plan of Treatment Not on file documented as of this encounter Procedures Procedure Name Priority Date/Time Associated Diagnosis Comments SCREENING MAMMOGRAM BILATERAL W QIANA Schedule Routine, Read Routine (OP Routine) 09/10/2020 documented in this encounter Results * Screening Mammogram Bilateral W Qiana (09/10/2020) Anatomical Region Laterality Modality Breast Bilateral Mammography us Historical Provider MD BONE MAMMO PROCEDURES Luz Elena l Result documented in this encounter Visit Diagnoses Not on filedocumented in this encounter Discontinued Medications Medication Sig Discontinue Reason Start Date End Da te TRUEplus Pen Needle 31 gauge x 1/4 needle U D UTD WITH VICTOZA Reorder 06/01/2020 021 TRUEplus Pen Needle 31 gauge x 1/4 needle Use daily with victoza Reorder 09/11/2020 09/11/2020 losartan (COZAAR) 100 mg tablet Take 1 tablet (100 mg total) by mouth daily Reorder 08/28/2020 09/11/2020 documented as of this encounter Care Teams Drapery Supervisor Relationship Specialty Start Date End Date Aurelia Huitron MD [address] [place] [address] PCP - General Family Medicine 05/23/20 documented as of this encounter
--- OUTSIDE RECORDS SUMMARY | 2024-07-10 04:44 | XMS_ITS | Encounter Summary ---
Author Organization [facility] Medical Group Address [address] [place] [address] [place] [address] Care Team Providers Care Informaticist Name Role Phone Aurelia Huitron MD Primary Care Provi jarred Encounter Details Date Type Department Care Team (Late st Contact Info) Description 07/23/[address] [facility] Accountable Care Organization [address] [place] [address] Katty Malhotra, RN [address] [facility] [address] [address] Social History Tobacco Use Types Packs/Day Years [...] on file Legal Sex Female 12:58 AM LEAD INFORMATICA DEVELOPER Gender Identity Not on file Sexual Orientation Not on file documented as of this encounter Miscellaneous Notes * Telephone Encounter - Aurelia Huitron MD - 02/11/2021 7:20 AM CDT I am not certain when she is coming in until the issue is addressed- thank you * Telephone Encounter - Katty Malhotra, SUSI - 02/09/2021 3:03 PM CDT [facility]- recommend appt 06/2021- f/u as to colorectal screen- mammogram status- Thank you - Katty Malhotra RN, BSN [facility] Senior Software Tester for High Risk [phone] * Telephone Encounter - Jenn Bean - 07/23/2020 11:35 AM CST Spoke with patient, she states that she has already informed [facility] that she wants Dr. Rodriguez as her pcp before her appointment and that they were going to be sending her new cards with Dr. Rodriguez's name on them. She said that [facility] informed her that she may not receive the new cards prior to her appointment but that she now has an assigned pcp. Patient stated that she is now [facility] had already spoken with them 3 times about this and they still have not changed her PCPto Dr. Rodriguez. I informed patient that I would speak with Katty our [facility]/Medicare nurse liaison to see if she can help with this matter. Patient thanked me and said to thank everyone who is helping to get this corrected. INFORMATICA DEVELOPER * Telephone Encounter - Jenn Bean - 07/23/2020 11:18 AM CST Called patient, LMOVM to return call regarding assigning pcp for [facility]. INFORMATICA DEVELOPER * Telephone Encounter - Aurelia Huitron MD - 07/23/2020 11:16 AM LEAD INFORMATICA DEVELOPER Thank you INFORMATICA DEVELOPER * Telephone Encounter - Jenn Bean - 07/23/2020 11:11 AM CST I am going to have the staff contact her about updating the PCP today. INFORMATICA DEVELOPER * Telephone Encounter - Aurelia Huitron MD - 07/23/2020 10:39 AM LEAD INFORMATICA DEVELOPER Pt seen- is there something else we need to do? INFORMATICA DEVELOPER * Telephone Encounter - Katty Malhotra RN - 07/23/2020 9:55 AM CST [facility] er 07/22/20- elevation bp and headache- presently at Dr. Huitron office for new pt appt- [facility] card states unassigned pcp and not listerd on pcp panel-recommend staff call pt to have her call [facility] and be placed on Dr. Huitron panel. Thank you- katty Malhotra RN, BSN [facility] Senior Software Tester for High Risk [phone] Brown, RN, BSN [facility] Senior Software Tester for High Risk [phone] INFORMATICA DEVELOPER documented in this encounter Plan of Treatment Not on file documented as of this encounter Visit Diagnoses Not on filedocumented in this encounter Care Teams Informaticist Relationship Specialty Start Date End Date Aurelia Huitron MD [facility] [address] [place] [address] PCP - General Family Medicine 05/23/20 documented as of this encounter
--- OUTSIDE RECORDS SUMMARY | 2024-07-10 04:44 | XMS_ITS | Encounter Summary ---
Author Organization [facility] Address [address] [facility] [address] [place] [address] Care Team Providers Care Telegraph Service Clerk Name Role Phone Aurelia Huitron MD Primary Care Provi jarred Reason for Visit * Reason Onset Date Comments Opthalmologist Referral 07/25/2020 Encounter Details Date Type Department Care Team (Late st Contact Info) Description 07/25/2020 Telephone [facility] Family Medicine [address] [address] Aurelia Huitron MD [address] [address] Opthalmologist Referral Social History Tobacco Use Types Packs/Day Years [...] on file Legal Sex Female 12:58 AM ACCOUNTING TEACHER Gender Identity Not on file Sexual Orientation Not on file documented as of this encounter Miscellaneous Notes * Telephone Encounter - Karla Cabrera - 08/17/2020 10:30 AM CST [facility] approved, records faxed. UNTING TEACHER * Telephone Encounter - Aurelia Huitron MD - 07/25/2020 3:08 PM ACCOUNTING TEACHER Referral placed UNTING TEACHER * Telephone Encounter - Maris Hernández - 07/25/2020 1:26 PM CST REFERRAL Is this a Continuation of Care? : yes Specialty Opthalmologist Diagnosis/Reason for Referral: Diabetic, Post Cataract surgery, lens implant Appointment Date & Time: 09/10/20 @ 9:00 Specialist Full Name: Umang Lynda Specialist Address: [address] [place] [address] Specialist Phone# : [phone] Specialst Fax# : [phone] Specialist NPI Number: [id number] UNTING TEACHER documented in this encounter Plan of Treatment Not on file documented as of this encounter Visit Diagnoses Diagnosis Type 2 diabetes mellitus without complication, without long-term current use of insulin (CMS/HCC) (HCC)- Primary Status post cataract extraction, unspecified laterality documented in this encounter Care Teams Telegraph Service Clerk Relationship Specialty Start Date End Date Aurelia Huitron MD [facility] [address] [place] [address] PCP - General Family Medicine 05/23/20 documented as of this encounter
--- OUTSIDE RECORDS SUMMARY | 2024-07-10 04:44 | XMS_ITS | Encounter Summary ---
Author Organization [facility] Medical [facility] Address [address] [facility] [address] [place] [address] Care Team Providers Care Bass Mechanism Maker Name Role Phone Aurelia Huitron MD Primary Care Provi jarred Encounter Details Date Type Department Care Team (Late st Contact Info) Description 07/24/2020 Telephone [facility] Group Family Medicine [address] [address] Jose Juarez MA Social History Tobacco Use Types Packs/Day Years [...] on file Legal Sex Female 12:58 AM ENGINEERING DESIGNER Gender Identity Not on file Sexual Orientation Not on file documented as of this encounter Miscellaneous Notes * Telephone Encounter - Aurleia Huitron MD - 07/24/2020 2:36 PM ENGINEERING DESIGNER Noted, thank you NEERING DESIGNER * Telephone Encounter - Jose Juarez MA - 07/24/2020 2:22 PM CST Notified patient with message in note. Patient voiced understanding . Patient states she is going to wait to try PT NEERING DESIGNER * Telephone Encounter - Jose Juarez MA - 07/24/2020 2:21 PM CST ----- Message from Aurelia Huitron MD sent at 07/24/2020 12:28 PM ENGINEERING DESIGNER ----- The x-ray of the patient's neck shows arthritis, but no fracture or worrisome finding. Would she want to try physical therapy? NEERING DESIGNER documented in this encounter Plan of Treatment Not on file documented as of this encounter Visit Diagnoses Not on filedocumented in this encounter Care Teams Bass Mechanism Maker Relationship Specialty Start Date End Date Aurelia Huitron MD [address] [place] [address] PCP - General Family Medicine 05/23/20 documented as of this encounter
--- OUTSIDE RECORDS SUMMARY | 2024-07-10 04:44 | XMS_ITS | Encounter Summary ---
Author Organization [facility] Medical [facility] Address [address] [facility] [address] [place] [address] Care Team Providers Care Sas Analyst Name Role Phone Aurelia Huitron MD Primary Care Provi jarred Reason for Visit * Reason Comments Blood Pressure Check Encounter Details Date Type Department Care Team (Latest Contact Info) Description 07/27/2020 9:45 AM KINDERGARTNER Clinical Support [facility] Medical [facility] Family Medicine [address] [address] Blood pressure check (Primary Dx) Social History Tobacco Use Types [...] on file Legal Sex Female 12:58 AM KINDERGARTNER Gender Identity Not on file Sexual Orientation Not on file documented as of this encounter Last Filed Vital Signs Vital Sign Reading Time Taken Comments Blood Pressure 126/74 07/27/2020 9:58 AM KINDERGARTNER Pulse - - Temperature - - Respiratory Rate - - Oxygen Saturation - - Inhaled Oxygen Concentration - - Weight - - Height - - Body Mass Index - - documented in this encounter Plan of Treatment Not on file documented as of this encounter Visit Diagnoses Diagnosis Blood pressure check- Primary Screening for hypertension documented in this encounter Care Teams Sas Analyst Relationship Specialty Start Date End Date Aurelia Huitron MD [address] [place], [place] [id number] PCP - General Family Medicine 05/23/20 documented as of this encounter
--- OUTSIDE RECORDS SUMMARY | 2024-07-10 04:44 | XMS_ITS | Encounter Summary ---
Author Organization [facility] Address [address] 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 Gender Identity Not on file Sexual Orientation Not on file documented as of this encounter Ordered Prescriptions Prescription Sig Dispense Quantity Refills Last Filled Start Date End Date dulaglutide (TRULICITY) 0.75 mg/0.5 mL pen injector Inject 0.75 mg once weekly 4 pen 2 11/20/2020 11/21/2020 documented in this encounter Miscellaneous Notes * Addendum Note - Erickson Huitron MD - 11/20/2020 2:54 PM CDT Addended by: ERICKSON HUITRON on: 11/20/2020 02:54 PM Modules accepted: Orders * Telephone Encounter - Erickson Huitron MD - 11/20/2020 2:54 PM CDT Script sent * Telephone Encounter - Belem Fine LPN - 11/20/2020 2:32 PM CDT Please send script to [facility] (where all her other meds go) and that she will need to call back to make the appointment as she is driving at this time. * Telephone Encounter - Erickson Huitron MD - 11/20/2020 7:19 AM CDT We can, where does she want it sent? She is also due for follow up * Telephone Encounter - Nicole Torres - 11/19/2020 9:25 AM CDT Pt phoned and stated that the Victoza is costing her about $480.00 for a 90 day supply and it is tocostly for pt. She is requesting to possibly have this changed to Trulicity instead. Pls. Advise.either on MChart or call [phone] documented in this encounter Plan of Treatment Not on file documented as of this encounter Visit Diagnoses Not on filedocumented in this encounter Discontinued Medications Medication Sig Discontinue Reason Start Date End Da te Victoza 3-Eduardo 0.6 mg/0.1 mL (18 mg/3 mL) injection Inject 1.8 mg under the skin daily Alternate therapy 08/28/2020 11/20/2020 documented as of this encounter Care Teams Uranium Processing Supervisor Relationship Specialty Start Date End Date Erickson Huitron MD [facility] [address] [place] [address] PCP - General Family Medicine 05/23/20 documented as of this encounter
--- OUTSIDE RECORDS SUMMARY | 2024-07-10 04:44 | XMS_ITS | Encounter Summary ---
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 Gender Identity Not on file Sexual Orientation Not on file documented as of this encounter Medications at Time of Discharge amLODIPine (NORVASC) 5 mg tablet Take 1 tablet (5 mg total) by mouth 2 (two) times a day 180 tablet 1 09/03/2020 1 dulaglutide (TRULICITY) 0.75 mg/0.5 mL pen injector Inject 0.75 mg once weekly 4 pen 2 11/20/2020 1 escitalopram (LEXAPRO) 10 mg tablet Take 1 tablet (10 mg total) by mouth daily 90 tablet 1 08/28/2020 1 eszopiclone (LUNESTA) 3 mg tablet TAKE 1 TABLET BY MOUTH NIGHTLY NEEDED FOR SLEEP (TAKE IMMEDIATELY BEFORE BEDTIME) 90 tablet 11/14/2020 1 losartan (COZAAR) 100 mg tablet Take 1 tablet (100 mg total) by mouth daily 90 tablet 1 09/11/2020 1 meloxicam (MOBIC) 7.5 mg tablet Take 2 tablets (15 mg total) by mouth daily 90 tablet 07/23/2020 1 metFORMIN (GLUCOPHAGE) 500 mg tablet Take 1 tablet (500 mg total) by mouth 2 (two) times a day with meals 180 tablet 1 09/03/2020 1 methocarbamoL (ROBAXIN) 750 mg tablet Take 1 tablet (750 mg total) by mouth 3 (three) times a day as needed for muscle spasms 30 tablet 1 08/31/2020 2 omeprazole (PriLOSEC) 20 mg capsule Take 1 capsule (20 mg total) by mouth daily 90 capsule 1 08/28/2020 1 rosuvastatin (CRESTOR) 10 mg tablet Take 1 tablet (10 mg total) by mouth daily 90 tablet 1 08/28/2020 1 TRUEplus Pen Needle 31 gauge x 1/4 needle Use daily with victoza 200 each 3 09/11/2020 1 Victoza 3-Eduardo 0.6 mg/0.1 mL (18 mg/3 mL) injection Inject 1.8 mg under the skin daily 9 mL 1 08/28/2020 1 documented as of this encounter Plan of Treatment Not on file documented as of this encounter Visit Diagnoses Not on filedocumented in this encounter Care Teams Component Engineer Relationship Specialty Start Date End Date Aurelia Huitron MD [address] [place] [address] PCP - General Family Medicine 05/23/20 documented as of this encounter
--- OUTSIDE RECORDS SUMMARY | 2024-07-10 04:44 | XMS_ITS | Encounter Summary ---
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 * Telephone Encounter - Aurelia Huitron MD - 02/01/2021 11:49 AM CDT It may be something we need to consider. There are safer medications for sleep. We can review it ather next follow up * Telephone Encounter - Dia Khan MA - 02/01/2021 11:26 AM CDT I let pt know message in chart she stated she is not taking an 81 mg aspirin but will start taking it but does not want to come off of lunesta, she stated that is the only thing that makes her sleep * Telephone Encounter - Dia Khan MA - 02/01/2021 11:04 AM CDT ----- Message from Valeria Johnson sent at 01/10/2021 5:36 PM CDT ----- Regarding: Unread Message Notification Contact: Good afternoon, I have a communication from your insurance -are you taking a baby aspirin by chance? - they would like you to consider starting to come off Lunesta. We do not have to do either right now, but it is something they are asking me. You can let me know any time! Dr Rodriguez documented in this encounter Plan of Treatment Not on file documented as of this encounter Visit Diagnoses Not on filedocumented in this encounter Care Teams Greek Professor Relationship Specialty Start Date End Date Aurelia Huitron MD [address] [place] [address] PCP - General Family Medicine 05/23/20 documented as of this encounter
--- OUTSIDE RECORDS SUMMARY | 2024-07-10 04:44 | XMS_ITS | Encounter Summary ---
Author Organization [facility] Healthcare Address [address] [place] [address] Care Team Providers Care Accounting Analyst Name Role Phone Aurelia Huitron MD Primary Care Provi jarred Encounter Details Date Type Department Care Team (Late st Contact Info) Description 07/22/2020 10:02 AM ADJUNCT INSTRUCTOR OF WOMEN'S STUDIES - 07/22/2020 12:25 PM [facility] Emergency [facility] Emergency Department [address] [place] [address] Unknown, Bigg Mayes MD [address] [place] [id number] Discharge Disposition: Discharge to home or self care Social History Tobacco Use Types Packs/Day Years Used Date Smoking Tobacco: Never Assessed AUDIT-C Answer Date Recorded Q1: How often [...] on file Legal Sex Female 12:58 AM ADJUNCT INSTRUCTOR OF WOMEN'S STUDIES Gender Identity Not on file Sexual Orientation Not on file documented as of this encounter Last Filed Vital Signs Vital Sign Reading Time Taken Comments Blood Pressure 151/84 07/22/2020 10:12 AM ADJUNCT IN[employer]CTOR [employer] WOMEN'S STUDIES Pulse 80 07/22/2020 10:12 AM ADJUNCT INSTRUCTOR OF WOMEN'S STUDIES Temperature 36.7 ??C (98 ??F) 07/22/2020 10: 12 AM ADJUNCT INSTRUCTOR OF WOMEN'S STUDIES Respiratory Rate - - Oxygen Saturation 98% 07/22/2020 10: 12 AM ADJUNCT INSTRUCTOR OF WOMEN'S STUDIES Inhaled Oxygen Concentration - - Weight 91.6 kg (201 lb 15.1 oz) 10:12 AM ADJUNCT INSTRUCTOR OF WOMEN'S STUDIES Height 165.1 cm (5' 5 ) 07/22/2020 10:1 2 AM ADJUNCT INSTRUCTOR OF WOMEN'S STUDIES Body Mass Index 33.61 07/22/2020 10:12 AM ADJUNCT INSTRUCTOR OF WOMEN'S STUDIES documented in this encounter Medications at Time of Discharge amLODIPine (NORVASC) 5 mg tablet TK 1 T PO D 05/09/2020 07/23/2020 escitalopram (LEXAPRO) 10 mg tablet TK 1 T PO D 05/11/2020 08/23/2020 losartan (COZAAR) 100 mg tablet TK 1 T PO QD 05/11/2020 metFORMIN (GLUCOPHAGE) 500 mg tablet TK 1 T PO BID 05/10/2020 08/31/2020 omeprazole (PriLOSEC) 20 mg capsule TK 1 C PO QD 05/09/2020 08/23/2020 rosuvastatin (CRESTOR) 10 mg tablet TK 1 T PO QD 05/09/2020 08/23/2020 TRUEplus Pen Needle 31 gauge x 1/4 needle U D UTD WITH VICTOZA 06/01/2020 09/11/2020 Victoza 3-Eduardo 0.6 mg/0.1 mL (18 mg/3 mL) injection ADM 1.8 MG SC QD 05/09/2020 08/23/2020 documented as of this encounter Discharge Disposition Disposition Code Departure Means Destination Discharge to home or self care documented in this encounter Plan of Treatment Not on file documented as of this encounter Procedures Procedure Name Priority Date/Time Associated Diagnosis Comments SCAN - LABS 07/23/2020 12:00 AM ADJUNCT IN[employer]CTOR OF WOMEN'S STUDIES ECG 12-LEAD 07/22/2020 11:41 AM ADJUNCT INSTRUCTOR OF WOMEN'S [employer]IES CT HEAD WO CONTRAST 07/22/2020 1 1:31 AM ADJUNCT INSTRUCTOR OF WOMEN'S STUDIES TNI WITH LIPID PANEL Routine 07/22/2020 10:38 AM ADJUNCT INSTRUCTOR OF WOMEN'S STUDIES COMPREHENSIVE METABOLIC PANEL Routine 07/22/2020 10:38 AM ADJUNCT INSTRUCTOR OF WOMEN'S STUDIES CBC WITH AUTO DIFFERENTIAL Routine 07/22/2020 10:37 AM ADJUNCT INSTRUCTOR OF WOMEN'S STUDIES APTT Routine 07/22/2020 10:36 AM ADJUNCT INSTRUCTOR OF WOMEN'S STUDIES PROTIME-INR Routine 07/22/2020 10:36 AM ADJUNCT INSTRUCTOR OF WOMEN'S STUDIES XR CHEST 1 VIEW 07/22/2020 12:00 AM ADJUNCT INSTRUCTOR OF WOMEN'S STUDIES documented in this encounter Results * SCAN - LABS (07/23/2020 12:00 AM ADJUNCT INSTRUCTOR OF WOMEN'S STUDIES) Narrative 07/23/2020 12:00 AM ADJUNCT INSTRUCTOR OF WOMEN'S STUDIES Ordered by an unspecified provider. us Historical Provider Final Res ult * ECG 12 lead (07/22/2020 11:41 AM ADJUNCT INSTRUCTOR OF WOMEN'S STUDIES) Ventricular Rate EKG/Min 74 BPM [facility] Atrial Rate 74 BPM [facility] OR-Interval (MSEC) 198 ms [facility] QRS-Interval (MSEC) 98 ms [facility] QT-Interval (MSEC) 420 ms [facility] QTc 466 ms [facility] P [place] 28 degrees [facility] R [place] -19 degrees [facility] T [place] 17 degrees [facility] Diagnosis Normal sinus rhythm Normal ECG No previous ECGs available [facility] 07/22/2020 11:4 1 AM ADJUNCT INSTRUCTOR OF WOMEN'S STUDIES 07/22/2020 10:41 PM ADJUNCT INSTRUCTOR OF WOMEN'S STUDIES Narrative Resulting Agency Comment ROXANNE Bigg Zapata MD ECG ORDERABLES Final Result [facility] * CT Head WO Contrast (07/22/2020 11:31 AM ADJUNCT INSTRUCTOR OF WOMEN'S STUDIES) Anatomical Region Laterality Modality Head and Neck N/A Computed Tomogra phy 07/22/2020 11:3 4 AM ADJUNCT INSTRUCTOR OF WOMEN'S STUDIES Narrative 07/22/2020 11:34 AM ADJUNCT INSTRUCTOR OF WOMEN'S STUDIES Patient Name: VALERIA JOHNSON ?Ordering Dr: Bigg Zapata MD ?? D.O.B: 1950 ? Exam Date: 07/22/20 ?? 1131 ?? Age: 70 ?Sex: Female ? MR#: [id number] ?? Loc: ? RADIOLOGY REPORT ?? Order #[id number] ?? CT Scan ? CT Head WO IV Contrast ? Signed ? EXAM DESCRIPTION: ?? CT Head WO IV Contrast ? REASON FOR STUDY: ?? Acute headache and change in mental status ? TECHNIQUE: ??Axial images acquired through the brain without intravenous ?? contrast. ??Images stored on PACS. ?? Automated exposure control was used as a ?? dose optimization technique for this examination. ? COMPARISON: ?? None ? FINDINGS: ?CEREBRUM: No hemorrhage, edema or mass effect. No recent infarct. ? WHITE MATTER: Small-vessel ischemic changes are noted. ? POSTERIOR FOSSA: No masses. No hemorrhage. No evidence for acute infarction. ? EXTRA-AXIAL SPACES: No fluid collections. No masses. ? BRAIN VOLUME: There is volume loss. ? ORBITS: No intra- or extraconal masses. Normal appearing globes. ? CALVARIUM: No fracture. ? PARANASAL SINUSES AND MASTOIDS: No fluid or mucosal thickening. ? OTHER: No other significant abnormality. ? IMPRESSION: ??No acute intracranial process. ??Small-vessel ischemic changes. ? THIS IS AN ELECTRONICALLY VERIFIED FINAL REPORT ?? 07/22/2020 11:34 AM - Electronically signed by Clem Horn M.D. ?? Clem Horn M.D. ? NC: NC ?? D: ??07/22/2020 11:34 AM ?? T: ??07/22/2020 11:34 AM ? Report ID: [id number] ?? Reading Location: ??[id number] ? REPORT ELECTRONICALLY SIGNED IN OTHER VENDOR SYSTEM ?? Resulting Agency Comment E Procedure Note Clem Horn MD - 07/22/2020 Patient Name: VALERIA JOHNSON Dr: Bigg Zapata MD, D.O.B: 1950 Exam Date: 07/22/20 113 Age: 70 Sex: Female MR#: [id number] [facility]#: [id number] RADIOLOGY REPORT Order #[id number] CT Scan CT Head WO IV Contrast Signed EXAM DESCRIPTION: CT Head WO IV Contrast REASON FOR STUDY: Acute headache and change in mental status TECHNIQUE: Axial images acquired through the brain without intravenous contrast. Images stored on PACS. Automated exposure control was usedas a dose optimization technique for this examination. COMPARISON: None FINDINGS: CEREBRUM: No hemorrhage, edema or mass effect. No recent infarct. WHITE MATTER: Small-vessel ischemic changes are noted. POSTERIOR FOSSA: No masses. No hemorrhage. No evidence for acuteinfarction. EXTRA-AXIAL SPACES: No fluid collections. No masses. BRAIN VOLUME: There is volume loss. ORBITS: No intra- or extraconal masses. Normal appearing globes. CALVARIUM: No fracture. PARANASAL SINUSES AND MASTOIDS: No fluid or mucosal thickening. OTHER: No other significant abnormality. IMPRESSION: No acute intracranial process. Small-vessel ischemicchanges. THIS IS AN ELECTRONICALLY VERIFIED FINAL REPORT 07/22/2020 11:34 AM - Electronically signed by Clem Horn M.D. NC: CHANCE Report ID: [id number] Reading Location: [place] [address] REPORT ELECTRONICALLY SIGNED IN OTHER VENDOR SYSTEM Bigg Zapata MD IMG CT PROCEDURES Fin al Result * (ABNORMAL) TNI with LIPID PANEL (07/22/2020 10:38 AM ADJUNCT INSTRUCTOR OF WOMEN'S STUDIES) Troponin I <0.300 0.000 - 0.300 ng/mL [facility] Comment: Reference using ZAINAB Chemiluminescence ? Negative: Repeat in 4-6 hours as indicated. Triglycerides 197(H) 0 - 149 mg/dL [facility] Comment: National Lipid Association/NCEP Guidelines: ?? Normal ?< 150 mg/dL ?? Borderline high ?? 150-199 mg/dL ?? High ?200-499 mg/dL ?? Very High ? >=500 mg/dL Cholesterol 190 0 - 199 mg/dL [facility] Comment: National Lipid Association/NCEP Guidelines: Desirable ? < 200 mg/dL Borderline high: ??200-239 mg/dL High Risk: ?>=240 mg/dL HDL Cholesterol 72 mg/dL [facility] Comment: Reference Ranges: ? Males: >=40 mg/dL ? Females: >=50 mg/dL LDL Cholesterol, Calc 79 0 - 129 mg/dL [facility] Comment: National Lipid Association/NCEP Guidelines: ??Optimal ? < 100 mg/dL ??Near Optimal ?100-129 mg/dL ??Borderline high 130-159 mg/dL ??High ?>=160 mg/dL Cholesterol/HDL Ratio 2.6 [facility] Comment: Optimal ??< 3.5:1 High ? > 5:1 07/22/2020 10:3 8 AM ADJUNCT INSTRUCTOR OF WOMEN'S STUDIES 07/22/2020 10:46 AM ADJUNCT INSTRUCTOR OF WOMEN'S STUDIES Narrative Resulting Agency Comment ER us Bigg Zapata MD LAB BLOOD ORDERABLES [place] [address], [facility] [phone] * (ABNORMAL) Comprehensive metabolic panel (07/22/2020 10:38 AM ADJUNCT INSTRUCTOR OF WOMEN'S STUDIES) Sodium 136 135 - 145 mmol/L [facility] Potassium 4.2 3.3 - 5.1 mmol/L [facility] Chloride 97 96 - 108 mmol/L [facility] Carbon Dioxide 28 22 - 32 mmol/L [facility] Anion Gap 11 7 - 16 [facility] Glucose 110(H) 70 - 100 mg/dL [facility] BUN 12 8 - 25 mg/dL [facility] Creatinine 0.5 0.5 - 1.1 mg/dL [facility] Comment: NOTE: Estimated GFR (Cockroft-Gault) will NOT be calculated unless patient Height and Weight were entered. Also, Kidney Disease Stage (GFR) and Estimated GFR (Cockroft-Gault) will NOT be calculated if Creatinine result is <0.2. Kidney Disease Stage >90 mL/MIN [facility] Comment: NOTE; ??The GFR is an estimated value using the creatinine, sex, age, and race of the patient. THE Estimated Kidney Disease GFR is validated for AGES 18-70 YEARS STAGE ?mL/Min ?DESCRIPTION ??1 ?90 mL/min or more ?Normal or elevated GFR ??2 ? 60-89 mL/min ?Mildly decreased GFR ??3 ? 30-59 mL/min ?Moderately decreased GFR ??4 ? 15-29 mL/min ?Severely decreased GFR ??5 ? <15 mL/min ? Kidney failure or on dialysis Est GFR (Cockcroft-G) 120 ml/MIN [facility] Comment: Estimated GFR(Cockroft-Gault)is used to calculate patient medication dosage Calcium 10.2 8.6 - 10.3 mg/dL [facility] Total Protein 7.9 6.4 - 8.3 g/dL [facility] Albumin 5.1(H) 3.5 - 5.0 g/dL [facility] Globulin 2.8 2.3 - 3.5 gm/dL [facility] Albumin/Globulin Ratio 1.8 1.1 - 1.8 [facility] Total Bilirubin 0.3 0.0 - 1.2 mg/dL [facility] AST 21 0 - 32 U/L [facility] ALT 23 0 - 33 U/L [facility] Alkaline Phosphatase 54 35 - 104 U/L [facility] 07/22/2020 10:3 8 AM ADJUNCT IN[employer]CTOR OF WOMEN'S STUDIES 07/22/2020 10:46 AM ADJUNCT INSTRUCTOR OF WOMEN'S STUDIES Narrative Resulting Agency Comment ER us Bigg Zapata MD LAB BLOOD ORDERABLES Edited Result - Final [facility] [address] [phone] * (ABNORMAL) CBC with auto differential (07/22/2020 10:37 AM ADJUNCT INSTRUCTOR OF WOMEN'S STUDIES) WBC 5.1 3.8 - 9.9 X10 3/ul [facility] RBC 4.30 3.90 - 5.20 x10 6/ul [facility] Hemoglobin 12.5 11.9 - 15.5 g/dL [facility] Hct 39.0 35.6 - 45.5 % [facility] MCV 90.7 81.3 - 96.4 fl [facility] MCH 29.1 27.1 - 33.3 pg [facility] MCHC 32.1(L) 32.3 - 35.7 g/dl [facility] RDW 13.3 11.1 - 14.9 % [facility] Plt Count 247 150 - 400 x10 3/ul [facility] MPV 8.8(L) 9.1 - 12.3 fl [facility] Neut % 61.4 % [facility] Immature Gran % 0.4 % [facility] Lymph % 23.6 % [facility] [place] % 12.3 % [facility] Eos % 1.9 % [facility] AUTO BASO % 0.4 % [facility] NEUTROPHIL ABS # 3.2 1.7 - 6.5 x10 3/ul [facility] Immature Gran # 0.0 0.0 - 0.1 x10 3/ul [facility] Absolute Lymphs (auto) 1.2 0.8 - 3.3 x10 3/ul [facility] Absolute Monos (auto) 0.6 0.2 - 0.8 x10 3/ul [facility] Absolute Eos (auto) 0.1 0.0 - 0.5 x10 3/ul [facility] BASOPHIL ABS # 0.0 0.0 - 0.1 x10 3/ul [facility] Nucleat RBC Rel Count 0.0 #/100WBC [facility] NRBC abs 0.00 0.00 - 0.01 x10 3/ul [facility] Absolute Neutrophils 3,200 200 - 8,000 /ul [facility] 07/22/2020 10:3 7 AM ADJUNCT IN[employer]CTOR OF WOMEN'S STUDIES 07/22/2020 10:46 AM ADJUNCT INSTRUCTOR OF WOMEN'S STUDIES Narrative Resulting Agency Comment ER Bigg Zapata MD LAB BLOOD ORDERABLES Final Result Performing Organization Address [facility] de Phone Number [address] [phone] * aPTT (07/22/2020 10:36 AM ADJUNCT INSTRUCTOR OF WOMEN'S STUDIES) APTT 27 23 - 38 SECONDS [facility] Comment: New reference ranges in use 04-04-2020. 07/22/2020 10:3 6 AM ADJUNCT INSTRUCTOR OF WOMEN'S STUDIES 07/22/2020 12:47 PM ADJUNCT INSTRUCTOR OF WOMEN'S STUDIES Narrative Resulting Agency Comment ER Bigg Zapata MD LAB BLOOD ORDERABLES Final Result Performing Organization Address [facility] de Phone Number [address] [phone] * (ABNORMAL) Protime-INR (07/22/2020 10:36 AM ADJUNCT INSTRUCTOR OF WOMEN'S STUDIES) PT 12.2(L) 12.3 - 15.1 SECONDS [facility] Comment: New reference ranges in use 04-04-2020. INR 0.86 [facility] Comment: Recommended Therapeutic range for Oral Anticoagulant Therapy No anti-coagulation therapy ? Normal Range: ?0.8-1.4 Anti-coagulation therapy ? Low intensity therapy ?2.0-3.0 ? High intensity therapy ?? 2.5-3.5 Critical Value ? Greater than or equal to 5.0 Patients should be monitored for serious bleeding. 07/22/2020 10:3 6 AM ADJUNCT INSTRUCTOR OF WOMEN'S STUDIES 07/22/2020 12:47 PM ADJUNCT INSTRUCTOR OF WOMEN'S STUDIES Narrative Resulting Agency Comment ER us Bigg Zapata MD LAB BLOOD ORDERABLES Final Result Performing Organization Address [facility] Phone Number [address] [phone] * XR Chest 1 View (07/22/2020 12:00 AM ADJUNCT INSTRUCTOR OF WOMEN'S STUDIES) Anatomical Region Laterality Modality Body, Chest N/A Radiographic Kalyn ging 07/22/2020 11:4 4 AM ADJUNCT INSTRUCTOR OF WOMEN'S STUDIES Narrative 07/22/2020 11:45 AM ADJUNCT INSTRUCTOR OF WOMEN'S STUDIES Patient Name: VALERIA JOHNSON ?Ordering Dr: Bigg Zapata MD ?? D.O.B: 1950 ? Exam Date: 07/22/20 ?? 0000 ?? Age: 70 ?Sex: Female ? MR#: [id number] ?? Loc: ? RADIOLOGY REPORT ?? Order #[id number] ?? Radiology ? Chest 1 View Portable ? Signed ? EXAM DESCRIPTION: ?? Chest 1 View Portable ? REASON FOR STUDY: ?? Headaches for 2 months, high BP 182/95 at triage, on BP ?? medication ? TECHNIQUE: ?? Frontal radiographic view of the chest acquired. ? COMPARISON: ?? None. ? FINDINGS: ? LUNGS/PLEURA: ??No focal consolidation or pneumothorax. No pleural effusion. ? HEART/MEDIASTINUM: ??Heart size is normal. Normal mediastinal and hilar ?? contours. ? HARDWARE/LINES/TUBES: ??None. ? BONES: ??No acute findings. ? OTHER: ??No other significant finding. ? IMPRESSION: ?? No acute cardiopulmonary disease. ? THIS IS AN ELECTRONICALLY VERIFIED FINAL REPORT ?? 07/22/2020 11:45 AM - Electronically signed by Nico Jo II D.O. ?? Nico CervantesO. ? DW: DW ?? D: ??07/22/2020 11:45 AM ?? T: ??07/22/2020 11:45 AM ? Report ID: [id number] ?? Reading Location: ??[id number] ? REPORT ELECTRONICALLY SIGNED IN OTHER VENDOR SYSTEM ?? Resulting Agency Comment E Procedure Note Nico Jo II, DO - 07/22/2020 Patient Name: VALERIA JOHNSON Dr: Bigg Zapata MD D.O.B: 1950 Exam Date: 07/22/20 0000 Age: 70 Sex: Female MR#: [id number] Loc: RADIOLOGY REPORT Order #[id number] Radiology Chest 1 View Portable Signed EXAM DESCRIPTION: Chest 1 View Portable REASON FOR STUDY: Headaches for 2 months, high BP 182/95 at triage, onBP medication TECHNIQUE: Frontal radiographic view of the chest acquired. COMPARISON: None. FINDINGS: LUNGS/PLEURA: No focal consolidation or pneumothorax. No pleuraleffusion. HEART/MEDIASTINUM: Heart size is normal. Normal mediastinal and hilar contours. HARDWARE/LINES/TUBES: None. BONES: No acute findings. OTHER: No other significant finding. IMPRESSION: No acute cardiopulmonary disease. THIS IS AN ELECTRONICALLY VERIFIED FINAL REPORT 07/22/2020 11:45 AM - Electronically signed by Nico Jo II, D.O. DW: [place] Report ID: [id number] Reading Location: [place] [address] REPORT ELECTRONICALLY SIGNED IN OTHER VENDOR SYSTEM Bigg Zapata MD IMG XR PROCEDURES Fin al Result documented in this encounter Visit Diagnoses Not on filedocumented in this encounter Care Teams Accounting Analyst Relationship Specialty Start Date End Date Aurelia Huitron MD [address] [place] [address] PCP - General Family Medicine 05/23/20 documented as of this encounter
--- OUTSIDE RECORDS SUMMARY | 2024-07-10 04:44 | XMS_ITS | Encounter Summary ---
Author Organization [facility] Address [address] [facility] [address] [place] [id number] Care Team Providers Care Sawyer Helper Name Role Phone Aurelia Huitron MD Primary Care Provi jarred Reason for Referral * Diagnostic Imaging (Routine) - Closed Specialty Diagnoses / Procedures Referred By Contac t Referred To Contact Diagnoses Cervicalgia Procedures XR Spine Cervical 2 or 3 Views Aurelia Huitron MD [address] [place] [address] Phone: tel: fax: [address] [phone] Referral ID Status Reason Start Date Expiration Date Visits Re quested Visits Authorized [id number] Closed 07/23/2020 08/22/2021 1 1 PRINT ASSEMBLER Reason for Visit * Reason Comments New Patient headaches for 10 wee ks and having high blood preasure Encounter Details Date Type Department Care Team (Late Contact Info) Description 07/23/2020 9:00 AM BLUEPRINT ASSEMBLER Office Visit [facility] Family Medicine [address] [phone] Aurelia Huitron MD [address] [place] [address] Hyperlipidemia, unspecified hyperlipidemia type (Primary Dx); Type 2 diabetes mellitus without complication, without long-term current use of insulin ([facility]); Gastroesophageal reflux disease, unspecified whether esophagitis present; Anxiety; Need for hepatitis C screening test; Encounter for screening mammogram for malignant neoplasm of breast; Cervicalgia; Essential hypertension; Insomnia, unspecified type Social History Tobacco Use Types Packs/Day Years [...] on file Legal Sex Female 12:58 AM BLUEPRINT ASSEMBLER Gender Identity Not on file Sexual Orientation Not on file documented as of this encounter Last Filed Vital Signs Vital Sign Reading Time Taken Comments Blood Pressure 150/70 07/23/2020 9:07 AM BLUEPRINT ASSEMBLER Pulse 77 07/23/2020 9:07 AM BLUEPRINT ASSEMBLER Temperature 37.2 ??C (98.9 ??F) 07/23/2020 9:07 AM CS T Respiratory Rate - - Oxygen Saturation 99% 07/23/2020 9:07 AM BLUEPRINT ASSEMBLER Inhaled Oxygen Concentration - - Weight 91.4 kg (201 lb 6.4 oz) 07/23/2020 9:07 A M BLUEPRINT ASSEMBLER Height 165.1 cm (5' 5 ) 07/23/2020 9:07 AM BLUEPRINT ASSEMBLER Body Mass Index 33.51 07/23/2020 9:07 AM BLUEPRINT ASSEMBLER documented in this encounter Ordered Prescriptions Prescription Sig Dispense Quantity Refills Last Filled Start Date End Date amLODIPine (NORVASC) 5 mg tablet Take 1 tablet (5 mg total) by mouth 2 (two) times a day 6 tablet 07/23/2020 methocarbamoL (ROBAXIN) 750 mg tablet Take 1 tablet (750 mg total) by mouth 3 (three) times a day as needed for muscle spasms 30 tablet 1 07/23/2020 1 meloxicam (MOBIC) 7.5 mg tablet Take 2 tablets (15 mg total) by mouth daily 90 tablet 07/23/2020 1 documented in this encounter Progress Notes * Aurelia Huitron MD - 07/23/2020 9:00 AM CST Images from the original note were not included. Subjective/Objective Patient ID: Valeria Johnson is a 70 y.o. female. Chief Complaint Chief Complaint Patient presents with ??? New Patient headaches for 10 weeks and having high blood preasure HPI The pt is presenting to the office as a new patient -HTN- blood pressure has been running high at home. She has developed a headache, and has been having this for the last 10 weeks. No trauma or injury. No vision changes. No nausea/vomiting. Blood pressure was 180's/90's. She went to the ER for further care on 07/22/20. She underwent a CT head, chestxray, labs, and EKG. EKG was NSR, normal axis. She was discharged home to follow up with me. -persistent neck pain over the last several weeks. -Anxiety- currently on lexapro, doing well with her current regimen. She feels her baseline is anxious. No depression or thoughts of hurting herself. -insomnia- currently on lunesta which helps -GERD- on omeprazole, she feels it is well controlled -diabetes- currently on 2 medications, and due for her eye exam -HLP- on crestor 10 mg daily. Review of Systems Constitutional: Negative for chills and fever. Eyes: Negative for visual disturbance. Respiratory: Negative for cough and shortness of breath. Cardiovascular: Negative for chest pain and palpitations. Gastrointestinal: Negative for abdominal pain, constipation, diarrhea, nausea and vomiting. Musculoskeletal: Positive for neck pain. Neurological: Positive for headaches. Negative for weakness and numbness. Psychiatric/Behavioral: Negative for dysphoric mood. The patient is nervous/anxious. Past medical history, surgical history, and social history were reviewed BP 150/70 (BP Location: Right arm, Patient Position: Sitting) Pulse 77 Temp 37.2 ??C (98.9 ??F) (Temporal) Ht 165.1 cm (5' 5 ) Wt 91.4 kg (201 lb 6.4 oz) SpO2 99% BMI 33.51 kg/m?? Physical Exam Vitals signs and nursing note reviewed. Constitutional: General: She [...] equal, round, and reactive to light. Neck: Musculoskeletal: Normal range of motion and neck supple. Thyroid: No thyromegaly. Cardiovascular: Rate and Rhythm: Normal rate and regular rhythm. Heart sounds: Normal heart sounds. No murmur. No friction rub. No gallop. Pulmonary: Effort: Pulmonary effort is normal. Breath sounds: Normal breath sounds. No wheezing or rales. Abdominal: General: Bowel sounds are normal. There is no distension. Palpations: Abdomen is soft. There is no mass. Tenderness: There is no abdominal tenderness. There is no guarding or rebound. Musculoskeletal: Cervical back: She exhibits tenderness (paraspinal muscles bilaterally, trapzius bilaterally). She exhibits normal range of motion, no bony tenderness, no swelling, no edema and no deformity. Feet: Right Foot: Monofilament exam: normal. Protective Sensation: 5 sites tested. 5 sites sensed. Left Foot: Monofilament exam: normal. Protective Sensation: 5 sites tested. 5 sites sensed. Lymphadenopathy: Cervical: No cervical adenopathy. Skin: General: Skin is warm and dry. Neurological: Mental Status: She is alert and oriented to person, place, and time. Motor: No abnormal muscle tone. Psychiatric: Behavior: Behavior normal. Thought Content: Thought content normal. Chemistry Lab Results Component Value Date SODIUM 136 07/22/2020 POTASSIUM 4.2 07/22/2020 CHLORIDE 97 07/22/2020 CO2 28 07/22/2020 ANIONGAP 11 07/22/2020 CREATININE 0.5 07/22/2020 GLUCOSE 110 (H) 07/22/2020 CALCIUM 10.2 07/22/2020 BILITOT 0.3 07/22/2020 ALBUMIN 5.1 (H) 07/22/2020 ALKPHOS 54 07/22/2020 AST 21 07/22/2020 ALT 23 07/22/2020 Lab Results Component Value Date WBC 5.1 07/22/2020 HGB 12.5 07/22/2020 HCT 39.0 07/22/2020 MCV 90.7 07/22/2020 LABPLAT 247 07/22/2020 Lab Results Component Value Date CHOL 190 07/22/2020 Lab Results Component Value Date HDL 72 07/22/2020 Lab Results Component Value Date LDLCALC 79 07/22/2020 Lab Results Component Value Date TRIG 197 (H) 07/22/2020 No results found for: POCCHDLR No results found for: POCNONHDL No results found for: POCCHLPL 07/22/2020 CT Head :IMPRESSION: No acute intracranial process. Small-vessel ischemic changes. CXR: IMPRESSION: No acute cardiopulmonary disease. Assessment/Plan Diagnoses and all orders for this visit: Hyperlipidemia, unspecified hyperlipidemia type (Primary) Assessment & Plan: Continue current regimen Will recheck labs in 6 months Call for questions or concerns Orders: - Lipid panel; Future Type 2 diabetes mellitus without complication, without long-term current use of insulin ([facility]) Assessment & Plan: Last A1C was at goal per patient Continue current regimen Continue to work on healthy changes Set up eye exam Call for questions Orders: - Hemoglobin A1c; Future - Comprehensive metabolic panel; Future - Microalbumin, urine, random; Future Gastroesophageal reflux disease, unspecified whether esophagitis present Assessment & Plan: Reviewed risks/benefits of medication Continue current regimen Call for questions or concerns Anxiety Assessment & Plan: Stable Continue current regimen Continue to work on healthy changes to improve mood Need for hepatitis C screening test - Hepatitis C antibody; Future Encounter for screening mammogram for malignant neoplasm of breast - Screening Mammogram Bilateral [place]; Future Cervicalgia Comments: ?arthritis vs other will start with xray will start mobic, robaxin as needed update me for any questions or concerns Orders: - XR Spine Cervical 2 or 3 Views; Future Essential hypertension Assessment & Plan: Will increase her Norvasc Continue losartan Continue to work on healthy changes Update me with any changes Call for questions or concerns Insomnia, unspecified type Assessment & Plan: Continue current regimen Call for questions or concerns Other orders - meloxicam (MOBIC) 7.5 mg tablet; Take 2 tablets (15 mg total) by mouth daily - methocarbamoL (ROBAXIN) 750 mg tablet; Take 1 tablet (750 mg total) by mouth 3 (three) times a day as needed for muscle spasms - amLODIPine (NORVASC) 5 mg tablet; Take 1 tablet (5 mg total) by mouth 2 (two) times a day My total encounter time on 07/23/2020 was 45 minutes which was spent in the activities documented in the note. This includes time spent prior to [...] to contact the office. Patient/parent stated understanding. PRINT ASSEMBLER documented in this encounter Miscellaneous Notes * Assessment & Plan Note - Aurelia Huitron MD - 07/23/2020 12:57 PM CSTAssociated Problem(s): Insomnia Continue current regimen Call for questions or concerns PRINT ASSEMBLER * Assessment & Plan Note - Aurelia Huitron MD - 07/23/2020 12:54 PM CSTAssociated Problem(s): Essential hypertension Will increase her Norvasc Continue losartan Continue to work on healthy changes Update me with any changes Call for questions or concerns PRINT ASSEMBLER * Assessment & Plan Note - Aurelia Huitron MD - 07/23/2020 9:41 AM CSTAssociated Problem(s): Anxiety Stable Continue current regimen Continue to work on healthy changes to improve mood PRINT ASSEMBLER * Assessment & Plan Note - Aurelia Huitron MD - 07/23/2020 9:40 AM CSTAssociated Problem(s): Gastroesophageal reflux disease Reviewed risks/benefits of medication Continue current regimen Call for questions or concerns PRINT ASSEMBLER * Assessment & Plan Note - Aurelia Huitron MD - 07/23/2020 9:39 AM CSTAssociated Problem(s): Type 2 diabetes mellitus with other specified complication (HCC) Last A1C was at goal per patient Continue current regimen Continue to work on healthy changes Set up eye exam Call for questions PRINT ASSEMBLER * Assessment & Plan Note - Aurelia Huitron MD - 07/23/2020 9:39 AM CSTAssociated Problem(s): Hyperlipidemia Continue current regimen Will recheck labs in 6 months Call for questions or concerns PRINT ASSEMBLER documented in this encounter Plan of Treatment Not on file documented as of this encounter Procedures Procedure Name Priority Date/Time Associated Diagnosis Comments ALBUMIN, RANDOM URINE WITHOUT CREATININE Routine 11/19/2020 10:52 AM CDT Type 2 diabetes mellitus without complication, without long-term current use of insulin (CMS/HCC) HEPATITIS C ANTIBODY Routine 11/19/2020 10:52 AM CDT Need for hepatitis C screening test HEMOGLOBIN A1C Routine 11/19/2020 10:52 AM CDT Type 2 diabetes mellitus without complication, without long-term current use of insulin (CMS/HCC) LIPID PANEL Routine 11/19/2020 10:52 AM CDT Hyperlipidemia, unspecified hyperlipidemia type COMPREHENSIVE METABOLIC PANEL Routine 11/19/2020 10:52 AM CDT Type 2 diabetes mellitus without complication, without long-term current use of insulin (CMS/HCC) documented in this encounter Results * Hepatitis C antibody (11/19/2020 10:52 AM CDT) Hep C Ab NONREACT NONREACTIVE [facility] Comment: Siemens CentaurXP using KAY (chemiluminescent immunoassay) [...] LAB MICROBIOLOGY - GENERAL ORDERABLES [place] [address], [facility] [phone] * Microalbumin, urine, random (11/19/2020 10:52 AM CDT) Ur Random Creatinine 299.3 mg/dL [facility] Comment: Random Urine: No established Reference Interval exists Reference Range First morning urine: Females 28 - 217 mg/dL U Random Total Protein 16 mg/dL [facility] Comment: Random Urine: No established Reference Interval exists Ur Random Microalbumin 18.2 0.0 - 19.9 mg/L [facility] Comment: [place] Diabetes Association Guidelines Microalbuminuria: 30-300 ug albumin /mg creatinine Clinical Albuminuria: >300 ug albumin /mg creatinine Microalb/Creat Ratio 6.1 0.0 - 19.9 ug/mg [facility] Urine 11/19/2020 10:5 2 AM CDT 11/19/2020 11:07 AM CDT Narrative Resulting Agency Comment CLI us Aurelia Huitron MD LAB URINE ORDERABLE S Final Result [address] [phone] * (ABNORMAL) Lipid panel (11/19/2020 10:52 AM CDT) Triglycerides 229(H) 0 - 149 mg/dL [facility] Comment: National Lipid Association/NCEP Guidelines: ?? Normal ?< 150 mg/dL ?? Borderline high ?? 150-199 mg/dL ?? High ?200-499 mg/dL ?? Very High ? >=500 mg/dL Cholesterol 183 0 - 199 mg/dL [facility] Comment: National Lipid Association/NCEP Guidelines: Desirable ? < 200 mg/dL Borderline high: ??200-239 mg/dL High Risk: ?>=240 mg/dL HDL Cholesterol 75 mg/dL [facility] Comment: Reference Ranges: ? Males: >=40 mg/dL ? Females: >=50 mg/dL LDL Cholesterol, Calc 62 0 - 129 mg/dL [facility] Comment: National Lipid Association/NCEP Guidelines: ??Optimal ? < 100 mg/dL ??Near Optimal ?100-129 mg/dL ??Borderline high 130-159 mg/dL ??High ?>=160 mg/dL Cholesterol/HDL Ratio 2.[address] [facility] Comment: Optimal ??< 3.5:1 High ? > 5:1 Blood specimen (specimen) 11/19/2020 10:52 AM CDT 11/19/2020 11:04 AM CDT Narrative Resulting Agency Comment CLI us Aurelia Huitron MD LAB BLOOD ORDERABLE S Final Result [facility] [address] [place] [address], [facility] [phone] * (ABNORMAL) Comprehensive metabolic panel (11/19/2020 10:52 AM CDT) Sodium 137 135 - 145 mmol/L [facility] Potassium 4.1 3.3 - 5.1 mmol/L [facility] Chloride 99 96 - 108 mmol/L [facility] Carbon Dioxide 26 22 - 32 mmol/L [facility] Anion Gap 12 7 - 16 [facility] Glucose 110(H) 70 - 100 mg/dL [facility] BUN 14 8 - 25 mg/dL [facility] Creatinine 0.6 0.5 - 1.1 mg/dL [facility] Comment: NOTE: Estimated GFR (Cockroft-Gault) will NOT be calculated unless patient Height and Weight were entered. Also, Kidney Disease Stage (GFR) and Estimated GFR (Cockroft-Gault) will NOT be calculated if Creatinine result is <0.2. Kidney Disease Stage >90 mL/MIN [facility] Comment: NOTE; ??The GFR is an [...] mL/min ? Kidney failure or on dialysis Calcium 9.7 8.6 - 10.3 mg/dL [facility] Total Protein 7.8 6.4 - 8.3 g/dL [facility] Albumin 4.8 3.5 - 5.0 g/dL [facility] Globulin 3.0 2.3 - 3.5 gm/dL [facility] Albumin/Globulin Ratio 1.6 1.1 - 1.[address] [facility] Total Bilirubin 0.3 0.0 - 1.2 mg/dL [facility] AST 18 0 - 32 U/L [facility] ALT 24 0 - 33 U/L [facility] Alkaline Phosphatase 53 35 - 104 U/L [facility] Blood specimen (specimen) 11/19/2020 10:52 AM CDT 11/19/2020 11:04 AM CDT Narrative Resulting Agency Comment CLI us Aurelia Huitron MD LAB BLOOD ORDERABLE S Final Result [address] [phone] * (ABNORMAL) Hemoglobin A1c (11/19/2020 10:52 AM CDT) Hemoglobin A1c % 6.2(H) 4.0 - 5.6 % [facility] Comment: ADA 2016 GUIDELINES: ??Initial Diagnostic Criteria ? HbA1c Result: ?Interpretation: ?<5.7% ? Normal ?5.7-6.4% ?At risk for diabetes mellitus ?>=6.5% ?Consistent with diabetes mellitus ??Diabetes monitoring ? Target value (ADA Recommended) ?? <7% Blood specimen (specimen) 11/19/2020 10:52 AM CDT 11/19/2020 11:04 AM CDT Narrative Resulting Agency Comment CLI us Aurelia Huitron MD LAB BLOOD ORDERABLE S Final [place] [address], [facility] [phone] * XR Spine Cervical 2 or 3 Views (07/23/2020 10:30 AM BLUEPRINT ASSEMBLER) Anatomical Region Laterality Modality Spine N/A Radiographic Kalyn ging 07/23/2020 1:22 PM BLUEPRINT ASSEMBLER Narrative 07/23/2020 1:27 PM BLUEPRINT ASSEMBLER Patient Name: VALERIA JOHNSON ?Ordering Dr: Aurelia Huitron MD ?? D.O.B: 1950 ? Exam Date: 07/23/20 ?? 1030 ?? Age: 70 ?Sex: Female ? MR#: [id number] ?? Loc: ? RADIOLOGY REPORT ?? Order #[id number] ?? Radiology ? Cervical Spine 2 or 3 Views ? Signed ? EXAM DESCRIPTION: ?? Cervical Spine 2 or 3 Views ? REASON FOR STUDY: ?? M54.2; Pain radiating up her neck and into her head ?? causing headaches, x8 weeks ? TECHNIQUE: ?? Three radiographic views acquired of the cervical spine. ? COMPARISON: ??None available ? FINDINGS: ? ALIGNMENT: ??Mild anterolisthesis C4 on C5 is noted ? VERTEBRAE: ??Vertebral bodies of normal height. No facet arthropathy. ? DISCS: ??Multilevel degenerative changes ? HARDWARE: ??None in the spine. ? SOFT TISSUES: ??No soft tissue swelling. ??Lung apices clear. ? OTHER: ??No other significant finding. ? IMPRESSION: ?? Degenerative changes of the cervical spine without acute process ? THIS IS AN ELECTRONICALLY VERIFIED FINAL REPORT ?? 07/23/2020 1:27 PM - Electronically signed by Clem Horn M.D. ?? Clem Horn M.D. ? NC: NC ?? D: ??07/23/2020 1:27 PM ?? T: ??07/23/2020 1:27 PM ? Report ID: [id number] ?? Reading Location: ??[id number] ? REPORT ELECTRONICALLY SIGNED IN OTHER VENDOR SYSTEM ?? Resulting Agency Comment O Procedure Note Clem Horn MD - 07/23/2020 Patient Name: VALERIA JOHNSON Dr: Aurelia Huitron MD D.O.B: 1950 Exam Date: 07/23/20 1030 Age: 70 Sex: Female MR#: [id number] Loc: RADIOLOGY REPORT Order #[id number] Radiology Cervical Spine 2 or 3 Views Signed EXAM DESCRIPTION: Cervical Spine 2 or 3 Views REASON FOR STUDY: M54.2; Pain radiating up her neck and into her head causing headaches, x8 weeks TECHNIQUE: Three radiographic views acquired of the cervical spine. COMPARISON: None available FINDINGS: ALIGNMENT: Mild anterolisthesis C4 on C5 is noted VERTEBRAE: Vertebral bodies of normal height. No facet arthropathy. DISCS: Multilevel degenerative changes HARDWARE: None in the spine. SOFT TISSUES: No soft tissue swelling. Lung apices clear. OTHER: No other significant finding. IMPRESSION: Degenerative changes of the cervical spine without acuteprocess THIS IS AN ELECTRONICALLY VERIFIED FINAL REPORT 07/23/2020 1:27 PM - Electronically signed by Clem Horn M.D. NC: CHANCE Report ID: [id number] Reading Location: [place] [address] REPORT ELECTRONICALLY SIGNED IN OTHER VENDOR SYSTEM Aurelia Huitron MD IMG XR PROCEDURES F inal Result documented in this encounter Visit Diagnoses Diagnosis Hyperlipidemia, unspecified hyperlipidemia type- Primary Type 2 diabetes mellitus without complication, without long-term current use of insulin ([facility]/HCC) (HCC) Gastroesophageal reflux disease, unspecified whether esophagitis present Anxiety Anxiety state, unspecified Need for hepatitis C screening test Special screening examination for other specified viral diseases Encounter for screening mammogram for malignant neoplasm of breast Cervicalgia Essential hypertension Unspecified essential hypertension Insomnia, unspecified type Cervicalgia documented in this encounter Discontinued Medications Medication Sig Discontinue Reason Start Date End Da te amLODIPine (NORVASC) 5 mg tablet TK 1 T PO D Alternate therapy 05/09/2020 07/23/2020 documented as of this encounter Historical Medications * This list may reflect changes made after this encounter. rosuvastatin (CRESTOR) 10 mg tablet TK 1 T PO QD 05/09/2020 TRUEplus Pen Needle 31 gauge x 1/4 needle U D UTD WITH VICTOZA 06/01/2020 1 omeprazole (PriLOSEC) 20 mg capsule TK 1 C PO QD 05/09/2020 1 losartan (COZAAR) 100 mg tablet TK 1 T PO QD 05/11/2020 1 Victoza 3-Eduardo 0.6 mg/0.1 mL (18 mg/3 mL) injection ADM 1.8 MG SC QD 05/09/2020 08/23/19 2 1 amLODIPine (NORVASC) 5 mg tablet TK 1 T PO D 05/09/2020 1 eszopiclone (LUNESTA) 3 mg tablet eszopiclone 3 mg tablet 1 tab po nightly 1 escitalopram (LEXAPRO) 10 mg tablet TK 1 T PO D 05/11/2020 1 metFORMIN (GLUCOPHAGE) 500 mg tablet TK 1 T PO BID 05/10/2020 1 added in this encounter Care Teams Sawyer Helper Relationship Specialty Start Date End Date Aurelia Huitron MD [address] [place] [address] PCP - General Family Medicine 05/23/20 documented as of this encounter
--- OUTSIDE RECORDS SUMMARY | 2024-07-10 04:44 | XMS_ITS | Encounter Summary ---
Author Organization [facility] Address [address] [facility] [address] [place] [address] Care Team Providers Care Chinese Teacher Name Role Phone Aurelia Huitron MD Primary Care Provi jarred Encounter Details Date Type Department Care Team (Late st Contact Info) Description 11/20/2020 Telephone [facility] Family Medicine [address] [phone] Aurelia Huitron MD [address] [address] Social History Tobacco Use Types [...] on file Legal Sex Female 12:58 AM ACCOUNT MANAGER TRAINEE Gender Identity Not on file Sexual Orientation Not on file documented as of this encounter Ordered Prescriptions Prescription Sig Dispense Quantity Refills Last Filled Start Date End Date liraglutide (VICTOZA) 0.6 mg/0.1 mL (18 mg/3 mL) injectionIndicatio ns:type 2 diabetes mellitus Inject 1.8 mg under the skin daily Indications: type 2 diabetes mellitus 3 pen 3 11/21/2020 documented in this encounter Miscellaneous Notes * Telephone Encounter - Aurelia Huitron MD - 11/21/2020 7:51 AM CDT Script sent * Telephone Encounter - Jaz Feng MA - 11/21/2020 7:37 AM CDT Trulicity and Victoza canceled at [facility]. Victoza 1.8mg daily * Telephone Encounter - Aurelia Huitron MD - 11/20/2020 4:32 PM CDT How much is she getting for a one month supply? Can we cancel the trulicity? * Telephone Encounter - Goldie Lama - 11/20/2020 3:34 PM CDT Victoza injector, 1 month supply [facility] [place] Pt investigated & found out that she can get the Victoza one month at a time cheaper at [facility],and wants to get that med at this time. Thanks. [facility] [phone] documented in this encounter Plan of Treatment Not on file documented as of this encounter Visit Diagnoses Not on filedocumented in this encounter Discontinued Medications Medication Sig Discontinue Reason Start Date End Da te dulaglutide (TRULICITY) 0.75 mg/0.5 mL pen injector Inject 0.75 mg once weekly Alternate therapy 11/20/2020 11/21/2020 documented as of this encounter Care Teams Chinese Teacher Relationship Specialty Start Date End Date Aurelia Huitron MD [facility] [address] [place] [id number] PCP - General Family Medicine 05/23/20 documented as of this encounter
--- OUTSIDE RECORDS SUMMARY | 2024-07-10 04:44 | XMS_ITS | Encounter Summary ---
Author Organization [facility] Address [address] [place] [address] Care Team Providers Care Filtration Plant Mechanic Name Role Phone Aurelia Huitron MD Primary Care Provi jarred Reason for Referral * Diagnostic Imaging (Routine) - Closed Specialty Diagnoses / Procedures Referred By Contac t Referred To Contact Diagnoses Cervicalgia Procedures XR Spine Cervical 2 or 3 Views Aurelia Huitron MD [address] [place] [address] Phone: tel: fax: [address] [phone] Referral ID Status Reason Start Date Expiration Date Visits Re quested Visits Authorized [id number] Closed 07/23/2020 08/22/2021 1 1 UT ROASTER Encounter Details Date Type Department Care Team (Late st Contact Info) Description 07/23/2020 10:28 AM PEANUT ROASTER Hospital Encounter [facility] OP INTERIM Aurelia Huitron MD [address] [place] [address] Cervicalgia Social History Tobacco Use Types Packs/Day Years [...] on file Legal 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 Gender Identity Not on file Sexual Orientation Not on file documented as of this encounter Medications at Time of Discharge amLODIPine (NORVASC) 5 mg tablet Take 1 tablet (5 mg total) by mouth 2 (two) times a day 6 tablet 07/23/2020 1 escitalopram (LEXAPRO) 10 mg tablet TK 1 T PO D 05/11/2020 1 eszopiclone (LUNESTA) 3 mg tablet eszopiclone 3 mg tablet 1 tab po nightly 1 losartan (COZAAR) 100 mg tablet TK 1 T PO QD 05/11/2020 1 meloxicam (MOBIC) 7.5 mg tablet Take 2 tablets (15 mg total) by mouth daily 90 tablet 07/23/2020 1 metFORMIN (GLUCOPHAGE) 500 mg tablet TK 1 T PO BID 05/10/2020 1 methocarbamoL (ROBAXIN) 750 mg tablet Take 1 tablet (750 mg total) by mouth 3 (three) times a day as needed for muscle spasms 30 tablet 1 07/23/2020 1 omeprazole (PriLOSEC) 20 mg capsule TK 1 C PO QD 05/09/2020 1 rosuvastatin (CRESTOR) 10 mg tablet TK 1 T PO QD 05/09/2020 1 TRUEplus Pen Needle 31 gauge x 1/4 needle U D UTD WITH VICTOZA 06/01/2020 1 Victoza 3-Eduardo 0.6 mg/0.1 mL (18 mg/3 mL) injection ADM 1.8 MG SC QD 05/09/2020 08/23/19 2 1 documented as of this encounter Miscellaneous Notes * Result Encounter Note - Aurelia Huitron MD - 07/23/2020 10:28 AM CST The x-ray of the patient's neck shows arthritis, but no fracture or worrisome finding. Would she want to try physical therapy? UT ROASTER documented in this encounter Plan of Treatment Not on file documented as of this encounter Procedures Procedure Name Priority Date/Time Associated Diagnosis Comments XR SPINE CERVICAL 2 OR 3 VIEWS Schedule Routine, Read Routine (OP Routine) 07/23/2020 10:30 AM PEANUT ROASTER Cervicalgia documented in this encounter Results * XR Spine Cervical 2 or 3 Views (07/23/2020 10:30 AM PEANUT ROASTER) Anatomical Region Laterality Modality Spine N/A Radiographic Kalyn ging 07/23/2020 1:22 PM PEANUT ROASTER Narrative 07/23/2020 1:27 PM PEANUT ROASTER Patient Name: VALERIA JOHNSON ?Ordering Dr: Aurelia Huitron MD ?? D.O.B: 1950 ? Exam Date: 07/23/20 ?? 1030 ?? Age: 70 ?Sex: Female ? MR#: [id number] ?? Loc: ? RADIOLOGY REPORT ?? Order #[id number] ?? Radiology ? Cervical Spine 2 or [...] T: ??07/23/2020 1:27 PM ? Report ID: [id number] ?? Reading Location: ??[id number] ? REPORT ELECTRONICALLY SIGNED IN OTHER VENDOR SYSTEM ?? Resulting Agency Comment O Procedure Note Clem Horn MD - 07/23/2020 Patient Name: VALERIA JOHNSON Dr: Aurelia Huitron MD D.O.B: 1950 Exam Date: 07/23/20 1030 Age: 70 Sex: Female MR#: [id number] Loc: RADIOLOGY REPORT Order #[id number] Radiology Cervical Spine 2 or 3 Views [...] Clem Horn M.D. [place]: [facility] Report ID: [id number] Reading Location: [id number] REPORT ELECTRONICALLY SIGNED IN OTHER VENDOR SYSTEM Aurelia Huitron MD IMG XR PROCEDURES F inal Result documented in this encounter Visit Diagnoses Diagnosis Cervicalgia documented in this encounter Care Teams Filtration Plant Mechanic Relationship Specialty Start Date End Date Aurelia Huitron MD [address] [place] [address] PCP - General Family Medicine 05/23/20 documented as of this encounter
--- OUTSIDE RECORDS SUMMARY | 2024-07-10 04:44 | XMS_ITS | Encounter Summary ---
Author Organization [facility] Address [address] [facility] [address] [place] [id number] Care Team Providers Care Ordnance Handler Name Role Phone Aurelia Huitron MD Primary Care Provi jarred Reason for Visit * Reason Comments Blood Pressure Check discuss blood press ure Discuss Test Results Encounter Details Date Type Department Care Team (Late st Contact Info) Description 12/18/2020 8:30 AM CDT Office Visit [facility] Family Medicine [address] [phone] Aurelia Huitron MD [address] [address] Type 2 diabetes mellitus with other specified complication, without long-term current use of insulin ([facility]) (Primary Dx); Hyperlipidemia, unspecified hyperlipidemia type; Essential hypertension; Insomnia, unspecified type; Elevated liver enzymes; Class 1 obesity due to excess calories with serious comorbidity and body mass index (BMI) of 33.0 to 33.9 in adult Social History Tobacco Use Types Packs/Day Years [...] on file 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 Gender Identity Not on file Sexual Orientation Not on file documented as of this encounter Last Filed Vital Signs Vital Sign Reading Time Taken Comments Blood Pressure 120/64 12/18/2020 8:33 AM CDT Pulse 77 12/18/2020 8:33 AM CDT Temperature 36.2 ??C (97.2 ??F) 12/18/2020 8:33 AM CD T Respiratory Rate 16 12/18/2020 8:33 AM CDT Oxygen Saturation 98% 12/18/2020 8:33 AM CDT Inhaled Oxygen Concentration - - Weight 91.6 kg (202 lb) 12/18/2020 8:33 AM CDT Height 165.1 cm (5' 5 ) 12/18/2020 8:33 AM CDT Body Mass Index 33.61 12/18/2020 8:33 AM CDT documented in this encounter Progress Notes * Aurelia Huitron MD - 12/18/2020 8:30 AM CDT Subjective/Objective Patient ID: Valeria Johnson is a 70 y.o. female. Chief Complaint Chief Complaint Patient presents with ??? Blood Pressure Check discuss blood pressure ??? Discuss Test Results HPI T The pt is presenting to the office for follow up -Diabetes- A1C is at goal of 6.2, glucose of 110. she has completed her eye exam. She is taking hermedication as prescribed -HLP-elevated TG, she is taking her crestor -LE swelling- intermittent, in her ankles -insomnia- on lunesta, doing well Hypertension This is a recurrent problem. The current episode started more than 1 year ago. The problem has beengradually improving since onset. The problem is controlled. Associated symptoms include peripheral edema. Pertinent negatives include no anxiety, blurred vision, chest pain, headaches, malaise/fatigue, neck pain, orthopnea, palpitations, PND, shortness of breath or sweats. Agents associated with hypertension include NSAIDs. Risk factors for coronary artery disease include diabetes mellitus, dyslipidemia, obesity, post-menopausal state and sedentary lifestyle. Compliance problems include exercise. Review of Systems Constitutional: Negative for chills, fever and malaise/fatigue. Eyes: Negative for blurred vision and visual disturbance. Respiratory: Negative for shortness of breath. Cardiovascular: Positive for leg swelling. Negative for chest pain, palpitations, orthopnea and PND. Gastrointestinal: Negative for abdominal pain, constipation, diarrhea, nausea and vomiting. Musculoskeletal: Negative for neck pain. Neurological: Negative for headaches. Past medical history, surgical history, and social history were reviewed BP 120/64 (BP Location: Left arm, Patient Position: Sitting) Pulse 77 Temp 36.2 ??C (97.2 ??F) (Temporal) Resp 16 Ht 165.1 cm (5' 5 ) Wt 91.6 kg (202 lb) SpO2 98% BMI 33.61 kg/m?? Physical Exam Vitals and nursing note [...] and Rhythm: Normal rate and regular rhythm. Pulses: Dorsalis pedis pulses are 2+ on the right side and 2+ on the left side. Heart sounds: Normal heart sounds. No murmur heard. No friction rub. No gallop. Pulmonary: Effort: Pulmonary effort is normal. Breath sounds: Normal breath sounds. No wheezing or rales. Abdominal: General: Bowel sounds are normal. There is no distension. Palpations: Abdomen is soft. There is no mass. Tenderness: There is no abdominal tenderness. There is no guarding or rebound. Musculoskeletal: Cervical back: Normal range of motion and neck supple. Feet: Right Foot: Monofilament exam: normal. [...] content normal. Lab Results Component Value Date CHOL 183 11/19/2020 CHOL 190 07/22/2020 Lab Results Component Value Date HDL 75 11/19/2020 HDL 72 07/22/2020 Lab Results Component Value Date LDLCALC 62 11/19/2020 LDLCALC 79 07/22/2020 Lab Results Component Value Date TRIG 229 (H) 11/19/2020 TRIG 197 (H) 07/22/2020 No results found for: POCCHDLR No results found for: POCNONHDL No results found for: POCCHLPL Lab Results Component Value Date HGBA1C 6.2 (H) 11/19/2020 Chemistry Lab Results Component Value Date SODIUM 137 11/19/2020 POTASSIUM 4.1 11/19/2020 CHLORIDE 99 11/19/2020 CO2 26 11/19/2020 ANIONGAP 12 11/19/2020 CREATININE 0.6 11/19/2020 GLUCOSE 110 (H) 11/19/2020 CALCIUM 9.7 11/19/2020 BILITOT 0.3 11/19/2020 ALBUMIN 4.8 11/19/2020 ALKPHOS 53 11/19/2020 AST 18 11/19/2020 ALT 24 11/19/2020 This SmartLink has not been configured with any valid records. Assessment/Plan Diagnoses and all orders for this visit: Type 2 diabetes mellitus with other specified complication, without long-term current use of insulin ([facility]) (Primary) Assessment & Plan: Will request eye exam Continue to work on healthy changes Continue current regimen Call for questions or concerns Orders: - Hemoglobin A1c; Future - Comprehensive metabolic panel; Future Hyperlipidemia, unspecified hyperlipidemia type Assessment & Plan: Continue crestor Work on a lower fat diet, activity Call for questions or concerns Essential hypertension Assessment & Plan: Blood pressure well controlled Continue current regimen Insomnia, unspecified type Assessment & Plan: Stable Continue current regimen Elevated liver enzymes Assessment & Plan: Normal on last check Class 1 obesity due to excess calories with serious comorbidity and body mass index (BMI) of 33.0 to 33.9 in adult Assessment & Plan: BMI Follow-up includes: nutrition counseling. Patient/parent was counseled on medication risk, side effects, and possible complications. Patient/parent was counseled on how to properly take the medication and to call with any adverse reactions. Patient/parent was advised that if anything changes or worsens, to contact the office. Patient/parent stated understanding. documented in this encounter Miscellaneous Notes * Assessment & Plan Note - Aurelia Huitron MD - 12/18/2020 8:54 AM CDTAssociated Problem(s): Class 1 obesity due to excess calories with serious comorbidity and body mass index (BMI) of 31.0 to 31.9 in adult BMI Follow-up includes: nutrition counseling. * Assessment & Plan Note - Aurelia Huitron MD - 12/18/2020 8:53 AM CDTAssociated Problem(s): Elevated liver enzymes (Resolved 08/18/2022) Normal on last check * Assessment & Plan Note - Aurelia Huitron MD - 12/18/2020 8:53 AM CDTAssociated Problem(s): Insomnia Stable Continue current regimen * Assessment & Plan Note - Aurelia Huitron MD - 12/18/2020 8:53 AM CDTAssociated Problem(s): Essential hypertension Blood pressure well controlled Continue current regimen * Assessment & Plan Note - Aurelia Huitron MD - 12/18/2020 8:52 AM CDTAssociated Problem(s): Hyperlipidemia Continue crestor Work on a lower fat diet, activity Call for questions or concerns * Assessment & Plan Note - Aurelia Huitron MD - 12/18/2020 8:50 AM CDTAssociated Problem(s): Type 2 diabetes mellitus with other specified complication (HCC) Will request eye exam Continue to work on healthy changes Continue current regimen Call for questions or concerns documented in this encounter Plan of Treatment Scheduled Orders Name Type Priority Associated Diagnoses Orde r Schedule Hemoglobin A1c Lab Routine Type 2 diabetes mellitus with other specified complication, without long-term current use of insulin ([facility]) Expected: 06/19/2021, Expires: 12/18/2021 Comprehensive metabolic panel Lab Routine Type 2 diabetes mellitus with other specified complication, without long-term current use of insulin ([facility]) Expected: 06/19/2021, Expires: 12/18/2021 documented as of this encounter Visit Diagnoses Diagnosis Type 2 diabetes mellitus with other specified complication, without long-term current use of insulin (HCC)- Primary Hyperlipidemia, unspecified hyperlipidemia type Essential hypertension Unspecified essential hypertension Insomnia, unspecified type Elevated liver enzymes Other nonspecific abnormal serum enzyme levels Class 1 obesity due to excess calories with serious comorbidity and body mass index (BMI) of 33.0 to 33.9 in adult documented in this encounter Care Teams Ordnance Handler Relationship Specialty Start Date End Date Aurelia Huitron MD [address] [place] [address] PCP - General Family Medicine 05/23/20 documented as of this encounter
--- OUTSIDE RECORDS SUMMARY | 2024-07-10 04:45 | XMS_ITS | Clinical Summary ---
Author Organization [facility] Address [address] Phillips: Epic Prelude ADT JEF [place]YAN [place]ARA [address] Care Team Providers Care Automobile Carpets Molder Name Role Phone Unavailable Primary Care Provider Unavailabl e Social History Tobacco Use Types Packs/Day Years Used Date Smoking Tobacco: Never Assessed Sex and Gender Information Value Date Recorded Sex Assigned at Not on file Gender Identity Not on file Sexual Orientation Not on file Plan of Treatment Health Maintenance Due Date Last Done Comments DTAP/TDAP/TD VACCINES (1 - Tdap) 02/25/1971 BREAST CANCER SCREENING 1992 COLORECTAL SCREENING 02/25/1997 Colorectal Cancer Screening 02/25/1997 FIT-DNA Q 3 years 02/25/1997 FIT/FOBT Q 1 year 02/25/1997 Flex Sig/CT Colonography Q 5 years 02/25/1997 ZOSTER VACCINE (1 of 2) 02/25/2002 OSTEOPOROSIS SCREENING 02/25/2017 PNEUMOCOCCAL VACCINE 65+ YEARS (1 of 1 - PCV) 02/26/20 17 INFLUENZA VACCINE (#1) 2024 RSV VACCINE (60+ or ) (1 - 1-dose 75+ series) 02/25/2027
--- OUTSIDE RECORDS SUMMARY | 2024-07-10 04:45 | XMS_ITS | Encounter Summary ---
Author Organization [facility] Address [address] [place] [address] Care Team Providers Care Medical Lab Technician Name Role Phone Unavailable Primary Care Provider Unavailabl e Encounter Details Date Type Department Care Team (Late st Contact Info) Description 12/25/[address] [facility] Oncology and Hematology [place] Virgen [address] [place] [id number] Dasia Bright MD [address] [place] [address] Social History Tobacco Use Types Packs/Day Years [...]
== END 2024-07-03 09:20 | disposition home or self-care (01) ==
PROVIDERS: Emergency Provider Nurse Practitioner Family
DX: J11.1 Influenza due to unidentified influenza virus with other respiratory manifestations (principal); E11.9 Type 2 diabetes mellitus without complications; I10 Essential (primary) hypertension; Z20.822 Contact with and (suspected) exposure to COVID-19
CPT/HCPCS: 81003; 87086; 87426; 87804; 99213; G0463

== ENCOUNTER 2025-04-10 10:16 | Outpatient (CLI) | payer MEDICARE, SELFPAY ==
--- NOTE | ~2025-04-10 | MM_ITS ---
EXAMINATION: MM screening tonia BI w cindy HISTORY: Screening TECHNIQUE: Craniocaudal and mediolateral oblique 3-D tomosynthesis images were obtained and synthetic 2-D images were generated. CAD analysis was submitted and interpreted. COMPARISON: Comparison to multiple prior studies sequentially, with oldest reviewed study dated , 09/02/2019 BREAST PARENCHYMAL COMPOSITION: There are scattered areas of fibroglandular density. FINDINGS: There is no evidence of suspicious mass, calcification, or architectural distortion to suggest malignancy in either breast. IMPRESSION: 1. No mammographic evidence of malignancy. 2. Recommend routine screening mammography in one year. BI-RADS Category 1: Negative Reviewed, dictated and finalized at location B.
--- OUTSIDE RECORDS SUMMARY | 2025-04-10 11:33 | XMS_ITS | Clinical Summary ---
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 Gender Identity Not on file Sexual Orientation Not on file Plan of Treatment Health Maintenance Due Date Last Done Comments Colorectal Cancer Screening Colonoscopy (10 Years) 1950 Hepatitis C 02/25/1970 Mammogram Screening 1992 DTaP, Tdap and Td Vaccines ( 1 - Tdap) 06/06/2010 06/05/2010 Annual Medicare Wellness Visit 02/25/2017 Dexa Scan (General) 02/25/2017 Pneumococcal Vaccine: 50+ Years (2 of 2 - PPSV23) 04/22/2018 04/22/2017 COVID-19 Vaccine (4 - 2024-2 6 season) 2025 06/25/2021, 09/17/2020, 08/27/2020 Influenza Adult (#1) 2025 04/10/2020 RSV Immunization or 60+ Years (1 - 1-dose 75+ series) 02/25/2027 Zoster Vaccines Completed 01/18/2019, 10/28/2018, 08/20/2012 Meningococcal B Vaccine Aged Out No l onger eligible based on patient's age to complete this topic Meningococcal Vaccine Aged Out No lukasz janeth eligible based on patient's age to complete this topic RSV Immunizations Under 20 Months Aged Out No longer eligible b ased on patient's age to complete this topic Insurance [facility]
--- OUTSIDE RECORDS SUMMARY | 2025-04-10 11:33 | XMS_ITS | Encounter Summary ---
Author Organization [facility] Address [address] [place] [address] Care Team Providers Care Brick Handler Name Role Phone Aurelia Huitron MD Primary Care Provi jarred Encounter Details Date Type Department Care Team (Late st Contact Info) Description 02/06/2025 Results Follow-Up [facility] Family Medicine [address] [phone] Aurelia Huitron MD [address] [address] Hemoglobin A1c, Comprehensive metabolic panel, Urinalysis reflex to microscopic and culture Urine, clean voided, REFLEXIVE URINE CULTURE Social History Tobacco Use Types Packs/Day Years Used Date Smoking Tobacco: Never Smokeless Tobacco: Never Alcohol Use Standard Drinks/Week Comments Never 0 (1 standard drink = 0.6 oz pur e alcohol) PHQ-2 Answer Date Recorded PHQ-2 Total Score (If total score is 3 or more points, staff should administer the PHQ-9) 0 04/05/2025 PHQ-9 Answer Date Recorded PHQ-9 Total Score 2 08/30/2024 AUDIT-C Answer Date Recorded Q1: How often do you have a drink containing alc ohol? 2-3 times a week 03/22/2025 Q2: How many drinks containi ng alcohol do you have on a typical day when you are drinking? 1 or 2 03/22/2025 Q3: How often do you have si x or more drinks on one occasion? Never 03/22/2025 Personal Safety Answer Date Recorded Have you ever been in or are you currently in a harmful physical or emotional relationship or is someone making you feel afraid or unsafe? 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 2-3 times a week 03/22/2025 10:05 AM Janessa Farrell RN Q2: How many drinks containing alcohol do you have on a typical day when you are drinking? 1 or 2 03/22/2025 10:05 AM Janessa Farrell RN Q3: How often do you have six or more drinks on one occasion? Never 03/22/2025 10:05 AM Janessa Farrell RN documented as of this encounter Plan of Treatment Not on file documented as of this encounter Visit Diagnoses Not on filedocumented in this encounter Care Teams Brick Handler Relationship Specialty Start Date End Date Aurelia Huitron MD [address] [place] [address] PCP - General Family Medicine 05/23/20 documented as of this encounter
--- OUTSIDE RECORDS SUMMARY | 2025-04-10 11:33 | XMS_ITS | Clinical Summary ---
Author Organization [facility] Address [address] [place]n: Epic Prelude ADT JEF [place] [address] Care Team Providers Care Sustainability Analyst Name Role Phone Unavailable Primary Care Provider Unavailabl e Social History Tobacco Use Types Packs/Day Years Used Date Smoking Tobacco: Never Assessed Comments Unknown Sex and Gender Information Value Date Recorded Sex Assigned at Not on file Legal Sex Female 10:39 PM CDT Gender Identity Not on file Sexual Orientation Not on file Plan of Treatment Health Maintenance Due Date Last Done Comments DTAP/TDAP/TD VACCINES (1 - Tdap) 02/25/1971 BREAST CANCER SCREENING 1992 COLORECTAL SCREENING 02/25/1997 Colorectal Cancer Screening 02/25/1997 FIT-DNA Q 3 years 02/25/1997 FIT/FOBT Q 1 year 02/25/1997 Flex Sig/CT Colonography Q 5 years 02/25/1997 PNEUMOCOCCAL VACCINE 50+ YEARS (1 of 1 - PCV) 02/26/20 02 ZOSTER VACCINE (1 of 2) 02/25/2002 OSTEOPOROSIS SCREENING 02/25/2017 INFLUENZA VACCINE (#1) 2025 RSV VACCINE (60+ or ) (1 - 1-dose 75+ series) 02/25/2027
--- OUTSIDE RECORDS SUMMARY | 2025-04-10 11:33 | XMS_ITS | Clinical Summary ---
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 Name Role Phone Aurelia Huitron MD Primary Care Provi jarred Allergies No known active allergies Medications omeprazole-sodium bicarbonate (ZEGERID) 40-1.1 mg-gram per capsule Take 1 capsule by mouth daily before breakfast Active aspirin 81 mg enteric coated tablet Take 1 tablet (81 mg total) by mouth every morning Active escitalopram (LEXAPRO) 20 mg tablet Take 1 tablet (20 mg total) by mouth nightly Active fluticasone propionate (FLONASE) 50 mcg/actuation nasal spray Administer 2 sprays into each nostril daily Active losartan (COZAAR) 100 mg tablet Take 1 tablet (100 mg total) by mouth every morning Active metFORMIN (GLUCOPHAGE) 500 mg tablet Take 1 tablet (500 mg total) by mouth 2 (two) times a day with meals Active rosuvastatin (CRESTOR) 10 mg tablet Take 1 tablet (10 mg total) by mouth nightly Active semaglutide (Ozempic) 1 mg/dose (4 mg/3 mL) pen injector injectionIndicatio ns:type 2 diabetes mellitus Inject 1 mg under the skin once a week Wednesdays, last dose as of SEC visit was 03/01/25 Active levocetirizine (XYZAL) 5 mg tablet Take 1 tablet (5 mg total) by mouth every evening Active calcium carb, citrate/vit D3 (CITRACAL-D3 SLOW RELEASE ORAL) Take 1 tablet by mouth every morning Active coenzyme Q10 200 mg capsule Take 1 capsule (200 mg total) by mouth daily Active HAIR, SKIN AND NAILS, BIOTIN, ORAL Take 1 tablet by mouth every morning Active mv-min/vit C/elderber/herb 124 (AIRBORNE ELDERBERRY ORAL) Take 2 tablets by mouth every morning Active melatonin 10 mg tablet Take 1 tablet (10 mg total) by mouth nightly as needed Active polyethylene glycol (MIRALAX) 17 gram packetIndications: constipation Take 1 packet (17 g total) by mouth daily as needed for constipation Active amLODIPine (NORVASC) 5 mg tablet Take 1 tablet (5 mg total) by mouth daily Active amLODIPine (NORVASC) 5 mg tablet Take 1 tablet (5 mg total) by mouth 2 (two) times a day 025 Discontin ued(Alter vazquez therapy) HYDROcodone-acetam inophen (NORCO) 5-325 mg per tabletIndications: Pain Take 1-2 tablets by mouth every 6 (six) hours as needed for pain 20 tablet 03/22/20 25 025 Discontin ued(Thera py completed ) ondansetron ODT (ZOFRAN-ODT) 4 mg disintegrating tablet Take 1-2 tablets (4-8 mg total) by mouth every 6 (six) hours as needed for nausea or vomiting 10 tablet 03/22/20 25 025 Discontin ued(Thera py completed ) doxycycline (doxycycline hyclate) 100 mg capsule Take 1 tablet/capsule (100 mg total) by mouth 2 (two) times a day for 7 days 14 tablet/caps ule 03/22/20 25 025 Discontin ued(Thera py completed ) Active Problems Problem Noted Date Diagnosed Date RAE (obstructive sleep apnea) 01/18/2025 Intolerance of continuous po sitive airway pressure (CPAP) ventilation 01/18/2025 Encounter for long-term (current) use of medicat ions 10/20/2024 Assessment & Plan (10/20/2024 3:01 PM CDT): Has been on a daily PPI for a significant amount of years. Would like to attempt to wean off of medication Ear drum perforation, right 10/12/2023 Overview (10/12/2023): acute, new vs prior will refer to ENT update me after the visit Alcohol use 09/20/2021 Assessment & Plan (08/26/2023 10:12 AM EQUINE DENTIST): Chronic, stable Encouraged cutting down Assessment & Plan (08/18/2022 10:43 AM EQUINE DENTIST): Chronic, but encouraged cutting down Assessment & Plan (09/20/2021 8:53 AM CDT): She has 1-2 drinks 3-4 times a week- mostly a mixed drink with vodka Encouraged cutting down amount Colon cancer screening 07/17/2021 Overview (08/30/2024): Encouraged healthy diet and activity Pt has POA and living will Health Maintenance: Last mammogram: 01/24, 12/26, 04/28- Negative Last DEXA:-12/25, 12/27- Normal Last cologuard 07/2021- Neg-with her family history- sister with pre-cancerous lesions- she would like to see GI Last pneumonia/Prevnar: up to date Last Shingrix: up to date Last Flu: up to date Last COVID: encouraged Assessment & Plan (10/20/2024 3:02 PM CDT): States that her sister was recently diagnosed with precancerous polyps and that she was recommended to have a screening colonoscopy. Previous Cologuard in August 2021 was negative. Reports of constipation, diarrhea, blood or mucus in her stool. -Colonoscopy scheduled at this time Assessment & Plan (08/30/2024 10:30 AM EQUINE DENTIST): Encouraged healthy diet and activity Pt has POA and living will Health Maintenance: Last mammogram: 01/24, 12/26, 04/28- Negative Last DEXA:-12/25, 12/27- Normal Last cologuard 07/2021- Neg-with her family history- sister with pre-cancerous lesions- she would like to see GI Last pneumonia/Prevnar: up to date Last Shingrix: up to date Last Flu: up to date Last COVID: encouraged Assessment & Plan (08/26/2023 10:11 AM EQUINE DENTIST): Encouraged healthy diet and activity Pt has POA and living will Health Maintenance: Last mammogram: 01/15/22, 12/26- WNL Last DEXA:-12/25- WNL- ordered Last colon cancer screening: cologuard 07/2021- Neg Last pneumonia/Prevnar: up to date Last Shingrix: up to date Last Flu: encouraged Last COVID: encouraged Assessment & Plan (08/18/2022 10:41 AM EQUINE DENTIST): Encouraged healthy diet and activity Encouraged looking into a POA/Living will Health Maintenance: Last mammogram: 01/15/22 Last DEXA:-12/25- WNL Last colon cancer screening: cologuard 07/2021- Neg Last pneumonia/Prevnar: up to date Last Shingrix: up to date Last Flu: up to date Last COVID: up to date Assessment & Plan (07/17/2021 12:51 PM EQUINE DENTIST): Encouraged healthy diet and activity Health Maintenance: Last mammogram: 09/2020- WNL Last DEXA:-ordered Last colonoscopy/cologuard: cologuard ordered, encouraged to check with insurance regarding getting it done Last pneumonia/Prevnar: up to date Last Shingrix: up to date Last Flu: up to date Last COVID: up to date Allergic rhinitis 07/23/2020 Assessment & Plan (08/26/2023 10:13 AM EQUINE DENTIST): Chronic, persistent Encouraged starting flonase daily Assessment & Plan (08/18/2022 10:44 AM EQUINE DENTIST): Chronic, persistent Encouraged flonase daily Assessment & Plan (07/17/2021 12:49 PM EQUINE DENTIST): Stable Continue to monitor symptoms Anxiety 07/23/2020 Assessment & Plan (04/05/2025 8:11 AM CDT): Chronic, stable Continue escitalopram Assessment & Plan (08/26/2023 10:13 AM EQUINE DENTIST): Chronic, stable Continue lexapro Assessment & Plan (08/18/2022 10:45 AM EQUINE DENTIST): Chronic, persistent Continue lexapro Consider seeing a therapist Continue healthy changes for mood Call if it worsens Assessment & Plan (07/17/2021 12:49 PM EQUINE DENTIST): Worsening Will increase her Lexapro to 10 mg, 2 tabs daily She will update me in the next 1-2 weeks with how she is doing Update me with any changes or concerns Assessment & Plan (07/23/2020 9:41 AM EQUINE DENTIST): Stable Continue current regimen Continue to work on healthy changes to improve mood Carpal tunnel syndrome 07/23/2020 Assessment & Plan (08/26/2023 10:14 AM EQUINE DENTIST): Chronic, improved Continue to monitor Assessment & Plan (08/18/2022 10:45 AM EQUINE DENTIST): Chronic, improved Continue to monitor Assessment & Plan (07/17/2021 12:50 PM EQUINE DENTIST): Resolved Essential hypertension 07/23/2020 Assessment & Plan (04/05/2025 8:11 AM CDT): Chronic, unstable Decrease amlodipine to daily (previous bid) due to lower readings and symptoms of dizziness Continue losartan Keep bp log and update in 2 weeks Reviewed heart healthy diet Exercise recommended at least 5 times per week for a 1/2 hour Low-sodium diet recommended-2000 mg or less per day Monitor blood pressure regularly notify if less than 100/60 or greater than 130s over 80s Notify if pulse is less than 60 or greater than 100 Assessment & Plan (08/26/2023 10:15 AM EQUINE DENTIST): Chronic, stable Continue losartan, norvasc Continue healthy changes Assessment & Plan (08/18/2022 11:02 AM EQUINE DENTIST): Chronic, elevated She is under current stressors [...] regimen Assessment & Plan (07/17/2021 12:52 PM EQUINE DENTIST): Blood pressure goal Continue current regimen Assessment & Plan (12/18/2020 8:53 AM CDT): Blood pressure well controlled Continue current regimen Assessment & Plan (07/23/2020 12:55 PM EQUINE DENTIST): Will increase her Norvasc Continue losartan Continue to work on healthy changes Update me with any changes Call for questions or concerns Gastroesophageal reflux disease 07/23/2020 Assessment & Plan (04/05/2025 8:11 AM CDT): Chronic, stable Continue PPI therapy Sit up at least 45 minutes following meals Drink plenty of fluids with meals Limit intake of spicy, tomato-based, acidic, and citric foods Assessment & Plan (10/20/2024 3:01 PM CDT): Reports that she has had chronic GERD for a significant amount of years and has been on a daily PPI at that has been extremely therapeutic. States that her PCP would like her to try and wean off medication. She reports that she can have a burning sensation throughout the day if she does not take her medication. Previous EGD was over 20 years ago. -EGD scheduled at this time -Educated on importance of avoiding certain foods -Discussed possibility of changing PPI to famotidine to help with her complaints Assessment & Plan (08/26/2023 10:16 AM EQUINE DENTIST): Chronic, stable We reviewed the risks/benefits, side effects She is going to take her medication every other day as her symptoms are well controlled Assessment & Plan (08/18/2022 10:48 AM EQUINE DENTIST): Chronic, improved Reviewed risks of medication Consider when stress is less (mom in hospital), going to every other day Assessment & Plan (07/17/2021 12:52 PM EQUINE DENTIST): Continue current regimen Reviewed the risk of proton pump inhibitors including C diff, pneumonia, bone loss Update me if her symptoms change or worsen Assessment & Plan (07/23/2020 9:41 AM EQUINE DENTIST): Reviewed risks/benefits of medication Continue current regimen Call for questions or concerns Hemorrhoids 07/23/2020 Assessment & Plan (08/26/2023 10:17 AM EQUINE DENTIST): Chronic, asymptomatic Continue to monitor Assessment & Plan (07/17/2021 12:52 PM EQUINE DENTIST): Improved Continue to monitor Hyperlipidemia 07/23/2020 Assessment & Plan (08/26/2023 10:17 AM EQUINE DENTIST): Chronic, stable Continue crestor Assessment & Plan (08/18/2022 10:48 AM EQUINE DENTIST): Chronic, stable Continue crestor Labs ordered Assessment & Plan (07/17/2021 12:52 PM EQUINE DENTIST): Labs order Continue Crestor every other day Assessment & Plan (12/18/2020 8:53 AM CDT): Continue crestor Work on a lower fat diet, activity Call for questions or concerns Assessment & Plan (07/23/2020 9:39 AM EQUINE DENTIST): Continue current regimen Will recheck labs in 6 months Call for questions or concerns Insomnia 07/23/2020 Assessment & Plan (08/26/2023 10:19 AM EQUINE DENTIST): Chronic, persistent She does not feel as though she has quality sleep Will refer to sleep medicine given her RAE Call for questions or concerns Assessment & Plan (08/18/2022 10:49 AM EQUINE DENTIST): Chronic, off medication Continue healthy changes for her sleep Assessment & Plan (07/17/2021 12:53 PM EQUINE DENTIST): Will increase treatment for her anxiety Monitor sleep as we improve her mood Update me in the next 2 weeks Assessment & Plan (12/18/2020 8:53 AM CDT): Stable Continue current regimen Assessment & Plan (07/23/2020 12:57 PM EQUINE DENTIST): Continue current regimen Call for questions or concerns Low back pain 07/23/2020 Assessment & Plan (08/26/2023 10:20 AM EQUINE DENTIST): Chronic, stable Continue supportive care Continue medication as needed Assessment & Plan (08/18/2022 10:49 AM EQUINE DENTIST): Chronic, improved Continue supportive care Assessment & Plan (07/17/2021 12:53 PM EQUINE DENTIST): Continue supportive care Obstructive sleep apnea syndrome 07/23/2020 Assessment & Plan (12/05/2024 11:19 AM CDT): I have referred patient over to Dr. Alfredo for consideration in the inspire device. Assessment & Plan (09/26/2024 10:41 AM CDT): The patient was diagnosed with RAE long ago and was intolerant CPAP and oral appliance therapy. She would like to be evaluated for the inspire device. I have ordered a diagnostic nocturnal polysomnogram with no MSLT or split night protocol. She will follow up here in 7 weeks. Assessment & Plan (08/26/2023 10:20 AM EQUINE DENTIST): Chronic, uncontrolled She is off CPAP with difficulty sleeping, fatigue Referral to sleep medicine placed Assessment & Plan (08/18/2022 10:49 AM EQUINE DENTIST): Chronic Encouraged to consider pulm referral for re-evaluation Assessment & Plan (07/17/2021 12:53 PM EQUINE DENTIST): Encouraged to consider CPAP Type 2 diabetes mellitus with other specified co mplication 07/23/2020 Assessment & Plan (04/05/2025 8:11 AM CDT): Chronic, stable Continue ozempic and metformin Limit pastas, breads, sweets, and stay active Assessment & Plan (08/26/2023 10:23 AM EQUINE DENTIST): Chronic, stable Labs ordered Foot exam today Further guidance once we have the results Assessment & Plan (08/18/2022 10:50 AM EQUINE DENTIST): Chronic, stable Continue healthy changes Continue current [...] changes Assessment & Plan (08/15/2021 10:52 AM EQUINE DENTIST): Will recheck A1C in May Continue to monitor symptoms- watch for hypoglycemia Update me with any concerns Call for questions Assessment & Plan (07/17/2021 12:54 PM EQUINE DENTIST): Continue metformin Foot exam completed today Labs order Continue healthy changes Assessment & Plan (12/18/2020 8:51 AM CDT): Will request eye exam Continue to work on healthy changes Continue current regimen Call for questions or concerns Assessment & Plan (07/23/2020 9:40 AM EQUINE DENTIST): Last A1C was at goal per patient Continue current regimen Continue to work on healthy changes Set up eye exam Call for questions Overactive bladder due to prolapse of female gen ital organ 04/10/2020 Assessment & Plan (08/26/2023 10:22 AM EQUINE DENTIST): Chronic, persistent Will check urine studies Decrease PM hydration- drink when thirsty Cut down on etoh and caffeine Update me in 6 months Assessment & Plan (08/18/2022 10:50 AM EQUINE DENTIST): Chronic, stable Continue supportive care Assessment & Plan (07/17/2021 12:53 PM EQUINE DENTIST): Improved Resolved Problems Problem Noted Date Diagnosed Date Resolved Date Class 1 obesity due to exces s calories with serious comorbidity and body mass index (BMI) of 31.0 to 31.9 in adult 12/18/2020 04/05/2025 Assessment & Plan (08/30/2024 1:59 PM EQUINE DENTIST): Chronic, stable BMI Follow-up includes: nutrition counseling. Assessment & Plan (07/28/2024 11:24 AM EQUINE DENTIST): BMI Follow-up includes: nutrition counseling. Assessment & Plan (02/18/2024 4:00 PM CDT): Chronic, stable BMI Follow-up includes: nutrition counseling. Assessment & Plan (08/26/2023 10:15 AM EQUINE DENTIST): Chronic, improved BMI Follow-up includes: nutrition counseling. Assessment & Plan (08/18/2022 10:46 AM EQUINE DENTIST): BMI Follow-up includes: nutrition counseling. Assessment & Plan (08/15/2021 10:53 AM EQUINE DENTIST): Stable BMI Follow-up includes: nutrition counseling. Assessment & Plan (07/17/2021 12:50 PM EQUINE DENTIST): BMI Follow-up includes: nutrition counseling. Assessment & Plan (12/18/2020 8:54 AM CDT): BMI Follow-up includes: nutrition counseling. Elevated liver enzymes 07/23/202008/18 Assessment & Plan (08/18/2022 10:46 AM EQUINE DENTIST): resolved Assessment & Plan (07/17/2021 12:50 PM EQUINE DENTIST): Lab recheck ordered Assessment & Plan (12/18/2020 8:54 AM CDT): Normal on last check Encounters Date Type Department Care Team Description 04/05/2025 7:30 AM CDT Office Visit [address] [phone] Belem Pelayo NP Anxiety (Primary Dx); Essential hypertension; Gastroesophageal reflux disease without esophagitis; Type 2 diabetes mellitus with other specified complication, without long-term current use of insulin; Need for vaccination 04/03/2025 Telephone [facility] [address] [phone] Aurelia Huitron MD Medical Question/Miscellaneo us 03/30/2025 3:00 PM CDT Office Visit [facility] [address] [phone] Santino Alfredo MD Postoperative state (Primary Dx) 03/22/2025 11:00 AM CDT - 03/22/2025 1:30 PM CDT Surgery [facility] Operating Room [address] [place] [phone] Santino Alfredo MD Hypoglossal Nerve Stimulator Implantation [58744 (CPT )] 03/22/2025 10:33 AM CDT Anesthesia Event [facility] Operating Room [address] [place] [phone] Raciel Rios MD Waldeck, Pauline Rose, CRNA 03/22/2025 8:54 AM CDT - 03/22/2025 2:05 PM CDT Hospital Encounter [facility] Operating Room [address] [place] [phone] Santino Alfredo MD Intolerance of continuous positive airway pressure (CPAP) ventilation (Primary Dx); RAE (obstructive sleep apnea) Discharge Disposition: Discharge to home or self care 03/22/2025 Telephone [facility] [place] [address] [phone] Rishabh Ortiz MD Appointment 03/20/2025 Telephone [facility] - [address] [place] [phone] Santino Alfredo MD 03/07/2025 8:15 AM CDT Pre-Admission Testing [facility] Pre Anesthesia Testing [address] [place] [phone] 02/27/2025 Telephone [facility] - [address] [place] [phone] Santino Alfredo MD 02/08/2025 Telephone [facility] - [address] [phone] Santino Alfredo MD 02/06/2025 Results Follow-Up [facility] [address] [phone] Aurelia Huitron MD Hemoglobin A1c, Comprehensive metabolic panel, Urinalysis reflex to microscopic and culture Urine, clean voided, REFLEXIVE URINE CULTURE 02/01/2025 9:45 AM CDT - 02/01/2025 10:15 AM CDT Surgery [facility] Operating Room [address] [place] [phone] Santino Alfredo MD Drug Induced Sleep Endoscopy (D.I.S.E.) 02/01/2025 9:24 AM CDT Anesthesia Event [facility] Operating Room [address] [place] [phone] Phu Dickinson MD McVey, Lynexis Parisann, CRNA 02/01/2025 7:24 AM CDT - 02/01/2025 10:23 AM CDT Hospital Encounter [facility] Operating Room [address] [place] [phone] Santino Alfredo MD Intolerance of continuous positive airway pressure (CPAP) ventilation (Primary Dx); RAE (obstructive sleep apnea) Discharge Disposition: Discharge to home or self care 01/31/2025 Telephone [facility] - [facility] [address] [phone] Santino Alfredo MD 01/17/2025 11:30 AM CDT Office Visit [facility] - [facility] [address] [facility] [address], [place] [phone] Santino Alfredo MD Severe obstructive sleep apnea (Primary Dx); Intolerance of continuous positive airway pressure (CPAP) ventilation; Type 2 diabetes mellitus with other specified complication, without long-term current use of insulin (HCC) from Last 3 Months Immunizations Immunization Administration Dates Next Due DTP 06/05/2010 Influenza, Quadrivalent, Hig h Dose, Preservative Free, Intrr 03/26/2022,05/17/2021,04/10/2020 Influenza, Trivalent, High D ose, Split, Preservative Free, Intramuscular 04/05/2025,07/31/2024,04/04/2019,04/13,04/22/2017 Influenza, Trivalent, IM (MDV) 6,04/18/2015,05/01/2014,04/25 Influenza, Trivalent, Preser vative Free, Intramuscular 04/17/2015 Influenza, Unspecified 04/05/2024(Deferr ed: Patient decision),04/05/2023(Deferred: Patient Refused),04/05/2023(Deferred: Patient Refused) Pneumococcal Conjugate PCV 13 04/22/2017 Pneumococcal Polysaccharide PPV23 05/16/2020, Tdap 12/06/2019 ZOSTER LIVE 08/20/2012 ZOSTER Recombinant 01/18/2019,10/28/2018 Surgical History Surgery Date Site/Laterality Comments TUBAL LIGATION KNEE ARTHROSCOPY W/ MENISCAL REPAIR Bilateral CATARACT EXTRACTION W/ INTRAOCULAR LENS IMPLANT 07/06/2012 - 07/05/2013 right eye COLONOSCOPY UPPER GASTROINTESTINAL ENDOSCOPY IMPLANTATION HYPOGLOSSAL NERVE STIMULATOR 03/22/2025 Neck/N/A Procedure: Hypoglossal Nerve Stimulator Implantation; Surgeon: Santino Alfredo MD; Location: [facility] OPERATING ROOM; Service: Otolaryngology; Laterality: N/A; (KO) Medical devices from this surgery are in the Medical Devices section. IMPLANTATION HYPOGLOSSAL NERVE STIMULATOR Medical History Medical History Date Comments Anxiety 07/06/1989 Hypertension Insomnia Hypercholesterolemia with hypertriglyceridemia Apnea Mitral valve prolapse Allergic rhinitis DM2 (diabetes mellitus, type 2) RAE (obstructive sleep apnea) Gastroesophageal reflux disease 07/23/2020 Class 1 obesity due to exces s calories with serious comorbidity and body mass index (BMI) of 31.0 to 31.9 in adult 12/18/2020 Family History Medical History Relation Name Comments COPD Father Raciel Diabetes Father Raciel Hypertension Father Raciel Colon cancer Father's Sister No Known Problems Mother Maritza Colon polyps Sister Rheum arthritis Sister Relation Name Status Comments Father Raciel Father's Sister Mother Maritza Sister Alive Social History Tobacco Use Types Packs/Day Years Used Date Smoking Tobacco: Never Smokeless Tobacco: Never Alcohol Use Standard Drinks/Week Comments Yes 2 (1 standard drink = 0.6 oz pur [...] on file Legal Sex Female 12:58 AM EQUINE DENTIST Gender Identity Not on file Sexual Orientation Not on file Obstetrics History Last Filed Vital Signs Vital Sign Reading Time Taken Comments Blood Pressure 124/70 04/05/2025 7:46 AM CDT Pulse 89 04/05/2025 7:46 AM CDT Temperature 36.3 C (97.4 F) 04/05/2025 7:46 AM CDT Respiratory Rate 16 04/05/2025 7:46 AM CDT Oxygen Saturation 99% 04/05/2025 7:46 AM CDT Inhaled Oxygen Concentration - - Weight 79.8 kg (176 lb) 04/05/2025 7:46 AM CDT Height 165.1 cm (5' 5) 04/05/2025 7:46 AM CDT Body Mass Index 29.29 04/05/2025 7:46 AM CDT Plan of Treatment Health Maintenance Due Date Last Done Comments Hepatitis B Screening 02/25/1968 Covid-19 Vaccine (2024-2 6 season) 2025 06/25/2021, 09/17/2020, 08/27/2020 Breast Cancer Screening-Mammogram 04/08/2025 04/08/2024, 04/06/2023, 01/15/2022, Additional history exists Hemoglobin A1C 08/06/2025 02/03/2025, 09/03, 02/19/2024, Additional history exists Foot Exam 08/30/2025 08/30/2024, 02/03, 08/26/2023, Additional history exists Well Visit 65+ 08/30/2025 08/30/2024, 08/07, 08/26/2023, Additional history exists Dilated Eye Exam 09/08/2025 09/08/2024, , 10/20/2022, Additional history exists Albumin Creatinine Ratio, Urine 09/12/2025 09/12/2024, 02/19/2024, 08/31/2023, Additional history exists Lipid Panel 09/12/2025 09/12/2024, 08/07, 09/30/2022, Additional history exists Osteoporosis Screening-Bone Density Scan 12/20/2025 12/21/2023, 12/17/2021 eGFR 02/03/2026 02/03/2025, 09/03, 02/19/2024, Additional history exists Fall Risk Assessment 03/22/2026 03/22/2025, 08/30/2024, 07/28/2024, Additional history exists Depression Screening 04/05/2026 04/05/2025, 08/30/2024, 08/30/2024, Additional history exists Colon Cancer Screening-DNA Stool 11/17/2027 11/17/19, 07/29/2021 DTaP/Tdap/Td Vaccine (3 - Td or Tdap) 12/05/2029 12/06/2019, 06/05/2010 Zoster Vaccine Completed 01/18/2019, 10/05, 08/20/2012 Pneumococcal vaccine 65+ Completed 020, 04/22/2017, 09/24/2012 Hepatitis C Screening Completed 11/19/2020 Colon Cancer Screening-Colonoscopy Discontinued 11/16/2024 Influenza Vaccine Completed 04/05/2025, , 03/26/2022, Additional history exists Medical Devices Implanted Type Area Car Rental Sales Assistant Device Identifier Shelf Expiration Date Model / Serial / Lot [employer] Lead Neurostimulator Sleep Apnea Thoracic Permanent Hypoglossal Nerve [id number] - [id number] - [id number] Implanted:Qty: 1 on 03/22/2025 by Santino Alfredo MD at [facility] Right: Neck [employer] 04/09/2027 [id number] / [id number] / Med[employer] Envelope Absrb 2.7x2.5in Antibacterial Tyrx Medium Strl [id number] - [id number] Implanted:Qty: 1 on 03/22/2025 by Santino Alfredo MD at [facility] Right: Chest [employer] [id number] 09/21/2025 [id number] / / [id number] [employer] Lead Neurostimulator Sleep Apnea Thoracic Permanent Respiratory Sensing Inspire 43cm 4340 - [id number] - [id number] Implanted:Qty: 1 on 03/22/2025 by Santino Alfredo MD at [facility] Right: Chest [employer] 09/06/2027 4340 / [id number] / [employer] Inspire Generator 3028 - [id number] - [id number] Implanted:Qty: 1 on 03/22/2025 by Santino Alfredo MD at [facility] Right: Chest [employer] 08/01/2027 3028 / [id number] / Procedures Procedure Name Priority Date/Time Associated Diagnosis Comments XR NECK SOFT TISSUE IP Routine 03/22/2025 1 :08 PM CDT XR CHEST 1 VIEW IP Routine 03/22/2025 1:08 PM CDT POCT GLUCOSE DEVICE Routine 03/22/2025 12:35 PM CDT WI AN PROCEDURE PLACEHOLDER Routine 03/22/2025 10:49 AM CDT WI AN ELECTIVE ENDOTRACHEAL AIRWAY Routine 03/22/2025 10:49 AM CDT WI OPEN IMPLTJ HPGLSL NRV NSTIM RA PG&RESPIR SENSOR 03/22/2025 10:33 AM CDT RAE (obstructive sleep apnea) Intolerance of continuous positive airway pressure (CPAP) ventilation POCT GLUCOSE DEVICE Routine 03/22/2025 10:06 AM CDT MAGNESIUM Routine 02/03/2025 9:43 AM CDT Gastroesophageal reflux disease without esophagitis COMPREHENSIVE METABOLIC PANEL Routine 02/03/2025 9:41 AM CDT Type 2 diabetes mellitus with other specified complication, without long-term current use of insulin (HCC) HEMOGLOBIN A1C Routine 02/03/2025 9:41 AM CDT Type 2 diabetes mellitus with other specified complication, without long-term current use of insulin (HCC) REFLEXIVE URINE CULTURE Routine 02/03/2025 9:39 AM CDT URINALYSIS AND REFLEX TO MICROSCOPIC AND CULTURE Routine 02/03/2025 9:39 AM CDT Dysuria POCT GLUCOSE DEVICE Routine 02/01/2025 9 :43 AM CDT DRUG INDUCED SLEEP ENDOSCOPY. 02/01/2025 9:23 AM CDT RAE (obstructive sleep apnea) Intolerance of continuous positive airway pressure (CPAP) ventilation POCT GLUCOSE DEVICE Routine 02/01/2025 8 :16 AM CDT COLONOSCOPY 11/16/2024 8:33 AM CDT LIPID PANEL Routine 09/12/2024 9:08 AM CDT Other hyperlipidemia ALBUMIN CREATININE RATIO, URINE Routine 09/12/2024 9:08 AM CDT Type 2 diabetes mellitus with other specified complication, without long-term current use of insulin (HCC) DIABETES EYE EXAM Routine 09/08/2024 MAMMOGRAPHY Routine 04/08/2024 DEXA AXIAL SKELETON BONE DENSITY 1 OR MORE SITES Schedule Routine, Read Routine (OP Routine) 12/21/2023 10:45 AM CDT Postmenopausal status HEPATITIS C ANTIBODY Routine 11/19/2020 10:52 AM CDT Need for hepatitis C screening test from Last 3 Months or Most Recently Relevant to Health Maintenance Results * XR Chest 1 Vw (03/22/2025 1:08 PM CDT) Anatomical Region Laterality Modality Body, Chest N/A Computed Radiogr aphy 03/22/2025 1:21 PM CDT Impressions 03/22/2025 1:21 PM CDT 1. Hypoglossal nerve stimulator which follows an expected course. 2. There is no evidence of pneumothorax. 3. Otherwise chest radiograph within expected limits. COMMENT: Please see above for additional findings. Electronically signed by: Darrell Junior M.D. Narrative 03/22/2025 1:21 PM CDT Chest radiograph, one view HISTORY: Obstructive sleep apnea, hypoglossal nerve stimulator placement, postoperative care. Comparison: None available. FINDINGS: A frontal view of the chest is presented. An electronic module is shown projected over the right upper chest. A lead extends cephalad in the right side of the neck to the expected location of the hypoglossal nerve. The mediastinum, cardiac silhouette and costophrenic angles are within expected limits. No confluent infiltrates are appreciated. There is no evidence of pneumothorax. The remainder the examination is within expected limits. Procedure Note Darrell Junior MD - 03/22/2025 Chest radiograph, one view HISTORY: Obstructive sleep apnea, hypoglossal nerve stimulator placement, postoperative care. Comparison: None available. FINDINGS: A frontal view of the chest is presented. An electronic module is shown projected over the right upper chest. A lead extends cephalad in the right side of the neck to the expected location of the hypoglossal nerve. The mediastinum, cardiac silhouette and costophrenic angles are within expected limits. No confluent infiltrates are appreciated. There is no evidence of pneumothorax. The remainder the examination is within expected limits. IMPRESSION: 1. Hypoglossal nerve stimulator which follows an expected course. 2. There is no evidence of pneumothorax. 3. Otherwise chest radiograph within expected limits. COMMENT: Please see above for additional findings. Electronically signed by: Darrell Junior M.D. Santino Alfredo MD IMG XR PROCEDURES Final Result * XR Neck Soft Tissue (03/22/2025 1:08 PM CDT) Anatomical Region Laterality Modality Head and Neck N/A Computed Radiogr aphy 03/22/2025 1:22 PM CDT Impressions 03/22/2025 1:22 PM CDT 1. Hypoglossal nerve stimulator which follows an expected course. 2. There is no evidence of pneumothorax. 3. Otherwise chest radiograph within expected limits. COMMENT: Please see above for additional findings. Electronically signed by: Darrell Junior M.D. Narrative 03/22/2025 1:22 PM CDT Soft tissue neck, 2 views HISTORY: Obstructive sleep apnea, hypoglossal nerve stimulator placement, postoperative care. Comparison: None available. FINDINGS: A frontal view of the chest is presented. An electronic module is shown projected over the right upper chest. A lead extends cephalad in the right side of the neck to the expected location of the hypoglossal nerve. The mediastinum, cardiac silhouette and costophrenic angles are within expected limits. No confluent infiltrates are appreciated. There is no evidence of pneumothorax. The remainder the examination is within expected limits. Procedure Note Darrell Junior MD - 03/22/2025 Soft tissue neck, 2 views HISTORY: Obstructive sleep apnea, hypoglossal nerve stimulator placement, postoperative care. Comparison: None available. FINDINGS: A frontal view of the chest is presented. An electronic module is shown projected over the right upper chest. A lead extends cephalad in the right side of the neck to the expected location of the hypoglossal nerve. The mediastinum, cardiac silhouette and costophrenic angles are within expected limits. No confluent infiltrates are appreciated. There is no evidence of pneumothorax. The remainder the examination is within expected limits. IMPRESSION: 1. Hypoglossal nerve stimulator which follows an expected course. 2. There is no evidence of pneumothorax. 3. Otherwise chest radiograph within expected limits. COMMENT: Please see above for additional findings. Electronically signed by: Darrell Junior M.D. Santino Alfredo MD IMG XR PROCEDURES Final Result * POCT glucose (03/22/2025 12:35 PM CDT) [facility] Signature Glucose, POC 131 70 - 199 mg/dL Comment: For Glucose values <35 mg/dl when Hematocrit is >60 mg/dl,the test may not accurately detect significant hypoglycemia,and testing in the Laboratory should be considered if clinically indicated. Blood 03/22/2025 12:3 5 PM CDT 03/22/2025 12:35 PM CDT Santino Alfredo MD LAB POCT ORDERABLES - DE VICE Final Result [facility] [address] Department [place] [address] * WI AN ELECTIVE ENDOTRACHEAL AIRWAY, WI AN PROCEDURE PLACEHOLDER (03/22/2025 10:49 AM CDT) Narrative Paula Edge CRNA - 03/22/2025 10:49 AM CDT Paula Edge CRNA 03/22/2025 10:50 AM Airway Patient location: OR Urgency: elective Date/time: 03/22/2025 10:39 AM Indications for airway management: anesthesia Difficult airway: no Staff: Placed by: FIRER LOCOMOTIVE CRANE: Paula Edge CRNA Emergent airway documentation: Risks and benefits discussed: yes Consent obtained: yes Consent given by: patient Airway prep: Preoxygenated: yes Patient position: sniffing Mask difficulty assessment: 0 - not attempted Sedation level during airway: GA Final airway details: Final airway type: endotracheal airway Tube type: ETT ETT size: 7.0 mm Cuffed: yes Technique used for successful ETT placement: direct laryngoscopy Devices/Methods used in placement: stylet Insertion site: oral Blade type: Rodo Blade size: 4 Cormack-Lehane (direct): grade I - full view of glottis Cuff volume: 8 mL Cuff inflated with: air ETT to lips: 21 cm Placement verified by: auscultation and CO2 detection Airway secured with: silk tape Number of attempts: 1 Additional comments: Atraumatic intubation, dentition and lips unchanged from baseline. us Raciel Rios MD ANESTHESIA ORDERABLES Final Result * POCT glucose (03/22/2025 10:06 AM CDT) [facility] Signature Glucose, POC 96 70 - 199 mg/dL Comment: For Glucose values <35 mg/dl when Hematocrit is >60 mg/dl,the test may not accurately detect significant hypoglycemia,and testing in the Laboratory should be considered if clinically indicated. Blood 03/22/2025 10:0 6 AM CDT 03/22/2025 10:06 AM CDT Santino Alfredo MD LAB POCT ORDERABLES - DE VICE Final Result [facility] [address] Department [place] [address] * Magnesium (02/03/2025 9:43 AM CDT) Magnesium 1.7 1.5 - 2.5 mg/dL [facility] Blood 02/03/2025 9:43 AM CDT 02/03/2025 9:43 AM CDT Aurelia Huitron MD LAB BLOOD ORDERABLE S Final Result Performing Organization Address City/[facility]/ZIP Co de Phone Number [facility] [address] [place] [address] * (ABNORMAL) Hemoglobin A1c (02/03/2025 9:41 AM CDT) Hgb A1C 6.3(H) <5.7 % of total Hgb [facility] Comment: For someone without known diabetes, [...] for diagnosis of diabetes for children. Blood 02/03/2025 9:41 AM CDT 02/03/2025 9:42 AM CDT us Aurelia Huitron MD LAB BLOOD ORDERABLE S Final Result [facility] [address] [place] [address] * (ABNORMAL) Comprehensive metabolic panel (02/03/2025 9:41 AM CDT) Pathologist [facility] Glucose 93 65 - 99 mg/dL [facility] Comment: Fasting reference interval BUN 12 7 - 25 mg/dL [facility] Creatinine 0.66 0.60 - 1.00 mg/dL [facility] eGFR 93 > OR = 60 mL/min/1.7 3m2 [facility] BUN/creat ratio SEE NOTE: 6 - 22 (calc) [facility] Comment: Not Reported: BUN and Creatinine are within reference range. Sodium 133(L) 135 - 146 mmol/L [facility] Potassium, pl 4.7 3.5 - 5.3 mmol/L [facility] Chloride 95(L) 98 - 110 mmol/L [facility] CO2 29 20 - 32 mmol/L [facility] Calcium 9.9 8.6 - 10.4 mg/dL [facility] Protein, sr 7.2 6.1 - 8.1 g/dL [facility] Albumin 4.8 3.6 - 5.1 g/dL [facility] GLOBULIN 2.4 1.9 - 3.7 g/dL (calc) [facility] Alb/glob ratio 2.0 1.0 - 2.5 (calc) [facility] Bilirubin, total 0.5 0.2 - 1.2 mg/dL [facility] Alk phos 50 37 - 153 U/L [facility] AST 15 10 - 35 U/L [facility] ALT (SGPT) 16 6 - 29 U/L [facility] Blood 02/03/2025 9:41 AM CDT 02/03/2025 9:42 AM CDT us Aurelia Huitron MD LAB BLOOD ORDERABLE S Final Result [facility] [address] [address] * REFLEXIVE URINE CULTURE (02/03/2025 9:39 AM CDT) Urine culture [facility] Comment:NO CULTURE INDICATED 02/03/2025 9:39 AM CDT 02/03/2025 9:40 AM CDT us Aurelia Huitron MD LAB MICROBIOLOGY - GENERAL ORDERABLES Final Result [facility] [address] [place] [address] * Urinalysis reflex to microscopic and culture Urine, clean voided (02/03/2025 9:39 AM CDT) Color, ur YELLOW YELLOW [facility] Appearance, ur CLEAR CLEAR [facility] Specific gravity 1.012 1.001 - 1.035 [facility] pH, ur 6.0 5.0 - 8.0 [facility] Glucose, ur NEGATIVE NEGATIVE [facility] Bilirubin, ur NEGATIVE NEGATIVE [facility] Ketones, ur NEGATIVE NEGATIVE [facility] Blood, ur NEGATIVE NEGATIVE [facility] Protein, ur, quant NEGATIVE NEGATIVE [facility] Nitrites, ur NEGATIVE NEGATIVE [facility] Leukocyte esterase, ur NEGATIVE NEGATIVE [facility] WBC, ur NONE SEEN < OR = 5 /HPF [facility] RBC, ur NONE SEEN < OR = 2 /HPF [facility] Epithelial cells, squamous, ur NONE SEEN < OR = 5 /HPF [facility] Bacteria, ur, quant NONE SEEN NONE SEEN /HPF [facility] Hyaline cast NONE SEEN NONE SEEN /LPF [facility] Note [facility] Comment: This urine was analyzed for the presence of WBC, RBC, bacteria, casts, and other formed elements. Only those elements seen were reported. Urine, clean voided 02/03/2025 9:39 AM CDT 02/03/2025 9:40 AM CDT Aurelia Huitron MD LAB MICROBIOLOGY - GENERAL ORDERABLES Final Result Performing Organization Address [facility] Co de Phone Number [facility] [address] [place] [address] * POCT glucose (02/01/2025 9:43 AM CDT) Glucose, POC 97 70 - 199 mg/dL Comment: For Glucose values <35 mg/dl when Hematocrit is >60 mg/dl,the test may not accurately detect significant hypoglycemia,and testing in the Laboratory should be considered if clinically indicated. Blood 02/01/2025 9:43 AM CDT 02/01/2025 9:43 AM CDT us Santino Alfredo MD LAB POCT ORDERABLES - DE VICE Final Result Performing Organization Address [facility] Phone Number [facility] [address] Department of Laboratories [place], [place] [id number] * POCT glucose (02/01/2025 8:16 AM CDT) Glucose, POC 97 70 - 199 mg/dL Comment: For Glucose values <35 mg/dl when Hematocrit is >60 mg/dl,the test may not accurately detect significant hypoglycemia,and testing in the Laboratory should be considered if clinically indicated. Blood 02/01/2025 8:16 AM CDT 02/01/2025 8:16 AM CDT us Santino Alfredo MD LAB POCT ORDERABLES - DE VICE Final Result Performing Organization Address [facility] Co de Phone Number [facility] [address] Department [place] [address] * Colonoscopy (11/16/2024 8:33 AM CDT) Anatomical Region Laterality Modality Other Narrative Procedure Note Marlon Red MD - 11/16/2024 8:33 AM CDT [facility] GI ENDOSCOPY Patient Name: Valeria Johnson Procedure Date: 11/16/2024 8:33 AM Date of : 1950 Admit Type: Outpatient Age: 74 Gender: Female Attending MD: Marlon Red M.D. Room: [facility] ENDOSCOPY ROOM 06 Note Status: Finalized Procedure: Colonoscopy Indications: Screening for colorectal malignant neoplasm,average risk Referring MD: Aurelia Huitron M.D. Providers: Marlon Red M.D. Medicines: See the Anesthesia note for documentation of the administered medications Complications: No immediate complications. Estimated Blood Loss: Estimated blood loss was minimal. Procedure: Pre-Anesthesia Assessment: - Prior to the procedure, a History and Physicalwas performed, and patient medications and allergieswere reviewed. The risks and benefits of the procedureand the sedation options and risks were discussed withthe patient. All questions were answered and informed consent was obtained. Patient identification and proposed procedure were verified. After reviewingthe risks and benefits, the patient was deemed in satisfactory condition to undergo the procedure.The anesthesia plan was to use monitored anesthesiacare (MAC). Immediately prior to administration of medications, the patient was re-assessed foradequacy to receive sedatives. The heart rate, respiratory rate, oxygen saturations, blood pressure, adequacyof pulmonary ventilation, and response to care were monitored throughout the procedure. The physical status of the patient was re-assessed after the procedure. The benefits, risks and alternatives of theprocedure and sedation were discussed and informed consentwas obtained. All questions were answered. Please referto the signed informed consent document in the medical record. The scope was passed under direct vision.The CF-FB534S colonoscope was introduced through theanus and advanced to the cecum, identified byappendiceal orifice and ileocecal valve. The colonoscopy was performed without difficulty. The patient tolerated the procedure well. The quality of the bowel preparation was good. Scope insertion time was 5 minutes. Scope withdrawal time was 10 minutes. Prep was administered in a split dose. Findings: The perianal and digital rectal examinations were normal. A 4 mm polyp was found in the ascending colon. The polyp was sessile. The polyp was removed with a cold snare. Resection, not retrieved. A 5 mm polyp was found in the sigmoid colon. The polyp was sessile.The polyp was removed with a cold snare. Resection and retrieval were complete. Small internal hemorrhoids. Impression: - One 4 mm polyp in the ascending colon, removedwith a cold snare. Resected, not retrieved. - One 5 mm polyp in the sigmoid colon, removed witha cold snare. Resected and retrieved. - Hemorrhoids. Recommendation: - Await pathology results. - Resume previous diet today. - Discharge patient to home. - Repeat colonoscopy in 5 years for surveillance. - I would be happy to see you in my GI clinic ifyou have further questions or concerns or if symptoms progress Marlon Red M.D. 11/16/2024 9:19:23 AM Number of Addenda: 0 Note Initiated On: 11/16/2024 8:33 AM Recognized by the [employer] for promoting quality in endoscopy us Marlon Red MD ENDOSCOPY PROCEDURES Luz Elena l Result * Albumin Creatinine Ratio, Urine (09/12/2024 9:08 AM CDT) Creatinine, ur 132 20 - 275 mg/dL [facility] Microalbumin, ur 1.2 See Note: mg/dL [facility] Comment: Reference Range: Reference Range Not established Microalbumin/creat ratio 9 <30 mg/g creat [facility] Comment: The ADA defines abnormalities in albumin excretion as follows: Albuminuria Category Result (mg/g creatinine) Normal to Mildly increased <30 Moderately increased 30-299 Severely increased > OR = 300 The ADA recommends that at least two of three specimens collected within a 3-6 month period be abnormal before considering a patient to be within a diagnostic category. Urine 09/12/2024 9:08 AM CDT 09/12/2024 9:09 AM CDT Narrative [facility] - 09/14/2024 1:26 AM CDT FASTING:YES FASTING: YES us Aurelia uHitron MD LAB URINE ORDERABLE S Final Result [facility] [address] [place] [address] * Lipid panel (09/12/2024 9:08 AM CDT) Pathologist [facility] Cholesterol 169 <200 mg/dL [facility] HDL 87 > OR = 50 mg/dL [facility] Triglycerides 143 <150 mg/dL [facility] LDL 59 mg/dL (calc) [facility] Comment: Reference range: <100 Desirable range <100 mg/dL for primary prevention; <70 mg/dL for patients with CHD or diabetic patients with > or = 2 CHD risk factors. LDL-C is now calculated using the Callum-Melissa calculation, which is a validated novel method providing better accuracy than the Friedewald equation in the estimation of LDL-C. Callum SS et al. LAILA. 2013;310(19): 2022-5386 (http://education.Syntarga/faq/WXH280) Chol/HDL ratio 1.9 <5.0 (calc) [facility] Non-HDL, (LDL+VLDL) 82 <130 mg/dL (calc) [facility] Comment: For patients with diabetes plus 1 major ASCVD risk factor, treating to a non-HDL-C goal of <100 mg/dL (LDL-C of <70 mg/dL) is considered a therapeutic option. Blood 09/12/2024 9:08 AM CDT 09/12/2024 9:09 AM CDT Narrative [facility] - 09/14/2024 1:26 AM CDT FASTING:YES FASTING: YES Aurelia Huitron MD LAB BLOOD ORDERABLE S Final Result [facility] [address] [place] [address] * DIABETES EYE EXAM (09/08/2024) SCRIBED DIABETIC DILATED EYE EXAM Abnormal Historical Provider HEALTH MAINTENANCE Final Result * MAMMOGRAPHY (04/08/2024) Mammography Normal Historical Provider HEALTH MAINTENANCE Final Result * Dexa Axial Skeleton Bone Density 1 or 2 Site (12/21/2023 10:45 AM CDT) Anatomical Region Laterality Modality Body N/A Mammography 12/21/2023 11:1 1 AM CDT Narrative 12/21/2023 11:11 AM CDT EXAM DESCRIPTION: DEXA AXIAL SKELETON BONE DENSITY 1 OR MORE SITES REASON FOR STUDY: 73 y/o year old F with given history of: Postmenopausal status. History of parent with hip fracture, glucocorticoid use and 3+ alcoholic drinks per day. Patient takes calcium. 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 According to the National Osteoporosis Foundation guidelines, postmenopausal [...] Elisha Mahoney M.D. TW: TW Report ID: [id number] Reading Location: [id number] Procedure Note Elisha Mahoney MD - 12/21/2023 EXAM DESCRIPTION: DEXA AXIAL SKELETON BONE DENSITY 1 OR MORE SITES REASON FOR STUDY: 73 y/o year old F with given history of:Postmenopausal status. History of parent with hip fracture, glucocorticoid use and 3+ alcoholic drinks per day. Patient takes calcium. 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 TW: WALT Report ID: [id number] Reading Location: [place] [address] us Aurelia Huitron MD IMG DXA PROCEDURES Final Result * Hepatitis C antibody (11/19/2020 10:52 AM CDT) Hep C Ab NONREACT NONREACTIVE [facility] Comment: Siemens DealoaurXP using KAY (chemiluminescent immunoassay) technology. NONREACTIVE: Antibodies to Hepatitis C not detected. This does not exclude early acute Hepatitis C infection, possibility of exposure to Hepatitis C, antibodies below detection limit, or to lack of antibody reactivity to the antigen used in this assay. EQUIVOCAL: Antibodies to Hepatitis C may or may not be present. Sample to be confirmed by real-time PCR method. REACTIVE: Antibodies to Hepatitis C detected.Sample to be confirmed by real-time PCR method. Blood specimen (specimen) 11/19/2020 10:52 AM CDT 11/19/2020 11:04 AM CDT Narrative Resulting Agency Comment CLI us Aurelia Huitron MD LAB MICROBIOLOGY - GENERAL ORDERABLES Final Result [facility] [address] [place] [address], [facility] [phone] from Last 3 Months or Most Recently Relevant to Health Maintenance Insurance [employer] MEDIC[employer] PPO [employer] MEDIC[employer] PPO Advance Directives For more information, please contact: [phone] * Full Code (Latest Code Status on File) Date Activated Date Inactivated Comments 03/22/2025 12:37 PM 03/22/2025 6:11 PM 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
== END 2025-04-10 10:17 | disposition home or self-care (01) ==
LOC: ANHFOHIMG 10:18
PROVIDERS: PCP Family Medicine; Visit Provider Family Medicine
DX: Z12.31 Encounter for screening mammogram for malignant neoplasm of breast (principal)
CPT/HCPCS: 77063; 77067